=== PATIENT | female | born 1970 | race Caucasian/White ===

== ENCOUNTER 2019-12-31 10:27 | Outpatient (REF) | payer OTHER, SELFPAY ==
--- NOTE | 2019-12-31 | US_ITS ---
EXAMINATION: US ABDOMEN COMPLETE CLINICAL INFORMATION: GONZALEZ COMPARISON: 11/06/2018 TECHNIQUE: Real-time imaging of the abdominal viscera. FINDINGS: PANCREAS: The visualized pancreatic head and body are normal in appearance. The remainder of the pancreas is obscured from visualization by the overlying bowel gas. ABDOMINAL AORTA: The proximal, middle, and distal aortic segments are normal in caliber. INFERIOR VENA CAVA: Visualized portions are normal. LIVER: Diffuse increased echogenicity. No focal lesion or intrahepatic biliary duct dilatation. GALLBLADDER: Surgically absent COMMON BILE DUCT: Proximally measures 1.1 cm. RIGHT KIDNEY: Normal. No hydronephrosis. No renal calculi or focal parenchymal lesions. The kidney measures 11.9 cm in maximum dimension. LEFT KIDNEY: Normal. No hydronephrosis. No renal calculi or focal parenchymal lesions.. The kidney measures 12.6 cm in maximum dimension. SPLEEN: Normal. The spleen measures 11.3 cm in maximum dimension. FREE FLUID: None. IMPRESSION: 1. Diffuse increased liver echogenicity, nonspecific, more commonly seen with hepatic steatosis. No focal lesions. 2. Status postcholecystectomy. 3. CBD is prominent measuring 1.1 cm. This could be related to cholecystectomy. Correlate with liver function tests.
[2019-12-31 11:51] LABS: Alanine Aminotransferase 64 U/L (0-31); Albumin Level 3.9 g/dL (3.5-5.0); Alkaline Phosphatase 107 U/L (39-117); Anion Gap 13 (12-20); Aspartate Amino Transferase 53 U/L (5-31); Bilirubin Total 0.7 mg/dL (0.0-1.0); Blood Urea Nitrogen 9 mg/dL (9-16); Calcium 8.7 mg/dL (8.4-10.2); Carbon Dioxide 24 mmol/L (22-29); Chloride 105 mmol/L (96-108); Estimated Glomerular Filt Rate > 60; Glucose Random 104 mg/dL (60-115); Sodium 138 mmol/L (135-145); Total Protein 7.1 g/dL (6.5-8.0)
[2020-01-07 07:52] LABS: Alpha Fetoprotein 1.6 ng/mL
== END 2019-12-31 10:28 | disposition home or self-care (01) ==
LOC: HO.US 10:27
PROVIDERS: PCP Internal Medicine; Visit Provider Nurse Practitioner
DX: K75.81 Nonalcoholic steatohepatitis (NASH) (principal)
CPT/HCPCS: 76700; 80053; 82105

== ENCOUNTER 2020-01-06 09:31 | Outpatient (REF) | payer OTHER, SELFPAY | END 2020-01-06 09:32 | disposition home or self-care (01) | LOC: HO.LAB 09:31 | PROVIDERS: PCP Internal Medicine; Visit Provider Internal Medicine | DX: Z20.828 Contact with and (suspected) exposure to other viral communicable diseases (principal) | CPT/HCPCS: 87635 ==

== ENCOUNTER → 2020-01-14 13:13 | Outpatient (BNVA) | payer OTHER, SELFPAY | PROVIDERS: PCP Internal Medicine; Referring Provider Internal Medicine; Visit Provider Nurse Practitioner | DX: K21.9 Gastro-esophageal reflux disease without esophagitis (principal); K75.81 Nonalcoholic steatohepatitis (NASH); R09.82 Postnasal drip; K91.5 Postcholecystectomy syndrome; K58.2 Mixed irritable bowel syndrome; Z79.899 Other long term (current) drug therapy | CPT/HCPCS: 99214 ==

== ENCOUNTER → 2020-02-05 10:54 | Outpatient (REF) | payer OTHER, SELFPAY ==
--- NOTE | 2020-02-05 11:00 | CA_ITS ---
Acquisition Time: 2020-02-05 11:19:37 Total Exercise Time: 00:06:35 Test Indications: Chest Pain Medications: SEE H Protocol: KRISTIN Max HR: 150 BPM 88% of Pred: 169 BPM Max BP: 120/080 mmHG Max Work Load: 7.8 METS Exercise stress ECHO using Kristin protocol, total of 6 min 35 sec. METS 7.8, THR up to 88%. Pt tolerated well, denies any anginal sx. EKG without any arrhythmias, no ischemic changes seen on EKG tracing during exercise or in recovery. ECHO images taken at rest and immediately at peak exercise, Definity contrast used to obtain better imaging. Normotensiver esponse to exercise. Test reviewed with Dr. Acevedo Referred By: Pravin Guzman Overread By: Percy Bustamante
== END ==
LOC: HO.CARD 10:54
PROVIDERS: PCP Internal Medicine Cardiovascular Disease; Visit Provider Internal Medicine Cardiovascular Disease
DX: R07.9 Chest pain, unspecified (principal)
CPT/HCPCS: 93350; Q9957

== ENCOUNTER → 2020-02-06 13:20 | Outpatient (BNVA) | payer OTHER, SELFPAY | PROVIDERS: PCP Internal Medicine; Visit Provider Nurse Practitioner | DX: K75.81 Nonalcoholic steatohepatitis (NASH) (principal); K21.9 Gastro-esophageal reflux disease without esophagitis; R09.82 Postnasal drip; K58.2 Mixed irritable bowel syndrome; Z90.49 Acquired absence of other specified parts of digestive tract | CPT/HCPCS: Q3014 ==

== ENCOUNTER 2020-02-11 08:49 | Outpatient (REF) | payer OTHER, SELFPAY | END 2020-02-11 08:50 | disposition home or self-care (01) | LOC: HO.LAB 08:49 | PROVIDERS: Visit Provider Internal Medicine | DX: Z20.828 Contact with and (suspected) exposure to other viral communicable diseases (principal) | CPT/HCPCS: C9803; U0003 ==

== ENCOUNTER → 2020-04-16 11:20 | Outpatient (BNVA) | payer OTHER, SELFPAY | PROVIDERS: PCP Internal Medicine; Visit Provider Surgery Vascular Surgery | DX: I83.11 Varicose veins of right lower extremity with inflammation (principal) | CPT/HCPCS: 99202 ==

== ENCOUNTER → 2020-04-22 13:04 | Outpatient (BNVA) | payer OTHER, SELFPAY | PROVIDERS: PCP Internal Medicine; Visit Provider Internal Medicine Pulmonary Disease | DX: J45.40 Moderate persistent asthma, uncomplicated (principal); J20.9 Acute bronchitis, unspecified | CPT/HCPCS: 99212 ==

== ENCOUNTER 2020-04-30 10:26 | Outpatient (REF) | payer OTHER, SELFPAY ==
--- NOTE | ~2020-04-30 | US_ITS ---
EXAMINATION: RIGHT and LEFT LOWER EXTREMITY VENOUS ULTRASOUND (Reflux Exam) CLINICAL INDICATION: Varicose veins right lower extremity with inflammation COMPARISON: None. TECHNIQUE: Color flow triplex imaging and compression Doppler was performed to evaluate both the deep and the superficial systems bilaterally. To evaluate the superficial system, the examination was performed in the upright position. Color-flow Doppler ultrasound and compression ultrasound were utilized. In addition, maneuvers were utilized to demonstrate reflux. FINDINGS: 1. DEEP VENOUS ULTRASOUND OF THE RIGHT LOWER EXTREMITY: Respiratory variation, normal compression and augmented flow are noted in the right common femoral vein as well as the right popliteal vein and there is no evidence of deep venous thrombosis at these locations. There is no evidence of reflux in the deep system in either the common femoral vein or the popliteal vein. There is no evidence of a Ayers's cyst. 2. SUPERFICIAL ULTRASOUND WITH DOPPLER OF RIGHT LOWER EXTREMITY: The right great saphenous vein at the saphenofemoral junction measures 5 mm, at the mid thigh it was not visualized, zwfep-gfc-iqet 1 mm, cmekp-xlg-ijwz 4 mm, at mid calf 3 mm and at the ankle measures 3 mm. There was reflux demonstrated within the greater saphenous vein at the level of the knee and below the knee up to approximately 2.6 seconds of insufficiency. The right small saphenous vein measures 2 mm and shows no reflux. There is a 3 mm etiquette coach seen in the right mid thigh without reflux. Right proximal and distal thigh varicose veins are present measuring up to 4 mm in diameter without reflux. 3. DEEP VENOUS ULTRASOUND OF THE LEFT LOWER EXTREMITY: Respiratory variation, normal compression and augmented flow are noted in the left common femoral vein as well as the left popliteal vein and there is no evidence of deep venous thrombosis at these locations. There is no evidence of reflux in the deep system in either the common femoral vein or the popliteal vein. . There is no evidence of a Ayers's cyst. 4. SUPERFICIAL ULTRASOUND WITH DOPPLER OF LEFT LOWER EXTREMITY: Left great saphenous vein at the saphenofemoral junction measures 7 mm, at the mid thigh 3 mm, yixrk-urx-urad 3 mm, ctpnh-wxv-zhxd 3 mm, at mid calf 2 mm and at the ankle measures 2 mm. There is no reflux demonstrated in the left great saphenous vein. The left small saphenous vein measures 2 mm and shows reflux within the distal calf to approximately 1 second duration. There is a 3 mm mid thigh etiquette coach without reflux. There is a proximal thigh varicose vein measures approximately 4 mm in diameter without reflux. US/US venous duplex LE BI IMPRESSION: 1. No evidence of reflux or thrombus in the common femoral veins or popliteal veins bilaterally. 2. Reflux to greater than 2.5 seconds within the right greater saphenous vein at the levels of the knee and below the knee without reflux identified at the saphenofemoral junction. 3. Left small saphenous vein reflux to approximately 1 second within the distal calf.
== END 2020-04-30 10:27 | disposition home or self-care (01) ==
LOC: HO.US 10:26
PROVIDERS: PCP Internal Medicine; Visit Provider Surgery Vascular Surgery
DX: I83.11 Varicose veins of right lower extremity with inflammation (principal); I83.893 Varicose veins of bilateral lower extremities with other complications
CPT/HCPCS: 93970

== ENCOUNTER → 2020-05-12 10:47 | Outpatient (BNVA) | payer OTHER, SELFPAY | PROVIDERS: PCP Internal Medicine; Visit Provider Surgery Vascular Surgery | DX: I83.11 Varicose veins of right lower extremity with inflammation (principal) | CPT/HCPCS: 99212 ==

== ENCOUNTER 2020-05-20 09:09 | Outpatient (REF) | payer OTHER, SELFPAY ==
--- NOTE | 2020-05-20 09:08 | EMG_ITS ---
HISTORY OF PRESENT ILLNESS: This is a 50-year-old woman with 8-month history of pain and numbness in the upper extremities bilaterally symmetrical. She has hypothyroidism, diabetes, and hypertension, is currently on metformin, Synthroid, and metoprolol. PHYSICAL EXAMINATION: On examination, she is alert and oriented with normal intellectual functions. Cranial nerves II through XII are normal. Muscle tone and strength are normal in all 4 extremities. No Tinel or Phalen sign. IMPRESSION: Rule out carpal tunnel syndrome. Nerve conduction EMG study: Normal electrodiagnostic study of the upper extremities with no evidence of diffuse neuropathy, nerve entrapment, or carpal tunnel syndrome. Normal EMG of the left C5 through T1 innervated muscles. MD HIEU Mccarty/RADHA / [id number]
== END 2020-05-20 09:10 | disposition home or self-care (01) ==
LOC: HO.NEURO 09:09
PROVIDERS: Visit Provider Internal Medicine
DX: G56.03 Carpal tunnel syndrome, bilateral upper limbs (principal)
CPT/HCPCS: 95885; 95913

== ENCOUNTER → 2020-05-22 13:36 | Outpatient (BNVA) | payer OTHER, SELFPAY | PROVIDERS: PCP Internal Medicine; Visit Provider Internal Medicine Pulmonary Disease | DX: Z13.89 Encounter for screening for other disorder (principal) | CPT/HCPCS: Q3014 ==

== ENCOUNTER 2020-06-09 08:30 | Outpatient (REF) | payer OTHER, SELFPAY | END 2020-06-09 08:31 | disposition home or self-care (01) | LOC: HO.LAB 08:30 | PROVIDERS: Visit Provider Internal Medicine | DX: Z20.822 Contact with and (suspected) exposure to COVID-19 (principal) | CPT/HCPCS: 36415; C9803; U0003; U0005 ==

== ENCOUNTER → 2020-07-31 14:49 | Outpatient (BNVA) | payer OTHER, SELFPAY | PROVIDERS: PCP Internal Medicine; Referring Provider Internal Medicine; Visit Provider Nurse Practitioner | DX: K58.2 Mixed irritable bowel syndrome (principal); K91.5 Postcholecystectomy syndrome; K21.9 Gastro-esophageal reflux disease without esophagitis; K75.81 Nonalcoholic steatohepatitis (NASH); R19.7 Diarrhea, unspecified | CPT/HCPCS: Q3014 ==

== ENCOUNTER 2020-08-04 11:04 | Outpatient (REF) | payer OTHER, SELFPAY ==
[2020-08-04 12:40] LABS: Alanine Aminotransferase 47 U/L (0-31); Albumin Level 3.8 g/dL (3.5-5.0); Alkaline Phosphatase 114 U/L (39-117); Anion Gap 12 (12-20); Aspartate Amino Transferase 42 U/L (5-31); Bilirubin Total 0.6 mg/dL (0.0-1.0); Blood Urea Nitrogen 9 mg/dL (9-16); Carbon Dioxide 26 mmol/L (22-29); Chloride 106 mmol/L (96-108); Estimated Glomerular Filt Rate > 60; Glucose Random 99 mg/dL (60-115); Sodium 140 mmol/L (135-145); Total Protein 7.1 g/dL (6.5-8.0)
[2020-08-05 12:11] LABS: Alpha Fetoprotein 1.9 ng/mL
[2020-08-07 21:52] LABS: Gliadin Deamidated IgA Ab 13 Units; Gliadin Deamidated IgG Ab 2 Units; Transglutaminase Ab IgG 1 U/mL; Transglutaminase IgA 1 U/mL
== END 2020-08-04 11:05 | disposition home or self-care (01) ==
LOC: HO.LAB 11:04
PROVIDERS: PCP Internal Medicine; Visit Provider Nurse Practitioner
DX: R19.7 Diarrhea, unspecified (principal); K75.81 Nonalcoholic steatohepatitis (NASH)
CPT/HCPCS: 36415; 80053; 82105; 83516

== ENCOUNTER 2020-08-06 13:28 | Outpatient (REF) | payer OTHER, SELFPAY ==
[2020-08-06 14:15] LABS: CDIFF Ag Negative (Negative); CDIFF Internal ctrl Dots and bkg OK (V); CDiff Toxin Negative (Negative)
== END 2020-08-06 13:29 | disposition home or self-care (01) ==
LOC: HO.LNP 13:28
PROVIDERS: Visit Provider Nurse Practitioner
DX: R19.7 Diarrhea, unspecified (principal)
CPT/HCPCS: 87045; 87046; 87077; 87324; 87338; 87449

== ENCOUNTER → 2020-08-27 14:09 | Outpatient (BNVA) | payer OTHER, SELFPAY | PROVIDERS: PCP Internal Medicine; Visit Provider Internal Medicine Pulmonary Disease | DX: J45.40 Moderate persistent asthma, uncomplicated (principal); J20.9 Acute bronchitis, unspecified; Z91.09 Other allergy status, other than to drugs and biological substances | CPT/HCPCS: 99212 ==

== ENCOUNTER → 2020-09-15 14:49 | Outpatient (BNVA) | payer OTHER, SELFPAY | PROVIDERS: Visit Provider Nurse Practitioner | DX: Z13.89 Encounter for screening for other disorder (principal) | CPT/HCPCS: Q3014 ==

== ENCOUNTER → 2020-10-27 09:43 | Outpatient (BNVA) | payer OTHER, SELFPAY | PROVIDERS: Visit Provider Nurse Practitioner | DX: K21.9 Gastro-esophageal reflux disease without esophagitis (principal); K75.81 Nonalcoholic steatohepatitis (NASH); K91.5 Postcholecystectomy syndrome; R14.0 Abdominal distension (gaseous); R19.7 Diarrhea, unspecified | CPT/HCPCS: Q3014 ==

== ENCOUNTER 2020-11-09 08:42 | Outpatient (REF) | payer OTHER, SELFPAY ==
--- NOTE | ~2020-11-09 | US_ITS ---
EXAMINATION: US ABDOMEN LIMITED CLINICAL INFORMATION: GONZALEZ. COMPARISON: None TECHNIQUE: Real-time imaging of the right upper quadrant abdominal viscera. FINDINGS: PANCREAS: Normal. LIVER: The liver is normal in size. The liver contour is normal. Parenchymal echogenicity is increased No focal hepatic lesion. There is no intrahepatic biliary duct dilatation seen. GALLBLADDER: Normal. The gallbladder is physiologically distended without evidence of stones, sludge, polyps, wall thickening or pericholecystic fluid. COMMON BILE DUCT: Normal in caliber measuring 0.2 cm in diameter. RIGHT KIDNEY: Normal. No hydronephrosis. No renal calculi or focal parenchymal lesions. The kidney measures 11.4 cm in maximum dimension. FREE FLUID: None. US/US abdomen limited IMPRESSION: Hepatic steatosis without focal lesion.
== END 2020-11-09 08:43 | disposition home or self-care (01) ==
LOC: HO.US 08:42
PROVIDERS: Visit Provider Nurse Practitioner
DX: K75.81 Nonalcoholic steatohepatitis (NASH) (principal)
CPT/HCPCS: 76705

== ENCOUNTER 2020-11-26 12:01 | Outpatient (REF) | payer OTHER, SELFPAY ==
--- NOTE | ~2020-11-26 | XR_ITS ---
EXAMINATION: XR ELBOW, RIGHT CLINICAL INFORMATION: Pain right elbow COMPARISON: None TECHNIQUE: AP, lateral, and oblique views of the right elbow. FINDINGS: There is normal bony mineralization. No fracture, dislocation, destructive process, or capsular effusion. There is no joint narrowing or erosive change. There is question of early spurring medial epicondyle on AP view. No olecranon spur. XR/XR elbow RT min 3V IMPRESSION: 1. No fracture, arthropathy, or effusion. 2. Question early medial epicondylar spur.
== END 2020-11-26 12:02 | disposition home or self-care (01) ==
LOC: HO.XRAY 12:01
PROVIDERS: PCP Internal Medicine; Visit Provider Internal Medicine
DX: M25.521 Pain in right elbow (principal)
CPT/HCPCS: 73080

== ENCOUNTER → 2020-12-08 11:03 | Outpatient (BNVA) | payer OTHER, SELFPAY | PROVIDERS: PCP Internal Medicine; Referring Provider Internal Medicine; Visit Provider Nurse Practitioner | DX: Z48.815 Encounter for surgical aftercare following surgery on the digestive system (principal); K91.5 Postcholecystectomy syndrome; K21.9 Gastro-esophageal reflux disease without esophagitis; K75.81 Nonalcoholic steatohepatitis (NASH) | CPT/HCPCS: 99212 ==

== ENCOUNTER → 2020-12-15 08:59 | Outpatient (REF) | payer OTHER, SELFPAY ==
--- NOTE | ~2020-12-15 | NM_ITS ---
Exercise Myocardial perfusion study Indication: Shortness of breath evaluate for myocardial ischemia Technique: The patient was brought in for an exercise perfusion study on 12/15/2020. Patient performed exercise as per Travis protocol and was injected 28 mCi of sestamibi was given intravenously one target HR was achieved. Images were obtained using the SPECT gamma camera interlaced with the gating device. Images were obtained in supine position. Resting perfusion study was performed on 12/16/2020. Patient was administered 28 mCi of sestamibi intravenously at rest. Images were then obtained in supine position. Images obtained with and without CT attenuation. Total DLP 117 mGy-cm. Images were processed with the software and compared side to side in short axis, horizontal long axis and vertical long axis views. Findings: The stress perfusion study showed nonattenuated images show mildly reduced uptake in the distal lateral wall of the LV myocardium is normally myocardium is normally perfused. Attenuation corrected images show attenuation corrected images show mildly reduced uptake in the apex of the LV myocardium.. The gated study shows normal LV systolic function with calculated LVEF of greater than 70 %. LV cavity is normal in size. The gated study shows normal systolic wall thickening and contraction of all segments. There is no transient ischemic dilation. Resting study shows nonattenuated images show mildly reduced uptake in the basal lateral wall of the LV myocardium. Attenuation corrected images are suboptimal uptake, as well as mildly to moderately thick anterior wall and apex with mild fixed defect of the LV myocardium.. Gating at rest reveals normal systolic wall motion with ejection fraction at 69%. The findings are consistent with no clear reversible defect suggestive of myocardial. NM/NM haja perf SPECT rest & str Impression: 1. Likely normal myocardial perfusion 2. Gated LVEF is greater than 70% 3. Transient ischemic dilatation not present Stress EKG is negative for ischemia
--- NOTE | 2020-12-15 09:00 | CA_ITS ---
Acquisition Time: 2020-12-15 09:19:04 Total Exercise Time: 00:07:01 Test Indications: CP, SOB Medications: SEE CHART Protocol: KRISTIN Max HR: 150 BPM 89% of Pred: 168 BPM Max BP: 128/070 mmHG Max Work Load: 8.5 METS Exercise stress test with exercise 7 min 1 sec of Kristin protocol, with mild to mod sob, no chest discomfort, without arrythmia, with normotensive response to exercise, without EKG changes meeting criteria for ischemia. Nuclear images pending. Test reviewd with Dr Acevedo,. Referred By: Hitesh Koehler Overread By: LOULOU WEST
== END ==
LOC: HO.CARD 08:59
PROVIDERS: Visit Provider Physician Assistant Medical
DX: R06.02 Shortness of breath (principal)
CPT/HCPCS: 78452; 93017; A9500

== ENCOUNTER → 2020-12-25 09:03 | Outpatient (BNVA) | payer OTHER, SELFPAY | PROVIDERS: Visit Provider Physician Assistant | DX: M77.01 Medial epicondylitis, right elbow (principal) | CPT/HCPCS: 99202 ==

== ENCOUNTER 2021-01-06 11:11 | Outpatient (RCR) | payer OTHER, SELFPAY ==
--- NOTE | 2021-01-06 12:45 | MHC.OT.OEV ---
[address] [phone] F: [phone] Occupational Therapy Evaluation Diagnosis: MEDIAL EPICONDYLITIS, RIGHT ELBOW Date of Onset: 07/18/20 Attending Provider: Rufino Lay Prescribed Treatment: EVAL AND TREAT History of Current Condition: REPORTS A FIVE MONTH HISTORY OF RIGHT ELBOW PAIN, LOCATED AT MEDIAL ASPECT. DENIES CHANGES IN ROUTINE OR BEGINNING NEW HOBBY/ WORK RELATED TASK. PROVIDED WITH CFB IN ORTHOPEDIC OFFICE. Significant Medical History: PRE-DIABETIC Precautions/Contraindications: LANGUAGE BARRIER Patient Goals: TO DECREASE PAIN AND RETURN TO DAILY ACTIVITIES Hand Dominance: Right Observations: CFB WORN TO R MEDIAL FOREARM QuickDASH Score: 89% Prior Level of Function and Occupation Self Care, Employment, Leisure: DISABLED. 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 MODERATE DIFFICULTIES WITH OPENING TIGHT JAR. UNABLE TO HOLD A GALLON OF MILK, ABLE TO CARRY <5 POUNDS IN RIGHT HAND. Sleep: REPORTS PAIN GREATEST AT NIGHT, UNABLE TO SLEEP. WAKES UP OFTEN DUE TO PAIN. Driving: DOES NOT DRIVE Pain Assessment Pain Score: 5-9/10 Pain Scale Used: Numeric (0 - 10) Pain Location and Description: R MEDIAL ELBOW 5/10 AT REST 9/10 WITH USE AND AT NIGHT Aggravating Factors: REPETITIVE MOVEMENT, LIFTING AND CARRYING >5 POUNDS Alleviating Factors: USE OF CFB, HAS NOT TRIED ICE/HEAT, IBUPROFEN HELPING Skin and Soft Tissue Assessment Skin and Soft Tissue: Swelling Comments: REPORTS EDEMA TO MEDIAL ELBOW ON RIGHT Nerve assessment Comments: REPORTS CONSTANT NUMBNESS IN ALL DIGITS OF R HAND Dexterity Assessment Dexterity: WFL Comments: AROM(PROM) Strength Elbow Flexion: Extension: Pronation: Supination: Comments: WFL Flexion: Extension: Pronation: Supination: Comments: Digits Index MCP: PIP: DIP: Long MCP: PIP: DIP: Ring MCP: PIP: DIP: Small MCP: PIP: DIP: Comments: Gross Grasp: R 25, L 15 Lateral Pinch: Two-Point Pinch: Three-Jaw Eleazar: Comments: CFB WORN FOR [address] SUPERVISOR TESTING ON RIGHT; 25 POUNDS ELBOW FLEXED, 5 POUNDS ELBOW EXTENDED NO CFB - [address] SUPERVISOR TESTING ON LEFT 15 POUNDS ELBOW FLEXED, 10 POUNDS ELBOW EXTENDED Patient Education Primary Language: Information Scientist Required: Yes Current Knowledge: Understands information with skills for self-management Teaching Method: Demonstration Handouts Verbal Education Needs Identified on Evaluation: ADL's Disease Information Equipment Use Exercise Pain Safety How did patient/family demonstrate learning? Patient demonstrates Patient verbalizes Barriers to Learning: None Readiness for Learning: Accepting Who was educated? Patient Comments: [employer] #[id number] Plan of Care Assessment: IHSAN REPORTS A FIVE MONTH HISTORY OF R MEDIAL ELBOW PAIN. WAS PROVIDED WITH A CFB IN THE ORTHOPEDIC OFFICE AND REPORTS RELIEF SINCE USING BRACE DURING THE DAY. ADDITIONALLY, SHE REPORTS NEW ONSET OF LEFT LATERAL ELBOW PAIN. AN 89% LIMITATION IS REPORTED PER THE QUICK DASH ASSESSMENT. SHE REPORTS MOST DIFFICULTIES WITH HOUSEHOLD TASKS INCLUDING COOKING AND CLEANING, WELL LIFTING AND CARRYING ITEMS. Pt EDUCATED ON MECHANISM OF INJURY AND JOINT PROTECTION. ONGOING SKILLED OT IS WARRANTED TO ACHIEVE OPTIMAL FUNCTIONAL LEVEL WITH AREAS MENTIONED ABOVE. STG Duration: 2 WEEKS Short Term Goals: IND HEP IND JOINT PROTECTION AND ACTIIVTY MODIFICATION IND USE OF CFB IND USE OF HEAT/ICE REPORT <3/10 PAIN AT REST LTG Duration: 4 WEEKS Wound Care Rn Goals: REPORT MIN INTERRUPTIONS WITH SLEEPING USING COMPENSATORY STRATEGIES QUICK DASH <70% TOLERATE LIFTING 10 POUNDS WITH <5/10 PAIN USING GOOD BODY MECHANICS R GRASP >40 POUNDS Frequency and Duration: The patient will be seen 2X/WEEK FOR 4 WEEKS Treatment Plan: Therapeutic Exercise Therapeutic Activity Home Exercise Program Splinting Neuro Re-ed Patient Education Desensitization/Sensory Re-ed Edema Control ADL Training Ultrasound NMES Iontophoresis Paraffin Fluidotherapy MHP Cold Packs Joint Mobilization Soft Tissue Mobilization Kinesiotaping Electronically Signed By: LIS FRIEDMAN OTR/L Reviewed/agree with student documentation: N/A Therapist: Please sign and return to therapist, Thank you for your referral.
--- NOTE | 2021-01-19 07:50 | MHC.OT.DC ---
[address] [phone] F: [phone] Occupational Therapy Discharge Note Provider: Rufino Lay Diagnosis: MEDIAL EPICONDYLITIS, RIGHT ELBOW Date of Evaluation: 01/06/21 Date of Discharge: 01/19/21 Treatments to Date: 1 Cancellations to Date: 2 No Shows to Date: 2 Discharge Status: Visit Non-compliance Discharge Summary: PATIENT ATTENDED INITIAL EVALUATION FOLLOWED BY TWO CANCELLATIONS AND TWO NO-SHOWS. PER CORE ATTENDANCE POLICY, Pt WILL BE DISCHARGED. Electronically Signed By: LIS FRIEDMAN OTR/Annie Reviewed/agree with student documentation: N/A Therapist: Please Sign and return to therapist, thank you for your referral.
== END 2021-01-19 07:50 | disposition home or self-care (01) ==
LOC: HO.OT 11:11
PROVIDERS: Visit Provider Physician Assistant
DX: M77.01 Medial epicondylitis, right elbow (principal)
CPT/HCPCS: 97110; 97165

== ENCOUNTER → 2021-01-07 14:41 | Outpatient (BNVA) | payer OTHER, SELFPAY | PROVIDERS: PCP Internal Medicine; Visit Provider Internal Medicine Pulmonary Disease | DX: J45.40 Moderate persistent asthma, uncomplicated (principal); J20.9 Acute bronchitis, unspecified; R04.2 Hemoptysis; J44.9 Chronic obstructive pulmonary disease, unspecified; Z88.8 Allergy status to other drugs, medicaments and biological substances | CPT/HCPCS: 99212 ==

== ENCOUNTER 2021-04-23 07:39 | Outpatient (REF) | payer OTHER, SELFPAY ==
--- NOTE | ~2021-04-23 | MM_ITS ---
EXAMINATION: MM SCREENING DIGITAL BREAST TOMOSYNTHESIS, BILATERAL CLINICAL INFORMATION: Screening. Asymptomatic. The lifetime risk of breast cancer based on the Tyrer-Cuzick Model is 6%. COMPARISON: Mammography: 09/12/2019, 09/06/2018, 02/24/2017 TECHNIQUE: Digital breast tomosynthesis is performed in both the craniocaudal and mediolateral oblique views along with computer-aided detection (CAD). Synthesized 2D images are generated from the tomosynthesis. FINDINGS: The breasts are heterogeneously dense, which may obscure small masses (ACR BI-RADS breast composition Category c). There are no significant masses, abnormal calcifications, or other abnormalities. Parenchymal pattern is similar to prior studies. There is no developing density or architectural abnormality. The axilla and skin contours are unremarkable. No significant changes. MM/MM tomosynthesis screening BI IMPRESSION: No mammographic evidence of malignancy. ASSESSMENT: BI-RADS 1: Negative RECOMMENDATION: Routine annual mammography screening. This patient's information was entered into a reminder system with a target due date for their next mammogram.
== END 2021-04-23 07:40 | disposition home or self-care (01) ==
LOC: HO.MAMMO 07:39
PROVIDERS: PCP Internal Medicine; Visit Provider Internal Medicine
DX: Z12.31 Encounter for screening mammogram for malignant neoplasm of breast (principal)
CPT/HCPCS: 77063; 77067

== ENCOUNTER 2021-06-01 11:09 | Outpatient (REF) | payer OTHER, SELFPAY ==
[2021-06-01 12:18] LABS: MANUAL DIFF FLAG NO
[2021-06-01 12:42] LABS: Basophils Absolute Auto 0.1 X10*3/uL (0.0-0.2); Basophils Percent Auto 0.5 % (0-2); Eosinophils Absolute Auto 0.3 X10*3/uL (0.0-0.4); Eosinophils Percent Auto 3.3 % (0-4); Hematocrit 42.5 % (37.0-47.0); Hemoglobin 13.7 g/dl (12.0-16.0); Imm Gran Abs Auto 0.08 X10*3/uL (0.00-0.03); Imm Gran Pct Auto 0.8 % (0.0-0.4); Lymphocytes Absolute Auto 1.6 X10*3/uL (1.2-4.9); Lymphocytes Percent Auto 16.8 % (20-40); Mean Corpuscular HGB Conc 32.2 g/dl (31.0-35.0); Mean Corpuscular Hemoglobin 28.3 pg (27.0-33.0); Mean Corpuscular Volume 87.8 fL (80.0-98.0); Monocytes Absolute Auto 0.7 X10*3/uL (0.1-1.2); Monocytes Percent Auto 7.3 % (2-11); Neutrophils Percent Auto 71.3 % (45-73); Platelet Count 376 X10*3/uL (160-400); Red Blood Count 4.84 X10*6/uL (4.20-5.50); Red Cell Distribution Width 13.8 % (11.0-16.0); White Blood Count 9.8 X10*3/uL (4.8-10.8)
[2021-06-01 13:13] LABS: Alanine Aminotransferase 37 U/L (0-31); Albumin Level 3.8 g/dL (3.5-5.0); Alkaline Phosphatase 116 U/L (39-117); Anion Gap 14 (12-20); Aspartate Amino Transferase 26 U/L (5-31); Bilirubin Total 0.6 mg/dL (0.0-1.0); Blood Urea Nitrogen 8 mg/dL (9-16); Calcium 9.4 mg/dL (8.4-10.2); Carbon Dioxide 25 mmol/L (22-29); Chloride 104 mmol/L (96-108); Estimated Glomerular Filt Rate > 60; Glucose Random 120 mg/dL (60-115); Lipase 18 U/L (8-78); Potassium 4.5 mmol/L (3.3-5.1); Sodium 138 mmol/L (135-145); Total Protein 7.1 g/dL (6.5-8.0)
[2021-06-04 12:32] LABS: Alpha Fetoprotein 1.9 ng/mL
== END 2021-06-01 11:10 | disposition home or self-care (01) ==
LOC: HO.LAB 11:09
PROVIDERS: PCP Internal Medicine; Visit Provider Nurse Practitioner
DX: R10.13 Epigastric pain (principal); K75.81 Nonalcoholic steatohepatitis (NASH); K21.9 Gastro-esophageal reflux disease without esophagitis; K91.5 Postcholecystectomy syndrome
CPT/HCPCS: 36415; 80053; 82105; 83690; 85025; 99212

== ENCOUNTER 2021-06-28 11:00 | Outpatient (REF) | payer OTHER, SELFPAY ==
--- NOTE | ~2021-06-28 | US_ITS ---
EXAMINATION: US ABDOMEN COMPLETE CLINICAL INFORMATION: Nonalcoholic steatohepatitis (GONZALEZ). COMPARISON: Ultrasound abdomen limited 11/09/2020. TECHNIQUE: Real-time imaging of the abdominal viscera. FINDINGS: PANCREAS: Normal. ABDOMINAL AORTA: The proximal, mid, and distal segments are normal in caliber. INFERIOR VENA CAVA: Visualized portions are normal. LIVER: The liver is normal in size. The liver contour is normal. Parenchymal echogenicity is normal. No focal hepatic lesion. There is no intrahepatic biliary duct dilatation seen. GALLBLADDER: Surgically absent. COMMON BILE DUCT: Normal in caliber measuring 0.5 cm in diameter. RIGHT KIDNEY: Normal. No hydronephrosis. No renal calculi or focal parenchymal lesions. The kidney measures 12.0 cm in maximum dimension. LEFT KIDNEY: Normal. No hydronephrosis. No renal calculi or focal parenchymal lesions. The kidney measures 12.1 cm in maximum dimension. SPLEEN: Normal. The spleen measures 9.5 cm in maximum dimension. FREE FLUID: None. US/US abdomen complete IMPRESSION: Status post cholecystectomy. No intra or extrahepatic biliary duct dilatation. Otherwise unremarkable abdominal ultrasound.
--- NOTE | ~2021-06-28 | XR_ITS ---
EXAMINATION: XR LUMBOSACRAL SPINE CLINICAL INFORMATION: Low back pain and bilateral sciatica COMPARISON: Previous lumbar spine MRI October 2017 TECHNIQUE: Three views of the lumbosacral spine. FINDINGS: Bone alignment is normal. No fracture or dislocation is seen. There is mild degenerative spondylosis at L3-L4. Disc spaces are normal. Paraspinal soft tissues are normal. XR/XR lumbar spine 2-3V IMPRESSION: Mild degenerative spondylosis at L3-L4.
== END 2021-06-28 11:01 | disposition home or self-care (01) ==
LOC: HO.US 11:00
PROVIDERS: Absent Provider Emergency Medicine; PCP Internal Medicine; Referring Provider Internal Medicine; Visit Provider Nurse Practitioner
DX: R10.13 Epigastric pain (principal); K75.81 Nonalcoholic steatohepatitis (NASH); M54.41 Lumbago with sciatica, right side; M54.42 Lumbago with sciatica, left side
CPT/HCPCS: 72100; 76700

== ENCOUNTER 2021-06-30 01:10 | Emergency (ER) | payer OTHER, SELFPAY ==
--- NOTE | ~2021-06-30 | XR_ITS ---
EXAMINATION: XR CHEST CLINICAL INFORMATION: Chest pain COMPARISON: 07/23/2018 TECHNIQUE: Frontal view of the chest was obtained. FINDINGS: Normal symmetric lung volumes. No parenchymal consolidation. No pleural effusion. No pneumothorax. Cardiomediastinal silhouette and pulmonary vascularity are within normal limits. No acute osseous abnormalities. XR/XR chest 1V IMPRESSION: No acute findings
--- NOTE | ~2021-06-30 | US_ITS ---
EXAMINATION: US VENOUS ULTRASOUND WITH DOPPLER LOWER EXTREMITY, LEFT CLINICAL INFORMATION: Left leg swelling. Evaluate for DVT. COMPARISON: 04/30/2020 TECHNIQUE: Ultrasound of the deep veins is performed from the hip to the calf with compression sonography and color and pulse Doppler assessment. Spectral analysis with color-flow imaging is performed. FINDINGS: There is normal venous compression and respiratory variation and augmented flow. The visualized common femoral vein, superficial femoral vein, profunda femoral vein, popliteal vein, and the trifurcation region shows no evidence of deep venous thrombosis. There is no significant popliteal fossa cyst. If the patient's symptoms persist, followup ultrasound in 5 days 7 days might be of value to exclude proximal propagation from a non-visualized calf vein. US/US venous duplex LE LT IMPRESSION: No DVT demonstrated in the left lower extremity.
--- NOTE | 2021-06-30 01:22 | ECG_ITS ---
Test Reason : CHEST PAIN Blood Pressure : / mmHG Vent. Rate : 107 BPM Atrial Rate : 107 BPM P-R Int : 140 ms QRS Dur : 082 ms QT Int : 332 ms P-R-T Axes : 036 037 024 degrees QTc Int : 443 ms Sinus tachycardia Nonspecific ST and T wave abnormality Abnormal ECG When compared with ECG of 24-JUL-2018 00:22, No significant change was found Referred By: Generic ED Physician Electronically Signed By:Hood Villasenor
[2021-06-30 01:36] VITALS: BP 131/85; PULSE 104; RESP 18; TEMP 36.4; O2SAT 97; BMI 35.2
[2021-06-30 01:37] LABS: Hematocrit 41.3 % (37.0-47.0); Hemoglobin 14.1 g/dl (12.0-16.0); Mean Corpuscular HGB Conc 34.1 g/dl (31.0-35.0); Mean Corpuscular Hemoglobin 29.3 pg (27.0-33.0); Mean Corpuscular Volume 85.9 fL (80.0-98.0); Mean Platelet Volume 8.5 fL (9.4-12.3); Platelet Count 453 X10*3/uL (160-400); Red Blood Count 4.81 X10*6/uL (4.20-5.50); Red Cell Distribution Width 13.6 % (11.0-16.0); White Blood Count 11.2 X10*3/uL (4.8-10.8)
[2021-06-30 01:40] VITALS: BP 133/72; PULSE 97; RESP 18; TEMP 36.6; O2SAT 100
[2021-06-30 01:59] LABS: Troponin-I High Sensitivity < 3.5 ng/L (<3.5-17.0)
[2021-06-30 02:03] LABS: Alanine Aminotransferase 49 U/L (0-31); Albumin Level 4.1 g/dL (3.5-5.0); Alkaline Phosphatase 139 U/L (39-117); Anion Gap 16 (12-20); Aspartate Amino Transferase 31 U/L (5-31); Bilirubin Total 0.3 mg/dL (0.0-1.0); Blood Urea Nitrogen 9 mg/dL (9-16); Calcium 9.5 mg/dL (8.4-10.2); Carbon Dioxide 19 mmol/L (22-29); Chloride 108 mmol/L (96-108); Creatinine Clr Calc Pharmacy 78.9; Estimated Glomerular Filt Rate > 60; Glucose Random 120 mg/dL (60-115); Potassium 4.2 mmol/L (3.3-5.1); Sodium 139 mmol/L (135-145)
[2021-06-30 02:31] VITALS: BP 124/78; PULSE 85; RESP 16; O2SAT 98
--- NOTE | 2021-06-30 03:50 | ECG_ITS ---
Test Reason : CHEST PAIN Blood Pressure : / mmHG Vent. Rate : 086 BPM Atrial Rate : 086 BPM P-R Int : 144 ms QRS Dur : 084 ms QT Int : 364 ms P-R-T Axes : 047 053 042 degrees QTc Int : 435 ms Normal sinus rhythm Normal ECG When compared with ECG of 30-JUN-2021 01:17, No significant change was found Referred By: Generic ED Physician Electronically Signed By:Hood Villasenor
[2021-06-30 04:00] VITALS: BP 118/73; PULSE 80; RESP 14; O2SAT 100
[2021-06-30 04:34] LABS: Troponin-I High Sensitivity < 3.5 ng/L (<3.5-17.0)
--- NOTE | 2021-06-30 05:12 | ED.CHESTPAIN ---
HPI - Chest Pain General Chief Complaint: Chest Pain Stated Complaint: High BP/Leg pain/Chest tightness Time Seen by Provider: 06/30/21 04:57 Source: patient Mode of arrival: ambulatory History of Present Illness HPI narrative: 51-year-old female who presents emergency department for evaluation of chest pain, diarrhea, weakness, left leg pain. The patient states that she was in bed when her symptoms began around 23:00 hours. She states that she developed sudden onset of chest pain, she points to her left chest and sternum. She describes the pain as a tightness/hot sensation. The pain was moderate to severe in intensity. The pain was constant lasted approximately 2 hours. The pain did radiate to her left shoulder. She did feel short of breath and lightheaded with the pain. She also states that she had 4-5 episodes of loose diarrheal stool. The patient had nausea with no vomiting. She states that 1 week prior she did developed a sore throat which is still present. She denied fever but she did have shaking chills. She denied frequency, urgency or dysuria. She has not noticed any dark tarry stools or black stools. Patient has been vaccinated against COVID-19 with the Moderna 2 shots and a booster. Related Data Home Medications Medication Instructions Recorded Confirmed acetaminophen 300 mg-codeine 30 mg 1 tab PO Q12H PRN 04/22/20 tablet albuterol sulfate 2.5 mg INHALATION TID PRN 04/22/20 albuterol sulfate 90 mcg/actuation 2 puff INHALATION Q4-6H PRN 04/22/20 aerosol inhaler aspirin 81 mg tablet,delayed 81 mg PO DAILY 04/22/20 release bethanechol chloride 50 mg tablet 50 mg PO QID 04/22/20 citalopram 40 mg tablet 40 mg PO QAM 04/22/20 diclofenac sodium 1 % topical gel 2 g TOPICAL QID 04/22/20 furosemide 20 mg tablet 20 mg PO DAILY 04/22/20 gabapentin 400 mg capsule 400 mg PO TID 04/22/20 melatonin 5 mg tablet 10 mg PO BEDTIME 04/22/20 metoprolol succinate 25 mg 25 mg PO DAILY 04/22/20 tablet,extended release 24 hr multivitamin 1 tab PO DAILY 04/22/20 ropinirole 0.5 mg tablet 0.5 mg PO BEDTIME 04/22/20 simvastatin 10 mg tablet 10 mg PO BEDTIME 04/22/20 tamsulosin 0.4 mg capsule 0.4 mg PO DAILY 04/22/20 topiramate 25 mg tablet 50 mg PO BEDTIME 04/22/20 vitamin E (dl, acetate) 180 mg 400 unit PO BID 04/22/20 (400 unit) capsule amlodipine 2.5 mg tablet 2.5 mg PO DAILY 05/12/20 blood sugar diagnostic #10 ea 05/12/20 fluticasone propionate 50 0 mcg INTRANASAL 05/12/20 mcg/actuation nasal spray,suspension lancets 33 gauge #100 ea 05/12/20 metoprolol succinate 200 mg 200 mg PO DAILY 05/12/20 tablet,extended release 24 hr multivitamin-ferrous 0 tab PO 05/12/20 fumarate-folic acid 18 mg-400 mcg tablet nitrofurantoin 1 cap PO Q12H 07/31/20 monohydrate/macrocrystals 100 mg capsule amlodipine 5 mg tablet 5 mg PO DAILY 10/27/20 ropinirole 1 mg tablet 1 mg PO BEDTIME 10/27/20 multivitamin-iron sulfate 15 0 tab PO 06/01/21 mg-folic acid 400 mcg tablet (Tab-A-Ivan Multivitamin w-iron) Previous Rx's Medication Instructions Recorded guaifenesin 600 mg tablet, 600 mg PO BID 30 Days #60 tab 05/22/20 extended release 12 hr (Mucinex) pantoprazole 20 mg tablet,delayed 20 mg PO QAM 30 Days #30 tab 12/18/20 release (Protonix) levofloxacin 750 mg tablet 750 mg PO DAILY 7 Days #7 tab 01/07/21 bisacodyl 5 mg tablet,delayed 10 mg PO BEDTIME #60 tab 02/16/21 release simethicone 180 mg capsule 180 mg PO TID #90 cap 03/23/21 fluticasone 500 mcg-salmeterol 50 1 ea INHALATION BID #60 ea 05/17/21 mcg/dose blistr powdr for inhalation sucralfate 1 gram tablet 3 g PO DAILY #90 tab 06/01/21 Allergies Allergy/AdvReac Type Severity Reaction Status Date / Time niacin Allergy Intermediate TACHYCARDIA Verified 06/01/21 11:27 [From VI ,DIFF.BREAT EXTENDED-RELEASE] THIERRY citalopram [Celexa] Allergy Unknown unknown Verified 06/01/21 11:27 diltiazem [From CARTIA XT] Allergy Unknown UNKNOWN Verified 06/01/21 11:27 Review of Systems Review of Systems: Yes all other systems are reviewed and are negative [facility], [facility] Past Medical History [facility], [facility] Narrative: Social history: She denies tobacco, alcohol and drug use. Surgical History H/O prior ablation treatment History of cholecystectomy History of esophagogastroduodenoscopy (EGD) Family History Family History Father High blood pressure Cancer Mother Diabetes High blood pressure Sister Diabetes High blood pressure Thyroid disease Cancer Brother High blood pressure Asthma Social History Social History Alcohol intake: current Alcohol intake frequency: does not drink Patient Tobacco Use Status: Never used Tobacco Advance Directives: No Current occupational status: disabled Current occupation: rt handed Physical Exam Vital Signs: Vital Signs: Last Vital Signs Temp 97.9 F 06/30/21 01:40 Pulse 81 06/30/21 06:16 Resp 16 06/30/21 06:16 BP 118/73 06/30/21 06:16 Pulse Ox 100 06/30/21 06:16 BMI result Body Mass Index 35.2 Const: General: cooperative and no acute distress Orientation/consciousness: oriented to person and oriented to place Limitations: no limitations HEENT: Head: Yes normal to inspection, Yes normocephalic and Yes atraumatic Ears: external ears normal General nose exam: Normal external nose present Face and sinus: Yes normal facial exam Mouth: Normal oral and palatal mucosa present Throat: Yes posterior oropharynx normal Eyes: General: appearance normal, both eyes and all related structures Pupils: Equal, round and reactive pupils present Neck: Neck: Yes normal visual inspection, Yes no lymphadenopathy, Yes trachea midline and Yes supple Chest: Chest palpation & inspection: normal inspection of the chest and tenderness (Bilateral costochondral joints and sternal tenderness) Resp: Effort & Inspection: normal respiratory effort and able to speak in complete sentences Auscultation: clear to auscultation bilaterally Cardio: Rate: regular rate Rhythm: regular rhythm Heart sounds: S1 normal heart sound present, S2 normal heart sound present and no murmurs GI: Inspection: Yes normal to inspection Palpation (GI): Soft to palpation, nontender and no guarding Auscultation: normal bowel sounds : General: Yes no CVA tenderness Back/Spine/Pelvis: Back: no CVA tenderness Skin: General skin exam: no rashes or lesions noted Neuro: General: oriented to person and oriented to place Cranial nerves: Yes CN's II-XII intact bilaterally and Yes Equal, round and reactive pupils present Cognition (Neuro): normal cognition Motor exam (neuro): 5/5 motor strength present throughout Extrem: Other: Patient does have some tenderness palpation of her left calf, I do not perceive any difference in the size of her cap thighs however patient states that her left leg is swollen compared to her right Psych: Appearance: grossly normal Speech and movement: Normal speech and movement present Affect: normal affect Attitude: cooperative Thought process: Normal thought process present Thought content: Normal thought content present Course Course Course Narrative: 53-year-old female who presents emergency department for evaluation of sudden onset chest pain, shaking chills, nausea and diarrhea. The patient also noted swelling of her left lower extremity. Vital signs initially did reveal an elevated pulse of 104 with repeat pulse of 80. Vital signs otherwise unremarkable. Patient did have tenderness palpation of her costochondral joints in over her sternum. She also has some tenderness palpation of her left calf but her legs appear to be symmetric in size. Differential includes was not limited to myocardial infarction, costochondritis, pulmonary embolism, pneumonia, acute viral syndrome, GERD. Laboratory evaluation was ordered. EKG and chest x-ray was ordered 0518: Laboratory evaluation: CBC was normal. CMP revealed a low bicarb of 19, elevated glucose 120, elevated AST and ALT of 49 and 139. First high sensitivity troponin I was below detectable limits, 3 hour repeat high sensitivity troponin I was below detectable limits. Radiology evaluation: Chest x-ray was unremarkable. Duplex ultrasound left lower extremity is pending pending. Patient was given ibuprofen 600 mg orally for her discomfort. 0658: Patient feels better after receiving the ibuprofen. Duplex ultrasound of left lower extremity revealed no DVT. The patient was discharged home and advised to take ibuprofen Tylenol. She was given printed and verbal instructions. MDM - Chest Pain Lab Data Result diagrams: 06/30/21 01:35 06/30/21 01:35 Labs: Lab Results 04/06/30/21 06/30/21 Range/Units 01:35 01:35 01:35 WBC 11.2 H (4.8-10.8) X10*3/uL RBC 4.81 (4.20-5.50) X10*6/uL Hgb 14.1 (12.0-16.0) g/dl Hct 41.3 (37.0-47.0) % MCV 85.9 (80.0-98.0) fL MCH 29.3 (27.0-33.0) pg MCHC 34.1 (31.0-35.0) g/dl RDW 13.6 (11.0-16.0) % Plt Count 453 H (160-400) X10*3/uL MPV 8.5 L (9.4-12.3) fL Absolute Nucleated RBC 0.000 (0.0-0.012) X10*3/uL Nucleated RBC % (auto) 0.0 (0.0-0.2) /100WBC PT (9.9-13.0) SEC INR (0.9-1.1) APTT (24.1-38.0) SEC D-Dimer High Sensitivty NG/ML Sodium 139 (135-145) mmol/L Potassium 4.2 (3.3-5.1) mmol/L Chloride 108 (96-108) mmol/L Carbon Dioxide 19 L (22-29) mmol/L Anion Gap 16 (12-20) BUN 9 (9-16) mg/dL Creatinine 0.78 (0.5-1.4) mg/dL Estim Creat Clear Calc 78.9 Estimated GFR > 60 Random Glucose 120 H (60-115) mg/dL Calcium 9.5 (8.4-10.2) mg/dL Total Bilirubin 0.3 (0.0-1.0) mg/dL AST 31 (5-31) U/L ALT 49 H (0-31) U/L Alkaline Phosphatase 139 H (39-117) U/L Troponin I High Sens < 3.5 (<3.5-17.0) ng/L Total Protein 8.0 (6.5-8.0) g/dL Albumin 4.1 (3.5-5.0) g/dL 06/30/21 06/30/21 Range/Units 04:12 05:25 WBC (4.8-10.8) X10*3/uL RBC (4.20-5.50) X10*6/uL Hgb (12.0-16.0) g/dl Hct (37.0-47.0) % MCV (80.0-98.0) fL MCH (27.0-33.0) pg MCHC (31.0-35.0) g/dl RDW (11.0-16.0) % Plt Count (160-400) X10*3/uL MPV (9.4-12.3) fL Absolute Nucleated RBC (0.0-0.012) X10*3/uL Nucleated RBC % (auto) (0.0-0.2) /100WBC PT 11.5 (9.9-13.0) SEC INR 1.0 (0.9-1.1) APTT 28.5 (24.1-38.0) SEC D-Dimer High Sensitivty < 150 NG/ML Sodium (135-145) mmol/L Potassium (3.3-5.1) mmol/L Chloride (96-108) mmol/L Carbon Dioxide (22-29) mmol/L Anion Gap (12-20) BUN (9-16) mg/dL Creatinine (0.5-1.4) mg/dL Estim Creat Clear Calc Estimated GFR Random Glucose (60-115) mg/dL Calcium (8.4-10.2) mg/dL Total Bilirubin (0.0-1.0) mg/dL AST (5-31) U/L ALT (0-31) U/L Alkaline Phosphatase (39-117) U/L Troponin I High Sens < 3.5 (<3.5-17.0) ng/L Total Protein (6.5-8.0) g/dL Albumin (3.5-5.0) g/dL ECG Data ECG #1: Interpretation: 0353: Normal sinus rhythm rate of 86, normal NM interval, QRS duration QTC interval, no ST segment elevation, no ST segment depression, no PACs, no PVCs, inverted T-wave in V1, this is a normal EKG. Discharge Plan Discharge Clinical Impression: Acute costochondritis, Left leg swelling Patient Disposition: Home, Self-Care Instructions: Costochondritis (ED) Additional Instructions: Your laboratory evaluation was unremarkable. Your high sensitivity troponin I (marker for heart attack) was below detectable limits, your repeat 3 hour test was also below detectable limits. This is reassuring suggesting that your pain was not caused by a heart attack. Your chest x-ray was normal. The duplex ultrasound of your right lower extremity revealed no blood clot. At this time, I believe your chest pain is due to inflammation in the joints of your chest (costochondritis). Take ibuprofen 200 mg pills, 3 pills every 6 hours for the next 3 days that as needed for pain. Take Tylenol (acetaminophen) 500 mg pills, 2 pills every 4 to 6 hours as needed for pain. Follow-up with your doctor in 2 days. Please return to the emergency department if your symptoms get worse or if you develop any symptoms that are concerning to you. Please see work note Prescriptions: No Action pantoprazole [Protonix] 20 mg tablet,delayed release (DR/EC) 20 mg PO QAM 30 Days Qty: 30 6RF bisacodyl 5 mg tablet,delayed release (DR/EC) 10 mg PO BEDTIME Qty: 60 6RF simethicone 180 mg capsule 180 mg PO TID Qty: 90 3RF fluticasone propion-salmeterol 500-50 mcg/dose blister with device 1 ea inhalation BID Qty: 60 6RF aspirin 81 mg tablet,delayed release (DR/EC) 81 mg PO DAILY 0RF metoprolol succinate 25 mg tablet extended release 24 hr 25 mg PO DAILY 0RF tamsulosin 0.4 mg capsule 0.4 mg PO DAILY 0RF diclofenac sodium 1 % gel 2 g topical QID 0RF acetaminophen-codeine 300-30 mg tablet 1 tab PO Q12H PRN0RF albuterol sulfate 90 mcg/actuation HFA aerosol inhaler 2 puff inhalation Q4-6H PRN0RF albuterol sulfate 2.5 mg /3 mL (0.083 %) solution for nebulization 2.5 mg inhalation TID PRN0RF melatonin 5 mg tablet 10 mg PO BEDTIME 0RF ropinirole 0.5 mg tablet 0.5 mg PO BEDTIME 0RF topiramate 25 mg tablet 50 mg PO BEDTIME 0RF vitamin E (dl, acetate) 400 unit capsule 400 unit PO BID 0RF multivitamin Tablet 1 tab PO DAILY 0RF simvastatin 10 mg tablet 10 mg PO BEDTIME 0RF gabapentin 400 mg capsule 400 mg PO TID 0RF citalopram 40 mg tablet 40 mg PO QAM 0RF furosemide 20 mg tablet 20 mg PO DAILY 0RF bethanechol chloride 50 mg tablet 50 mg PO QID 0RF Tab-A-Ivan Multivitamin w-iron 18-400 mg-mcg tablet 0 tab PO 0RF fluticasone propionate 50 mcg/actuation spray,suspension 0 mcg intranasal 0RF amlodipine 2.5 mg tablet 2.5 mg PO DAILY 0RF metoprolol succinate 200 mg tablet extended release 24 hr 200 mg PO DAILY 0RF (DME) lancets 33 gauge misc See Rx Instructions ea .ROUTE .MEDSUPPLY Qty: 100 0RF Rx Instructions: As directed (DME) FreeStyle Lite Strips Strip See Rx Instructions strip Not Applicable DAILY Qty: 10 0RF Rx Instructions: As directed guaifenesin [Mucinex] 600 mg tablet extended release 12hr 600 mg PO BID 30 Days Qty: 60 3RF nitrofurantoin monohyd/m-cryst 100 mg capsule 1 cap PO Q12H 0RF amlodipine 5 mg tablet 5 mg PO DAILY 0RF ropinirole 1 mg tablet 1 mg PO BEDTIME 0RF Tab-A-Ivan Multivitamin w-iron 15 mg iron- 400 mcg tablet 0 tab PO 0RF sucralfate 1 gram tablet 3 g PO DAILY Qty: 90 6RF levofloxacin 750 mg tablet 750 mg PO DAILY 7 Days Qty: 7 0RF Stand Alone Forms: Work/School Release
[2021-06-30] MEDS: Ibuprofen 600 MG TABLET PO (05:27)
[2021-06-30 05:54] LABS: Prothrombin Time 11.5 SEC (9.9-13.0)
[2021-06-30 05:57] LABS: D Dimer High Sensitivity < 150 NG/ML; Partial Thromboplastin Time 28.5 SEC (24.1-38.0)
[2021-06-30 06:16] VITALS: BP 118/73; PULSE 81; RESP 16; O2SAT 100
== END 2021-06-30 07:35 | disposition home or self-care (01) ==
PROVIDERS: Emergency Provider Emergency Medicine Emergency Medical Services; PCP Internal Medicine
DX: M94.0 Chondrocostal junction syndrome [Tietze] (principal); R07.89 Other chest pain; R60.0 Localized edema; R19.7 Diarrhea, unspecified; Z79.899 Other long term (current) drug therapy
CPT/HCPCS: 36415; 71045; 80053; 84484; 85027; 85379; 85610; 85730; 93005; 93971; 99284

== ENCOUNTER → 2021-07-02 08:00 | Outpatient (BNVA) | payer OTHER, SELFPAY | PROVIDERS: PCP Internal Medicine; Referring Provider Internal Medicine; Visit Provider Nurse Practitioner | DX: K75.81 Nonalcoholic steatohepatitis (NASH) (principal); K21.9 Gastro-esophageal reflux disease without esophagitis; K91.5 Postcholecystectomy syndrome; Z79.899 Other long term (current) drug therapy | CPT/HCPCS: 99212 ==

== ENCOUNTER 2021-09-20 23:10 | Emergency (ER) | payer OTHER, SELFPAY ==
[2021-09-20 23:46] VITALS: BP 109/58; PULSE 74; RESP 16; TEMP 36.8; O2SAT 96; BMI 34.0
--- NOTE | 2021-09-21 01:00 | ED.EXTPRO ---
HPI - Extremity Problem General Chief complaint: Extremity Problem Stated complaint: Bilateral leg swelling Time Seen by Provider: 09/21/21 00:49 Source: patient and family Mode of arrival: ambulatory Limitations: no limitations History of Present Illness HPI Narrative: Patient With history of hypertension came here for leg edema for last 1 week increases in the evening time no shortness of breath no chest pain no pain in the legs no liver disease no abdominal distension Related Data Home Medications Medication Instructions Recorded Confirmed acetaminophen 300 mg-codeine 30 mg 1 tab PO Q12H PRN 04/22/20 tablet albuterol sulfate 2.5 mg inhalation TID PRN 04/22/20 albuterol sulfate 90 mcg/actuation 2 puff inhalation Q4-6H PRN 04/22/20 aerosol inhaler aspirin 81 mg tablet,delayed 81 mg PO DAILY 04/22/20 release bethanechol chloride 50 mg tablet 50 mg PO QID 04/22/20 citalopram 40 mg tablet 40 mg PO QAM 04/22/20 diclofenac sodium 1 % topical gel 2 g topical QID 04/22/20 furosemide 20 mg tablet 20 mg PO DAILY 04/22/20 gabapentin 400 mg capsule 400 mg PO TID 04/22/20 melatonin 5 mg tablet 10 mg PO BEDTIME 04/22/20 metoprolol succinate 25 mg 25 mg PO DAILY 04/22/20 tablet,extended release 24 hr multivitamin 1 tab PO DAILY 04/22/20 ropinirole 0.5 mg tablet 0.5 mg PO BEDTIME 04/22/20 simvastatin 10 mg tablet 10 mg PO BEDTIME 04/22/20 tamsulosin 0.4 mg capsule 0.4 mg PO DAILY 04/22/20 topiramate 25 mg tablet 50 mg PO BEDTIME 04/22/20 vitamin E (dl, acetate) 180 mg 400 unit PO BID 04/22/20 (400 unit) capsule amlodipine 2.5 mg tablet 2.5 mg PO DAILY 05/12/20 blood sugar diagnostic #10 ea 05/12/20 fluticasone propionate 50 0 mcg intranasal 05/12/20 mcg/actuation nasal spray,suspension lancets 33 gauge #100 ea 05/12/20 metoprolol succinate 200 mg 200 mg PO DAILY 05/12/20 tablet,extended release 24 hr multivitamin-ferrous 0 tab PO 05/12/20 fumarate-folic acid 18 mg-400 mcg tablet nitrofurantoin 1 cap PO Q12H 07/31/20 monohydrate/macrocrystals 100 mg capsule amlodipine 5 mg tablet 5 mg PO DAILY 10/27/20 ropinirole 1 mg tablet 1 mg PO BEDTIME 10/27/20 multivitamin-iron sulfate 15 0 tab PO 06/01/21 mg-folic acid 400 mcg tablet (Tab-A-Ivan Multivitamin w-iron) Previous Rx's Medication Instructions Recorded guaifenesin 600 mg tablet, 600 mg PO BID 30 days #60 tabs 05/22/20 extended release 12 hr (Mucinex) levofloxacin 750 mg tablet 750 mg PO DAILY 7 days #7 tabs 01/07/21 fluticasone 500 mcg-salmeterol 50 1 ea inhalation BID #60 ea 05/17/21 mcg/dose blistr powdr for inhalation sucralfate 1 gram tablet 3 g PO DAILY #90 tabs 06/01/21 pantoprazole 20 mg tablet,delayed 20 mg PO QAM #30 tabs 07/12/21 release simethicone 180 mg capsule (Gas 180 mg PO TID #90 ea 08/09/21 Relief (simethicone)) bisacodyl 5 mg tablet,delayed 10 mg PO BEDTIME #60 tabs 09/06/21 release hydrochlorothiazide 25 mg tablet 25 mg PO QAM #30 tabs 09/21/21 Allergies Allergy/AdvReac Type Severity Reaction Status Date / Time niacin Allergy Intermediate TACHYCARDIA Verified 07/02/21 08:11 [From NIASPAN ,DIFF.BREAT EXTENDED-RELEASE] THIERRY citalopram [Celexa] Allergy Unknown unknown Verified 07/02/21 08:11 diltiazem [From CARTIA XT] Allergy Unknown UNKNOWN Verified 07/02/21 08:11 Review of Systems Review of Systems: Yes all other systems are reviewed and are negative [facility] Past Medical History Surgical History H/O prior ablation treatment History of cholecystectomy History of esophagogastroduodenoscopy (EGD) Family History Family History Father High blood pressure Cancer Mother Diabetes High blood pressure Sister Diabetes High blood pressure Thyroid disease Cancer Brother High blood pressure Asthma Social History Social History Alcohol intake: current Alcohol intake frequency: does not drink Patient Tobacco Use Status: Never used Tobacco Advance Directives: No Current occupational status: disabled Current occupation: rt handed Physical Exam Vital Signs: Vital Signs: Last Vital Signs Temp 98.3 F 09/20/21 23:46 Pulse 74 09/21/21 01:01 Resp 15 09/21/21 01:01 BP 112/58 L 09/21/21 01:01 Pulse Ox 97 09/21/21 01:01 O2 Del Method 09/21/21 01:01 BMI result Body Mass Index 34.0 Appearance: Alert. Oriented X3. No acute distress. Eyes: No pallor no icterus ENT: Pharynx normal. Oral Mucosa moist Neck: Normal inspection. Neck supple. CVS: Normal heart rate and rhythm. Pulses normal. Respiratory: No respiratory distress. Equal air entry bilateral, no wheezing/rales/rhonchi Abdomen: Soft and nontender. Bowel sounds are present, no mass palpable, no CVA tenderness Skin: Skin warm and dry. Normal skin color. Normal skin turgor. Extremities: 2+ lower extremity edema. No calf tenderness Neuro: Oriented X 3. No motor deficit. No sensory deficit.No cerebellar signs , cranial nerves II-XII intact MDM - Extremity (Nontraumatic) MDM Narrative Medical decision making narrative: 104 Patient clinically with dependent edema no signs of heart failure or DVT will check BNP and labs. Patient signed out to Dr. Archibald to follow the labs Discharge Plan Discharge Clinical Impression: Dependent edema Patient Disposition: Still a Patient Instructions: Leg Edema (ED) Additional Instructions: Keep the leg elevated Take water pill as prescribed for increased swelling Follow up with PCP Prescriptions: New hydrochlorothiazide 25 mg tablet 25 mg PO QAM Qty: 30 0RF No Action fluticasone propion-salmeterol 500-50 mcg/dose blister with device 1 ea inhalation BID Qty: 60 6RF pantoprazole 20 mg tablet,delayed release (DR/EC) 20 mg PO QAM Qty: 30 6RF simethicone [Gas Relief (simethicone)] 180 mg capsule 180 mg PO TID Qty: 90 3RF bisacodyl 5 mg tablet,delayed release (DR/EC) 10 mg PO BEDTIME Qty: 60 6RF aspirin 81 mg tablet,delayed release (DR/EC) 81 mg PO DAILY metoprolol succinate 25 mg tablet extended release 24 hr 25 mg PO DAILY tamsulosin 0.4 mg capsule 0.4 mg PO DAILY diclofenac sodium 1 % gel 2 g topical QID acetaminophen-codeine 300-30 mg tablet 1 tab PO Q12H PRN albuterol sulfate 90 mcg/actuation HFA aerosol inhaler 2 puff inhalation Q4-6H PRN albuterol sulfate 2.5 mg /3 mL (0.083 %) solution for nebulization 2.5 mg inhalation TID PRN melatonin 5 mg tablet 10 mg PO BEDTIME ropinirole 0.5 mg tablet 0.5 mg PO BEDTIME topiramate 25 mg tablet 50 mg PO BEDTIME vitamin E (dl, acetate) 400 unit capsule 400 unit PO BID multivitamin Tablet 1 tab PO DAILY simvastatin 10 mg tablet 10 mg PO BEDTIME gabapentin 400 mg capsule 400 mg PO TID citalopram 40 mg tablet 40 mg PO QAM furosemide 20 mg tablet 20 mg PO DAILY bethanechol chloride 50 mg tablet 50 mg PO QID Tab-A-Ivan Multivitamin w-iron 18-400 mg-mcg tablet 0 tab PO fluticasone propionate 50 mcg/actuation spray,suspension 0 mcg intranasal amlodipine 2.5 mg tablet 2.5 mg PO DAILY metoprolol succinate 200 mg tablet extended release 24 hr 200 mg PO DAILY (DME) lancets 33 gauge misc See Rx Instructions .ROUTE .MEDSUPPLY Qty: 100 Rx Instructions: As directed (DME) FreeStyle Lite Strips Strip See Rx Instructions Not Applicable DAILY Qty: 10 Rx Instructions: As directed guaifenesin [Mucinex] 600 mg tablet extended release 12hr 600 mg PO BID 30 Days Qty: 60 3RF nitrofurantoin monohyd/m-cryst 100 mg capsule 1 cap PO Q12H amlodipine 5 mg tablet 5 mg PO DAILY ropinirole 1 mg tablet 1 mg PO BEDTIME Tab-A-Ivan Multivitamin w-iron 15 mg iron- 400 mcg tablet 0 tab PO sucralfate 1 gram tablet 3 g PO DAILY Qty: 90 6RF levofloxacin 750 mg tablet 750 mg PO DAILY 7 Days Qty: 7 0RF
[2021-09-21 01:01] VITALS: BP 112/58; PULSE 74; RESP 15; O2SAT 97
[2021-09-21 01:30] LABS: MANUAL DIFF FLAG NO
[2021-09-21 01:31] LABS: Basophils Percent Auto 0.3 % (0-2); Eosinophils Absolute Auto 0.3 X10*3/uL (0.0-0.4); Eosinophils Percent Auto 2.6 % (0-4); Hematocrit 38.3 % (37.0-47.0); Hemoglobin 12.8 g/dl (12.0-16.0); Imm Gran Abs Auto 0.06 X10*3/uL (0.00-0.03); Imm Gran Pct Auto 0.6 % (0.0-0.4); Lymphocytes Absolute Auto 1.9 X10*3/uL (1.2-4.9); Lymphocytes Percent Auto 19.5 % (20-40); Mean Corpuscular HGB Conc 33.4 g/dl (31.0-35.0); Mean Corpuscular Volume 86.7 fL (80.0-98.0); Mean Platelet Volume 8.6 fL (9.4-12.3); Monocytes Absolute Auto 0.8 X10*3/uL (0.1-1.2); Monocytes Percent Auto 7.8 % (2-11); Neutrophils Absolute Auto 6.6 x10*3/uL (2.0-8.3); Neutrophils Percent Auto 69.2 % (45-73); Platelet Count 351 X10*3/uL (160-400); Red Blood Count 4.42 X10*6/uL (4.20-5.50); Red Cell Distribution Width 13.9 % (11.0-16.0); White Blood Count 9.6 X10*3/uL (4.8-10.8)
[2021-09-21 01:39] LABS: D Dimer High Sensitivity < 150 NG/ML
[2021-09-21 01:52] LABS: Alanine Aminotransferase 28 U/L (0-31); Albumin Level 3.8 g/dL (3.5-5.0); Alkaline Phosphatase 128 U/L (39-117); Anion Gap 10 (12-20); Aspartate Amino Transferase 19 U/L (5-31); B Type Natriuretic Peptide 22 pg/mL (<100); Bilirubin Total 0.5 mg/dL (0.0-1.0); Blood Urea Nitrogen 11 mg/dL (9-16); Calcium 8.7 mg/dL (8.4-10.2); Carbon Dioxide 26 mmol/L (22-29); Chloride 106 mmol/L (96-108); Estimated Glomerular Filt Rate > 60; Glucose Random 118 mg/dL (60-115); Potassium 3.9 mmol/L (3.3-5.1); Sodium 138 mmol/L (135-145)
[2021-09-21 02:36] VITALS: BP 106/59; PULSE 67; O2SAT 96
== END 2021-09-21 03:13 | disposition still patient (30) ==
PROVIDERS: Emergency Provider Internal Medicine; PCP Internal Medicine
DX: R60.0 Localized edema (principal)
CPT/HCPCS: 36415; 80053; 83880; 85025; 85379; 99283; 99284

== ENCOUNTER 2021-09-27 10:14 | Outpatient (REF) | payer OTHER, SELFPAY ==
--- NOTE | ~2021-09-27 | MM_ITS ---
EXAMINATION: MM DIAGNOSTIC DIGITAL BREAST TOMOSYNTHESIS, LEFT US DIAGNOSTIC ULTRASOUND BREAST, LEFT CLINICAL INFORMATION: 1 week history pain outer left breast. Unilateral left dark nipple discharge with squeezing. No spontaneous discharge. Contralateral breast unremarkable. TC Score 6%. COMPARISON: Mammography: 04/23/2021, 09/12/2019, 09/06/2018; left breast ultrasound 08/27/2015 TECHNIQUE: Digital breast tomosynthesis is performed in both the craniocaudal and mediolateral oblique views along with computer-aided detection (CAD). Synthesized 2D images are generated from the tomosynthesis. Additional exaggerated CC view is provided. Ultrasound left breast is targeted to the area of mastodynia as well as retroareolar and periareolar imaging. Grayscale imaging and color Doppler are performed without and with harmonics. FINDINGS: The breasts are heterogeneously dense, which may obscure small masses (ACR BI-RADS breast composition Category c). Parenchymal pattern is similar to prior exams and there is no developing density or interval mass or architectural abnormality. No interval focal duct ectasia. No abnormal calcifications. The skin contours are smooth. There is no skin thickening or coarsening of the Elia's ligaments. Ultrasound demonstrates scattered grouped tiny anechoic cysts upper outer breast. No solid mass or architectural abnormality. No focal duct ectasia. No visible intraductal lesion. No skin thickening or edema tracking in soft tissue planes. Results are discussed with the patient at time of visit, using an engineering director. MM/MM tomosynthesis diagnostic LT IMPRESSION: -No mammographic evidence of malignancy or inflammatory changes. -Scattered grouped tiny anechoic cysts upper outer quadrant. No suspicious ultrasound finding. ASSESSMENT: BI-RADS 2: Benign RECOMMENDATION: 1. Patient's mastodynia may be managed based on the clinical impression. If clinically indicated, persistent nipple discharge may be further evaluated with cytology and/or breast MRI without and with gadolinium contrast. 2. Otherwise, routine annual screening mammography. This patient's information was entered into a reminder system with a target due date for their next mammogram.
== END 2021-09-27 10:15 | disposition home or self-care (01) ==
LOC: HO.MAMMO 10:14
PROVIDERS: PCP Internal Medicine; Visit Provider Internal Medicine
DX: N64.59 Other signs and symptoms in breast (principal); N64.4 Mastodynia
CPT/HCPCS: 76642; 77061; 77065

== ENCOUNTER 2022-01-20 08:56 | Outpatient (REF) | payer OTHER, SELFPAY ==
[2022-01-20 10:18] LABS: Alanine Aminotransferase 31 U/L (0-31); Alkaline Phosphatase 128 U/L (39-117); Anion Gap 14 (12-20); Aspartate Amino Transferase 20 U/L (5-31); Bilirubin Total 0.5 mg/dL (0.0-1.0); Blood Urea Nitrogen 12 mg/dL (9-16); Calcium 9.3 mg/dL (8.4-10.2); Carbon Dioxide 27 mmol/L (22-29); Chloride 102 mmol/L (96-108); Estimated Glomerular Filt Rate > 60; Glucose Random 134 mg/dL (60-115); Sodium 139 mmol/L (135-145); Total Protein 7.4 g/dL (6.5-8.0)
[2022-01-25 13:52] LABS: Alpha Fetoprotein 1.8 ng/mL
== END 2022-01-20 08:57 | disposition home or self-care (01) ==
LOC: HO.LAB 08:56
PROVIDERS: PCP Internal Medicine; Visit Provider Nurse Practitioner
DX: Z01.818 Encounter for other preprocedural examination (principal); J45.40 Moderate persistent asthma, uncomplicated; J41.1 Mucopurulent chronic bronchitis; K91.5 Postcholecystectomy syndrome; K75.81 Nonalcoholic steatohepatitis (NASH); K21.9 Gastro-esophageal reflux disease without esophagitis; K58.2 Mixed irritable bowel syndrome
CPT/HCPCS: 36415; 80053; 82105; 99212

== ENCOUNTER 2022-02-01 12:50 | Outpatient (REF) | payer OTHER, SELFPAY ==
--- NOTE | ~2022-02-01 | XR_ITS ---
EXAMINATION: XR ANKLE, LEFT XR FOOT, LEFT CLINICAL INFORMATION: Pain; history of rheumatoid arthritis. COMPARISON: None TECHNIQUE: AP, lateral, and mortise views of the left ankle. AP, lateral, and oblique views of the left foot. FINDINGS: Bony alignment and mineralization are normal. The ankle mortise is intact. No fracture, dislocation or left ankle joint effusion is seen. Boehler's angle is normal. There are small posterior and plantar calcaneal spurs. There is no focal bone erosion. No soft tissue swelling, gas or foreign body is seen. XR/XR foot LT min 3V IMPRESSION: There are small left calcaneal posterior and plantar spurs. Otherwise, unremarkable left ankle and foot.
--- NOTE | ~2022-02-01 | XR_ITS ---
EXAMINATION: XR WRIST, RIGHT XR HAND, RIGHT CLINICAL INFORMATION: Pain; history of rheumatoid arthritis. COMPARISON: None TECHNIQUE: PA, lateral, and oblique views of the right wrist and PA, lateral, and oblique views of the right hand FINDINGS: The bones and soft tissues are normal. No fracture. Alignment is anatomic. Joint spaces are maintained. No erosions or soft tissue calcifications. XR/XR hand wrist LT IMPRESSION: Normal right hand and wrist. EXAMINATION: XR WRIST, LEFT XR HAND, LEFT CLINICAL INFORMATION: Pain; history of rheumatoid arthritis. COMPARISON: None TECHNIQUE: PA, lateral, and oblique views of the left wrist and PA, lateral, and oblique views of the left hand FINDINGS: The bones and soft tissues are normal. No fracture. Alignment is anatomic. Joint spaces are maintained. No erosions or soft tissue calcifications. IMPRESSION: Normal left hand and wrist.
--- NOTE | ~2022-02-01 | XR_ITS ---
EXAMINATION: XR ANKLE, LEFT XR FOOT, LEFT CLINICAL INFORMATION: Pain; history of rheumatoid arthritis. COMPARISON: None TECHNIQUE: AP, lateral, and mortise views of the left ankle. AP, lateral, and oblique views of the left foot. FINDINGS: Bony alignment and mineralization are normal. The ankle mortise is intact. No fracture, dislocation or left ankle joint effusion is seen. Boehler's angle is normal. There are small posterior and plantar calcaneal spurs. There is no focal bone erosion. No soft tissue swelling, gas or foreign body is seen. XR/XR ankle LT min 3V IMPRESSION: There are small left calcaneal posterior and plantar spurs. Otherwise, unremarkable left ankle and foot.
--- NOTE | ~2022-02-01 | XR_ITS ---
EXAMINATION: XR WRIST, RIGHT XR HAND, RIGHT CLINICAL INFORMATION: Pain; history of rheumatoid arthritis. COMPARISON: None TECHNIQUE: PA, lateral, and oblique views of the right wrist and PA, lateral, and oblique views of the right hand FINDINGS: The bones and soft tissues are normal. No fracture. Alignment is anatomic. Joint spaces are maintained. No erosions or soft tissue calcifications. XR/XR hand wrist RT IMPRESSION: Normal right hand and wrist. EXAMINATION: XR WRIST, LEFT XR HAND, LEFT CLINICAL INFORMATION: Pain; history of rheumatoid arthritis. COMPARISON: None TECHNIQUE: PA, lateral, and oblique views of the left wrist and PA, lateral, and oblique views of the left hand FINDINGS: The bones and soft tissues are normal. No fracture. Alignment is anatomic. Joint spaces are maintained. No erosions or soft tissue calcifications. IMPRESSION: Normal left hand and wrist.
--- NOTE | ~2022-02-01 | XR_ITS ---
EXAMINATION: XR ANKLE, RIGHT XR FOOT, RIGHT CLINICAL INFORMATION: Pain; history of rheumatoid arthritis. COMPARISON: Radiographs dated 10/10/2012. TECHNIQUE: AP, lateral, and mortise views of the right ankle. AP, lateral, and oblique views of the right foot. FINDINGS: Bony alignment and mineralization are normal. The ankle mortise is intact. No fracture, dislocation or right ankle joint effusion is seen. Boehler's angle is normal. There are small posterior and plantar calcaneal spurs. There is no focal bone erosion. No soft tissue swelling, gas or foreign body is seen. There are small right calcaneal posterior and plantar spurs. Otherwise, unremarkable right ankle and foot.
--- NOTE | ~2022-02-01 | XR_ITS ---
EXAMINATION: XR KNEE, RIGHT XR KNEE, LEFT XR KNEE AP STANDING CLINICAL INFORMATION: Pain. COMPARISON: Right knee radiographs dated 11/15/2013. TECHNIQUE: Frontal, tunnel and axial of the right knee. Frontal, tunnel and axial of the left knee. AP bilateral standing view of the knees was obtained. FINDINGS: RIGHT KNEE: Bones and soft tissues are normal. No fracture or joint effusion. Alignment is anatomic. Joint spaces are well maintained. No abnormal soft tissue calcification. LEFT KNEE: Bones and soft tissues are normal. No fracture or joint effusion. Alignment is anatomic. Joint spaces are well maintained. No abnormal soft tissue calcification. XR/XR knee standing BI IMPRESSION: Unremarkable radiographs of the bilateral knees.
--- NOTE | ~2022-02-01 | XR_ITS ---
EXAMINATION: XR KNEE, RIGHT XR KNEE, LEFT XR KNEE AP STANDING CLINICAL INFORMATION: Pain. COMPARISON: Right knee radiographs dated 11/15/2013. TECHNIQUE: Frontal, tunnel and axial of the right knee. Frontal, tunnel and axial of the left knee. AP bilateral standing view of the knees was obtained. FINDINGS: RIGHT KNEE: Bones and soft tissues are normal. No fracture or joint effusion. Alignment is anatomic. Joint spaces are well maintained. No abnormal soft tissue calcification. LEFT KNEE: Bones and soft tissues are normal. No fracture or joint effusion. Alignment is anatomic. Joint spaces are well maintained. No abnormal soft tissue calcification. XR/XR knee RT 3V IMPRESSION: Unremarkable radiographs of the bilateral knees.
--- NOTE | ~2022-02-01 | XR_ITS ---
EXAMINATION: XR KNEE, RIGHT XR KNEE, LEFT XR KNEE AP STANDING CLINICAL INFORMATION: Pain. COMPARISON: Right knee radiographs dated 11/15/2013. TECHNIQUE: Frontal, tunnel and axial of the right knee. Frontal, tunnel and axial of the left knee. AP bilateral standing view of the knees was obtained. FINDINGS: RIGHT KNEE: Bones and soft tissues are normal. No fracture or joint effusion. Alignment is anatomic. Joint spaces are well maintained. No abnormal soft tissue calcification. LEFT KNEE: Bones and soft tissues are normal. No fracture or joint effusion. Alignment is anatomic. Joint spaces are well maintained. No abnormal soft tissue calcification. XR/XR knee LT 3V IMPRESSION: Unremarkable radiographs of the bilateral knees.
== END 2022-02-01 12:51 | disposition home or self-care (01) ==
LOC: HO.XRAY 12:50
PROVIDERS: PCP Internal Medicine; Visit Provider Student in an Organized Health Care Education/Training Program
DX: M25.561 Pain in right knee (principal); M25.562 Pain in left knee; M25.512 Pain in left shoulder; M06.9 Rheumatoid arthritis, unspecified; G62.9 Polyneuropathy, unspecified; G89.29 Other chronic pain; Z11.7 Encounter for testing for latent tuberculosis infection; Z79.899 Other long term (current) drug therapy
CPT/HCPCS: 73110; 73130; 73562; 73564; 73565; 73610; 73630; 99202

== ENCOUNTER → 2022-02-08 08:36 | Outpatient (BNVA) | payer OTHER, SELFPAY | PROVIDERS: PCP Internal Medicine; Visit Provider Nurse Practitioner | DX: K91.5 Postcholecystectomy syndrome (principal); K21.9 Gastro-esophageal reflux disease without esophagitis; K75.81 Nonalcoholic steatohepatitis (NASH) | CPT/HCPCS: 99212 ==

== ENCOUNTER → 2022-03-09 10:09 | Outpatient (BNVA) | payer OTHER, SELFPAY | PROVIDERS: PCP Internal Medicine; Visit Provider Student in an Organized Health Care Education/Training Program | DX: M06.09 Rheumatoid arthritis without rheumatoid factor, multiple sites (principal); Z79.631 Long term (current) use of antimetabolite agent | CPT/HCPCS: 99212 ==

== ENCOUNTER 2022-04-12 12:10 | Outpatient (REF) | payer OTHER, SELFPAY ==
[2022-04-12 12:26] LABS: MANUAL DIFF FLAG NO
[2022-04-12 12:32] LABS: Basophils Absolute Auto 0.1 X10*3/uL (0.0-0.2); Basophils Percent Auto 0.6 % (0-2); Eosinophils Absolute Auto 0.3 X10*3/uL (0.0-0.4); Eosinophils Percent Auto 2.9 % (0-4); Hematocrit 41.2 % (37.0-47.0); Hemoglobin 13.7 g/dl (12.0-16.0); Imm Gran Abs Auto 0.05 X10*3/uL (0.00-0.03); Imm Gran Pct Auto 0.5 % (0.0-0.4); Lymphocytes Absolute Auto 1.6 X10*3/uL (1.2-4.9); Lymphocytes Percent Auto 15.5 % (20-40); Mean Corpuscular HGB Conc 33.3 g/dl (31.0-35.0); Mean Corpuscular Hemoglobin 28.5 pg (27.0-33.0); Mean Corpuscular Volume 85.7 fL (80.0-98.0); Mean Platelet Volume 8.6 fL (9.4-12.3); Monocytes Absolute Auto 0.8 X10*3/uL (0.1-1.2); Neutrophils Absolute Auto 7.6 x10*3/uL (2.0-8.3); Neutrophils Percent Auto 72.5 % (45-73); Platelet Count 455 X10*3/uL (160-400); Red Blood Count 4.81 X10*6/uL (4.20-5.50); Red Cell Distribution Width 14.1 % (11.0-16.0); White Blood Count 10.4 X10*3/uL (4.8-10.8)
[2022-04-12 13:17] LABS: Erythrocyte Sedimentation Rate 32 MM/HR (0-20)
[2022-04-12 13:34] LABS: Alanine Aminotransferase 36 U/L (0-31); Albumin Level 4.1 g/dL (3.5-5.0); Alkaline Phosphatase 127 U/L (39-117); Anion Gap 15 (12-20); Aspartate Amino Transferase 26 U/L (5-31); Bilirubin Total 0.7 mg/dL (0.0-1.0); Blood Urea Nitrogen 8 mg/dL (9-16); C Reactive Protein 0.71 mg/dL (< or = 0.50); Calcium 9.3 mg/dL (8.4-10.2); Carbon Dioxide 26 mmol/L (22-29); Chloride 105 mmol/L (96-108); Estimated Glomerular Filt Rate > 60; Glucose Random 114 mg/dL (60-115); Potassium 4.1 mmol/L (3.3-5.1); Sodium 142 mmol/L (135-145); Total Protein 7.4 g/dL (6.5-8.0)
== END 2022-04-12 12:11 | disposition home or self-care (01) ==
LOC: HO.LAB 12:10
PROVIDERS: PCP Registered Nurse; Visit Provider Student in an Organized Health Care Education/Training Program
DX: Z13.89 Encounter for screening for other disorder (principal)
CPT/HCPCS: 36415; 80053; 85025; 85652; 86140

== ENCOUNTER → 2022-04-26 14:13 | Outpatient (BNVA) | payer OTHER, SELFPAY | PROVIDERS: PCP Registered Nurse; Visit Provider Student in an Organized Health Care Education/Training Program | DX: M06.09 Rheumatoid arthritis without rheumatoid factor, multiple sites (principal); Z79.631 Long term (current) use of antimetabolite agent | CPT/HCPCS: 99212 ==

== ENCOUNTER 2022-06-02 13:00 | Outpatient (RCR) | payer OTHER, SELFPAY | END 2022-06-16 07:30 | disposition home or self-care (01) | LOC: HO.PT 13:00 | PROVIDERS: PCP Registered Nurse; Visit Provider Registered Nurse | DX: M06.09 Rheumatoid arthritis without rheumatoid factor, multiple sites (principal) | CPT/HCPCS: 97110; 97162 ==

== ENCOUNTER 2022-06-27 08:39 | Outpatient (REF) | payer OTHER, SELFPAY ==
[2022-06-27 08:54] LABS: MANUAL DIFF FLAG NO
[2022-06-27 09:38] LABS: Basophils Absolute Auto 0.1 X10*3/uL (0.0-0.2); Basophils Percent Auto 0.7 % (0-2); Eosinophils Absolute Auto 0.3 X10*3/uL (0.0-0.4); Eosinophils Percent Auto 3.4 % (0-4); Hematocrit 40.4 % (37.0-47.0); Hemoglobin 13.5 g/dl (12.0-16.0); Imm Gran Abs Auto 0.06 X10*3/uL (0.00-0.03); Imm Gran Pct Auto 0.7 % (0.0-0.4); Lymphocytes Absolute Auto 1.9 X10*3/uL (1.2-4.9); Lymphocytes Percent Auto 21.2 % (20-40); Mean Corpuscular HGB Conc 33.4 g/dl (31.0-35.0); Mean Corpuscular Hemoglobin 29.9 pg (27.0-33.0); Mean Corpuscular Volume 89.4 fL (80.0-98.0); Mean Platelet Volume 9.2 fL (9.4-12.3); Monocytes Absolute Auto 0.6 X10*3/uL (0.1-1.2); Monocytes Percent Auto 7.2 % (2-11); Neutrophils Absolute Auto 5.9 x10*3/uL (2.0-8.3); Neutrophils Percent Auto 66.8 % (45-73); Platelet Count 443 X10*3/uL (160-400); Red Blood Count 4.52 X10*6/uL (4.20-5.50); Red Cell Distribution Width 14.8 % (11.0-16.0); White Blood Count 8.9 X10*3/uL (4.8-10.8)
[2022-06-27 10:15] LABS: Alanine Aminotransferase 54 U/L (0-31); Albumin Level 3.9 g/dL (3.5-5.0); Alkaline Phosphatase 130 U/L (39-117); Anion Gap 10 (12-20); Aspartate Amino Transferase 38 U/L (5-31); Bilirubin Total 0.4 mg/dL (0.0-1.0); Blood Urea Nitrogen 10 mg/dL (9-16); C Reactive Protein 0.72 mg/dL (< or = 0.50); Calcium 9.2 mg/dL (8.4-10.2); Carbon Dioxide 27 mmol/L (22-29); Chloride 108 mmol/L (96-108); Estimated Glomerular Filt Rate > 60; Glucose Random 130 mg/dL (60-115); Potassium 4.2 mmol/L (3.3-5.1); Sodium 141 mmol/L (135-145)
[2022-06-27 10:18] LABS: Erythrocyte Sedimentation Rate 31 MM/HR (0-20)
== END 2022-06-27 08:40 | disposition home or self-care (01) ==
LOC: HO.LAB 08:39
PROVIDERS: PCP Physician Assistant; Visit Provider Student in an Organized Health Care Education/Training Program
DX: M06.9 Rheumatoid arthritis, unspecified (principal); Z79.631 Long term (current) use of antimetabolite agent
CPT/HCPCS: 36415; 80053; 85025; 85652; 86140

== ENCOUNTER 2022-07-14 14:52 | Outpatient (REF) | payer OTHER, SELFPAY ==
[2022-07-14 16:07] LABS: MANUAL DIFF FLAG NO
[2022-07-14 17:26] LABS: Basophils Absolute Auto 0.1 X10*3/uL (0.0-0.2); Basophils Percent Auto 0.5 % (0-2); Eosinophils Absolute Auto 0.3 X10*3/uL (0.0-0.4); Eosinophils Percent Auto 2.5 % (0-4); Hematocrit 42.4 % (37.0-47.0); Hemoglobin 14.2 g/dl (12.0-16.0); Imm Gran Abs Auto 0.05 X10*3/uL (0.00-0.03); Imm Gran Pct Auto 0.5 % (0.0-0.4); Lymphocytes Absolute Auto 1.9 X10*3/uL (1.2-4.9); Lymphocytes Percent Auto 19.1 % (20-40); Mean Corpuscular HGB Conc 33.5 g/dl (31.0-35.0); Mean Corpuscular Volume 89.5 fL (80.0-98.0); Mean Platelet Volume 9.3 fL (9.4-12.3); Monocytes Absolute Auto 0.7 X10*3/uL (0.1-1.2); Monocytes Percent Auto 7.2 % (2-11); Neutrophils Absolute Auto 6.9 x10*3/uL (2.0-8.3); Neutrophils Percent Auto 70.2 % (45-73); Platelet Count 448 X10*3/uL (160-400); Red Blood Count 4.74 X10*6/uL (4.20-5.50); Red Cell Distribution Width 14.4 % (11.0-16.0); White Blood Count 9.9 X10*3/uL (4.8-10.8)
[2022-07-14 18:20] LABS: Erythrocyte Sedimentation Rate 34 MM/HR (0-20)
[2022-07-14 18:47] LABS: Alanine Aminotransferase 70 U/L (0-31); Albumin Level 4.1 g/dL (3.5-5.0); Alkaline Phosphatase 134 U/L (39-117); Anion Gap 15 (12-20); Aspartate Amino Transferase 62 U/L (5-31); Bilirubin Total 0.7 mg/dL (0.0-1.0); Blood Urea Nitrogen 5 mg/dL (9-16); C Reactive Protein 0.66 mg/dL (< or = 0.50); Calcium 9.3 mg/dL (8.4-10.2); Carbon Dioxide 25 mmol/L (22-29); Chloride 106 mmol/L (96-108); Estimated Glomerular Filt Rate > 60; Glucose Random 90 mg/dL (60-115); Sodium 142 mmol/L (135-145); Total Protein 7.4 g/dL (6.5-8.0)
== END 2022-07-14 14:53 | disposition home or self-care (01) ==
LOC: HO.LAB 14:52
PROVIDERS: PCP Physician Assistant; Visit Provider Student in an Organized Health Care Education/Training Program
DX: M06.09 Rheumatoid arthritis without rheumatoid factor, multiple sites (principal); Z79.631 Long term (current) use of antimetabolite agent
CPT/HCPCS: 36415; 80053; 85025; 85652; 86140; 99212

== ENCOUNTER 2022-07-23 23:16 | Emergency (ER) | payer OTHER, SELFPAY ==
[2022-07-23 23:25] VITALS: BP 114/62; PULSE 81; RESP 18; TEMP 36.3; O2SAT 96; BMI 33.4
--- NOTE | 2022-07-24 01:13 | ED.ABDPAIN ---
HPI - Abdominal Pain General Chief Complaint: Abdominal Pain Stated Complaint: abd pain Time Seen by Provider: 07/24/22 00:57 Source: patient, family (Daughter) and diabetes physician Mode of arrival: ambulatory History of Present Illness HPI narrative: 52-year-old female with history of IBS and is status post cholecystectomy presents with epigastric discomfort with some mild nausea but denies any vomiting in is continued to pass flatus as well as stool. She denies any associated shortness of breath, chest pain/palpitations or fevers or chills. Patient also denies any urinary symptoms. Related Data Home Medications Medication Instructions Recorded Confirmed acetaminophen 300 mg-codeine 30 mg 1 tab PO Q12H PRN 04/22/20 04/26/22 tablet albuterol sulfate 2.5 mg/3 mL 2.5 mg inhalation TID PRN 04/22/20 04/26/22 (0.083 %) solution for nebulization albuterol sulfate 90 mcg/actuation 2 puff inhalation Q4-6H PRN 04/22/20 04/26/22 aerosol inhaler bethanechol chloride 50 mg tablet 50 mg PO QID 04/22/20 04/26/22 citalopram 40 mg tablet 40 mg PO QAM 04/22/20 04/26/22 diclofenac sodium 1 % topical gel 2 g topical QID 04/22/20 04/26/22 furosemide 20 mg tablet 20 mg PO DAILY 04/22/20 04/26/22 gabapentin 400 mg capsule 400 mg PO TID 04/22/20 04/26/22 melatonin 5 mg tablet 10 mg PO BEDTIME 04/22/20 04/26/22 metoprolol succinate 25 mg 25 mg PO DAILY 04/22/20 04/26/22 tablet,extended release 24 hr ropinirole 0.5 mg tablet 0.5 mg PO BEDTIME 04/22/20 04/26/22 simvastatin 10 mg tablet 10 mg PO BEDTIME 04/22/20 04/26/22 tamsulosin 0.4 mg capsule 0.4 mg PO DAILY 04/22/20 04/26/22 topiramate 25 mg tablet 50 mg PO BEDTIME 04/22/20 04/26/22 vitamin E (dl, acetate) 180 mg 400 unit PO BID 04/22/20 04/26/22 (400 unit) capsule blood sugar diagnostic #10 ea 05/12/20 04/26/22 fluticasone propionate 50 0 mcg intranasal 05/12/20 04/26/22 mcg/actuation nasal spray,suspension lancets 33 gauge #100 ea 05/12/20 04/26/22 metoprolol succinate 200 mg 200 mg PO DAILY 05/12/20 04/26/22 tablet,extended release 24 hr multivitamin-iron sulfate 15 0 tab PO 06/01/21 04/26/22 mg-folic acid 400 mcg tablet (Tab-A-Ivan Multivitamin w-iron) amlodipine 10 mg tablet 10 mg PO DAILY 02/01/22 04/26/22 magnesium oxide 400 mg (241.3 mg 400 mg PO DAILY 02/01/22 04/26/22 magnesium) tablet vitamin E (dl, acetate) 45 mg (100 45 mg PO 02/08/22 04/26/22 unit) capsule Previous Rx's Medication Instructions Recorded simethicone 180 mg capsule (Gas 180 mg PO TID #90 ea 08/09/21 Relief (simethicone)) bisacodyl 5 mg tablet,delayed 10 mg PO BEDTIME #60 tabs 09/06/21 release hydrochlorothiazide 25 mg tablet 25 mg PO QAM #30 tabs 09/21/21 sucralfate 1 gram tablet 3 g PO DAILY #90 tabs 11/30/21 cholestyramine (with sugar) 4 gram 4 g PO BID #378 grams 01/20/22 oral powder guaifenesin 400 mg tablet 400 mg PO QID PRN cough 14 days 01/20/22 #45 tabs levofloxacin 750 mg tablet 750 mg PO DAILY 14 days #14 tabs 01/20/22 peg 3350-electrolytes 236 240 ml PO Q10M 1 day #4,000 mL 01/20/22 gram-22.74 gram-6.74 gram-5.86 gram solution (Golytely) pantoprazole 20 mg tablet,delayed 20 mg PO QAM #30 tabs 01/26/22 release fluticasone 500 mcg-salmeterol 50 1 ea PO BID #60 ea 03/31/22 mcg/dose blistr powdr for inhalation folic acid 1 mg tablet 2 mg PO DAILY #180 tabs 04/26/22 methylprednisolone 4 mg tablet 4 mg PO DAILY #21 tabs 07/14/22 (Medrol) etanercept 50 mg/mL (1 mL) 50 mg subcut QWEEK #12 mL 07/19/22 subcutaneous pen injector (Enbrel SureClick) Allergies Allergy/AdvReac Type Severity Reaction Status Date / Time niacin Allergy Intermediate TACHYCARDIA Verified 07/14/22 15:05 [From NIASPAN ,DIFF.BREAT EXTENDED-RELEASE] THIERRY citalopram [Celexa] Allergy Unknown unknown Verified 07/14/22 15:05 diltiazem [From CARTIA XT] Allergy Unknown UNKNOWN Verified 07/14/22 15:05 Review of Systems Review of Systems Pertinent positives and negatives as stated in HPI [facility] Past Medical History Source: nursing notes reviewed Medical History Anxiety Bilateral carpal tunnel syndrome Depression Dyslipidemia Encounter for testing for latent tuberculosis infection Migraine Restless legs Screening for viral disease Stroke Surgical History H/O prior ablation treatment History of cholecystectomy History of esophagogastroduodenoscopy (EGD) S/P breast biopsy, right Family History Family History Father High blood pressure Cancer Mother Diabetes High blood pressure Sister Diabetes High blood pressure Thyroid disease Cancer Brother High blood pressure Asthma Social History Social History Alcohol intake: never Patient Tobacco Use Status: Never used Tobacco Advance Directives: No Advance Directives Information Provided: Yes Current occupational status: disabled Current occupation: rt handed Physical Exam ED Vital Signs: Vital Signs - 24 hr 07/23/22 23:25 Temperature 97.4 F Pulse Rate 81 Respiratory Rate 18 Blood Pressure 114/62 Pulse Oximetry 96 Oxygen Delivery Method Room Air BMI result Body Mass Index 33.4 VITAL SIGNS: Reviewed. GENERAL: Well developed, well nourished, in no acute distress. HEAD: Normocephalic/atraumatic EYES: PERRLA, EOMI EARS: Ext canals without abnormality NOSE: Nares patent bilateral OROPHARYNX: no oral lesions noted, posterior pharynx clear NECK: Supple, no adenopathy LUNGS: Normal breath sounds. No adventitious sounds or accessory muscle use. SpO2<96> CARDIOVASCULAR: Regular rate and rhythm without noted murmurs ABDOMEN: Soft, mild epigastric discomfort without rebound, non-distended with bowel sounds. MUSCULOSKELETAL: No tenderness, deformities, or effusions noted on gross inspection. EXTREMITIES: No cyanosis, clubbing or edema. SKIN: Inspection of the skin reveals no rashes NEUROLOGIC: Alert and oriented x 4. Strength and sensation to light touch were grossly intact x 4. Medical Decision Making Medical Decision Making [facility] Narrative: 52-year-old female with history and clinical presentation suggestive gastritis, no clinical suspicion for cholecystitis and low suspicion for pancreatitis, SBO and location with history inconsistent with diverticulitis. - labs, UA, GI cocktail/Carafate I reviewed all investigations and I re-evaluated the patient. My interpretation is that patient was suffering from gastroenteritis and she reports that she is feeling better after the GI cocktail and Carafate. Despite the fact that she is on pantoprazole 20 mg daily I recommended that she initiate [id number] Mylanta prior to her meals. She is otherwise discharged home in stable condition Differential Diagnosis Please see the discussion above Lab Data Please see the discussion above 07/24/22 01:13 07/24/22 01:13 Labs: Lab Results 07/24/22 07/24/22 07/24/22 Range/Units 01:13 01:13 01:29 WBC 9.0 (4.8-10.8) X10*3/uL RBC 4.63 (4.20-5.50) X10*6/uL Hgb 13.7 (12.0-16.0) g/dl Hct 40.7 (37.0-47.0) % MCV 87.9 (80.0-98.0) fL MCH 29.6 (27.0-33.0) pg MCHC 33.7 (31.0-35.0) g/dl RDW 14.3 (11.0-16.0) % Plt Count 386 (160-400) X10*3/uL MPV 8.6 L (9.4-12.3) fL Immature Gran % (Auto) 0.8 H (0.0-0.4) % Neut % (Auto) 71.4 (45-73) % Lymph % (Auto) 17.0 L (20-40) % [place] % (Auto) 7.8 (2-11) % Eos % (Auto) 2.7 (0-4) % Baso % (Auto) 0.3 (0-2) % Lymph # (Auto) 1.5 (1.2-4.9) X10*3/uL [place] # (Auto) 0.7 (0.1-1.2) X10*3/uL Eos # (Auto) 0.2 (0.0-0.4) X10*3/uL Baso # (Auto) 0.0 (0.0-0.2) X10*3/uL Abs Immat Gran (auto) 0.07 H (0.00-0.03) X10*3/uL Absolute Neuts (auto) 6.4 (2.0-8.3) x10*3/uL Absolute Nucleated RBC 0.000 (0.0-0.012) X10*3/uL Nucleated RBC % (auto) 0.0 (0.0-0.2) /100WBC Sodium 139 (135-145) mmol/L Potassium 3.8 (3.3-5.1) mmol/L Chloride 105 (96-108) mmol/L Carbon Dioxide 27 (22-29) mmol/L Anion Gap 11 L (12-20) BUN 11 (9-16) mg/dL Creatinine 0.60 (0.5-1.4) mg/dL Estim Creat Clear Calc 102.9 Estimated GFR > 60 Random Glucose 128 H (60-115) mg/dL Calcium 9.2 (8.4-10.2) mg/dL Total Bilirubin 0.7 (0.0-1.0) mg/dL Direct Bilirubin 0.3 (0.0-0.5) mg/dL AST 34 H (5-31) U/L ALT 50 H (0-31) U/L Alkaline Phosphatase 162 H (39-117) U/L Total Protein 7.3 (6.5-8.0) g/dL Albumin 4.1 (3.5-5.0) g/dL Lipase 15 (8-78) U/L Urine Color Dark Yellow Urine Appearance Clear Urine pH 5.5 (5.0-9.0) Ur Specific Ackerly >= 1.030 H (1.005-1.025) Urine Protein Negative (Neg-Trace) mg/dL Urine Glucose (UA) Negative (Negative) mg/dL Urine Ketones Negative (Negative) mg/dL Urine Blood Negative (Negative) Urine Nitrite Negative (Negative) Ur Leukocyte Esterase Trace H (Negative) Urine RBC 3-5 H (0-2) /HPF Urine WBC 0-5 (0-5) /HPF Ur Squamous Epith Cells 3-5 (0-2) /HPF Urine Bacteria Trace (None Seen) Hyaline Casts 0-2 (0-2) /LPF Independent Interpretation I performed an independent interpretation of an: EKG Interpretation: Normal sinus rhythm, HR-74, no STEMI, NH/QRS/QTC is within normal limits. External Record Review External record reviewed: Outpatient record and Prior outpatient labs Medications Administered Discontinued Medications Generic Name Dose Route Start Last Admin Trade Name Freq PRN Reason Stop Dose Admin Al Hydroxide/Mg Hydroxide 30 ml 07/24/22 01:13 07/24/22 01:38 Magnesium Hydrox/Alum Hydrox 30 Ml Oral.Susp PO 07/24/22 01:14 30 ml ONCE ONE Administration Lidocaine HCl 10 ml 07/24/22 01:13 07/24/22 01:39 Lidocaine Hcl Viscous 2 % 15 Ml Solution MUCOUS MEM 07/24/22 01:14 10 ml ONCE ONE Administration Sucralfate 1 gm 07/24/22 01:13 07/24/22 01:39 Sucralfate Oral Suspension 1 Gm/10 Ml Oral.Susp PO 07/24/22 01:14 1 gm ONCE ONE Administration Discharge Plan Discharge Clinical Impression: Gastritis Patient Disposition: Home, Self-Care Instructions: Diet for Stomach Ulcers and Gastritis (ED), Gastritis (ED) Additional Instructions: 1. Reanudar todos los medicamentos caseros seg?n lo prescrito. 2. Recomiende lior westley scott Mylanta de venta daniele antes de chi comidas para un alivio adicional de los s?ntomas. 3. Seguimiento con el proveedor de atenci?n primaria el por la ma?sanjana. Regrese a la raymond de emergencias si los s?ntomas empeoran. 1. Resume all home medications as prescribed. 2. Recommend take single [id number] Mylanta prior to your meals for additional symptom relief. 3. Follow-up with primary care provider Monday. Return to the ER for any worsening symptoms. Prescriptions: No Action simethicone [Gas Relief (simethicone)] 180 mg capsule 180 mg PO TID Qty: 90 3RF bisacodyl 5 mg tablet,delayed release (DR/EC) 10 mg PO BEDTIME Qty: 60 6RF sucralfate 1 gram tablet 3 g PO DAILY Qty: 90 6RF Hold Instructions: Doctor's Order pantoprazole 20 mg tablet,delayed release (DR/EC) 20 mg PO QAM Qty: 30 6RF fluticasone propion-salmeterol 500-50 mcg/dose blister with device 1 ea PO BID Qty: 60 0RF folic acid 1 mg tablet 2 mg PO DAILY Qty: 180 1RF Enbrel SureClick 50 mg/mL (1 mL) pen injector 50 mg subcut QWEEK Qty: 12 1RF hydrochlorothiazide 25 mg tablet 25 mg PO QAM Qty: 30 0RF metoprolol succinate 25 mg tablet extended release 24 hr 25 mg PO DAILY tamsulosin 0.4 mg capsule 0.4 mg PO DAILY diclofenac sodium 1 % gel 2 g topical QID acetaminophen-codeine 300-30 mg tablet 1 tab PO Q12H PRN albuterol sulfate 90 mcg/actuation HFA aerosol inhaler 2 puff inhalation Q4-6H PRN albuterol sulfate 2.5 mg /3 mL (0.083 %) solution for nebulization 2.5 mg inhalation TID PRN melatonin 5 mg tablet 10 mg PO BEDTIME ropinirole 0.5 mg tablet 0.5 mg PO BEDTIME topiramate 25 mg tablet 50 mg PO BEDTIME vitamin E (dl, acetate) 400 unit capsule 400 unit PO BID simvastatin 10 mg tablet 10 mg PO BEDTIME gabapentin 400 mg capsule 400 mg PO TID citalopram 40 mg tablet 40 mg PO QAM furosemide 20 mg tablet 20 mg PO DAILY bethanechol chloride 50 mg tablet 50 mg PO QID fluticasone propionate 50 mcg/actuation spray,suspension 0 mcg intranasal metoprolol succinate 200 mg tablet extended release 24 hr 200 mg PO DAILY (DME) lancets 33 gauge misc See Rx Instructions .ROUTE .MEDSUPPLY Qty: 100 Rx Instructions: As directed (DME) FreeStyle Lite Strips Strip See Rx Instructions Not Applicable DAILY Qty: 10 Rx Instructions: As directed Tab-A-Ivan Multivitamin w-iron 15 mg iron- 400 mcg tablet 0 tab PO peg 3350-electrolytes [Golytely] 236-22.74-6.74 -5.86 gram recon soln 240 ml PO Q10M 1 Days Qty: 4000 0RF Rx Instructions: until fecal effluent is clear; do not exceed a total volume of 2,000 mL cholestyramine (with sugar) 4 gram powder 4 g PO BID Qty: 378 6RF Rx Instructions: administer w/meal; avoid other meds within 1hr before or 4-6hr after dose vitamin E (dl, acetate) 45 mg (100 unit) capsule 45 mg PO amlodipine 10 mg tablet 10 mg PO DAILY magnesium oxide 400 mg (241.3 mg magnesium) tablet 400 mg PO DAILY levofloxacin 750 mg tablet 750 mg PO DAILY 14 Days Qty: 14 0RF guaifenesin 400 mg tablet 400 mg PO QID PRN (Reason: cough) 14 Days Qty: 45 0RF methylprednisolone [Medrol] 4 mg tablet 4 mg PO DAILY Qty: 21 1RF Rx Instructions: take 2 tabs by mouth with breakfast once daily for 1 week then 1 tab daily for 1 week then stop Referrals: [facility] [Primary Care Provider] - Print Language: Trinidadian
--- NOTE | 2022-07-24 01:16 | ECG_ITS ---
Test Reason : ABD PAIN Blood Pressure : / mmHG Vent. Rate : 074 BPM Atrial Rate : 074 BPM P-R Int : 144 ms QRS Dur : 088 ms QT Int : 396 ms P-R-T Axes : 051 055 047 degrees QTc Int : 439 ms Normal sinus rhythm Normal ECG When compared with ECG of 30-JUN-2021 03:53, No significant change was found Referred By: Julianne Fabian Electronically Signed By:JAIMIE SHINE MD
[2022-07-24 01:20] LABS: Basophils Percent Auto 0.3 % (0-2); Eosinophils Absolute Auto 0.2 X10*3/uL (0.0-0.4); Eosinophils Percent Auto 2.7 % (0-4); Hematocrit 40.7 % (37.0-47.0); Hemoglobin 13.7 g/dl (12.0-16.0); Imm Gran Abs Auto 0.07 X10*3/uL (0.00-0.03); Imm Gran Pct Auto 0.8 % (0.0-0.4); Lymphocytes Absolute Auto 1.5 X10*3/uL (1.2-4.9); MANUAL DIFF FLAG NO; Mean Corpuscular HGB Conc 33.7 g/dl (31.0-35.0); Mean Corpuscular Hemoglobin 29.6 pg (27.0-33.0); Mean Corpuscular Volume 87.9 fL (80.0-98.0); Mean Platelet Volume 8.6 fL (9.4-12.3); Monocytes Absolute Auto 0.7 X10*3/uL (0.1-1.2); Monocytes Percent Auto 7.8 % (2-11); Neutrophils Absolute Auto 6.4 x10*3/uL (2.0-8.3); Neutrophils Percent Auto 71.4 % (45-73); Platelet Count 386 X10*3/uL (160-400); Red Blood Count 4.63 X10*6/uL (4.20-5.50); Red Cell Distribution Width 14.3 % (11.0-16.0)
[2022-07-24 01:37] LABS: Alanine Aminotransferase 50 U/L (0-31); Albumin Level 4.1 g/dL (3.5-5.0); Alkaline Phosphatase 162 U/L (39-117); Anion Gap 11 (12-20); Aspartate Amino Transferase 34 U/L (5-31); Bilirubin Direct 0.3 mg/dL (0.0-0.5); Bilirubin Total 0.7 mg/dL (0.0-1.0); Blood Urea Nitrogen 11 mg/dL (9-16); Calcium 9.2 mg/dL (8.4-10.2); Carbon Dioxide 27 mmol/L (22-29); Chloride 105 mmol/L (96-108); Creatinine Clr Calc Pharmacy 102.9; Estimated Glomerular Filt Rate > 60; Glucose Random 128 mg/dL (60-115); Lipase 15 U/L (8-78); Potassium 3.8 mmol/L (3.3-5.1); Sodium 139 mmol/L (135-145); Total Protein 7.3 g/dL (6.5-8.0)
[2022-07-24] MEDS: Magnesium Hydrox/Alum Hydrox 30 ML ORAL.SUSP PO (01:38)
[2022-07-24] MEDS: Sucralfate Oral Suspension 1 GM/10 ML ORAL.SUSP PO (01:39)
[2022-07-24] MEDS: Lidocaine HCl Viscous 2 % 15 ML SOLUTION 10 ML MUCOUS MEM (01:39)
[2022-07-24 01:40] LABS: Appearance Urine Clear; Color Urine Dark Yellow; Glucose Urine UA Negative (Negative); Leukocyte Esterase Urine Trace (Negative); Nitrite Urine Negative (Negative); PH 5.5 (5.0-9.0); Specific Gravity - Urine >= 1.030 (1.005-1.025); UMIC TRIGGER UACC YES; Urine Blood Negative (Negative); Urine Ketones Negative (Negative); Urine Protein Negative (Neg-Trace)
[2022-07-24 01:45] LABS: Bacteria Urine Trace (None Seen); Hyaline Casts Urine 0-2 /LPF (0-2); WBC Urine 0-5 /HPF (0-5)
[2022-07-24 02:18] VITALS: BP 101/57; PULSE 73; RESP 17; TEMP 36.7; O2SAT 94
== END 2022-07-24 03:29 | disposition home or self-care (01) ==
PROVIDERS: Emergency Provider Student in an Organized Health Care Education/Training Program
DX: K29.70 Gastritis, unspecified, without bleeding (principal); E78.5 Hyperlipidemia, unspecified; Z79.02 Long term (current) use of antithrombotics/antiplatelets; Z79.899 Other long term (current) drug therapy
CPT/HCPCS: 36415; 80048; 80076; 81001; 83690; 85025; 93005; 99283; 99284

== ENCOUNTER → 2022-07-25 08:23 | Outpatient (BNVA) | payer OTHER, SELFPAY | PROVIDERS: PCP Registered Nurse; Visit Provider Student in an Organized Health Care Education/Training Program ==

== ENCOUNTER 2022-11-04 08:48 | Outpatient (REF) | payer OTHER, SELFPAY ==
--- NOTE | ~2022-11-04 | US_ITS ---
EXAMINATION: US ABDOMEN LIMITED CLINICAL INFORMATION: Nonalcoholic steatohepatitis. COMPARISON: Ultrasound abdomen complete 06/28/2021. TECHNIQUE: Real-time imaging of the right upper quadrant abdominal viscera. FINDINGS: PANCREAS: Normal. LIVER: Enlarged measuring 19 cm in length. The liver contour is normal. Increased parenchymal attenuation. No focal hepatic lesion. There is no intrahepatic biliary duct dilatation seen. GALLBLADDER: Surgically absent. COMMON BILE DUCT: Normal in caliber measuring 0.2 cm in diameter. RIGHT KIDNEY: Small 0.4 cm hyperechoic focus in the mid pole, no associated twinkle artifact. No hydronephrosis. The kidney measures 11.4 cm in maximum dimension. FREE FLUID: None. US/US abdomen limited IMPRESSION: 1. Hepatomegaly with increased parenchymal attenuation suggesting hepatic steatosis. 2. Nonspecific 0.4 cm hyperechoic focus in the mid pole of the right kidney, which could represent a small angiomyolipoma or nonobstructive calculus.
== END 2022-11-04 08:49 | disposition home or self-care (01) ==
LOC: HO.US 08:48
PROVIDERS: PCP Registered Nurse; Visit Provider Nurse Practitioner
DX: K75.81 Nonalcoholic steatohepatitis (NASH) (principal)
CPT/HCPCS: 76705

== ENCOUNTER 2022-12-05 11:00 | Outpatient (REF) | payer OTHER, SELFPAY ==
[2022-12-05 11:24] LABS: MANUAL DIFF FLAG NO
[2022-12-05 11:58] LABS: Basophils Percent Auto 0.5 % (0-2); Eosinophils Absolute Auto 0.3 X10*3/uL (0.0-0.4); Eosinophils Percent Auto 3.8 % (0-4); Hematocrit 43.4 % (37.0-47.0); Hemoglobin 14.6 g/dl (12.0-16.0); Imm Gran Abs Auto 0.02 X10*3/uL (0.00-0.03); Imm Gran Pct Auto 0.3 % (0.0-0.4); Lymphocytes Percent Auto 27.2 % (20-40); Mean Corpuscular HGB Conc 33.6 g/dl (31.0-35.0); Mean Corpuscular Volume 86.3 fL (80.0-98.0); Monocytes Absolute Auto 0.6 X10*3/uL (0.1-1.2); Monocytes Percent Auto 7.4 % (2-11); Neutrophils Absolute Auto 4.5 x10*3/uL (2.0-8.3); Neutrophils Percent Auto 60.8 % (45-73); Platelet Count 376 X10*3/uL (160-400); Red Blood Count 5.03 X10*6/uL (4.20-5.50); Red Cell Distribution Width 13.7 % (11.0-16.0); White Blood Count 7.4 X10*3/uL (4.8-10.8)
[2022-12-05 12:47] LABS: Erythrocyte Sedimentation Rate 23 MM/HR (0-20)
[2022-12-05 13:54] LABS: Alanine Aminotransferase 48 U/L (0-31); Alkaline Phosphatase 131 U/L (39-117); Anion Gap 11 (12-20); Aspartate Amino Transferase 43 U/L (5-31); Bilirubin Total 0.6 mg/dL (0.0-1.0); Blood Urea Nitrogen 7 mg/dL (9-16); C Reactive Protein 0.69 mg/dL (< or = 0.50); Calcium 9.7 mg/dL (8.4-10.2); Carbon Dioxide 27 mmol/L (22-29); Chloride 106 mmol/L (96-108); Estimated Glomerular Filt Rate > 60; Glucose Random 117 mg/dL (60-115); Potassium 3.8 mmol/L (3.3-5.1); Sodium 140 mmol/L (135-145); Total Protein 7.7 g/dL (6.5-8.0)
== END 2022-12-05 11:01 | disposition home or self-care (01) ==
LOC: HO.LAB 11:00
PROVIDERS: PCP Registered Nurse; Visit Provider Student in an Organized Health Care Education/Training Program
DX: Z79.631 Long term (current) use of antimetabolite agent (principal)
CPT/HCPCS: 36415; 80053; 85025; 85652; 86140

== ENCOUNTER 2022-12-08 09:21 | Outpatient (AMB) | payer OTHER, SELFPAY ==
[2022-12-08 09:33] VITALS: BP 120/68; PULSE 80; TEMP 36.3; O2SAT 96; BMI 33.8
--- NOTE | 2022-12-08 09:33 | MHC.OFFVIS ---
Intake Vital Signs 12/08/22 09:33 Height 5 ft 1 in Weight 178 lb 12.718 oz BMI 33.8 BP 120/68 Blood Pressure Location Rt brachial Position Sitting Pulse 80 Pulse Source Pulse Oximeter Temp 97.3 F Temp Source Skin Pulse Oximetry (%) 96 Intake Visit Reasons: RA Intake Note: Pt seen today for RA follow up. Not feeling well c/o nasal congestion and headaches. States she did home test and it was negative for covid Director Of Culture Required: Yes Director Of Culture Name: Sil [id number] Accompanied by: Self / Same As Patient Allergies niacin [From NIASPAN EXTENDED-RELEASE] Allergy (Intermediate, Verified 12/08/22 09:35) TACHYCARDIA,DIFF.BREATHING citalopram [Celexa] Allergy (Unknown, Verified 12/08/22 09:35) unknown diltiazem [From CARTIA XT] Allergy (Unknown, Verified 12/08/22 09:35) UNKNOWN Medication List - Last Reconciled 12/08/22 by Ramya Smith MD acetaminophen-codeine 300-30 mg 1 tab PO Q12H PRN albuterol sulfate 90 mcg/actuation 2 puffs inhalation Q4-6H PRN albuterol sulfate 2.5 mg inhalation TID PRN amlodipine 10 mg PO DAILY bethanechol chloride 50 mg PO QID bisacodyl 10 mg (2 x 5 mg) PO BEDTIME blood sugar diagnostic As directed cholestyramine (with sugar) 4 gram 4 grams PO BID citalopram 40 mg PO QAM diclofenac sodium 1% 2 grams topical QID etanercept (Enbrel SureClick) 50 mg subcut QWEEK fluticasone propion-salmeterol 500-50 mcg/dose 1 ea PO BID fluticasone propionate 50 mcg/actuation 0 mcg intranasal folic acid 2 mg (2 x 1 mg) PO QAM furosemide 20 mg PO DAILY gabapentin 400 mg PO TID guaifenesin 400 mg PO QID PRN 14 days hydrochlorothiazide 25 mg PO QAM lancets As directed levofloxacin 750 mg PO DAILY 14 days magnesium oxide 400 mg PO DAILY melatonin 10 mg PO BEDTIME metoprolol succinate ER 200 mg PO DAILY metoprolol succinate ER 25 mg PO DAILY PRN multivit-iron sulf-folic acid 15 mg iron- 400 mcg (Tab-A-Ivan Multivitamin w-iron) 0 tabs PO pantoprazole 20 mg PO QAM peg 3350-electrolytes 236-22.74-6.74 -5.86 gram (Golytely) 240 mL PO Q10M 1 day ropinirole 1 mg PO BEDTIME simethicone (Gas Relief (simethicone)) 180 mg PO TID simvastatin 10 mg PO BEDTIME sucralfate 3 grams (3 x 1 gram) PO DAILY tamsulosin 0.4 mg PO DAILY topiramate 50 mg PO BEDTIME vitamin E (dl, acetate) 400 units PO BID vitamin E (dl, acetate) 45 mg PO HPI HPI Comments History of Present Illness Details 52-year-old female with seronegative RA presents for follow-up. She started using Enbrel weekly 2-3 months ago. Well tolerated. Continues on methotrexate and folic acid. Over the last 2 days she has been feeling sick with runny nose and headaches. She took a home COVID test and it was negative. She states that she is having some pain in her toes, in the plantar aspect when walking. Denies any hand or wrist pain or swelling. Initial history: A 51-year-old female with a past medical history of anxiety, depression, dyslipidemia, stroke, restless leg syndrome, neuropathy, migraine who presents for evaluation of diffuse pain. The condition started about 7-8 months ago with pain in her legs, ankles, feet and arms. The pain is generally worse at night, is burning pain. She stated that will she lost her balance a few weeks ago and fell and bumped her left ankle. Her left ankle has been swollen since. She did not get it evaluated. She denies any history of DVT/PE. She had a breast biopsy in the past and was told it was unremarkable. She never had a colonoscopy done. [facility] Medical History 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, fci, current use Encounter for testing for latent tuberculosis infection Screening for viral disease Stroke Bilateral carpal tunnel syndrome Dyslipidemia Anxiety Depression Migraine Restless legs Surgical History S/P breast biopsy, right H/O prior ablation treatment History of esophagogastroduodenoscopy (EGD) History of cholecystectomy Family History Father High blood pressure Cancer Mother Diabetes High blood pressure Sister Diabetes High blood pressure Thyroid disease Cancer Brother High blood pressure Asthma Social History Alcohol intake: never Patient Tobacco Use Status: Never used Tobacco Current occupational status: disabled Current occupation: rt handed Review of Systems Const Reports headache(s) ENT Details: runny nose Reports headache(s) Musc Reports arthralgias Neuro Reports headache(s) Physical Exam Vital Signs: Last Vital Signs Temp 97.3 F 12/08/22 09:33 Pulse 80 12/08/22 09:33 BP 120/68 12/08/22 09:33 Pulse Ox 96 12/08/22 09:33 BMI result Body Mass Index 33.8 Const General: cooperative, comfortable and no acute distress Nutritional Appearance: obese Orientation/consciousness: patient oriented x3 Limitations: no limitations HEENT Head: Yes normocephalic and Yes atraumatic Mouth: moist mucous membranes Resp Effort & Inspection: normal respiratory effort and able to speak in complete sentences Auscultation: clear to auscultation bilaterally Cardio Rate: regular rate Rhythm: regular rhythm Neuro General: patient oriented x3 Extrem Other: No elbow warmth swelling or tenderness or pain with flexion and extension No wrist swelling or tenderness, pain with the right wrist extension No MCP swelling or tenderness bilaterally. 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/SSA/SSB/rheumatoid factor/CCP/seronegative RA panel all negative ESR 64 CRP 1.1 (<0.5) Unremarkable CBC and CMP Assessment & Plan Assessment & Plan (1) Rheumatoid arthritis: Comment: Seronegative diagnosed 02/2022 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 6 tabs started 02/2022 Advanced to 8 tabs 04/2022 reduced to 6 tab 07/10 due to transaminitis DC 12/10 due to ongoing transaminitis Enbrel 09/09 effective Code(s): M06.9 - Rheumatoid arthritis, unspecified Qualifiers: Rheumatoid arthritis location: multiple sites Rheumatoid factor presence: without rheumatoid factor Qualified Code(s): M06.09 - Rheumatoid arthritis without rheumatoid factor, multiple sites Plan: 52-year-old female with seronegative RA presents for follow-up. Started Enbrel 2- 3 months ago with good results. Today she only has 1 tender joint. 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 Patient fully aware. Advised patient to seek medical care HILDA if patient has an infection and advised patient to stop the medication until the infection is resolved. As mentioned above I asked patient to the next weekly dose of Enbrel due to the current infection. Plan I spent 28 minutes reviewing patient's chart, evaluating patient, ordering diagnostic workup, counseling patient & her daughter and documenting in the chart Orders: Orders Erythrocyte Sedimentation Rate 3 Months M06.9 - Rheumatoid arthritis, unspecified Complete Blood Count Auto Diff 3 Months M06.9 - Rheumatoid arthritis, unspecified Comprehensive Met. Panel 3 Months M06.9 - Rheumatoid arthritis, unspecified C Reactive Protein 3 Months M06.9 - Rheumatoid arthritis, unspecified Medications: Refilled etanercept (Enbrel SureClick) 50 mg subcut QWEEK 12 mL 1RF Discontinued folic acid Discontinued Reason: Doctor's Order 2 mg (2 x 1 mg) PO QAM 180 tabs 1RF Coding Level of Care Code Est Pt Level 4 (72170) Diagnoses Rheumatoid arthritis of multiple sites with negative rheumatoid factor M06.09 Rheumatoid arthritis location: multiple sites Rheumatoid factor presence: without rheumatoid factor High risk medication use Z79.899
== END 2022-12-08 10:00 | disposition home or self-care (01) ==
PROVIDERS: PCP Registered Nurse; Visit Provider Student in an Organized Health Care Education/Training Program
DX: M06.09 Rheumatoid arthritis without rheumatoid factor, multiple sites (principal); Z79.899 Other long term (current) drug therapy
CPT/HCPCS: 99214

== ENCOUNTER → 2022-12-08 09:21 | Outpatient (BNVA) | payer OTHER, SELFPAY | PROVIDERS: PCP Registered Nurse; Visit Provider Student in an Organized Health Care Education/Training Program | DX: M06.09 Rheumatoid arthritis without rheumatoid factor, multiple sites (principal); Z79.899 Other long term (current) drug therapy | CPT/HCPCS: 99212 ==

== ENCOUNTER 2023-02-13 13:52 | Outpatient (REF) | payer OTHER, SELFPAY ==
[2023-02-13 15:14] LABS: Influenza A PCR NEGATIVE (Negative); Influenza B PCR NEGATIVE (Negative); Resp Syncy Virus RNA Qual PCR NEGATIVE (Negative); SARS COV2 PCR INHOUSE NEGATIVE (Negative)
== END 2023-02-13 13:53 | disposition home or self-care (01) ==
LOC: HO.CHCLNP 13:52
PROVIDERS: Visit Provider Registered Nurse
DX: J01.90 Acute sinusitis, unspecified (principal); B96.89 Other specified bacterial agents as the cause of diseases classified elsewhere; Z20.822 Contact with and (suspected) exposure to COVID-19
CPT/HCPCS: 0241U; 87070

== ENCOUNTER 2023-03-27 08:19 | Outpatient (REF) | payer OTHER, SELFPAY ==
[2023-03-27 08:33] LABS: MANUAL DIFF FLAG NO
[2023-03-27 09:01] LABS: Basophils Absolute Auto 0.1 X10*3/uL (0.0-0.2); Basophils Percent Auto 0.8 % (0-2); Eosinophils Absolute Auto 0.3 X10*3/uL (0.0-0.4); Eosinophils Percent Auto 4.4 % (0-4); Hematocrit 42.6 % (37.0-47.0); Hemoglobin 14.3 g/dl (12.0-16.0); Imm Gran Abs Auto 0.02 X10*3/uL (0.00-0.03); Imm Gran Pct Auto 0.3 % (0.0-0.4); Lymphocytes Absolute Auto 2.4 X10*3/uL (1.2-4.9); Lymphocytes Percent Auto 33.5 % (20-40); Mean Corpuscular HGB Conc 33.6 g/dl (31.0-35.0); Mean Corpuscular Hemoglobin 29.1 pg (27.0-33.0); Mean Corpuscular Volume 86.6 fL (80.0-98.0); Mean Platelet Volume 9.2 fL (9.4-12.3); Monocytes Absolute Auto 0.6 X10*3/uL (0.1-1.2); Monocytes Percent Auto 7.8 % (2-11); Neutrophils Absolute Auto 3.8 x10*3/uL (2.0-8.3); Neutrophils Percent Auto 53.2 % (45-73); Platelet Count 375 X10*3/uL (160-400); Red Blood Count 4.92 X10*6/uL (4.20-5.50); Red Cell Distribution Width 13.4 % (11.0-16.0); White Blood Count 7.2 X10*3/uL (4.8-10.8)
[2023-03-27 09:34] LABS: Alanine Aminotransferase 29 U/L (0-31); Alkaline Phosphatase 131 U/L (39-117); Anion Gap 13 (12-20); Aspartate Amino Transferase 21 U/L (5-31); Bilirubin Total 0.4 mg/dL (0.0-1.0); Blood Urea Nitrogen 10 mg/dL (9-16); C Reactive Protein 0.72 mg/dL (< or = 0.50); Calcium 9.6 mg/dL (8.4-10.2); Carbon Dioxide 26 mmol/L (22-29); Chloride 105 mmol/L (96-108); Estimated Glomerular Filt Rate > 60; Potassium 3.7 mmol/L (3.3-5.1); Sodium 140 mmol/L (135-145); Total Protein 7.8 g/dL (6.5-8.0)
[2023-03-27 10:35] LABS: Glucose Random 127 mg/dL (60-115)
== END 2023-03-27 08:20 | disposition home or self-care (01) ==
LOC: HO.LAB 08:19
PROVIDERS: PCP Registered Nurse; Visit Provider Student in an Organized Health Care Education/Training Program
DX: M06.9 Rheumatoid arthritis, unspecified (principal)
CPT/HCPCS: 36415; 80053; 85025; 85652; 86140

== ENCOUNTER 2023-03-29 08:28 | Outpatient (AMB) | payer OTHER, SELFPAY ==
[2023-03-29 08:30] VITALS: BP 118/64; PULSE 75; TEMP 35.9; O2SAT 98; BMI 34.7
--- NOTE | 2023-03-29 08:30 | MHC.OFFVIS ---
Intake Vital Signs 03/29/23 08:30 Height 5 ft 1 in Weight 183 lb 13.848 oz BMI 34.7 BP 118/64 Blood Pressure Location Rt brachial Position Sitting Pulse 75 Pulse Source Pulse Oximeter Temp 96.6 F L Temp Source Skin Pulse Oximetry (%) 98 Oxygen Delivery Method Room Air Intake Visit Reasons: RA Intake Note: Pt last seen 12/08/22 presents today for follow up and test results. C/o pain in elbow, wrists, hand and toes. Gum Machine Operator Required: No Gum Machine Operator Name: Renu [id number] Information Interpreted: clinical only Accompanied by: Self / Same As Patient Allergies niacin [From NIASPAN EXTENDED-RELEASE] Allergy (Intermediate, Verified 03/29/23 08:33) TACHYCARDIA,DIFF.BREATHING citalopram [Celexa] Allergy (Unknown, Verified 03/29/23 08:33) unknown diltiazem [From CARTIA XT] Allergy (Unknown, Verified 03/29/23 08:33) UNKNOWN Medication List - Last Reconciled 03/29/23 by Ramya Smith MD acetaminophen-codeine 300-30 mg 1 tab PO Q12H PRN albuterol sulfate 90 mcg/actuation 2 puffs inhalation Q4-6H PRN albuterol sulfate 2.5 mg inhalation TID PRN amlodipine 10 mg PO DAILY bethanechol chloride 50 mg PO QID bisacodyl 10 mg (2 x 5 mg) PO BEDTIME blood sugar diagnostic As directed cholestyramine (with sugar) 4 gram 4 grams PO BID citalopram 40 mg PO QAM diclofenac sodium 1% 2 grams topical QID etanercept (Enbrel SureClick) 50 mg subcut QWEEK fluticasone propion-salmeterol 500-50 mcg/dose 1 ea PO BID fluticasone propionate 50 mcg/actuation 0 mcg intranasal furosemide 20 mg PO DAILY gabapentin 400 mg PO TID guaifenesin 400 mg PO QID PRN 14 days hydrochlorothiazide 25 mg PO QAM lancets As directed levofloxacin 750 mg PO DAILY 14 days magnesium oxide 400 mg PO DAILY melatonin 10 mg PO BEDTIME metoprolol succinate ER 200 mg PO DAILY metoprolol succinate ER 25 mg PO DAILY PRN multivit-iron sulf-folic acid 15 mg iron- 400 mcg (Tab-A-Ivan Multivitamin w-iron) 0 tabs PO pantoprazole 20 mg PO QAM peg 3350-electrolytes 236-22.74-6.74 -5.86 gram (Golytely) 240 mL PO Q10M 1 day peg 3350-electrolytes 236-22.74-6.74 -5.86 gram 240 mL PO Q10M ropinirole 1 mg PO BEDTIME simethicone (Gas Relief (simethicone)) 180 mg PO TID simvastatin 10 mg PO BEDTIME sucralfate 3 grams (3 x 1 gram) PO DAILY tamsulosin 0.4 mg PO DAILY topiramate 50 mg PO BEDTIME vitamin E (dl, acetate) 400 units PO BID vitamin E (dl, acetate) 45 mg PO HPI HPI Comments History of Present Illness Details 52-year-old female with seronegative RA presents for follow-up. On Enbrel once weekly. She stated that she was doing quite well until about 2 weeks ago when she started having abrupt onset of pain in her wrists, left hand, both elbows, both ankles and feet. She denied any recent illnesses. Initial history: A 51-year-old female with a past medical history of anxiety, depression, dyslipidemia, stroke, restless leg syndrome, neuropathy, migraine who presents for evaluation of diffuse pain. The condition started about 7-8 months ago with pain in her legs, ankles, feet and arms. The pain is generally worse at night, is burning pain. She stated that will she lost her balance a few weeks ago and fell and bumped her left ankle. Her left ankle has been swollen since. She did not get it evaluated. She denies any history of DVT/PE. She had a breast biopsy in the past and was told it was unremarkable. She never had a colonoscopy done. [facility] Medical History (Updated 03/29/23 @ 08:53 by Ramya Smith MD) Stroke Bilateral carpal tunnel syndrome Dyslipidemia Anxiety Depression Migraine Restless legs Surgical History S/P breast biopsy, right H/O prior ablation treatment History of esophagogastroduodenoscopy (EGD) History of cholecystectomy Family History Father High blood pressure Cancer Mother Diabetes High blood pressure Sister Diabetes High blood pressure Thyroid disease Cancer Brother High blood pressure Asthma Social History Alcohol intake: never Patient Tobacco Use Status: Never used Tobacco Current occupational status: disabled Current occupation: rt handed Review of Systems ENT Details: runny nose Musc Reports arthralgias, Reports limited range of motion and Reports stiffness Physical Exam Vital Signs: Last Vital Signs Temp 96.6 F L 03/29/23 08:30 Pulse 75 03/29/23 08:30 BP 118/64 03/29/23 08:30 Pulse Ox 98 03/29/23 08:30 Oxygen Delivery Method Room Air 03/29/23 08:30 BMI result Body Mass Index 34.7 Const General: cooperative, comfortable and no acute distress Nutritional Appearance: obese Orientation/consciousness: patient oriented x3 Limitations: no limitations HEENT Head: Yes normocephalic and Yes atraumatic Mouth: moist mucous membranes Resp Effort & Inspection: normal respiratory effort and able to speak in complete sentences Auscultation: clear to auscultation bilaterally Cardio Rate: regular rate Rhythm: regular rhythm Neuro General: patient oriented x3 Extrem Other: Bilateral wrist swelling and tenderness to palpation pain with flexion and extension Bilateral diffuse MCP tenderness, multiple PIP tenderness bilaterally Bilateral elbow warmth and pain with flexion and extension Bilateral ankle tenderness without swelling or warmth Multiple MTP tenderness bilaterally Results Reviewed Results Reviewed: Labs 01/2022 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/rheumatoid factor/CCP/seronegative RA panel all negative ESR 64 CRP 1.1 (<0.5) Unremarkable CBC and CMP Assessment & Plan Assessment & Plan (1) Rheumatoid arthritis: Comment: Seronegative diagnosed 02/2022 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 6 tabs started 02/2022 Advanced to 8 tabs 04/2022 reduced to 6 tab 07/10 due to transaminitis DC 12/10 due to ongoing transaminitis Enbrel 09/09 effective Code(s): M06.9 - Rheumatoid arthritis, unspecified Qualifiers: Rheumatoid arthritis location: multiple sites Rheumatoid factor presence: without rheumatoid factor Qualified Code(s): M06.09 - Rheumatoid arthritis without rheumatoid factor, multiple sites Plan: 52-year-old female with seronegative RA presents for follow-up. On Enbrel 50 mg weekly. Patient started having a flare up 2 weeks ago. Prior to that she was doing well on Enbrel. Will prescribe a Medrol taper for current flare. Will re-evaluate patient next visit. Will consider switching to other DMARDs such as another TNF inhibitor such as Humira or an IL 6 inhibitor Labs before next visit in 10 weeks (2) High risk medication use: Code(s): Z79.899 - Other retirement (current) drug therapy Plan: Side effects of Enbrel were discussed with the patient in detail including increased risk of infection, demyelinating disease, reactivation of latent TB, possible increased risk of solid and skin tumors. Patient fully aware. Advised patient to seek medical care HILDA if patient has an infection and advised patient to stop the medication until the infection is resolved. Plan I spent 28 minutes reviewing patient's chart, evaluating patient, ordering diagnostic workup, counseling patient and documenting in the chart Orders: Orders Comprehensive Met. Panel 10 Weeks M06.9 - Rheumatoid arthritis, unspecified Complete Blood Count Auto Diff 10 Weeks M06.9 - Rheumatoid arthritis, unspecified C Reactive Protein 10 Weeks M06.9 - Rheumatoid arthritis, unspecified Erythrocyte Sedimentation Rate 10 Weeks M06.9 - Rheumatoid arthritis, unspecified Hepatitis A,B,C Profile 10 Weeks Z11.59 - Encounter for screening for other viral diseases T Spot TB 10 Weeks Z11.7 - Encounter for testing for latent tuberculosis infection Medications: New methylprednisolone (Medrol) Take 4 tabs daily for 1 week then 3 tabs daily for 1 week then 2 tabs daily for 2 weeks then 1 tab daily for 2 weeks 91 tabs 0RF Coding Level of Care Code Est Pt Level 4 (51973) Diagnoses Rheumatoid arthritis of multiple sites with negative rheumatoid factor M06.09 Rheumatoid arthritis location: multiple sites Rheumatoid factor presence: without rheumatoid factor High risk medication use Z79.899
== END 2023-03-29 08:52 | disposition home or self-care (01) ==
PROVIDERS: PCP Registered Nurse; Visit Provider Student in an Organized Health Care Education/Training Program
DX: M06.09 Rheumatoid arthritis without rheumatoid factor, multiple sites (principal); Z79.899 Other long term (current) drug therapy
CPT/HCPCS: 99214

== ENCOUNTER → 2023-03-29 08:28 | Outpatient (BNVA) | payer OTHER, SELFPAY | PROVIDERS: PCP Registered Nurse; Visit Provider Student in an Organized Health Care Education/Training Program | DX: M06.09 Rheumatoid arthritis without rheumatoid factor, multiple sites (principal); Z79.899 Other long term (current) drug therapy | CPT/HCPCS: 99212 ==

== ENCOUNTER 2023-04-17 09:10 | Outpatient (REF) | payer OTHER, SELFPAY ==
--- NOTE | ~2023-04-17 | MM_ITS ---
EXAMINATION: MM SCREENING DIGITAL BREAST TOMOSYNTHESIS, BILATERAL CLINICAL INFORMATION: Screening. Asymptomatic. COMPARISON: Mammography: This study is compared with prior exams dating back to 2019. TECHNIQUE: Digital breast tomosynthesis is performed in both the craniocaudal and mediolateral oblique views along with computer-aided detection (CAD). Synthesized 2D images are generated from the tomosynthesis. FINDINGS: There are scattered areas of fibroglandular density (ACR BI-RADS breast composition Category b). There are no significant masses, abnormal calcifications, or other abnormalities. There is a tissue marker present in the upper-outer quadrant of the right breast from prior benign percutaneous biopsy. MM/MM tomosynthesis screening BI IMPRESSION: No mammographic evidence of malignancy. ASSESSMENT: BI-RADS BI-RADS 2 - Benign Findings RECOMMENDATION: Routine annual mammography screening. 1 year F/U This examination should not preclude the clinical evaluation of a suspicious palpable abnormality. This patient's information was entered into a reminder system with a target due date for their next mammogram.
== END 2023-04-17 09:11 | disposition home or self-care (01) ==
LOC: HO.MAMMO 09:10
PROVIDERS: PCP Registered Nurse; Visit Provider Registered Nurse
DX: Z12.31 Encounter for screening mammogram for malignant neoplasm of breast (principal)
CPT/HCPCS: 77063; 77067

== ENCOUNTER → 2023-04-17 09:45 | Outpatient (BNV) | payer OTHER, SELFPAY | PROVIDERS: PCP Registered Nurse; Visit Provider Radiology Diagnostic Radiology | DX: Z12.31 Encounter for screening mammogram for malignant neoplasm of breast (principal) | CPT/HCPCS: 77063; 77067 ==

== ENCOUNTER 2023-04-27 08:21 | Outpatient (AMB) | payer OTHER, SELFPAY ==
--- NOTE | 2023-04-27 08:24 | A.OFFVIS_ITS ---
Intake Vital Signs 04/27/23 08:42 Height 5 ft 1 in Weight 179 lb 14.355 oz BMI 34.0 BP 106/64 Blood Pressure Location Rt brachial Position Sitting Pulse 64 Intake Visit Reasons: GONZALEZ Intake Note: Patient presents to in office visit today in follow up of GONZALEZ and GERD. CC: Patient reports that she is very depressed and tired. She states that for about a month every time she eats she gets diarrhea, abdominal cramps, and fecal incontinence. She also states she has seen blood in the stool and c/o N/V, and acid reflux. Director Strategic Account Management Required: Yes Director Strategic Account Management Name: Juan Alberto Accompanied by: Self / Same As Patient Allergies niacin [From NIASPAN EXTENDED-RELEASE] Allergy (Intermediate, Verified 04/27/23 08:52) TACHYCARDIA,DIFF.BREATHING citalopram [Celexa] Allergy (Unknown, Verified 04/27/23 08:52) unknown diltiazem [From CARTIA XT] Allergy (Unknown, Verified 04/27/23 08:52) UNKNOWN HPI GONZALEZ HPI Details Assessment & Plan (1) Post-cholecystectomy syndrome: Code(s): K91.5 - Postcholecystectomy syndrome Plan: US OF ABDOMEN Scheduled for 02/28/2022 * COLONOSCOPY Not yet scheduled or obtained BIOPSY TODAYS VISIT Malay #[id number] She is doing better with the cholestyramine than the carafate. We will continue this treatment since she is satisfied with it. She has not yet been contacted about the colonoscopy. I will check into this. Her ultrasound is coming up in February and I reviewed the labs that are available with her today. ROV after procedure. No known FHX crc or polyps (2) GERD (gastroesophageal reflux diseas e): Code(s): K21.9 - Gastro-esophageal reflux disease without esophagitis (3) GONZALEZ (nonalcoholic steatohepatitis): Comment: K75.81 (Primary), Neg 2019 Hep B, C, mild elevation LFT's, 12/2018 US, ferritin, autimmune work up WNL, AFP 1.8, fibrosis score F0 CURRENT LABS Alpha Fetoprotein 1.9 06/30/21 Estimated GFR > 60 Total Bilirubin 0.3 AST 31 ALT 49 H Alkaline Phosphatase 139 H ULTRASOUND OF THE ABDOMEN 06/29/21 LIVER: The liver is normal in size. The liver contour is normal. Parenchymal echogenicity is normal. No focal hepatic lesion. There is no intrahepatic biliary duct dilatation seen. GALLBLADDER: Surgically absent. COMMON BILE DUCT: Normal in caliber measuring 0.5 cm in diameter. RIGHT KIDNEY: Normal. No hydronephrosis. No renal calculi or focal parenchymal lesions. The kidney measures 12.0 cm in maximum dimension. LEFT KIDNEY: Normal. No hydronephrosis. No renal calculi or focal parenchymal lesions. The kidney measures 12.1 cm in maximum dimension. SPLEEN: Normal. The spleen measures 9.5 cm in maximum dimension. FREE FLUID: None. US/US abdomen complete IMPRESSION: ? Status post cholecystectomy. No intra or extrahepatic biliary duct dilatation. ? Otherwise unremarkable abdominal ultrasound. Code(s): K75.81 - Nonalcoholic steatohepatitis (GONZALEZ) COLONOSCOPY BIOPSY TODAYS VISIT Malay #Juan Alberto [place] THIS PATIENT HAS BEEN LOST TO FOLLOW-UP SINCE 01/2022 For about a month everything I eat makes me run to the BR. She will have lower abd cramping and at times fecal incontinence. She ran out of her cholestyramine, so this is the cause and we will restart it. She says that she called the office to make an appt, but was told she had to wait until after the colonoscopy. This is not how I practice, so she was given incorrect information. She had an appt for the scope on 03/14, but she thought it was 04/14, and she was not prepared due to the mix up. Apparently, she did not receive the mailed instructions until 2 days after the procedure. I will walk her down to the schedulers to reschedule this. She is having swelling in her arms and shoulders, she has RA. She has cataract surgery coming up. We will restart her cholestyramine, she continues on her pantoprazole 20 mg once a day simethicone as needed 3 times a day and we held the Carafate since she did not tolerate it as well. Return office visit in 4 weeks and of course after the procedure. [facility] Medical History Stroke Bilateral carpal tunnel syndrome Dyslipidemia Anxiety Depression Migraine Restless legs Surgical History S/P breast biopsy, right H/O prior ablation treatment History of esophagogastroduodenoscopy (EGD) History of cholecystectomy Family History Father High blood pressure Cancer Mother Diabetes High blood pressure Sister Diabetes High blood pressure Thyroid disease Cancer Brother High blood pressure Asthma Social History Alcohol intake: never Patient Tobacco Use Status: Never used Tobacco Current occupational status: disabled Current occupation: rt handed Review of Systems Const Denies fatigue, Denies fever(s), Denies night sweats, Denies poor appetite and Denies weight loss ENT Reports Normal hearing present, Denies dental pain, Denies dysphagia, Denies hearing loss, Denies mouth pain, Denies odynophagia, Denies throat swelling, Denies tongue swelling and Reports other (Dentition adequate) Card Reports no additional complaints Resp Reports no additional complaints GI Details: Denies abdominal pain, Denies melena, Reports bloating, Denies hematochezia, Denies constipation, Reports GI cramping, Denies dysphagia, Denies excessive flatus, Denies early satiety, Reports heartburn, Reports diarrhea, Denies nausea, Denies odynophagia, Denies vomiting and Denies hematemesis Skin/Breast Denies pruritus, Denies lesions, Denies rash and Denies jaundice Neuro Reports Normal hearing present and Denies Abnormal speech present Endo Denies fatigue Aller/Immun Denies throat swelling and Denies tongue swelling Physical Exam Vital Signs: Last Vital Signs Pulse 64 04/27/23 08:42 BP 106/64 04/27/23 08:42 BMI result Body Mass Index 34.0 Const General: cooperative, no acute distress, well developed and well groomed Nutritional Appearance: well nourished and obese Orientation/consciousness: oriented to person, oriented to place and oriented to time Limitations: language barrier HEENT Head: Yes normocephalic and Yes atraumatic Eyes General: appearance normal, both eyes and all related structures Pupils: Equal, round and reactive pupils present Neck Neck: Yes normal visual inspection and Yes no lymphadenopathy Thyroid: Thyroid normal Resp Effort & Inspection: normal respiratory effort and able to speak in complete sentences Auscultation: clear to auscultation bilaterally Cardio Rate: regular rate Rhythm: regular rhythm Heart sounds: Normal, physiologic split S2 sound present Peripheral pulses: radial pulses present and posterior tibial pulses present GI Inspection: No distended, Yes Abdominal panniculus present and Yes obesity Palpation (GI): Soft to palpation, nontender, no guarding, not rigid and No hepatosplenomegaly present Percussion: Yes normal to percussion Auscultation: normal bowel sounds Rectal Exam - Female: deferred Skin General skin exam: no rashes or lesions noted, turgor normal, skin not dry, no jaundice, No spider nevi and no striae Rashes: no rashes Nails: normal Neuro General: oriented to person, oriented to place and oriented to time Cranial nerves: Yes Equal, round and reactive pupils present and Yes Normal hearing present Speech: No Abnormal speech present Extrem General: Yes normal to inspection, No clubbing, No cyanosis and No edema Psych Appearance: grossly normal and well kempt Mental Status: mental status grossly normal Speech and movement: Normal speech and movement present Affect: normal affect Attitude: cooperative Thought process: Normal thought process present and not confabulating Thought content: Normal thought content present Insight: Limited insight present (Psych) Judgement: Limited judgement present (Psych) Assessment & Plan Assessment & Plan (1) GERD (gastroesophageal reflux disease): Code(s): K21.9 - Gastro-esophageal reflux disease without esophagitis (2) GONZALEZ (nonalcoholic steatohepatitis): Comment: K75.81 (Primary), Neg 2019 Hep B, C, mild elevation LFT's, 12/2018 US, ferritin, autimmune work up WNL, AFP 1.8, fibrosis score F0 CURRENT LABS Alpha Fetoprotein 1.9 06/30/21 Estimated GFR > 60 Total Bilirubin 0.3 AST 31 ALT 49 H Alkaline Phosphatase 139 H ULTRASOUND OF THE ABDOMEN 06/29/21 LIVER: The liver is normal in size. The liver contour is normal. Parenchymal echogenicity is normal. No focal hepatic lesion. There is no intrahepatic biliary duct dilatation seen. GALLBLADDER: Surgically absent. COMMON BILE DUCT: Normal in caliber measuring 0.5 cm in diameter. RIGHT KIDNEY: Normal. No hydronephrosis. No renal calculi or focal parenchymal lesions. The kidney measures 12.0 cm in maximum dimension. LEFT KIDNEY: Normal. No hydronephrosis. No renal calculi or focal parenchymal lesions. The kidney measures 12.1 cm in maximum dimension. SPLEEN: Normal. The spleen measures 9.5 cm in maximum dimension. FREE FLUID: None. US/US abdomen complete IMPRESSION: ? Status post cholecystectomy. No intra or extrahepatic biliary duct dilatation. ? Otherwise unremarkable abdominal ultrasound. Code(s): K75.81 - Nonalcoholic steatohepatitis (GONZALEZ) (3) Post-cholecystectomy syndrome: Code(s): K91.5 - Postcholecystectomy syndrome Plan Malay #Jua nAlberto [place] THIS PATIENT HAS BEEN LOST TO FOLLOW-UP SINCE 01/2022 For about a month everything I eat makes me run to the BR. She will have lower abd cramping and at times fecal incontinence. She ran out of her cholestyramine, so this is the cause and we will restart it. She says that she called the office to make an appt, but was told she had to wait until after the colonoscopy. This is not how I practice, so she was given incorrect information. She had an appt for the scope on 03/14, but she thought it was 04/14, and she was not prepared due to the mix up. Apparently, she did not receive the mailed instructions until 2 days after the procedure. I will walk her down to the schedulers to reschedule this. She is having swelling in her arms and shoulders, she has RA. She has cataract surgery coming up. We will restart her cholestyramine, she continues on her pantoprazole 20 mg once a day simethicone as needed 3 times a day and we held the Carafate since she did not tolerate it as well. Return office visit in 4 weeks and of course after the procedure. Orders: Orders Colonoscopy - GI Use Only Today Z12.11 - Encounter for screening for malignant neoplasm of colon Medications: Refilled cholestyramine (with sugar) 4 gram administer w/meal; avoid other meds within 1hr before or 4-6hr after dose 4 grams PO BID 378 grams 6RF K91.5 - Postcholecystectomy syndrome simethicone (Gas Relief (simethicone)) 180 mg PO TID 90 ea 3RF R14.0 - Abdominal distension (gaseous) Coding Level of Care Code Est Pt Level 3 (40637) Diagnoses GERD (gastroesophageal reflux disease) K21.9 GONZALEZ (nonalcoholic steatohepatitis) K75.81 Post-cholecystectomy syndrome K91.5
[2023-04-27 08:42] VITALS: BP 106/64; PULSE 64; BMI 34.0
== END 2023-04-27 09:25 | disposition home or self-care (01) ==
PROVIDERS: PCP Registered Nurse; Visit Provider Nurse Practitioner
DX: K21.9 Gastro-esophageal reflux disease without esophagitis (principal); K75.81 Nonalcoholic steatohepatitis (NASH); K91.5 Postcholecystectomy syndrome
CPT/HCPCS: 99213

== ENCOUNTER → 2023-04-27 08:21 | Outpatient (BNVA) | payer OTHER, SELFPAY | PROVIDERS: PCP Registered Nurse; Visit Provider Nurse Practitioner | DX: K21.9 Gastro-esophageal reflux disease without esophagitis (principal); K75.81 Nonalcoholic steatohepatitis (NASH); K91.5 Postcholecystectomy syndrome | CPT/HCPCS: 99212 ==

== ENCOUNTER 2023-06-16 08:50 | Outpatient (REF) | payer OTHER, SELFPAY ==
[2023-06-16 09:05] LABS: MANUAL DIFF FLAG NO
[2023-06-16 10:16] LABS: Basophils Absolute Auto 0.1 X10*3/uL (0.0-0.2); Basophils Percent Auto 0.7 % (0-2); Eosinophils Absolute Auto 0.3 X10*3/uL (0.0-0.4); Eosinophils Percent Auto 3.6 % (0-4); Hematocrit 42.6 % (37.0-47.0); Hemoglobin 14.1 g/dl (12.0-16.0); Imm Gran Abs Auto 0.04 X10*3/uL (0.00-0.03); Imm Gran Pct Auto 0.5 % (0.0-0.4); Lymphocytes Absolute Auto 2.6 X10*3/uL (1.2-4.9); Mean Corpuscular HGB Conc 33.1 g/dl (31.0-35.0); Mean Corpuscular Hemoglobin 29.1 pg (27.0-33.0); Mean Platelet Volume 9.2 fL (9.4-12.3); Monocytes Absolute Auto 0.6 X10*3/uL (0.1-1.2); Monocytes Percent Auto 7.5 % (2-11); Neutrophils Absolute Auto 4.6 x10*3/uL (2.0-8.3); Neutrophils Percent Auto 55.7 % (45-73); Platelet Count 368 X10*3/uL (160-400); Red Blood Count 4.84 X10*6/uL (4.20-5.50); Red Cell Distribution Width 13.7 % (11.0-16.0); White Blood Count 8.2 X10*3/uL (4.8-10.8)
[2023-06-16 11:19] LABS: Alanine Aminotransferase 46 U/L (0-31); Albumin Level 3.9 g/dL (3.5-5.0); Alkaline Phosphatase 132 U/L (39-117); Anion Gap 11 (12-20); Aspartate Amino Transferase 31 U/L (5-31); Bilirubin Total 0.4 mg/dL (0.0-1.0); Blood Urea Nitrogen 6 mg/dL (9-16); C Reactive Protein 0.64 mg/dL (< or = 0.50); Calcium 9.5 mg/dL (8.4-10.2); Carbon Dioxide 28 mmol/L (22-29); Chloride 106 mmol/L (96-108); Estimated Glomerular Filt Rate > 60; Glucose Random 128 mg/dL (60-115); Potassium 3.7 mmol/L (3.3-5.1); Sodium 141 mmol/L (135-145); Total Protein 7.8 g/dL (6.5-8.0)
[2023-06-16 11:36] LABS: HBc Num1 0.09 S/CO (0.00-0.79); HBsAGNum1 0.35 S/CO (0.00-0.99); Hepatitis A Antibody IgM 0.94 Index (0-0.79); Hepatitis B Core Antibody Nonreactive (Nonreactive); Hepatitis B Surface Antigen Negative (Negative); ~HepC Num1 0.18 S/CO (0.00-0.79); ~Hepatitis A Antibody IgM GRAYZONE (Nonreactive); ~Hepatitis B Surface Antibody NONREACTIVE (Nonreactive); ~Hepatitis C Antibody Nonreactive (Nonreactive)
[2023-06-16 12:18] LABS: Erythrocyte Sedimentation Rate 26 MM/HR (0-20)
[2023-06-18 21:54] LABS: TS Negative Control Passed; TS Panel A 3; TS Panel B 0; TS Positive Control Passed; TSpotTB Negative (Negative)
== END 2023-06-16 08:51 | disposition home or self-care (01) ==
LOC: HO.LAB 08:50
PROVIDERS: PCP Registered Nurse; Visit Provider Student in an Organized Health Care Education/Training Program
DX: Z11.7 Encounter for testing for latent tuberculosis infection (principal); Z11.59 Encounter for screening for other viral diseases; M06.9 Rheumatoid arthritis, unspecified; Z72.89 Other problems related to lifestyle
CPT/HCPCS: 36415; 80053; 85025; 85652; 86140; 86481; 86704; 86706; 86709; 86803; 87340

== ENCOUNTER 2023-06-19 10:01 | Outpatient (AMB) | payer OTHER, SELFPAY ==
--- NOTE | 2023-06-19 10:12 | MHC.OFFVIS ---
Intake Vital Signs 06/19/23 10:13 Height 5 ft 1 in Weight 181 lb 14.102 oz BMI 34.4 BP 122/64 Blood Pressure Location Rt brachial Position Sitting Pulse 91 Pulse Source Pulse Oximeter Pulse Oximetry (%) 98 Oxygen Delivery Method Room Air Intake Visit Reasons: RA/cm Intake Note: Patient last seen 03/29/23 presents today for follow up and test results. Completed pred taper, it helped a little but today has complaints of: Hand pain Knee pain L foot pain Back pain Swelling Regulator Inspector Required: Yes Regulator Inspector Name: Austin Dubon Information Interpreted: clinical only Accompanied by: Self / Same As Patient Allergies niacin [From NIASPAN EXTENDED-RELEASE] Allergy (Intermediate, Verified 06/19/23 10:16) TACHYCARDIA,DIFF.BREATHING citalopram [Celexa] Allergy (Unknown, Verified 06/19/23 10:16) unknown diltiazem [From CARTIA XT] Allergy (Unknown, Verified 06/19/23 10:16) UNKNOWN Medication List - Last Reconciled 06/19/23 by Ramya Smith MD albuterol sulfate 90 mcg/actuation 2 puffs inhalation Q4-6H PRN albuterol sulfate 2.5 mg inhalation TID PRN amlodipine 10 mg PO DAILY bisacodyl 10 mg (2 x 5 mg) PO BEDTIME blood sugar diagnostic As directed cholestyramine (with sugar) 4 gram 4 grams PO BID citalopram 40 mg PO QAM diclofenac sodium 1% 2 grams topical QID etanercept (Enbrel SureClick) 50 mg subcut QWEEK fluticasone propion-salmeterol 500-50 mcg/dose 1 ea PO BID furosemide 20 mg PO DAILY gabapentin 400 mg PO TID guaifenesin 400 mg PO QID PRN 14 days hydrochlorothiazide 25 mg PO QAM lancets As directed melatonin 10 mg PO BEDTIME metoprolol succinate ER 25 mg PO DAILY PRN metoprolol succinate ER 200 mg PO QAM multivit-iron sulf-folic acid 15 mg iron- 400 mcg (Tab-A-Ivan Multivitamin w-iron) 1 tab PO DAILY pantoprazole 20 mg PO QAM peg 3350-electrolytes 236-22.74-6.74 -5.86 gram 240 mL PO Q10M ropinirole 1 mg PO BEDTIME simethicone (Gas Relief (simethicone)) 180 mg PO TID simvastatin 10 mg PO BEDTIME sucralfate 3 grams (3 x 1 gram) PO DAILY topiramate 50 mg PO BEDTIME vitamin E (dl, acetate) 45 mg PO BID HPI HPI Comments History of Present Illness Details 53-year-old female with seronegative RA presents for follow-up. On Enbrel once weekly. She continues to have pain in her hands, wrists, fingers, knees and left foot. Stated that Medrol taper prescribed last visit did provide temporary relief. She just received a new shipment of one-month supply Enbrel today Initial history: A 51-year-old female with a past medical history of anxiety, depression, dyslipidemia, stroke, restless leg syndrome, neuropathy, migraine who presents for evaluation of diffuse pain. The condition started about 7-8 months ago with pain in her legs, ankles, feet and arms. The pain is generally worse at night, is burning pain. She stated that will she lost her balance a few weeks ago and fell and bumped her left ankle. Her left ankle has been swollen since. She did not get it evaluated. She denies any history of DVT/PE. She had a breast biopsy in the past and was told it was unremarkable. She never had a colonoscopy done. [facility] Medical History Stroke Bilateral carpal tunnel syndrome Dyslipidemia Anxiety Depression Migraine Restless legs Surgical History S/P breast biopsy, right H/O prior ablation treatment History of esophagogastroduodenoscopy (EGD) History of cholecystectomy Family History Father High blood pressure Cancer Mother Diabetes High blood pressure Sister Diabetes High blood pressure Thyroid disease Cancer Brother High blood pressure Asthma Social History Alcohol intake: never Patient Tobacco Use Status: Never used Tobacco Current occupational status: disabled Current occupation: rt handed Review of Systems [facility] [place]ralgias, Reports limited range of motion and Reports stiffness Physical Exam Vital Signs: Last Vital Signs Pulse 91 06/19/23 10:13 BP 122/64 06/19/23 10:13 Pulse Ox 98 06/19/23 10:13 Oxygen Delivery Method Room Air 06/19/23 10:13 BMI result Body Mass Index 34.4 Const General: cooperative, comfortable and no acute distress Nutritional Appearance: obese Orientation/consciousness: patient oriented x3 Limitations: no limitations HEENT Head: Yes normocephalic and Yes atraumatic Mouth: moist mucous membranes Resp Effort & Inspection: normal respiratory effort and able to speak in complete sentences Auscultation: clear to auscultation bilaterally Cardio Rate: regular rate Rhythm: regular rhythm Neuro General: patient oriented x3 Extrem Other: Right wrist tenderness and pain with flexion and extension Left wrist pain with flexion and extension Right 5th MCP swelling and tenderness Left 2nd and 3rd MCP tenderness Bilateral elbow warmth and pain with flexion and extension Bilateral ankle tenderness without swelling or warmth Left dorsal foot tenderness Multiple MTP tenderness bilaterally Results Reviewed Results Reviewed: Labs 01/2022 ERIK/Dorsey/UNARMED SECURITY GUARD/SSA/SSB/rheumatoid factor/CCP/seronegative RA panel all negative ESR 64 CRP 1.1 (<0.5) Unremarkable CBC and CMP Assessment & Plan Assessment & Plan (1) Rheumatoid arthritis: Comment: Seronegative diagnosed 02/2022 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 6 tabs started 02/2022 Advanced to 8 tabs 04/2022 reduced to 6 tab 07/10 due to transaminitis DC 12/10 due to ongoing transaminitis Enbrel 09/09-DC 06/2022 ineffective Code(s): M06.9 - Rheumatoid arthritis, unspecified Qualifiers: Rheumatoid arthritis location: multiple sites Rheumatoid factor presence: without rheumatoid factor Qualified Code(s): M06.09 - Rheumatoid arthritis without rheumatoid factor, multiple sites Plan: 53-year-old female with seronegative RA presents for follow-up. On Enbrel 50 mg weekly. She continues to have multiple swollen and tender joints. Will need to change DMARDs. Discussed risks and benefits of Actemra. Patient agreed to proceed. Will start prior authorization for Actemra Labs before next visit in 3 months (2) High risk medication use: Code(s): Z79.899 - Other exterminator helper termite (current) drug therapy Plan: Side effects of Actemra were discussed with the patient in detail including increased risk of infection, , reactivation of latent TB, . Patient fully aware. Advised patient to seek medical care HILDA if patient has an infection and advised patient to stop the medication until the infection is resolved. Plan I spent 28 minutes reviewing patient's chart, evaluating patient, ordering diagnostic workup, counseling patient and documenting in the chart Medications: Discontinued etanercept (Enbrel SureClick) Discontinued Reason: Doctor's Order 50 mg subcut QWEEK 12 mL 1RF Coding Level of Care Code Est Pt Level 4 (79580) Diagnoses Rheumatoid arthritis of multiple sites with negative rheumatoid factor M06.09 Rheumatoid arthritis location: multiple sites Rheumatoid factor presence: without rheumatoid factor High risk medication use Z79.899
[2023-06-19 10:13] VITALS: BP 122/64; PULSE 91; O2SAT 98; BMI 34.4
== END 2023-06-19 10:52 | disposition home or self-care (01) ==
PROVIDERS: PCP Registered Nurse; Visit Provider Student in an Organized Health Care Education/Training Program
DX: M06.09 Rheumatoid arthritis without rheumatoid factor, multiple sites (principal); Z79.899 Other long term (current) drug therapy
CPT/HCPCS: 99214

== ENCOUNTER → 2023-06-19 10:01 | Outpatient (BNVA) | payer OTHER, SELFPAY | PROVIDERS: PCP Registered Nurse; Visit Provider Student in an Organized Health Care Education/Training Program | DX: M06.09 Rheumatoid arthritis without rheumatoid factor, multiple sites (principal); G62.9 Polyneuropathy, unspecified; Z86.73 Personal history of transient ischemic attack (TIA), and cerebral infarction without residual deficits; Z79.899 Other long term (current) drug therapy | CPT/HCPCS: 99212 ==

== ENCOUNTER 2023-06-26 06:30 | Day surgery (SDC) | payer OTHER, SELFPAY ==
[2023-06-19 15:23] VITALS: BMI 33.8
--- NOTE | 2023-06-22 13:52 | HO.ANESPROP2 ---
Documented by User: Ana Maria Ramirez NP 06/22/23 13:52 HPI - Anesthesia Eval Consult details Narrative: 53yo F for Right Cataract Extraction IOL Insertion Optimized per PCP No previous cataract on record PMFSH Active Problems Active Problems: All Active Problems Colon cancer screening (Acute) High risk medication use (Acute) Rheumatoid arthritis (Acute) Neuropathy (Acute) Bilateral knee pain (Acute) Pain in left shoulder (Acute) Bronchitis, mucopurulent recurrent (Acute) Epigastric pain (Acute) Medial epicondylitis of right elbow (Acute) Abdominal bloating (Acute) Diarrhea (Acute) Environmental allergies (Acute) Acute bronchitis (Acute) Moderate persistent asthma (Acute) Varicose veins of right lower extremity with inflammation (Acute) Irritable bowel syndrome with both constipation and diarrhea (Acute) Post-cholecystectomy syndrome (Acute) Post-nasal drip (Acute) GERD (gastroesophageal reflux disease) (Acute) GONZALEZ (nonalcoholic steatohepatitis) (Acute) Past Medical History Medical History Rheumatoid arthritis GERD (gastroesophageal reflux disease) HTN (hypertension) Stroke Bilateral carpal tunnel syndrome Dyslipidemia Anxiety Depression Migraine Restless legs Family History Family History Father High blood pressure Cancer Mother Diabetes High blood pressure Sister Diabetes High blood pressure Thyroid disease Cancer Brother High blood pressure Asthma Surgical History Surgical History S/P breast biopsy, right H/O prior ablation treatment History of esophagogastroduodenoscopy (EGD) History of cholecystectomy Social History Social History Alcohol intake: never Patient Tobacco Use Status: Never used Tobacco Are you DNR?: No Advance Directives: No Advance Directives Information Provided: Yes Nutrition Risks: No Nutritional Risk Current occupational status: disabled Current occupation: rt handed Meds Allergies Allergy/AdvReac Type Severity Reaction Status Date / Time niacin Allergy Intermediate TACHYCARDIA Verified 06/26/23 07:18 [From NIASPAN ,DIFF.BREAT EXTENDED-RELEASE] THIERRY citalopram [Celexa] Allergy Unknown unknown Verified 06/26/23 07:18 diltiazem [From CARTIA XT] Allergy Unknown UNKNOWN Verified 06/26/23 07:18 Home Medications ?Medication ?Instructions ?Recorded ?Confirmed ?Last Taken ?Type albuterol sulfate 2.5 mg/3 mL 2.5 mg inhalation TID PRN 04/22/20 06/19/23 Unknown History (0.083 %) solution for nebulization Shortness Of Breath albuterol sulfate 90 mcg/actuation 2 puff inhalation Q4-6H PRN 04/22/20 06/19/23 Unknown History aerosol inhaler Shortness Of Breath citalopram 40 mg tablet 40 mg PO QAM 04/22/20 06/19/23 Unknown History diclofenac sodium 1 % topical gel 2 g topical QID 04/22/20 06/19/23 Unknown History gabapentin 400 mg capsule 400 mg PO TID 04/22/20 06/19/23 Unknown History melatonin 5 mg tablet 10 mg PO BEDTIME 04/22/20 06/19/23 Unknown History simvastatin 10 mg tablet 10 mg PO BEDTIME 04/22/20 06/19/23 Unknown History topiramate 25 mg tablet 50 mg PO BEDTIME 04/22/20 06/19/23 Unknown History blood sugar diagnostic #10 ea 05/12/20 07/25/22 Unknown History lancets 33 gauge #100 ea 05/12/20 07/25/22 Unknown History amlodipine 10 mg tablet 10 mg PO DAILY 02/01/22 06/19/23 06/26/23 History metoprolol succinate 25 mg 25 mg PO DAILY PRN 12/08/22 Unknown History tablet,extended release 24 hr ropinirole 1 mg tablet 1 mg PO BEDTIME 12/08/22 06/19/23 Unknown History multivitamin-iron sulfate 15 1 tab PO DAILY 04/27/23 06/19/23 Unknown History mg-folic acid 400 mcg tablet (Tab-A-Ivan Multivitamin w-iron) vitamin E (dl, acetate) 45 mg (100 45 mg PO BID 04/27/23 06/19/23 Unknown History unit) capsule metoprolol succinate 200 mg 200 mg PO QAM 06/19/23 06/19/23 06/26/23 History tablet,extended release 24 hr Exam Height,Weight and Vital Signs: Height 5 ft 1 in Weight 81.193 kg Assessment and Plan Assessment Anesthesia Assessment: Chart Reviewed Documented by User: Caitlyn Silva MD 06/26/23 07:55 PMFSH Past Medical History Medical History Rheumatoid arthritis GERD (gastroesophageal reflux disease) HTN (hypertension) Stroke Bilateral carpal tunnel syndrome Dyslipidemia Anxiety Depression Migraine Restless legs Family History Family History Father High blood pressure Cancer Mother Diabetes High blood pressure Sister Diabetes High blood pressure Thyroid disease Cancer Brother High blood pressure Asthma Family history of problems with anesthesia: No Surgical History Surgical History S/P breast biopsy, right H/O prior ablation treatment History of esophagogastroduodenoscopy (EGD) History of cholecystectomy History of Problems with Anesthesia: No Social History Social History Alcohol intake: never Patient Tobacco Use Status: Never used Tobacco Are you DNR?: No Advance Directives: No Advance Directives Information Provided: Yes Nutrition Risks: No Nutritional Risk Current occupational status: disabled Current occupation: rt handed Meds Allergies Allergy/AdvReac Type Severity Reaction Status Date / Time niacin Allergy Intermediate TACHYCARDIA Verified 06/26/23 07:18 [From NIASPAN ,DIFF.BREAT EXTENDED-RELEASE] THIERRY citalopram [Celexa] Allergy Unknown unknown Verified 06/26/23 07:18 diltiazem [From CARTIA XT] Allergy Unknown UNKNOWN Verified 06/26/23 07:18 Home Medications ?Medication ?Instructions ?Recorded ?Confirmed ?Last Taken ?Type albuterol sulfate 2.5 mg/3 mL 2.5 mg inhalation TID PRN 04/22/20 06/19/23 Unknown History (0.083 %) solution for nebulization Shortness Of Breath albuterol sulfate 90 mcg/actuation 2 puff inhalation Q4-6H PRN 04/22/20 06/19/23 Unknown History aerosol inhaler Shortness Of Breath citalopram 40 mg tablet 40 mg PO QAM 04/22/20 06/19/23 Unknown History diclofenac sodium 1 % topical gel 2 g topical QID 04/22/20 06/19/23 Unknown History gabapentin 400 mg capsule 400 mg PO TID 04/22/20 06/19/23 Unknown History melatonin 5 mg tablet 10 mg PO BEDTIME 04/22/20 06/19/23 Unknown History simvastatin 10 mg tablet 10 mg PO BEDTIME 04/22/20 06/19/23 Unknown History topiramate 25 mg tablet 50 mg PO BEDTIME 04/22/20 06/19/23 Unknown History blood sugar diagnostic #10 ea 05/12/20 07/25/22 Unknown History lancets 33 gauge #100 ea 05/12/20 07/25/22 Unknown History amlodipine 10 mg tablet 10 mg PO DAILY 02/01/22 06/19/23 06/26/23 History metoprolol succinate 25 mg 25 mg PO DAILY PRN 12/08/22 Unknown History tablet,extended release 24 hr ropinirole 1 mg tablet 1 mg PO BEDTIME 12/08/22 06/19/23 Unknown History multivitamin-iron sulfate 15 1 tab PO DAILY 04/27/23 06/19/23 Unknown History mg-folic acid 400 mcg tablet (Tab-A-Ivan Multivitamin w-iron) vitamin E (dl, acetate) 45 mg (100 45 mg PO BID 04/27/23 06/19/23 Unknown History unit) capsule metoprolol succinate 200 mg 200 mg PO QAM 06/19/23 06/19/23 06/26/23 History tablet,extended release 24 hr Exam Airway Mallampati Class: II TM Dist: >3cm Neck ROM: Full Heart: rrr Lungs: cta Assessment and Plan Assessment Anesthesia Assessment: Anesthesia Plan Discussed Final Anesthetic Review Family History of Problems with Anesthesia: No History of Problems with Anesthesia: No NPO: Yes ASA Class: III Final Preanesthetic Review: No Changes in Pt Med Stat, Meds/Allgs Chart Reviewed, Consent Obtained/Reviewed and Anes Risks/Benef Reviewed Patient Risk: Intermediate Procedure Risk: Low Anesthetic Plan Anesthetic Plan: MAC: Disposition: Standard PACU
[2023-06-26] MEDS: Lactated Ringers 500 ML 50 ML IV (06:44)
[2023-06-26] MEDS: Tetracaine HCl/PF 0.5% Oph Sol 4 ML DROPS 1 DROP EYE-RIGHT (06:44)
[2023-06-26] MEDS: Ketorolac Tromethamine 0.5% Op 5 ML DROPS 1 DROP EYE-RIGHT ×3 (06:44→06:57)
[2023-06-26] MEDS: Phenylephrine HCL 2.5% Oph SoL 2 ML BOTTLE 1 DROP EYE-RIGHT ×3 (06:45→06:57)
[2023-06-26] MEDS: Tropicamide 1 % Ophth Sol 3 ML BTL 1 DROP EYE-RIGHT ×3 (06:45→06:57)
[2023-06-26] MEDS: Cyclopentolate 1 % Ophth Sol 2 ML DRPBTL 1 DROP EYE-RIGHT ×3 (06:45→06:57)
[2023-06-26 06:46] VITALS: BP 129/73; PULSE 82; RESP 18; TEMP 36.6; O2SAT 96
--- NOTE | 2023-06-26 08:44 | MHC.SHP ---
Pre-Procedural Eval Section A - 24 Hr Update-Section A only Date of Service: 06/26/23 The patient is an INPATIENT: No Changes since office visit: No Cold of Flu in the past 2 weeks, No New Medical Problems, No Changes in Medication and No Patient answered all questions The patient has been examined within 24 hours of the surgical procedure. The History & Physical has been completed within 30 days and I have reviewed it.: Yes Section B - Complete if H&P > 30 days Chief Complaint: Age-related nuclear cataract, right eye Allergies: Allergies Allergy/AdvReac Type Severity Reaction Status Date / Time niacin Allergy Intermediate TACHYCARDIA Verified 06/26/23 07:18 [From NIASPAN ,DIFF.BREAT EXTENDED-RELEASE] THIERRY citalopram [Celexa] Allergy Unknown unknown Verified 06/26/23 07:18 diltiazem [From CARTIA XT] Allergy Unknown UNKNOWN Verified 06/26/23 07:18 Plan Diagnosis/Plan: Unchanged I have reviewed the history and physical and performed a pertinent physical examination on my patient. No changes have occurred unless specified. Time Spent With Patient Time: Total time managing care of this patient today ____ minutes.
--- NOTE | 2023-06-26 08:45 | HO.PNOPHT ---
Ophthalmology Procedure Procedure Date of Service: 06/26/23 Ophthalmology Viscoelastic: Healon Duet Dual Pack Pro Ophthalmology Lenses: IOL Acrysof MP ([id number]) Procedure Notes: PREOPERATIVE DIAGNOSIS: Decreased visual acuity right eye secondary to cataract POSTOPERATIVE DIAGNOSIS: Same PROCEDURE: Right cataract extraction with intraocular lens insertion SURGEON: Martin Jackson M.D. ANESTHESIA: Topical/MAC ESTIMATED BLOOD LOSS: None COMPLICATIONS: None After obtaining informed consent, the patient was brought to the operating room suite and placed in the supine position. After adequate sedation per anesthesia, topical drops of Tetracaine were given to the right eye. The eye was then prepped and draped in the usual sterile fashion. The operating room microscope was then positioned over the operative eye and a lid speculum placed. A paracentesis was created. Viscoelastic was then instilled into the anterior chamber. A three plane incision was then created temporally, utilizing a 2.85 mm keratome. Capsulotomy forceps were then utilized to create a circular tear capsulotomy. Hydrodissection and hydrodelineation were carried out until adequate mobilization of the nucleus occurred. Phacoemulsification was then utilized to remove the dense central nucleus followed by removal of the cortical material utilizing the automated aspiration irrigation unit. Viscoelastic was instilled into the posterior capsular bag followed by placement of a posterior chamber intraocular lens without difficulty. The residual Viscoelastic was then removed utilizing the automated IA machine. The wound was checked and found to be watertight. The patient tolerated the procedure well and the lid speculum was removed. Intracameral injection of Vigamox 0.1 mL followed by a subtenon injection of Kenalog-40 0.2 mL were administered. The patient will be seen in the a.m.
[2023-06-26 09:28] VITALS: BP 107/62; PULSE 60; RESP 18; TEMP 36.1; O2SAT 95
== END 2023-06-26 09:32 | disposition home or self-care (01) ==
PROVIDERS: PCP Registered Nurse; Visit Provider Ophthalmology
PROC: (CPT 66985; principal; 2023-06-26 09:00)
DX: H25.11 Age-related nuclear cataract, right eye (principal); H54.7 Unspecified visual loss; Z83.511 Family history of glaucoma; H40.033 Anatomical narrow angle, bilateral; H40.013 Open angle with borderline findings, low risk, bilateral; H18.413 Arcus senilis, bilateral; H04.123 Dry eye syndrome of bilateral lacrimal glands; I10 Essential (primary) hypertension; E78.00 Pure hypercholesterolemia, unspecified; M06.9 Rheumatoid arthritis, unspecified; J45.909 Unspecified asthma, uncomplicated; F32.A Depression, unspecified; L30.9 Dermatitis, unspecified; Z79.82 Long term (current) use of aspirin; Z79.899 Other long term (current) drug therapy; Z88.8 Allergy status to other drugs, medicaments and biological substances
CPT/HCPCS: 66984; J2250; J3010; J3301; V2630

== ENCOUNTER 2023-07-10 06:41 | Day surgery (SDC) | payer OTHER, SELFPAY ==
[2023-06-19 15:33] VITALS: BMI 33.8
[2023-07-10 07:01] VITALS: BP 122/60; PULSE 82; RESP 20; TEMP 36.1; O2SAT 98; BMI 34.0
[2023-07-10 07:12] VITALS: BMI 34.0
--- NOTE | 2023-07-10 07:36 | HO.ANESPROP2 ---
HPI - Anesthesia Eval Consult details Narrative: 53 yo F presenting for Left Cataract Extraction IOL Insertion PMFSH Active Problems Active Problems: All Active Problems Colon cancer screening (Acute) High risk medication use (Acute) Rheumatoid arthritis (Acute) Neuropathy (Acute) Bilateral knee pain (Acute) Pain in left shoulder (Acute) Bronchitis, mucopurulent recurrent (Acute) Epigastric pain (Acute) Medial epicondylitis of right elbow (Acute) Abdominal bloating (Acute) Diarrhea (Acute) Environmental allergies (Acute) Acute bronchitis (Acute) Moderate persistent asthma (Acute) Varicose veins of right lower extremity with inflammation (Acute) Irritable bowel syndrome with both constipation and diarrhea (Acute) Post-cholecystectomy syndrome (Acute) Post-nasal drip (Acute) GERD (gastroesophageal reflux disease) (Acute) GONZALEZ (nonalcoholic steatohepatitis) (Acute) Past Medical History Medical History Rheumatoid arthritis GERD (gastroesophageal reflux disease) HTN (hypertension) Stroke Bilateral carpal tunnel syndrome Dyslipidemia Anxiety Depression Migraine Restless legs Family History Family History Father High blood pressure Cancer Mother Diabetes High blood pressure Sister Diabetes High blood pressure Thyroid disease Cancer Brother High blood pressure Asthma Family history of problems with anesthesia: No Surgical History Surgical History S/P breast biopsy, right H/O prior ablation treatment History of esophagogastroduodenoscopy (EGD) History of cholecystectomy History of Problems with Anesthesia: No Social History Social History Alcohol intake: never Patient Tobacco Use Status: Never used Tobacco Use of substances other than those prescribed or required for medical reasons: No Are you DNR?: No Advance Directives: No Advance Directives Information Provided: Yes Current occupational status: disabled Current occupation: rt handed Meds Allergies Allergy/AdvReac Type Severity Reaction Status Date / Time niacin Allergy Intermediate TACHYCARDIA Verified 06/26/23 07:18 [From NIASPAN ,DIFF.BREAT EXTENDED-RELEASE] THIERRY citalopram [Celexa] Allergy Unknown unknown Verified 06/26/23 07:18 diltiazem [From CARTIA XT] Allergy Unknown UNKNOWN Verified 06/26/23 07:18 Active Medications: Current Medications Povidone Iodine (Povidone Iodine 5 % Ophth Soln 30 Ml Bottle) 1 appl EYE-LEFT PREOP PRN PRN Reason: Pre-Op Surgical Implant Prophy Home Medications ?Medication ?Instructions ?Recorded ?Confirmed ?Last Taken ?Type albuterol sulfate 2.5 mg/3 mL 2.5 mg inhalation TID PRN 04/22/20 06/19/23 Unknown History (0.083 %) solution for nebulization Shortness Of Breath albuterol sulfate 90 mcg/actuation 2 puff inhalation Q4-6H PRN 04/22/20 06/19/23 Unknown History aerosol inhaler Shortness Of Breath citalopram 40 mg tablet 40 mg PO QAM 04/22/20 06/19/23 Unknown History diclofenac sodium 1 % topical gel 2 g topical QID 04/22/20 06/19/23 Unknown History gabapentin 400 mg capsule 400 mg PO TID 04/22/20 06/19/23 Unknown History melatonin 5 mg tablet 10 mg PO BEDTIME 04/22/20 06/19/23 Unknown History simvastatin 10 mg tablet 10 mg PO BEDTIME 04/22/20 06/19/23 Unknown History topiramate 25 mg tablet 50 mg PO BEDTIME 04/22/20 06/19/23 Unknown History blood sugar diagnostic #10 ea 05/12/20 07/25/22 Unknown History lancets 33 gauge #100 ea 05/12/20 07/25/22 Unknown History amlodipine 10 mg tablet 10 mg PO DAILY 02/01/22 06/19/23 07/10/23 History metoprolol succinate 25 mg 25 mg PO DAILY PRN 12/08/22 Unknown History tablet,extended release 24 hr ropinirole 1 mg tablet 1 mg PO BEDTIME 12/08/22 06/19/23 Unknown History multivitamin-iron sulfate 15 1 tab PO DAILY 04/27/23 06/19/23 Unknown History mg-folic acid 400 mcg tablet (Tab-A-Ivan Multivitamin w-iron) vitamin E (dl, acetate) 45 mg (100 45 mg PO BID 04/27/23 06/19/23 Unknown History unit) capsule metoprolol succinate 200 mg 200 mg PO QAM 06/19/23 06/19/23 07/10/23 History tablet,extended release 24 hr Exam Exam Date and Time: July 10, 2023 0825 Height,Weight and Vital Signs: Height 5 ft 1 in Weight 81.647 kg Last Vital Signs Temp 96.9 F 07/10/23 07:01 Pulse 82 07/10/23 07:01 Resp 20 07/10/23 07:01 Pulse Ox 98 07/10/23 07:01 O2 Del Method Room Air 07/10/23 07:01 Airway Mallampati Class: II TM Dist: >3cm Partial: Upper Heart: S1S2 Lungs: CTAB Assessment and Plan Assessment Anesthesia Assessment: Anesthesia Plan Discussed and Chart Reviewed Final Anesthetic Review Family History of Problems with Anesthesia: No History of Problems with Anesthesia: No NPO: Yes ASA Class: III Final Preanesthetic Review: No Changes in Pt Med Stat, Meds/Allgs Chart Reviewed, Consent Obtained/Reviewed (satellite tv technician at bedside for translation) and Anes Risks/Benef Reviewed Patient Risk: Low Procedure Risk: Low Anesthetic Plan Anesthetic Plan: MAC: and Agree w/ Assess. and Plan Disposition: Standard PACU
[2023-07-10] MEDS: Ketorolac Tromethamine 0.5% Op 5 ML DROPS 1 DROP EYE-LEFT ×3 (08:07→08:14)
[2023-07-10] MEDS: Tropicamide 1 % Ophth Sol 3 ML BTL 1 DROP EYE-LEFT ×3 (08:07→08:12)
[2023-07-10] MEDS: Tetracaine HCl/PF 0.5% Oph Sol 4 ML DROPS 1 DROP EYE-LEFT (08:07)
[2023-07-10] MEDS: Phenylephrine HCL 2.5% Oph SoL 2 ML BOTTLE 1 DROP EYE-LEFT ×3 (08:08→08:12)
--- NOTE | 2023-07-10 08:08 | MHC.SHP ---
Pre-Procedural Eval Section A - 24 Hr Update-Section A only Date of Service: 07/10/23 Section B - Complete if H&P > 30 days Chief Complaint: Age-related nuclear cataract, left eye Allergies: Allergies Allergy/AdvReac Type Severity Reaction Status Date / Time niacin Allergy Intermediate TACHYCARDIA Verified 06/26/23 07:18 [From NIASPAN ,DIFF.BREAT EXTENDED-RELEASE] THIERRY citalopram [Celexa] Allergy Unknown unknown Verified 06/26/23 07:18 diltiazem [From CARTIA XT] Allergy Unknown UNKNOWN Verified 06/26/23 07:18 Plan I have reviewed the history and physical and performed a pertinent physical examination on my patient. No changes have occurred unless specified. Time Spent With Patient Time: Total time managing care of this patient today ____ minutes.
--- NOTE | 2023-07-10 08:41 | HO.PNOPHT ---
Ophthalmology Procedure Procedure Date of Service: 07/10/23 Ophthalmology Viscoelastic: Healon Duet Dual Pack Pro Ophthalmology Lenses: IOL Acrysof MP - [id number] (26) Procedure Notes: PREOPERATIVE DIAGNOSIS: Decreased visual acuity left eye secondary to cataract POSTOPERATIVE DIAGNOSIS: Same PROCEDURE: Left cataract extraction with intraocular lens insertion SURGEON: Martin Jackson M.D. ANESTHESIA: Topical/MAC ESTIMATED BLOOD LOSS: None COMPLICATIONS: None After obtaining informed consent, the patient was brought to the operation room suite and placed in the supine position. After adequate sedation per anesthesia, topical drops of Tetracaine were given to the left eye. The eye was then prepped and draped in the usual sterile fashion. The operating room microscope was then positioned over the operative eye and a lid speculum placed. A paracentesis was created. Viscoelastic was then instilled into the anterior chamber. A three plane incision was then created temporally, utilizing a 2.85 mm keratome. Capsulotomy forceps were then utilized to create a circular tear capsulotomy. Hydrodissection and hydrodelineation were carried out until adequate mobilization of the nucleus occurred. Phacoemulsification was then utilized to remove the dense central nucleus followed by removal of the cortical material utilizing the automated aspiration irrigation unit. Viscoat elastic was instilled into the posterior capsular bag followed by placement of a posterior chamber intraocular lens without difficulty. The residual Viscoat elastic was then removed utilizing the automated IA machine. The wound was check and found to be watertight. The patient tolerated the procedure well and the lid speculum was removed. Intracameral injection of Vigamox 0.1 mL followed by a subtenon injection of Kenalog-40 0.2 mL were administered. The patient will be seen in the a.m.
[2023-07-10 09:07] VITALS: BP 128/77; PULSE 69; RESP 16; TEMP 36.5; O2SAT 94
== END 2023-07-10 09:28 | disposition home or self-care (01) ==
PROVIDERS: PCP Registered Nurse; Visit Provider Ophthalmology
PROC: (CPT 66985; principal; 2023-07-10 07:50)
DX: H25.12 Age-related nuclear cataract, left eye (principal); H54.7 Unspecified visual loss; Z83.511 Family history of glaucoma; H40.033 Anatomical narrow angle, bilateral; H40.013 Open angle with borderline findings, low risk, bilateral; H04.123 Dry eye syndrome of bilateral lacrimal glands; H18.413 Arcus senilis, bilateral; M06.9 Rheumatoid arthritis, unspecified; I10 Essential (primary) hypertension; E78.00 Pure hypercholesterolemia, unspecified; J45.909 Unspecified asthma, uncomplicated; R73.03 Prediabetes; R53.83 Other fatigue; Z79.82 Long term (current) use of aspirin; Z79.899 Other long term (current) drug therapy; Z88.8 Allergy status to other drugs, medicaments and biological substances
CPT/HCPCS: 66984; J2250; J3010; J3301; V2630

== ENCOUNTER → 2023-07-18 10:02 | Outpatient (BNVA) | payer OTHER, SELFPAY | PROVIDERS: PCP Registered Nurse; Visit Provider Student in an Organized Health Care Education/Training Program ==

== ENCOUNTER 2023-08-10 07:19 | Day surgery (SDC) | payer OTHER, SELFPAY ==
--- NOTE | 2022-12-12 11:54 | P.CONAN_ITS ---
HPI - Anesthesia Eval Consult details Narrative: 52yo F for Upper Endoscopy and Colonoscopy [place] [facility] [place] [place]. Last visit 11/2022. Good results with enbrel. Pt to stop methotrexate. PMFSH Active Problems Active Problems: All Active Problems (Updated 12/08/22 @ 10:06 by Ramya Smith MD) High risk medication use (Acute) Rheumatoid arthritis (Acute) Neuropathy (Acute) Bilateral knee pain (Acute) Pain in left shoulder (Acute) Bronchitis, mucopurulent recurrent (Acute) Epigastric pain (Acute) Medial epicondylitis of right elbow (Acute) Abdominal bloating (Acute) Diarrhea (Acute) Environmental allergies (Acute) Acute bronchitis (Acute) Moderate persistent asthma (Acute) Varicose veins of right lower extremity with inflammation (Acute) Irritable bowel syndrome with both constipation and diarrhea (Acute) Post-cholecystectomy syndrome (Acute) Post-nasal drip (Acute) GERD (gastroesophageal reflux disease) (Acute) GONZALEZ (nonalcoholic steatohepatitis) (Acute) Past Medical History Medical History 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, 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, 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 Encounter for testing for latent tuberculosis infection Screening for viral disease Stroke Bilateral carpal tunnel syndrome Dyslipidemia Anxiety Depression Migraine Restless legs Family History Family History Father High blood pressure Cancer Mother Diabetes High blood pressure Sister Diabetes High blood pressure Thyroid disease Cancer Brother High blood pressure Asthma Surgical History Surgical History S/P breast biopsy, right H/O prior ablation treatment History of esophagogastroduodenoscopy (EGD) History of cholecystectomy Social History Social History Alcohol intake: never Patient Tobacco Use Status: Never used Tobacco Current occupational status: disabled Current occupation: rt handed Meds Allergies Allergy/AdvReac Type Severity Reaction Status Date / Time niacin Allergy Intermediate TACHYCARDIA Verified 12/08/22 09:35 [From NIASPAN ,DIFF.BREAT EXTENDED-RELEASE] THIERRY citalopram [Celexa] Allergy Unknown unknown Verified 12/08/22 09:35 diltiazem [From CARTIA XT] Allergy Unknown UNKNOWN Verified 12/08/22 09:35 Home Medications Medication Instructions Recorded Confirmed Last Taken Type acetaminophen 300 mg-codeine 30 mg 1 tab PO Q12H PRN 04/22/20 07/25/22 Unknown History tablet albuterol sulfate 2.5 mg/3 mL 2.5 mg inhalation TID PRN 04/22/20 07/25/22 Unknown History (0.083 %) solution for nebulization albuterol sulfate 90 mcg/actuation 2 puff inhalation Q4-6H PRN 04/22/20 07/25/22 Unknown History aerosol inhaler bethanechol chloride 50 mg tablet 50 mg PO QID 04/22/20 07/25/22 Unknown History citalopram 40 mg tablet 40 mg PO QAM 04/22/20 07/25/22 Unknown History diclofenac sodium 1 % topical gel 2 g topical QID 04/22/20 07/25/22 Unknown History furosemide 20 mg tablet 20 mg PO DAILY 04/22/20 07/25/22 Unknown History gabapentin 400 mg capsule 400 mg PO TID 04/22/20 07/25/22 Unknown History melatonin 5 mg tablet 10 mg PO BEDTIME 04/22/20 07/25/22 Unknown History simvastatin 10 mg tablet 10 mg PO BEDTIME 04/22/20 07/25/22 Unknown History tamsulosin 0.4 mg capsule 0.4 mg PO DAILY 04/22/20 07/25/22 Unknown History topiramate 25 mg tablet 50 mg PO BEDTIME 04/22/20 07/25/22 Unknown History vitamin E (dl, acetate) 180 mg 400 unit PO BID 04/22/20 07/25/22 Unknown History (400 unit) capsule blood sugar diagnostic #10 ea 05/12/20 07/25/22 Unknown History fluticasone propionate 50 0 mcg intranasal 05/12/20 07/25/22 Unknown History mcg/actuation nasal spray,suspension lancets 33 gauge #100 ea 05/12/20 07/25/22 Unknown History metoprolol succinate 200 mg 200 mg PO DAILY 05/12/20 07/25/22 Unknown History tablet,extended release 24 hr multivitamin-iron sulfate 15 0 tab PO 06/01/21 07/25/22 Unknown History mg-folic acid 400 mcg tablet (Tab-A-Ivan Multivitamin w-iron) amlodipine 10 mg tablet 10 mg PO DAILY 02/01/22 07/25/22 Unknown History magnesium oxide 400 mg (241.3 mg 400 mg PO DAILY 02/01/22 07/25/22 Unknown History magnesium) tablet vitamin E (dl, acetate) 45 mg (100 45 mg PO 02/08/22 07/25/22 Unknown History unit) capsule metoprolol succinate 25 mg 25 mg PO DAILY PRN 12/08/22 Unknown History tablet,extended release 24 hr ropinirole 1 mg tablet 1 mg PO BEDTIME 12/08/22 Unknown History Exam Exam Date and Time: December 12, 2022 1154 Pertinent Lab Results Pertinent Lab Results: Laboratory Tests 12/05/22 11:23 WBC 7.4 Hgb 14.6 Hct 43.4 Plt Count 376 Sodium 140 Potassium 3.8 Chloride 106 Carbon Dioxide 27 BUN 7 L Creatinine 0.64 Narrative Narrative: EKG 07/2022 Vent. Rate : 074 BPM Atrial Rate : 074 BPM P-R Int : 144 ms QRS Dur : 088 ms QT Int : 396 ms P-R-T Axes : 051 055 047 degrees QTc Int : 439 ms Normal sinus rhythm Normal ECG When compared with ECG of 30-JUN-2021 03:53, No significant change was found Assessment and Plan Assessment Anesthesia Assessment: Chart Reviewed
[2023-03-14 12:27] VITALS: BMI 33.8
--- NOTE | 2023-08-09 10:29 | P.CONAN_ITS ---
Documented by User: Ana Maria Ramirez NP 08/09/23 10:30 HPI - Anesthesia Eval Consult details Narrative: 53yo F for Colonoscopy s/p bilat cataract repair 06/2023 [facility] Active Problems Active Problems: All Active Problems Colon cancer screening (Acute) High risk medication use (Acute) Rheumatoid arthritis (Acute) Neuropathy (Acute) Bilateral knee pain (Acute) Pain in left shoulder (Acute) Bronchitis, mucopurulent recurrent (Acute) Epigastric pain (Acute) Medial epicondylitis of right elbow (Acute) Abdominal bloating (Acute) Diarrhea (Acute) Environmental allergies (Acute) Acute bronchitis (Acute) Moderate persistent asthma (Acute) Varicose veins of right lower extremity with inflammation (Acute) Irritable bowel syndrome with both constipation and diarrhea (Acute) Post-cholecystectomy syndrome (Acute) Post-nasal drip (Acute) GERD (gastroesophageal reflux disease) (Acute) GONZALEZ (nonalcoholic steatohepatitis) (Acute) Past Medical History Medical History Rheumatoid arthritis GERD (gastroesophageal reflux disease) HTN (hypertension) Stroke Bilateral carpal tunnel syndrome Dyslipidemia Anxiety Depression Migraine Restless legs Family History Family History Father High blood pressure Cancer Mother Diabetes High blood pressure Sister Diabetes High blood pressure Thyroid disease Cancer Brother High blood pressure Asthma Family history of problems with anesthesia: No Surgical History Surgical History S/P breast biopsy, right H/O prior ablation treatment History of esophagogastroduodenoscopy (EGD) History of cholecystectomy History of Problems with Anesthesia: No Social History Social History Alcohol intake: never Patient Tobacco Use Status: Never used Tobacco Are you DNR?: No Advance Directives: No Advance Directives Information Provided: Yes Current occupational status: disabled Current occupation: rt handed Meds Allergies Allergy/AdvReac Type Severity Reaction Status Date / Time niacin Allergy Intermediate TACHYCARDIA Verified 06/26/23 07:18 [From NIASPAN ,DIFF.BREAT EXTENDED-RELEASE] THIERRY citalopram [Celexa] Allergy Unknown unknown Verified 06/26/23 07:18 diltiazem [From CARTIA XT] Allergy Unknown UNKNOWN Verified 06/26/23 07:18 Home Medications ?Medication ?Instructions ?Recorded ?Confirmed ?Last Taken ?Type albuterol sulfate 2.5 mg/3 mL 2.5 mg inhalation TID PRN 04/22/20 08/10/23 Unknown History (0.083 %) solution for nebulization Shortness Of Breath albuterol sulfate 90 mcg/actuation 2 puff inhalation Q4-6H PRN 04/22/20 08/10/23 Unknown History aerosol inhaler Shortness Of Breath citalopram 40 mg tablet 40 mg PO QAM 04/22/20 08/10/23 Unknown History diclofenac sodium 1 % topical gel 2 g topical QID 04/22/20 08/10/23 Unknown History gabapentin 400 mg capsule 400 mg PO TID 04/22/20 08/10/23 Unknown History melatonin 5 mg tablet 10 mg PO BEDTIME 04/22/20 08/10/23 Unknown History simvastatin 10 mg tablet 10 mg PO BEDTIME 04/22/20 08/10/23 Unknown History topiramate 25 mg tablet 50 mg PO BEDTIME 04/22/20 08/10/23 Unknown History blood sugar diagnostic #10 ea 05/12/20 08/10/23 Unknown History lancets 33 gauge #100 ea 05/12/20 08/10/23 Unknown History amlodipine 10 mg tablet 10 mg PO DAILY 02/01/22 08/10/23 08/10/23 History metoprolol succinate 25 mg 25 mg PO DAILY 12/08/22 08/10/23 Unknown History tablet,extended release 24 hr ropinirole 1 mg tablet 1 mg PO BEDTIME 12/08/22 08/10/23 Unknown History multivitamin-iron sulfate 15 1 tab PO DAILY 04/27/23 08/10/23 Unknown History mg-folic acid 400 mcg tablet (Tab-A-Ivan Multivitamin w-iron) vitamin E (dl, acetate) 45 mg (100 45 mg PO BID 04/27/23 08/10/23 Unknown History unit) capsule metoprolol succinate 200 mg 200 mg PO QAM 06/19/23 08/10/23 08/10/23 History tablet,extended release 24 hr Exam Height,Weight and Vital Signs: Height 5 ft 1 in Weight 81.193 kg Pertinent Lab Results Pertinent Lab Results: Laboratory Tests 06/16/23 09:03 WBC 8.2 Hgb 14.1 Hct 42.6 Plt Count 368 Sodium 141 Potassium 3.7 Chloride 106 Carbon Dioxide 28 BUN 6 L Creatinine 0.67 Assessment and Plan Assessment Anesthesia Assessment: Chart Reviewed Final Anesthetic Review Family History of Problems with Anesthesia: No History of Problems with Anesthesia: No Documented by User: Julianne Gonzalez MD 08/10/23 09:18 [facility] Past Medical History Medical History Rheumatoid arthritis GERD (gastroesophageal reflux disease) HTN (hypertension) Stroke Bilateral carpal tunnel syndrome Dyslipidemia Anxiety Depression Migraine Restless legs Family History Family History Father High blood pressure Cancer Mother Diabetes High blood pressure Sister Diabetes High blood pressure Thyroid disease Cancer Brother High blood pressure Asthma Surgical History Surgical History S/P breast biopsy, right H/O prior ablation treatment History of esophagogastroduodenoscopy (EGD) History of cholecystectomy Social History Social History Alcohol intake: never Patient Tobacco Use Status: Never used Tobacco Are you DNR?: No Advance Directives: No Advance Directives Information Provided: Yes Current occupational status: disabled Current occupation: rt handed Meds Allergies Allergy/AdvReac Type Severity Reaction Status Date / Time niacin Allergy Intermediate TACHYCARDIA Verified 06/26/23 07:18 [From NIASPAN ,DIFF.BREAT EXTENDED-RELEASE] THIERRY citalopram [Celexa] Allergy Unknown unknown Verified 06/26/23 07:18 diltiazem [From CARTIA XT] Allergy Unknown UNKNOWN Verified 06/26/23 07:18 Home Medications ?Medication ?Instructions ?Recorded ?Confirmed ?Last Taken ?Type albuterol sulfate 2.5 mg/3 mL 2.5 mg inhalation TID PRN 04/22/20 08/10/23 Unknown History (0.083 %) solution for nebulization Shortness Of Breath albuterol sulfate 90 mcg/actuation 2 puff inhalation Q4-6H PRN 04/22/20 08/10/23 Unknown History aerosol inhaler Shortness Of Breath citalopram 40 mg tablet 40 mg PO QAM 04/22/20 08/10/23 Unknown History diclofenac sodium 1 % topical gel 2 g topical QID 04/22/20 08/10/23 Unknown History gabapentin 400 mg capsule 400 mg PO TID 04/22/20 08/10/23 Unknown History melatonin 5 mg tablet 10 mg PO BEDTIME 04/22/20 08/10/23 Unknown History simvastatin 10 mg tablet 10 mg PO BEDTIME 04/22/20 08/10/23 Unknown History topiramate 25 mg tablet 50 mg PO BEDTIME 04/22/20 08/10/23 Unknown History blood sugar diagnostic #10 ea 05/12/20 08/10/23 Unknown History lancets 33 gauge #100 ea 05/12/20 08/10/23 Unknown History amlodipine 10 mg tablet 10 mg PO DAILY 02/01/22 08/10/23 08/10/23 History metoprolol succinate 25 mg 25 mg PO DAILY 12/08/22 08/10/23 Unknown History tablet,extended release 24 hr ropinirole 1 mg tablet 1 mg PO BEDTIME 12/08/22 08/10/23 Unknown History multivitamin-iron sulfate 15 1 tab PO DAILY 04/27/23 08/10/23 Unknown History mg-folic acid 400 mcg tablet (Tab-A-Ivan Multivitamin w-iron) vitamin E (dl, acetate) 45 mg (100 45 mg PO BID 04/27/23 08/10/23 Unknown History unit) capsule metoprolol succinate 200 mg 200 mg PO QAM 06/19/23 08/10/23 08/10/23 History tablet,extended release 24 hr Exam Airway Mallampati Class: III TM Dist: >3cm Neck ROM: Limited Partial: Upper Loose/Missing/Broken Teeth: Yes and Upper Heart: RRR Lungs: CTA Assessment and Plan Assessment Anesthesia Assessment: Anesthesia Plan Discussed Final Anesthetic Review NPO: Yes ASA Class: III Final Preanesthetic Review: Meds/Allgs Chart Reviewed, Consent Obtained/Reviewed and Anes Risks/Benef Reviewed Patient Risk: Intermediate Procedure Risk: Low Anesthetic Plan Anesthetic Plan: MAC: Disposition: Standard PACU
[2023-08-10] MEDS: Albuterol Sulfate (0.083%) 2.5 MG/3 ML VIAL.NEB INHALE (08:06)
[2023-08-10 08:17] VITALS: BP 110/62; PULSE 73; RESP 18; TEMP 36.1; O2SAT 95; BMI 34.0
--- NOTE | 2023-08-10 08:27 | P.HPSUR_ITS ---
Pre-Procedural Eval Section A - 24 Hr Update-Section A only Date of Service: 08/10/23 Section B - Complete if H&P > 30 days Chief Complaint: screening Relevant Family History (Specify if Yes): No Relevant Social History: None Present Medications: see Short Stay Collaborative assessment Medical History: Significant History (Stroke Bilateral carpal tunnel syndrome Dyslipidemia Anxiety Depression Migraine Restless legs) History of Previous Operations: Relevant previous surgery/procedure and date(s) (S/P breast biopsy, right H/O prior ablation treatment History of esophagogastro duodenoscopy (EGD) History of cholecystectomy) Allergies: Allergies Allergy/AdvReac Type Severity Reaction Status Date / Time niacin Allergy Intermediate TACHYCARDIA Verified 06/26/23 07:18 [From NIASPAN ,DIFF.BREAT EXTENDED-RELEASE] THIERRY citalopram [Celexa] Allergy Unknown unknown Verified 06/26/23 07:18 diltiazem [From CARTIA XT] Allergy Unknown UNKNOWN Verified 06/26/23 07:18 Review of Systems Sugical H&P ROS: Negative: Constitution, Cardiovascular, Respiratory, Neurological, Psychiatric, Hem-Onc, Allergic/Immunologic, Gastrointestinal, Genitourinary, Musculoskeletal, Integumentary, Endocrine and Eyes/Ears/Nose/Throat Exam Surgical H&P Exam: Normal: HEENT, Normal: Heart, Normal: Lungs, Normal: Extremities, Normal: Abdomen, Normal: Skin and Normal: Neurological Plan Diagnosis/Plan: Unchanged I have reviewed the history and physical and performed a pertinent physical examination on my patient. No changes have occurred unless specified. Time Spent With Patient Time: Total time managing care of this patient today ____ minutes.
[2023-08-10] MEDS: Lactated Ringers 1,000 ML 100 ML IVCONT (08:39)
--- NOTE | 2023-08-10 09:46 | P.OPN-COLO_ITS ---
Colonoscopy Operative Note Operative Note Date of Service: 08/10/23 Narrative: Operative Information Procedure Description: Colonoscopy Indication: screening Anesthesia: MAC COLONOSCOPY Instrument: Olympus variable stiffness pediatric scope 190L Colonoscopy Monitoring: Vital signs and clinical assessment, continuous EKG monitoring, Pulse oximetry, Carbon Dioxide monitoring and blood pressure monitoring were done throughout the procedure. Colon withdrawal time was 8 minutes. Procedure: The patient was placed in the left lateral decubitis position and pre-procedure medications were administered. After a digital rectal examination of the ano-rectum, the video colonoscope was inserted into the rectum and advanced through the colon to the cecum/TI. The colonoscope was slowly withdrawn in a retrograde panoramic fashion and the colon mucosa was carefully examined including a retroflexed view of the rectum. Findings and interventions are described below. Procedure Difficulty: easy Findings: Terminal Ileum-normal Cecum:4-6 mm sessile polyp removed with cold forceps Ascending Colon: 5-7 mm sessile polyp removed with cold forceps Transverse Colon -normal Descending Colon:normal Sigmoid Colon:moderate diverticulosis, some luminal narrowing due to mucosal hypertrophy --10 mm sessile polyp removed with cold snare Rectum: Retroflexion with small internal hemorrhoids seen, grade I Anorectum - normal Intervention: cold snare, cold forceps Colon preparation: [place] Bowel Preparation Scale Right colon; 2 Transverse colon: 2 Left colon; 1-2 (0 = Unprepared colon segment with mucosa not seen due to solid stool that cannot be cleared. 1 = Portion of mucosa of the colon segment seen, but other areas of the colon segment not well seen due to staining, residual stool and/or opaque liquid. 2 = Minor amount of residual staining, small fragments of stool and/or opaque liquid, but mucosa of colon segment seen well. 3 = Entire mucosa of colon segment seen well with no residual staining, small fragments of stool or opaque liquid) Impression and Post Procedure Diagnosis: diverticulosis colon polyps internal hemorrhoids Plan: High fiber diet leaflet Avoid straining at stool, epsom salts and sitz bath, anusol supps or cream Repeat Colonoscopy in 5 years due to polyps and some areas of fair prep or earlier if clinically indicated Above findings were reviewed with the patient and relevant handouts were provided if indicated.
[2023-08-10 09:49] VITALS: BP 93/40; PULSE 77; RESP 16; TEMP 36.3; O2SAT 98
[2023-08-10 10:04] VITALS: BP 90/50; PULSE 74; RESP 18; TEMP 36.3; O2SAT 94
== END 2023-08-10 10:50 | disposition home or self-care (01) ==
PROVIDERS: PCP Registered Nurse; Visit Provider Internal Medicine Gastroenterology
PROC: 0DJD8ZZ Inspection of Lower Intestinal Tract, Via Natural or Artificial Opening Endoscopic (ICD-10-PCS; CPT 45378; principal; 2023-08-10 09:10)
DX: Z12.11 Encounter for screening for malignant neoplasm of colon (principal); D12.0 Benign neoplasm of cecum; D12.2 Benign neoplasm of ascending colon; D12.5 Benign neoplasm of sigmoid colon; K57.30 Diverticulosis of large intestine without perforation or abscess without bleeding; K64.0 First degree hemorrhoids; K75.81 Nonalcoholic steatohepatitis (NASH); K21.9 Gastro-esophageal reflux disease without esophagitis; K91.5 Postcholecystectomy syndrome; E78.5 Hyperlipidemia, unspecified; K58.2 Mixed irritable bowel syndrome
CPT/HCPCS: 45385; 45380; 88305; J2704

== ENCOUNTER → 2023-08-10 07:19 | Outpatient (BNV) | payer OTHER, SELFPAY | PROVIDERS: PCP Registered Nurse; Visit Provider Internal Medicine Gastroenterology | DX: Z12.11 Encounter for screening for malignant neoplasm of colon (principal); D12.0 Benign neoplasm of cecum; D12.2 Benign neoplasm of ascending colon; D12.5 Benign neoplasm of sigmoid colon; K57.30 Diverticulosis of large intestine without perforation or abscess without bleeding; K64.0 First degree hemorrhoids | CPT/HCPCS: 45380; 45385 ==

== ENCOUNTER 2023-08-24 08:09 | Outpatient (AMB) | payer OTHER, SELFPAY ==
--- NOTE | 2023-08-24 08:19 | A.OFFVIS_ITS ---
Vital Signs 08/24/23 09:01 Height 5 ft 1 in Weight 182 lb 15.739 oz BMI 34.6 BP 115/67 Blood Pressure Location Rt brachial Position Sitting Pulse 63 Intake Visit Reasons: S/P [place]; Dr. Abraham Intake Note: Ashley presents in office today s/p colonoscopy. CC: Patient c/o abdominal pain, nausea, diarrhea, and GERD. Denies other GI symptoms. Vacation Planner Required: Yes Accompanied by: Self / Same As Patient Allergies niacin [From NIASPAN EXTENDED-RELEASE] Allergy (Intermediate, Verified 08/24/23 09:05) TACHYCARDIA,DIFF.BREATHING citalopram [Celexa] Allergy (Unknown, Verified 08/24/23 09:05) unknown diltiazem [From CARTIA XT] Allergy (Unknown, Verified 08/24/23 09:05) UNKNOWN HPI HPI S/P [place]; Dr. Abraham: Details: Assessment & Plan (1) GERD (gastroesophageal reflux disease): Code(s): K21.9 - Gastro-esophageal reflux disease without esophagitis (2) GONZALEZ (nonalcoholic steatohepatitis): Comment: K75.81 (Primary), Neg 2019 Hep B, C, mild elevation LFT's, 12/2018 US, ferritin, autimmune work up WNL, AFP 1.8, fibrosis score F0 CURRENT LABS Alpha Fetoprotein 1.9 06/30/21 Estimated GFR > 60 Total Bilirubin 0.3 AST 31 ALT 49 H Alkaline Phosphatase 139 H ULTRASOUND OF THE ABDOMEN 06/29/21 LIVER: The liver is normal in size. The liver contour is normal. Parenchymal echogenicity is normal. No focal hepatic lesion. There is no intrahepatic biliary duct dilatation seen. GALLBLADDER: Surgically absent. COMMON BILE DUCT: Normal in caliber measuring 0.5 cm in diameter. RIGHT KIDNEY: Normal. No hydronephrosis. No renal calculi or focal parenchymal lesions. The kidney measures 12.0 cm in maximum dimension. LEFT KIDNEY: Normal. No hydronephrosis. No renal calculi or focal parenchymal lesions. The kidney measures 12.1 cm in maximum dimension. SPLEEN: Normal. The spleen measures 9.5 cm in maximum dimension. FREE FLUID: None. US/US abdomen complete IMPRESSION: ? Status post cholecystectomy. No intra or extrahepatic biliary duct dilatation. ? Otherwise unremarkable abdominal ultrasound. Code(s): K75.81 - Nonalcoholic steatohepatitis (GONZALEZ) (3) Post-cholecystectomy syndrome: Code(s): K91.5 - Postcholecystectomy syndrome Plan [place] #Charlene Live THIS PATIENT HAS BEEN LOST TO FOLLOW-UP SINCE 01/2022 For about a month everything I eat makes me run to the BR. She will have lower abd cramping and at times fecal incontinence. She ran out of her cholestyramine, so this is the cause and we will restart it. She says that she called the office to make an appt, but was told she had to wait until after the colonoscopy. This is not how I practice, so she was given incorrect information. She had an appt for the scope on 03/14, but she thought it was 04/14, and she was not prepared due to the mix up. Apparently, she did not receive the mailed instructions until 2 days after the procedure. I will walk her down to the schedulers to reschedule this. She is having swelling in her arms and shoulders, she has RA. She has cataract surgery coming up. We will restart her cholestyramine, she continues on her pantoprazole 20 mg once a day simethicone as needed 3 times a day and we held the Carafate since she did not tolerate it as well. Return office visit in 4 weeks and of course after the procedure. Orders: Orders Colonoscopy - GI Use Only Today Z12.11 - Encounter for screening for malignant neoplasm of colon Medications: Refilled cholestyramine (with sugar) 4 gram administer w/meal; avoid other meds within 1hr before or 4-6hr after dose 4 grams PO BID 378 grams 6RF K91.5 - Postcholecystectomy syndrome simethicone (Gas Relief (simethicone)) 180 mg PO TID 90 ea 3RF R14.0 - Abdominal distension (gaseous) COLONOSCOPY 08/10/23 Findings: Terminal Ileum-normal Cecum:4-6 mm sessile polyp removed with cold forceps Ascending Colon: 5-7 mm sessile polyp removed with cold forceps Transverse Colon -normal Descending Colon:normal Sigmoid Colon:moderate diverticulosis, some luminal narrowing due to mucosal hypertrophy --10 mm sessile polyp removed with cold snare Rectum: Retroflexion with small internal hemorrhoids seen, grade I Anorectum - normal Intervention: cold snare, cold forceps Impression and Post Procedure Diagnosis: diverticulosis colon polyps internal hemorrhoids Plan: High fiber diet leaflet Avoid straining at stool, epsom salts and sitz bath, anusol supps or cream Repeat Colonoscopy in 5 years due to polyps and some areas of fair prep or earlier if clinically indicated BIOPSY Received: 08/10/23 Diagnosis A. Colon, cecal polyp: Tubular adenoma; negative for high-grade dysplasia and carcinoma. B. Colon, ascending, polyp: Tubular adenoma; negative for high-grade dysplasia and carcinoma. C. Colon, sigmoid, polyp: Tubular adenoma; negative for high-grade dysplasia and carcinoma. TODAYS VISIT [place] #Harinder Live She is agreeable to a 3 year recall. The procedure was well tolerated. The results were explained and the patient is agreeable to the follow-up interval as stated. The bowel pattern has returned to normal. Education was provided to tell any 1st degree relatives about their findings to be sure that they are screened by age 45. Educated that they will be put on a recall list when it is time for their repeat scope but should they move out of state or away from the hospital they will need to remember along with their primary to repeat the procedure in a timely fashion to avoid any adverse complications. She says we were to do an EGD (for epigastric pain) but it was not done. ? insurance. May not need this if restarts vaughn. She has been having nausea and diarrhea and LLQ pain....but I find that she is not taking her cholestyramine because my rheum told me that it interacts with my Humira. This is untrue (we rx Humira frequently for IBD) and she really needs to use this. I double check. She asks about checking her GONZALEZ. Reviewed labs from [facility], will order more and US. ROV 6 weeks. [facility] Medical History Rheumatoid arthritis GERD (gastroesophageal reflux disease) HTN (hypertension) Stroke Bilateral carpal tunnel syndrome Dyslipidemia Anxiety Depression Migraine Restless legs Surgical History H/O colonoscopy S/P breast biopsy, right H/O prior ablation treatment History of esophagogastroduodenoscopy (EGD) History of cholecystectomy Family History Father High blood pressure Cancer Mother Diabetes High blood pressure Sister Diabetes High blood pressure Thyroid disease Cancer Brother High blood pressure Asthma Social History Alcohol intake: never Patient Tobacco Use Status: Never used Tobacco Current occupational status: disabled Current occupation: rt handed Review of Systems Const Denies fatigue, Denies fever(s), Denies night sweats, Reports poor appetite and Denies weight loss ENT Reports Normal hearing present, Denies dental pain, Denies dysphagia, Denies hearing loss, Denies mouth pain, Denies odynophagia, Denies throat swelling, Denies tongue swelling and Reports other (Dentition adequate) Card Reports no additional complaints Resp Reports no additional complaints GI Details: Reports abdominal pain, Denies melena, Denies bloating, Denies hematochezia, Denies constipation, Denies GI cramping, Denies dysphagia, Denies excessive flatus, Denies early satiety, Reports heartburn, Reports diarrhea, Reports nausea, Denies odynophagia, Denies vomiting and Denies hematemesis Skin/Breast Denies pruritus, Denies lesions, Denies rash and Denies jaundice Neuro Reports Normal hearing present and Denies Abnormal speech present Endo Denies fatigue Aller/Immun Denies throat swelling and Denies tongue swelling Physical Exam Vital Signs: Last Vital Signs Pulse 63 08/24/23 09:01 BP 115/67 08/24/23 09:01 BMI result Body Mass Index 34.6 Const General: cooperative, no acute distress, well developed and well groomed Nutritional Appearance: well nourished and obese Orientation/consciousness: oriented to person, oriented to place and oriented to time Limitations: language barrier HEENT Head: Yes normocephalic and Yes atraumatic Eyes General: appearance normal, both eyes and all related structures Pupils: Equal, round and reactive pupils present Neck Neck: Yes normal visual inspection and Yes no lymphadenopathy Thyroid: Thyroid normal Resp Effort & Inspection: normal respiratory effort and able to speak in complete sentences Auscultation: clear to auscultation bilaterally Cardio Rate: regular rate Rhythm: regular rhythm Heart sounds: Normal, physiologic split S2 sound present Peripheral pulses: radial pulses present and posterior tibial pulses present GI Inspection: No distended, No Abdominal panniculus present and Yes obesity Palpation (GI): Soft to palpation, Tenderness to palpation present (GI) in the epigastrum and periumbilically, no guarding, not rigid and No hepatosplenomegaly present Percussion: Yes normal to percussion Auscultation: normal bowel sounds Rectal Exam - Female: deferred Skin General skin exam: no rashes or lesions noted, turgor normal, skin not dry, no jaundice, No spider nevi and no striae Rashes: no rashes Nails: normal Neuro General: oriented to person, oriented to place and oriented to time Cranial nerves: Yes Equal, round and reactive pupils present and Yes Normal hearing present Speech: No Abnormal speech present Extrem General: Yes normal to inspection, No clubbing, No cyanosis and No edema Psych Appearance: grossly normal and well kempt Mental Status: mental status grossly normal Speech and movement: Normal speech and movement present Affect: normal affect Attitude: cooperative Thought process: Normal thought process present and not confabulating Thought content: Normal thought content present Insight: Limited insight present (Psych) Judgement: Limited judgement present (Psych) Results Reviewed Results Reviewed: COLONOSCOPY 08/10/23 Findings: Terminal Ileum-normal Cecum:4-6 mm sessile polyp removed with cold forceps Ascending Colon: 5-7 mm sessile polyp removed with cold forceps Transverse Colon -normal Descending Colon:normal Sigmoid Colon:moderate diverticulosis, some luminal narrowing due to mucosal hypertrophy --10 mm sessile polyp removed with cold snare Rectum: Retroflexion with small internal hemorrhoids seen, grade I Anorectum - normal Intervention: cold snare, cold forceps Impression and Post Procedure Diagnosis: diverticulosis colon polyps internal hemorrhoids Plan: High fiber diet leaflet Avoid straining at stool, epsom salts and sitz bath, anusol supps or cream Repeat Colonoscopy in 5 years due to polyps and some areas of fair prep or earlier if clinically indicated BIOPSY Received: 08/10/23 Diagnosis A. Colon, cecal polyp: Tubular adenoma; negative for high-grade dysplasia and carcinoma. B. Colon, ascending, polyp: Tubular adenoma; negative for high-grade dysplasia and carcinoma. C. Colon, sigmoid, polyp: Tubular adenoma; negative for high-grade dysplasia and carcinoma. Assessment & Plan Assessment & Plan (1) Tubular adenoma of colon: Comment: 07/2023 SCOPE= 3 TA IS REPEAT IN 3 YEARS Code(s): D12.6 - Benign neoplasm of colon, unspecified Category: Medical (2) GERD (gastroesophageal reflux disease): Code(s): K21.9 - Gastro-esophageal reflux disease without esophagitis Category: Medical (3) GONZALEZ (nonalcoholic steatohepatitis): Comment: K75.81 (Primary), Neg 2019 Hep B, C, mild elevation LFT's, 12/2018 US, ferritin, autimmune work up WNL, AFP 1.8, fibrosis score F0 CURRENT LABS Alpha Fetoprotein 1.9 06/30/21 Estimated GFR > 60 Total Bilirubin 0.3 AST 31 ALT 49 H Alkaline Phosphatase 139 H ULTRASOUND OF THE ABDOMEN 06/29/21 LIVER: The liver is normal in size. The liver contour is normal. Parenchymal echogenicity is normal. No focal hepatic lesion. There is no intrahepatic biliary duct dilatation seen. GALLBLADDER: Surgically absent. COMMON BILE DUCT: Normal in caliber measuring 0.5 cm in diameter. RIGHT KIDNEY: Normal. No hydronephrosis. No renal calculi or focal parenchymal lesions. The kidney measures 12.0 cm in maximum dimension. LEFT KIDNEY: Normal. No hydronephrosis. No renal calculi or focal parenchymal lesions. The kidney measures 12.1 cm in maximum dimension. SPLEEN: Normal. The spleen measures 9.5 cm in maximum dimension. FREE FLUID: None. US/US abdomen complete IMPRESSION: ? Status post cholecystectomy. No intra or extrahepatic biliary duct dilatation. ? Otherwise unremarkable abdominal ultrasound. Code(s): K75.81 - Nonalcoholic steatohepatitis (GONZALEZ) Category: Medical Plan [place] #Harinder Mills She is agreeable to a 3 year recall. The procedure was well tolerated. The results were explained and the patient is agreeable to the follow-up interval as stated. The bowel pattern has returned to normal. Education was provided to tell any 1st degree relatives about their findings to be sure that they are screened by age 45. Educated that they will be put on a recall list when it is time for their repeat scope but should they move out of state or away from the hospital they will need to remember along with their primary to repeat the procedure in a timely fashion to avoid any adverse complications. She says we were to do an EGD (for epigastric pain) but it was not done. ? insurance. May not need this if restarts vaughn. She has been having nausea and diarrhea and LLQ pain....but I find that she is not taking her cholestyramine because my rheum told me that it interacts with my Humira. This is untrue (we rx Humira frequently for IBD) and she really needs to use this. I double check. She asks about checking her GONZALEZ. Reviewed labs from [facility], kelvin order more and US. ROV 6 weeks. Orders: Orders Liver Panel Today K75.81 - Nonalcoholic steatohepatitis (GONZALEZ) Alpha Fetoprotein Today K75.81 - Nonalcoholic steatohepatitis (GONZALEZ) Gamma Glutamyl Transpeptidase Today K75.81 - Nonalcoholic steatohepatitis (GONZALEZ) US abdomen comp w elastography Today K75.81 - Nonalcoholic steatohepatitis (GONZALEZ) Coding Level of Care Code Est Pt Level 4 (60279) Diagnoses Tubular adenoma of colon D12.6 GERD (gastroesophageal reflux disease) K21.9 GONZALEZ (nonalcoholic steatohepatitis) K75.81
[2023-08-24 09:01] VITALS: BP 115/67; PULSE 63; BMI 34.6
== END 2023-08-24 09:34 | disposition home or self-care (01) ==
PROVIDERS: PCP Registered Nurse; Visit Provider Nurse Practitioner
DX: D12.6 Benign neoplasm of colon, unspecified (principal); K21.9 Gastro-esophageal reflux disease without esophagitis; K75.81 Nonalcoholic steatohepatitis (NASH)
CPT/HCPCS: 99214

== ENCOUNTER → 2023-08-24 08:09 | Outpatient (BNVA) | payer OTHER, SELFPAY | PROVIDERS: PCP Registered Nurse; Visit Provider Nurse Practitioner | DX: K21.9 Gastro-esophageal reflux disease without esophagitis (principal); K75.81 Nonalcoholic steatohepatitis (NASH); K91.5 Postcholecystectomy syndrome; D12.6 Benign neoplasm of colon, unspecified | CPT/HCPCS: 99212 ==

== ENCOUNTER 2023-09-08 15:59 | Outpatient (REF) | payer OTHER, SELFPAY ==
[2023-09-08 18:06] LABS: Appearance Urine Cloudy; Color Urine Yellow; Glucose Urine UA Negative (Negative); Leukocyte Esterase Urine Negative (Negative); Nitrite Urine Negative (Negative); PH 5.5 (5.0-9.0); Urine Blood Negative (Negative); Urine Ketones Negative (Negative); Urine Protein Negative (Neg-Trace)
[2023-09-08 18:09] LABS: Bacteria Urine 2+ (None Seen); Hyaline Casts Urine 0-2 /LPF (0-2); RBC Urine 0-2 /HPF (0-2); WBC Urine 0-5 /HPF (0-5)
== END 2023-09-08 16:00 | disposition home or self-care (01) ==
LOC: HO.CHCLNP 15:59
PROVIDERS: Visit Provider Registered Nurse
DX: R39.9 Unspecified symptoms and signs involving the genitourinary system (principal)
CPT/HCPCS: 81001

== ENCOUNTER 2023-09-15 07:58 | Outpatient (REF) | payer OTHER, SELFPAY ==
[2023-09-15 08:07] LABS: MANUAL DIFF FLAG NO
[2023-09-15 08:17] LABS: Basophils Percent Auto 0.5 % (0-2); Eosinophils Absolute Auto 0.2 X10*3/uL (0.0-0.4); Eosinophils Percent Auto 2.9 % (0-4); Hematocrit 41.6 % (37.0-47.0); Hemoglobin 14.1 g/dl (12.0-16.0); Imm Gran Abs Auto 0.03 X10*3/uL (0.00-0.03); Imm Gran Pct Auto 0.4 % (0.0-0.4); Lymphocytes Absolute Auto 2.3 X10*3/uL (1.2-4.9); Lymphocytes Percent Auto 28.5 % (20-40); Mean Corpuscular HGB Conc 33.9 g/dl (31.0-35.0); Mean Corpuscular Hemoglobin 29.4 pg (27.0-33.0); Mean Corpuscular Volume 86.8 fL (80.0-98.0); Mean Platelet Volume 8.8 fL (9.4-12.3); Monocytes Absolute Auto 0.6 X10*3/uL (0.1-1.2); Monocytes Percent Auto 7.5 % (2-11); Neutrophils Absolute Auto 4.8 x10*3/uL (2.0-8.3); Neutrophils Percent Auto 60.2 % (45-73); Platelet Count 385 X10*3/uL (160-400); Red Blood Count 4.79 X10*6/uL (4.20-5.50); Red Cell Distribution Width 13.8 % (11.0-16.0)
[2023-09-15 08:30] LABS: Gamma Glutamyl Transpeptidase 37 U/L (7-33)
[2023-09-15 08:32] LABS: Alanine Aminotransferase 26 U/L (0-31); Albumin Level 3.9 g/dL (3.5-5.0); Alkaline Phosphatase 140 U/L (39-117); Anion Gap 14 (12-20); Aspartate Amino Transferase 20 U/L (5-31); Bilirubin Direct 0.2 mg/dL (0.0-0.5); Bilirubin Total 0.4 mg/dL (0.0-1.0); Blood Urea Nitrogen 11 mg/dL (9-16); C Reactive Protein 0.61 mg/dL (< or = 0.50); Calcium 9.4 mg/dL (8.4-10.2); Carbon Dioxide 25 mmol/L (22-29); Chloride 107 mmol/L (96-108); Estimated Glomerular Filt Rate > 60; Glucose Random 136 mg/dL (60-115); Sodium 142 mmol/L (135-145); Total Protein 7.8 g/dL (6.5-8.0)
[2023-09-15 08:59] LABS: Erythrocyte Sedimentation Rate 30 MM/HR (0-20)
[2023-09-20 13:09] LABS: Alpha Fetoprotein 2.2 ng/mL
== END 2023-09-15 07:59 | disposition home or self-care (01) ==
LOC: HO.LAB 07:58
PROVIDERS: Absent Provider Nurse Practitioner; PCP Registered Nurse; Visit Provider Student in an Organized Health Care Education/Training Program
DX: M06.09 Rheumatoid arthritis without rheumatoid factor, multiple sites (principal); K75.81 Nonalcoholic steatohepatitis (NASH)
CPT/HCPCS: 36415; 80053; 82105; 82248; 82977; 85025; 85652; 86140

== ENCOUNTER 2023-09-29 08:56 | Outpatient (REF) | payer OTHER, SELFPAY ==
--- NOTE | ~2023-09-29 | US_ITS ---
EXAMINATION: US COMPLETE ABDOMEN WITH LIVER ELASTOGRAPHY CLINICAL INFORMATION: Nonalcoholic steatohepatitis. COMPARISON: None available. TECHNIQUE: Real-time imaging of the abdominal viscera. Noninvasive ultrasound liver fibrosis assessment is performed using Vanessa ElastPQ point quantification shear wave elastography (2D-SWE) with a C5-2 MHz transducer. Multiple elastography samples are obtained. FINDINGS: PANCREAS: Normal. The visualized pancreatic head and body are normal in appearance. The remainder of the pancreas is obscured from visualization by the overlying bowel gas. ABDOMINAL AORTA: The proximal, middle, and distal aortic segments are normal in caliber. INFERIOR VENA CAVA: Visualized portions are normal. LIVER: The liver demonstrates normal size, contour and generally increased echogenicity. No focal lesion or intrahepatic biliary duct dilatation. The right lobe measures 18.0 cm in length. The left lobe measures 12.4 cm in length. Portal flow is towards the liver (hepatopetal). Shear wave liver elastography median stiffness is 1.49 m/s (reference: normal median stiffness is 1.3 m/s or less). IQR/median stiffness to assess sampling precision is 0.15 (reference: good quality data set is IQR/median stiffness of 0.15 or less). GALLBLADDER: Surgically absent. COMMON BILE DUCT: Normal in caliber measuring 0.7 cm in diameter. RIGHT KIDNEY: Normal. No hydronephrosis. No renal calculi or focal parenchymal lesions. The kidney measures 11.2 cm in maximum dimension. LEFT KIDNEY: Normal. No hydronephrosis. No renal calculi or focal parenchymal lesions. The kidney measures 12.3 cm in maximum dimension. SPLEEN: Normal. The spleen measures 11.8 cm in maximum dimension. FREE FLUID: None. US/US abdomen comp w elastography IMPRESSION: 1. There is generalized increase in hepatic echotexture, consistent with fatty infiltration or hepatocellular disease. Please correlate clinically. No focal hepatic mass or intrahepatic biliary dilatation is seen. 2. There is hepatomegaly. 3. Liver elastography: In the absence of other known clinical signs, measurements rule out compensated advanced chronic liver disease. If there are known clinical signs, further testing may be needed for confirmation. 4. The gallbladder is surgically absent. REFERENCE: Society of Radiologists in Ultrasound Liver Stiffness Thresholds (2020): LIVER STIFFNESS THRESHOLDS: *Liver Stiffness equal or less than 1.3 m/s: High probability of being normal. *Liver Stiffness less than 1.7 m/s: In the absence of other known clinical signs, rules out compensated advanced chronic liver disease. *Liver Stiffness 1.7-2.1 m/s: Suggestive of compensated advanced chronic liver disease but need further test for confirmation. *Liver Stiffness over 2.1 m/s: Rules in compensated advanced chronic liver disease. *Liver Stiffness over 2.4 m/s: Suggestive of clinically significant portal hypertension. QUALITY OF DATA SET: *IQR/Median value equal or less than 0.15 implies a quality data set. *IQR/Median value over 0.15 implies a poor quality data set. SIGNIFICANT CHANGE FROM PRIOR EXAM: Significant change if liver stiffness measurement is 10% or greater from prior exam. OTHER CONSIDERATIONS: The stage of liver fibrosis may be overestimated in the setting of acute hepatitis, liver inflammation, elevated liver function tests, hepatic vascular congestion, obstructive cholestasis, non-fasting state, and infiltrative diseases such as amyloidosis and lymphoma. In some patients with NAFLD, the liver stiffness thresholds for compensated advanced chronic liver disease may be lower. In causes other than viral hepatitis and NAFLD, liver stiffness thresholds are not well established.
== END 2023-09-29 08:57 | disposition home or self-care (01) ==
LOC: HO.US 08:56
PROVIDERS: PCP Registered Nurse; Visit Provider Nurse Practitioner
DX: K75.81 Nonalcoholic steatohepatitis (NASH) (principal)
CPT/HCPCS: 76700; 76981

== ENCOUNTER 2023-10-06 08:41 | Outpatient (AMB) | payer OTHER, SELFPAY ==
[2023-10-06 08:46] VITALS: BP 104/86; PULSE 73; O2SAT 97; BMI 35.0
--- NOTE | 2023-10-06 08:46 | MHC.OFFVIS ---
Vital Signs 10/06/23 08:46 Height 5 ft 1 in Weight 185 lb 6.54 oz BMI 35.0 BP 104/86 Blood Pressure Location Rt brachial Position Sitting Pulse 73 Pulse Source Pulse Oximeter Pulse Oximetry (%) 97 Oxygen Delivery Method Room Air Intake Visit Reasons: RA/CM Intake Note: Patient last seen on 06/19/2023 present today for follow up. 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 Name: Jory [id number] Information Interpreted: non-clinical & clinical Accompanied by: Self / Same As Patient Allergies niacin [From NIASPAN EXTENDED-RELEASE] Allergy (Intermediate, Verified 10/06/23 08:52) TACHYCARDIA,DIFF.BREATHING citalopram [Celexa] Allergy (Unknown, Verified 10/06/23 08:52) unknown diltiazem [From CARTIA XT] Allergy (Unknown, Verified 10/06/23 08:52) UNKNOWN Medication List - Last Reconciled 10/06/23 by Ramya Smith MD acetaminophen 1,000 mg PO Q4-6H PRN albuterol sulfate 90 mcg/actuation 2 puffs inhalation Q4-6H PRN albuterol sulfate 2.5 mg inhalation TID PRN amlodipine 10 mg PO DAILY bisacodyl 10 mg (2 x 5 mg) PO BEDTIME blood sugar diagnostic As directed cholestyramine (with sugar) 4 gram 4 grams PO BID diclofenac sodium 1% 2 grams topical QID fluticasone propion-salmeterol 500-50 mcg/dose 1 ea PO BID gabapentin 400 mg PO TID guaifenesin 400 mg PO QID PRN 14 days Humira(CF) Pen (adalimumab) 40 mg (0.4 mL) subcut Q2W NS lancets As directed melatonin 10 mg PO BEDTIME metoprolol succinate ER 200 mg PO QAM metoprolol succinate ER 25 mg PO DAILY PRN multivit-iron sulf-folic acid 15 mg iron- 400 mcg (Tab-A-Ivan Multivitamin w-iron) 1 tab PO DAILY pantoprazole 20 mg PO QAM ropinirole 1 mg PO BEDTIME sertraline 25 mg PO DAILY simethicone 180 mg PO TID simvastatin 10 mg PO BEDTIME sucralfate 3 grams (3 x 1 gram) PO DAILY topiramate 50 mg PO BEDTIME trazodone 50 mg PO BEDTIME vitamin E (dl, acetate) 180 mg PO BID HPI Comments Details: 53-year-old female with seronegative RA presents for follow-up. After last visit patient was not doing well on Enbrel, we attempted to authorize Actemra, it was denied, Humira was approved. Patient has been on Humira for the last 3 months. States that she is doing much better overall. Has not had any recent illnesses. She is complaining however of some pain on the dorsal aspect of her left foot where there is a bony prominence that rubs against her shoe. Initial history: A 51-year-old female with a past medical history of anxiety, depression, dyslipidemia, stroke, restless leg syndrome, neuropathy, migraine who presents for evaluation of diffuse pain. The condition started about 7-8 months ago with pain in her legs, ankles, feet and arms. The pain is generally worse at night, is burning pain. She stated that will she lost her balance a few weeks ago and fell and bumped her left ankle. Her left ankle has been swollen since. She did not get it evaluated. She denies any history of DVT/PE. She had a breast biopsy in the past and was told it was unremarkable. She never had a colonoscopy done. [facility] Medical History Rheumatoid arthritis GERD (gastroesophageal reflux disease) HTN (hypertension) Stroke Bilateral carpal tunnel syndrome Dyslipidemia Anxiety Depression Migraine Restless legs Surgical History H/O colonoscopy S/P breast biopsy, right H/O prior ablation treatment History of esophagogastroduodenoscopy (EGD) History of cholecystectomy Family History Father High blood pressure Cancer Mother Diabetes High blood pressure Sister Diabetes High blood pressure Thyroid disease Cancer Brother High blood pressure Asthma Social History Alcohol intake: never Patient Tobacco Use Status: Never used Tobacco Current occupational status: disabled Current occupation: rt handed Review of Systems [facility] Reports arthralgias and Denies joint swelling Physical Exam Vital Signs: Last Vital Signs Pulse 73 10/06/23 08:46 BP 104/86 10/06/23 08:46 Pulse Ox 97 10/06/23 08:46 Oxygen Delivery Method Room Air 10/06/23 08:46 BMI result Body Mass Index 35.0 Const General: cooperative, comfortable and no acute distress Nutritional Appearance: obese Orientation/consciousness: patient oriented x3 Limitations: no limitations HEENT Head: Yes normocephalic and Yes atraumatic Resp Effort & Inspection: normal respiratory effort and able to speak in complete sentences Cardio Rate: regular rate Rhythm: regular rhythm Neuro General: patient oriented x3 Extrem Other: No wrist tenderness or swelling or pain with flexion and extension bilaterally No MCP or PIP swelling or tenderness today Negative MCP squeeze test bilaterally No elbow or shoulder pain with range of motion bilaterally No knee pain with flexion and extension bilaterally No ankle swelling or tenderness bilaterally Negative MTP squeeze test bilaterally No MTP tenderness bilaterally Mildly tender bony prominence on the dorsal aspect of left foot Results Reviewed Results Reviewed: Labs 01/2022 ERIK/Dorsey/CUSTOMER LEADER/SSA/SSB/rheumatoid factor/CCP/seronegative RA panel all negative ESR 64 CRP 1.1 (<0.5) Unremarkable CBC and CMP Assessment & Plan Assessment & Plan (1) Rheumatoid arthritis: Comment: Seronegative diagnosed 02/2022 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 6 tabs started 02/2022 Advanced to 8 tabs 04/2022 reduced to 6 tab 07/10 due to transaminitis DC 12/10 due to ongoing transaminitis Enbrel 09/09-DC 06/2022 ineffective Humira 06/2023 effective Code(s): M06.9 - Rheumatoid arthritis, unspecified Category: Medical Qualifiers: Rheumatoid arthritis location: multiple sites Rheumatoid factor presence: without rheumatoid factor Qualified Code(s): M06.09 - Rheumatoid arthritis without rheumatoid factor, multiple sites Plan: 53-year-old female with seronegative RA presents for follow-up. Patient started Humira 40 mg every other week 3 months ago with significant improvement. On exam I do not see any swollen or tender joints. There is a bony prominence on the dorsal aspect of left foot likely related to osteoarthritis. Advised patient to wear comfortable shoes, try using Voltaren gel Continue Humira 40 mg every other week Labs before next visit in 3 months (2) High risk medication use: Code(s): Z79.899 - Other retirement (current) drug therapy Category: Medical Plan: Side effects of Humira were discussed with the patient in detail including increased risk of infection, , reactivation of latent TB, . Patient fully aware. Advised patient to seek medical care [facility]ILDA if patient has an infection and advised patient to stop the medication until the infection is resolved. Plan I spent 22 minutes reviewing patient's chart, evaluating patient, ordering diagnostic workup, counseling patient and documenting in the chart Orders: Orders Comprehensive Met. Panel 3 Months M06.09 - Rheumatoid arthritis without rheumatoid factor, multiple sites C Reactive Protein 3 Months M06.09 - Rheumatoid arthritis without rheumatoid factor, multiple sites Erythrocyte Sedimentation Rate 3 Months M06.09 - Rheumatoid arthritis without rheumatoid factor, multiple sites Complete Blood Count Auto Diff 3 Months M06.09 - Rheumatoid arthritis without rheumatoid factor, multiple sites Coding Level of Care Code Est Pt Level 4 (04294) Diagnoses Rheumatoid arthritis of multiple sites with negative rheumatoid factor M06.09 Rheumatoid arthritis location: multiple sites Rheumatoid factor presence: without rheumatoid factor High risk medication use Z79.899
== END 2023-10-06 09:28 | disposition home or self-care (01) ==
PROVIDERS: PCP Registered Nurse; Visit Provider Student in an Organized Health Care Education/Training Program
DX: M06.09 Rheumatoid arthritis without rheumatoid factor, multiple sites (principal); Z79.899 Other long term (current) drug therapy
CPT/HCPCS: 99214

== ENCOUNTER → 2023-10-06 08:41 | Outpatient (BNVA) | payer OTHER, SELFPAY | PROVIDERS: PCP Registered Nurse; Visit Provider Student in an Organized Health Care Education/Training Program | DX: M06.09 Rheumatoid arthritis without rheumatoid factor, multiple sites (principal); G62.9 Polyneuropathy, unspecified; Z79.899 Other long term (current) drug therapy | CPT/HCPCS: 99212 ==

== ENCOUNTER 2023-11-17 16:14 | Outpatient (REF) | payer OTHER, SELFPAY ==
[2023-11-17 17:36] LABS: Appearance Urine Cloudy; Color Urine Yellow; Glucose Urine UA Negative (Negative); Leukocyte Esterase Urine Negative (Negative); Nitrite Urine Negative (Negative); PH 5.5 (5.0-9.0); Specific Gravity - Urine 1.025 (1.005-1.025); Urine Blood Negative (Negative); Urine Ketones Negative (Negative); Urine Protein Trace mg/dL (Neg-Trace)
[2023-11-17 17:41] LABS: Bacteria Urine 3+ (None Seen); Hyaline Casts Urine 0-2 /LPF (0-2); RBC Urine 0-2 /HPF (0-2); UACC Culture Trigger YES
== END 2023-11-17 16:15 | disposition home or self-care (01) ==
LOC: HO.CHCLNP 16:14
PROVIDERS: Visit Provider Registered Nurse
DX: R39.9 Unspecified symptoms and signs involving the genitourinary system (principal)
CPT/HCPCS: 81001; 87086

== ENCOUNTER 2023-11-30 10:18 | Outpatient (REF) | payer OTHER, SELFPAY ==
--- NOTE | ~2023-11-30 | US_ITS ---
EXAMINATION: US RETROPERITONEAL LIMITED (RENAL ONLY) CLINICAL INFORMATION: Intermittent flank pain and urinary symptoms. COMPARISON: Ultrasound complete abdomen with liver elastography 09/29/2023. Ultrasound abdomen limited 11/04/2022. CT abdomen and pelvis 12/16/2015. TECHNIQUE: Real-time imaging of the kidneys. FINDINGS: RIGHT KIDNEY: 10.9 x 4.6 x 5.1 cm (SAG x AP x TRV). The kidney is normal in size, contour, and echogenicity. Renal cortical thickness is normal. No calculi or focal parenchymal lesions. No hydronephrosis. A 4 mm nonobstructing echogenic focus in the right lower renal pole though does not demonstrate twinkle artifact appears to correspond to a stone on prior CT, unchanged in size. LEFT KIDNEY: 11.9 x 4.9 x 5.4 cm (SAG x AP x TRV). The kidney is normal in size, contour, and echogenicity. Renal cortical thickness is normal. No calculi or focal parenchymal lesions. No hydronephrosis. US/US renal BI IMPRESSION: A 4 mm nonobstructing echogenic focus in the right lower renal pole though does not demonstrate twinkle artifact appears to correspond to a stone on prior CT, unchanged in size. Electronically signed by: Jamee Lockett MD 12/11/2023 05:40 PM EDT
== END 2023-11-30 10:19 | disposition home or self-care (01) ==
LOC: HO.US 10:18
PROVIDERS: PCP Registered Nurse; Visit Provider Registered Nurse
DX: R39.9 Unspecified symptoms and signs involving the genitourinary system (principal)
CPT/HCPCS: 76775

== ENCOUNTER 2023-12-19 10:35 | Outpatient (AMB) | payer OTHER, SELFPAY ==
--- NOTE | 2023-12-19 10:38 | MHC.OFFVIS ---
Vital Signs 12/19/23 10:50 Height 5 ft 1 in Weight 178 lb 9.191 oz BMI 33.7 BP 112/61 Blood Pressure Location Lt brachial Position Sitting Pulse 83 Intake Visit Reasons: pt no showed 10/05/23 Intake Note: Patient in office today in follow up of labs and US. CC: Patient c/o diarrhea, abdominal pain, nausea, heartburn, acid reflux, and la heat from abdomen . 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 Accompanied by: Self / Same As Patient Allergies niacin [From NIASPAN EXTENDED-RELEASE] Allergy (Intermediate, Verified 12/19/23 10:54) TACHYCARDIA,DIFF.BREATHING citalopram [Celexa] Allergy (Unknown, Verified 12/19/23 10:54) unknown diltiazem [From CARTIA XT] Allergy (Unknown, Verified 12/19/23 10:54) UNKNOWN HPI HPI pt no showed 10/05/23: Details: Assessment & Plan (1) Tubular adenoma of colon: Comment: 07/2023 SCOPE= 3 TA IS REPEAT IN 3 YEARS Code(s): D12.6 - Benign neoplasm of colon, unspecified Category: Medical (2) GERD (gastroesophageal reflux disease): Code(s): K21.9 - Gastro-esophageal reflux disease without esophagitis Category: Medical (3) GONZALEZ (nonalcoholic steatohepatitis): Comment: K75.81 (Primary), Neg 2019 Hep B, C, mild elevation LFT's, 12/2018 US, ferritin, autimmune work up WNL, AFP 1.8, fibrosis score F0 CURRENT LABS Alpha Fetoprotein 1.9 06/30/21 Estimated GFR > 60 Total Bilirubin 0.3 AST 31 ALT 49 H Alkaline Phosphatase 139 H ULTRASOUND OF THE ABDOMEN 06/29/21 LIVER: The liver is normal in size. The liver contour is normal. Parenchymal echogenicity is normal. No focal hepatic lesion. There is no intrahepatic biliary duct dilatation seen. GALLBLADDER: Surgically absent. COMMON BILE DUCT: Normal in caliber measuring 0.5 cm in diameter. RIGHT KIDNEY: Normal. No hydronephrosis. No renal calculi or focal parenchymal lesions. The kidney measures 12.0 cm in maximum dimension. LEFT KIDNEY: Normal. No hydronephrosis. No renal calculi or focal parenchymal lesions. The kidney measures 12.1 cm in maximum dimension. SPLEEN: Normal. The spleen measures 9.5 cm in maximum dimension. FREE FLUID: None. US/US abdomen complete IMPRESSION: ? Status post cholecystectomy. No intra or extrahepatic biliary duct dilatation. ? Otherwise unremarkable abdominal ultrasound. Code(s): K75.81 - Nonalcoholic steatohepatitis (GONZALEZ) Category: Medical Plan [place] #[place] She is agreeable to a 3 year recall. The procedure was well tolerated. The results were explained and the patient is agreeable to the follow-up interval as stated. The bowel pattern has returned to normal. Education was provided to tell any 1st degree relatives about their findings to be sure that they are screened by age 45. Educated that they will be put on a recall list when it is time for their repeat scope but should they move out of state or away from the hospital they will need to remember along with their primary to repeat the procedure in a timely fashion to avoid any adverse complications. She says we were to do an EGD (for epigastric pain) but it was not done. ? insurance. May not need this if restarts vaughn. She has been having nausea and diarrhea and LLQ pain....but I find that she is not taking her cholestyramine because my rheum told me that it interacts with my Humira. This is untrue (we rx Humira frequently for IBD) and she really needs to use this. I double check. She asks about checking her GONZALEZ. Reviewed labs from [facility], will order more and US. ROV 6 weeks. Orders: Orders Liver Panel Today K75.81 - Nonalcoholic steatohepatitis (GONZALEZ) Alpha Fetoprotein Today K75.81 - Nonalcoholic steatohepatitis (GONZALEZ) Gamma Glutamyl Transpeptidase Today K75.81 - Nonalcoholic steatohepatitis (GONZALEZ) US abdomen comp w elastography Today K75.81 - Nonalcoholic steatohepatitis (GONZALEZ) LABS: Laboratory Tests 09/15/23 08:07 Estimated GFR > 60 Total Bilirubin 0.4 GGT 37 H AST 20 ALT 26 Alkaline Phosphatase 140 H Alpha Fetoprotein 2.2 ULTRASOUND OF THE ABDOMEN WITH ELASTOGRAPHY (F-0) 11/30/23 FINDINGS: PANCREAS: Normal. The visualized pancreatic head and body are normal in appearance. The remainder of the pancreas is obscured from visualization by the overlying bowel gas. ABDOMINAL AORTA: The proximal, middle, and distal aortic segments are normal in caliber. INFERIOR VENA CAVA: Visualized portions are normal. LIVER: The liver demonstrates normal size, contour and generally increased echogenicity. No focal lesion or intrahepatic biliary duct dilatation. The right lobe measures 18.0 cm in length. The left lobe measures 12.4 cm in length. Portal flow is towards the liver (hepatopetal). Shear wave liver elastography median stiffness is 1.49 m/s (reference: normal median stiffness is 1.3 m/s or less). IQR/median stiffness to assess sampling precision is 0.15 (reference: good quality data set is IQR/median stiffness of 0.15 or less). GALLBLADDER: Surgically absent. COMMON BILE DUCT: Normal in caliber measuring 0.7 cm in diameter. RIGHT KIDNEY: Normal. No hydronephrosis. No renal calculi or focal parenchymal lesions. The kidney measures 11.2 cm in maximum dimension. LEFT KIDNEY: Normal. No hydronephrosis. No renal calculi or focal parenchymal lesions. The kidney measures 12.3 cm in maximum dimension. SPLEEN: Normal. The spleen measures 11.8 cm in maximum dimension. FREE FLUID: None. US/US abdomen comp w elastography IMPRESSION: 1. There is generalized increase in hepatic echotexture, consistent with fatty infiltration or hepatocellular disease. Please correlate clinically. No focal hepatic mass or intrahepatic biliary dilatation is seen. 2. There is hepatomegaly. 3. Liver elastography: In the absence of other known clinical signs, measurements rule out compensated advanced chronic liver disease. If there are known clinical signs, further testing may be needed for confirmation. 4. The gallbladder is surgically absent. TODAYS VISIT Portuguese #[id number] She received the cholestyramine, but despite taking it bid she still has episodes of diarrhea - although she admits it is improved. We will increase to 2 scoops in the morning and 1 qhs and she can even progress to 2 bid. However, her epigastric pain has improved. Her RA is not doing well right now. ROV 6 weeks, she also continues on simethicone and pantoprazole. [facility] Medical History (Updated 12/19/23 @ 11:30 by MARGUERITE Mayogra) Colon cancer screening Acute bronchitis Abdominal bloating Epigastric pain Diarrhea Rheumatoid arthritis GERD (gastroesophageal reflux disease) HTN (hypertension) Stroke Bilateral carpal tunnel syndrome Dyslipidemia Anxiety Depression Migraine Restless legs Surgical History H/O colonoscopy S/P breast biopsy, right H/O prior ablation treatment History of esophagogastroduodenoscopy (EGD) History of cholecystectomy Family History Father High blood pressure Cancer Mother Diabetes High blood pressure Sister Diabetes High blood pressure Thyroid disease Cancer Brother High blood pressure Asthma Social History Alcohol intake: never Patient Tobacco Use Status: Never used Tobacco Current occupational status: disabled Current occupation: rt handed Review of Systems Const Denies fatigue, Denies fever(s), Denies night sweats, Denies poor appetite and Denies weight loss ENT Reports Normal hearing present, Denies dental pain, Denies dysphagia, Denies hearing loss, Denies mouth pain, Denies odynophagia, Denies throat swelling, Denies tongue swelling and Reports other (Dentition adequate) Card Reports no additional complaints Resp Reports no additional complaints GI Details: Denies abdominal pain, Denies melena, Denies bloating, Denies hematochezia, Denies constipation, Denies GI cramping, Denies dysphagia, Denies excessive flatus, Denies early satiety, Reports heartburn, Reports diarrhea, Denies nausea, Denies odynophagia, Denies vomiting and Denies hematemesis Skin/Breast Denies pruritus, Denies lesions, Denies rash and Denies jaundice Neuro Reports Normal hearing present and Denies Abnormal speech present Endo Denies fatigue Aller/Immun Denies throat swelling and Denies tongue swelling Physical Exam Vital Signs: Last Vital Signs Pulse 83 12/19/23 10:50 BP 112/61 12/19/23 10:50 BMI result Body Mass Index 33.7 Const General: cooperative, no acute distress, well developed and well groomed Nutritional Appearance: well nourished and obese Orientation/consciousness: oriented to person, oriented to place and oriented to time Limitations: language barrier HEENT Head: Yes normocephalic and Yes atraumatic Eyes General: appearance normal, both eyes and all related structures Pupils: Equal, round and reactive pupils present Neck Neck: Yes normal visual inspection and Yes no lymphadenopathy Thyroid: Thyroid normal Resp Effort & Inspection: normal respiratory effort and able to speak in complete sentences Auscultation: clear to auscultation bilaterally Cardio Rate: regular rate Rhythm: regular rhythm Heart sounds: Normal, physiologic split S2 sound present Peripheral pulses: radial pulses present and posterior tibial pulses present GI Inspection: No distended, No Abdominal panniculus present and Yes obesity Palpation (GI): Soft to palpation, nontender, no guarding, not rigid and No hepatosplenomegaly present Percussion: Yes normal to percussion Auscultation: normal bowel sounds Rectal Exam - Female: deferred Skin General skin exam: no rashes or lesions noted, turgor normal, skin not dry, no jaundice, No spider nevi and no striae Rashes: no rashes Nails: normal Neuro General: oriented to person, oriented to place and oriented to time Cranial nerves: Yes Equal, round and reactive pupils present and Yes Normal hearing present Speech: No Abnormal speech present Extrem General: Yes normal to inspection, No clubbing, No cyanosis and No edema Psych Appearance: grossly normal and well kempt Mental Status: mental status grossly normal Speech and movement: Normal speech and movement present Affect: normal affect Attitude: cooperative Thought process: Normal thought process present and not confabulating Thought content: Normal thought content present Insight: Limited insight present (Psych) Judgement: Limited judgement present (Psych) Assessment & Plan Assessment & Plan (1) Post-cholecystectomy syndrome: Code(s): K91.5 - Postcholecystectomy syndrome Category: Medical (2) GERD (gastroesophageal reflux disease): Code(s): K21.9 - Gastro-esophageal reflux disease without esophagitis Category: Medical (3) GONZALEZ (nonalcoholic steatohepatitis): Comment: K75.81 (Primary), Neg 2019 Hep B, C, mild elevation LFT's, 12/2018 US, ferritin, autimmune work up WNL, AFP 1.8, fibrosis score F0 ULTRASOUND OF THE ABDOMEN WITH ELASTOGRAPHY (F-0) 11/30/23 CURRENT LABS 09/15/23 08:07 Estimated GFR > 60 Total Bilirubin 0.4 GGT 37 H AST 20 ALT 26 Alkaline Phosphatase 140 H Alpha Fetoprotein 2.2 ULTRASOUND OF THE ABDOMEN WITH ELASTOGRAPHY (F-0) 11/30/23 FINDINGS: PANCREAS: Normal. The visualized pancreatic head and body are normal in appearance. The remainder of the pancreas is obscured from visualization by the overlying bowel gas. ABDOMINAL AORTA: The proximal, middle, and distal aortic segments are normal in caliber. INFERIOR VENA CAVA: Visualized portions are normal. LIVER: The liver demonstrates normal size, contour and generally increased echogenicity. No focal lesion or intrahepatic biliary duct dilatation. The right lobe measures 18.0 cm in length. The left lobe measures 12.4 cm in length. Portal flow is towards the liver (hepatopetal). Shear wave liver elastography median stiffness is 1.49 m/s (reference: normal median stiffness is 1.3 m/s or less). IQR/median stiffness to assess sampling precision is 0.15 (reference: good quality data set is IQR/median stiffness of 0.15 or less). GALLBLADDER: Surgically absent. COMMON BILE DUCT: Normal in caliber measuring 0.7 cm in diameter. RIGHT KIDNEY: Normal. No hydronephrosis. No renal calculi or focal parenchymal lesions. The kidney measures 11.2 cm in maximum dimension. LEFT KIDNEY: Normal. No hydronephrosis. No renal calculi or focal parenchymal lesions. The kidney measures 12.3 cm in maximum dimension. SPLEEN: Normal. The spleen measures 11.8 cm in maximum dimension. FREE FLUID: None. US/US abdomen comp w elastography IMPRESSION: 1. There is generalized increase in hepatic echotexture, consistent with fatty infiltration or hepatocellular disease. Please correlate clinically. No focal hepatic mass or intrahepatic biliary dilatation is seen. 2. There is hepatomegaly. 3. Liver elastography: In the absence of other known clinical signs, measurements rule out compensated advanced chronic liver disease. If there are known clinical signs, further testing may be needed for confirmation. 4. The gallbladder is surgically absent. Code(s): K75.81 - Nonalcoholic steatohepatitis (GONZALEZ) Category: Medical Plan Portuguese #[id number] She received the cholestyramine, but despite taking it bid she still has episodes of diarrhea - although she admits it is improved. We will increase to 2 scoops in the morning and 1 qhs and she can even progress to 2 bid. However, her epigastric pain has improved. Her RA is not doing well right now. We review her liver monitoring and she has normal transaminases with a mildly elevated GGT. Ultrasound with elastography is reassuring showing an F0 classification. I encouraged her to watch her weight throughout her life and to watch her blood sugars since they appear borderline as all of this will contribute to the best future liver health. She does not drink alcohol. ROV 6 weeks, she also continues on simethicone and pantoprazole. Medications: Changed From cholestyramine (with sugar) 4 gram administer w/meal; avoid other meds within 1hr before or 4-6hr after dose 4 grams PO BID 378 grams 6RF K91.5 - Postcholecystectomy syndrome To cholestyramine (with sugar) 4 gram administer w/meal; avoid other meds within 1hr before or 4-6hr after dose 8 grams PO BID 378 grams 6RF K91.5 - Postcholecystectomy syndrome Refilled pantoprazole 20 mg PO QAM 30 tabs 6RF K21.9 - Gastro-esophageal reflux disease without esophagitis simethicone 180 mg PO TID 90 caps 3RF R14.0 - Abdominal distension (gaseous) Discontinued sucralfate Discontinued Reason: Doctor's Order 3 grams (3 x 1 gram) PO DAILY 90 tabs 6RF K91.5 - Postcholecystectomy syndrome bisacodyl Discontinued Reason: Doctor's Order 10 mg (2 x 5 mg) PO BEDTIME 60 tabs 6RF K58.2 - Mixed irritable bowel syndrome Coding Level of Care Code Est Pt Level 3 (29819) Diagnoses Post-cholecystectomy syndrome K91.5 GERD (gastroesophageal reflux disease) K21.9 GONZALEZ (nonalcoholic steatohepatitis) K75.81
[2023-12-19 10:50] VITALS: BP 112/61; PULSE 83; BMI 33.7
== END 2023-12-19 11:56 | disposition home or self-care (01) ==
PROVIDERS: PCP Registered Nurse; Visit Provider Nurse Practitioner
DX: K91.5 Postcholecystectomy syndrome (principal); K21.9 Gastro-esophageal reflux disease without esophagitis; K75.81 Nonalcoholic steatohepatitis (NASH)
CPT/HCPCS: 99213

== ENCOUNTER → 2023-12-19 10:35 | Outpatient (BNVA) | payer OTHER, SELFPAY | PROVIDERS: PCP Registered Nurse; Visit Provider Nurse Practitioner | DX: K91.5 Postcholecystectomy syndrome (principal); K21.9 Gastro-esophageal reflux disease without esophagitis; K75.81 Nonalcoholic steatohepatitis (NASH) | CPT/HCPCS: 99212 ==

== ENCOUNTER 2024-01-11 08:18 | Outpatient (REF) | payer OTHER, SELFPAY ==
[2024-01-11 08:38] LABS: MANUAL DIFF FLAG NO
[2024-01-11 08:52] LABS: Basophils Percent Auto 0.5 % (0-2); Eosinophils Absolute Auto 0.3 X10*3/uL (0.0-0.4); Eosinophils Percent Auto 3.5 % (0-4); Hematocrit 38.4 % (37.0-47.0); Hemoglobin 13.1 g/dl (12.0-16.0); Imm Gran Abs Auto 0.02 X10*3/uL (0.00-0.03); Imm Gran Pct Auto 0.3 % (0.0-0.4); Lymphocytes Absolute Auto 1.7 X10*3/uL (1.2-4.9); Lymphocytes Percent Auto 21.8 % (20-40); Mean Corpuscular HGB Conc 34.1 g/dl (31.0-35.0); Mean Corpuscular Hemoglobin 28.8 pg (27.0-33.0); Mean Corpuscular Volume 84.4 fL (80.0-98.0); Mean Platelet Volume 8.8 fL (9.4-12.3); Monocytes Absolute Auto 0.5 X10*3/uL (0.1-1.2); Monocytes Percent Auto 6.2 % (2-11); Neutrophils Absolute Auto 5.2 x10*3/uL (2.0-8.3); Neutrophils Percent Auto 67.7 % (45-73); Platelet Count 394 X10*3/uL (160-400); Red Blood Count 4.55 X10*6/uL (4.20-5.50); Red Cell Distribution Width 14.2 % (11.0-16.0); White Blood Count 7.7 X10*3/uL (4.8-10.8)
[2024-01-11 09:21] LABS: Alanine Aminotransferase 55 U/L (0-31); Albumin Level 3.8 g/dL (3.5-5.0); Alkaline Phosphatase 147 U/L (39-117); Anion Gap 10 (12-20); Aspartate Amino Transferase 50 U/L (5-31); Bilirubin Total 0.3 mg/dL (0.0-1.0); Blood Urea Nitrogen 6 mg/dL (9-16); C Reactive Protein 0.91 mg/dL (< or = 0.50); Calcium 9.1 mg/dL (8.4-10.2); Carbon Dioxide 28 mmol/L (22-29); Chloride 107 mmol/L (96-108); Estimated Glomerular Filt Rate > 60; Glucose Random 142 mg/dL (60-115); Potassium 3.5 mmol/L (3.3-5.1); Sodium 141 mmol/L (135-145); Total Protein 7.5 g/dL (6.5-8.0)
[2024-01-11 09:35] LABS: Erythrocyte Sedimentation Rate 34 MM/HR (0-20)
== END 2024-01-11 08:19 | disposition home or self-care (01) ==
LOC: HO.LAB 08:18
PROVIDERS: PCP Registered Nurse; Visit Provider Student in an Organized Health Care Education/Training Program
DX: M06.09 Rheumatoid arthritis without rheumatoid factor, multiple sites (principal)
CPT/HCPCS: 36415; 80053; 85025; 85652; 86140

== ENCOUNTER 2024-01-12 09:39 | Outpatient (AMB) | payer OTHER, SELFPAY ==
--- NOTE | 2024-01-12 09:44 | A.OFFVIS_ITS ---
Vital Signs 01/12/24 09:48 Height 5 ft 1 in Weight 183 lb 10.321 oz BMI 34.7 BP 115/62 Blood Pressure Location Rt brachial Position Sitting Pulse 68 Pulse Source Pulse Oximeter Pulse Oximetry (%) 96 Oxygen Delivery Method Room Air Intake Visit Reasons: RA/LM Intake Note: Patient presents for RA. Development Scientist Required: Yes Development Scientist Language: Hand Silvering Supervisor Services: Development Scientist Present Development Scientist Name: Flaquito [id number] Information Interpreted: non-clinical & clinical Allergies niacin [From NIASPAN EXTENDED-RELEASE] Allergy (Intermediate, Verified 01/12/24 09:47) TACHYCARDIA,DIFF.BREATHING citalopram [Celexa] Allergy (Unknown, Verified 01/12/24 09:47) unknown diltiazem [From CARTIA XT] Allergy (Unknown, Verified 01/12/24 09:47) UNKNOWN Medication List - Last Reconciled 01/12/24 by Ramya Smith MD acetaminophen 1,000 mg PO Q4-6H PRN albuterol sulfate 90 mcg/actuation 2 puffs inhalation Q4-6H PRN albuterol sulfate 2.5 mg inhalation TID PRN amlodipine 10 mg PO DAILY benzonatate 200 mg PO TID PRN blood sugar diagnostic As directed cholestyramine (with sugar) 4 gram 8 grams PO BID diclofenac sodium 1% 2 grams topical QID fluticasone propion-salmeterol 500-50 mcg/dose 1 ea PO BID fluticasone propionate 50 mcg/actuation sprays intranasal gabapentin 400 mg PO TID Humira(CF) Pen (adalimumab) 40 mg (0.4 mL) subcut Q2W NS lancets As directed melatonin 10 mg PO BEDTIME metoprolol succinate ER 200 mg PO QAM metoprolol succinate ER 25 mg PO DAILY PRN multivit-iron sulf-folic acid 15 mg iron- 400 mcg (Tab-A-Ivan Multivitamin w- iron) 1 tab PO DAILY pantoprazole 20 mg PO QAM ropinirole mg PO DAILY ropinirole 1 mg PO BEDTIME sertraline 50 mg PO DAILY simethicone 180 mg PO TID simvastatin 10 mg PO BEDTIME tamsulosin mg PO DAILY topiramate 50 mg PO BEDTIME trazodone 50 mg PO BEDTIME vitamin E (dl, acetate) 180 mg PO BID HPI Comments Details: 53-year-old female with seronegative RA presents for follow-up. She remains on Humira 40 mg every other week. She denies any pain or swelling in her hands, wrists. She states however she she has been having bilateral knee pain and bilateral feet and ankle pain associated with swelling. Was evaluated by a senior sales operations analyst and prescribed diclofenac gel recently. She states that she will go back for re-evaluation after using the gel for some time.. Has not had any recent illnesses. Initial history: A 51-year-old female with a past medical history of anxiety, depression, dyslipidemia, stroke, restless leg syndrome, neuropathy, migraine who presents for evaluation of diffuse pain. The condition started about 7-8 months ago with pain in her legs, ankles, feet and arms. The pain is generally worse at night, is burning pain. She stated that will she lost her balance a few weeks ago and fell and bumped her left ankle. Her left ankle has been swollen since. She did not get it evaluated. She denies any history of DVT/PE. She had a breast biopsy in the past and was told it was unremarkable. She never had a colonoscopy done. [facility] Medical History Colon cancer screening Acute bronchitis Abdominal bloating Epigastric pain Diarrhea Rheumatoid arthritis GERD (gastroesophageal reflux disease) HTN (hypertension) Stroke Bilateral carpal tunnel syndrome Dyslipidemia Anxiety Depression Migraine Restless legs Surgical History H/O colonoscopy S/P breast biopsy, right H/O prior ablation treatment History of esophagogastroduodenoscopy (EGD) History of cholecystectomy Family History Father High blood pressure Cancer Mother Diabetes High blood pressure Sister Diabetes High blood pressure Thyroid disease Cancer Brother High blood pressure Asthma Social History Alcohol intake: never Patient Tobacco Use Status: Never used Tobacco Current occupational status: disabled Current occupation: rt handed Female Reproductive History Menstrual Total pregnancies: 5 Number of Living Children: 5 Review of Systems Musc Reports arthralgias and Reports joint swelling Physical Exam Vital Signs: Last Vital Signs Pulse 68 01/12/24 09:48 BP 115/62 01/12/24 09:48 Pulse Ox 96 01/12/24 09:48 Oxygen Delivery Method Room Air 01/12/24 09:48 BMI result Body Mass Index 34.7 Const General: cooperative, comfortable and no acute distress Nutritional Appearance: obese Orientation/consciousness: patient oriented x3 Limitations: no limitations HEENT Head: Yes normocephalic and Yes atraumatic Resp Effort & Inspection: normal respiratory effort and able to speak in complete sentences Neuro General: patient oriented x3 Extrem Other: No wrist tenderness or swelling or pain with flexion and extension bilaterally No MCP or PIP swelling or tenderness today Negative MCP squeeze test bilaterally No elbow or shoulder pain with range of motion bilaterally Left knee pain with flexion-extension . No noticeable warmth, or swelling No ankle swelling or tenderness bilaterally Negative MTP squeeze test bilaterally No MTP tenderness bilaterally Mildly tender soft tissue prominence on the dorsal aspect of left foot (? Rheumatoid nodule) Assessment & Plan Assessment & Plan (1) Rheumatoid arthritis: Comment: Seronegative diagnosed 02/2022 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 6 tabs started 02/2022 Advanced to 8 tabs 04/2022 reduced to 6 tab 07/10 due to transaminitis DC 12/10 due to ongoing transaminitis Enbrel 09/09-DC 06/2022 ineffective Humira 06/2023 effective Code(s): M06.9 - Rheumatoid arthritis, unspecified Category: Medical Qualifiers: Rheumatoid arthritis location: multiple sites Rheumatoid factor presence: without rheumatoid factor Qualified Code(s): M06.09 - Rheumatoid arthritis without rheumatoid factor, multiple sites Plan: 53-year-old female with seronegative RA presents for follow-up. On Humira 40 mg every other week. Doing well overall with no active synovitis. Her symptoms are degenerative and mechanical There is a soft tissue prominence on the dorsal aspect of the left foot, recently evaluated by a senior sales operations analyst and prescribed Voltaren gel. This may be a rheumatoid nodule. Continue Humira 40 mg every other week Labs before next visit in 4 months (2) High risk medication use: Code(s): Z79.899 - Other remote computer terminal operator (current) drug therapy Category: Medical Plan: Side effects of Humira were discussed with the patient in detail including increased risk of infection, , reactivation of latent TB, . Patient fully aware. Advised patient to seek medical care HILDA if patient has an infection and advised patient to stop the medication until the infection is resolved. (3) Immunization counseling: Code(s): Z71.85 - Encounter for immunization safety counseling Category: Medical Plan: Advised patient to get both flu vaccine and COVID booster season. No need to hold Humira Plan I spent 25 minutes reviewing patient's chart, evaluating patient, ordering dutch gnostic workup, counseling patient and documenting in the chart Orders: Orders Comprehensive Met. Panel 4 Months M06.09 - Rheumatoid arthritis without rheumatoid factor, multiple sites C Reactive Protein 4 Months M06.09 - Rheumatoid arthritis without rheumatoid fa ctor, multiple sites Complete Blood Count Auto Diff 4 Months M06.09 - Rheumatoid arthritis without rheumatoid factor, multiple sites Erythrocyte Sedimentation Rate 4 Months M06.09 - Rheumatoid arthritis without rheumatoid factor, multiple sites Coding Level of Care Code Est Pt Level 4 (88393) Complex EM visit Add On G2211 Diagnoses Rheumatoid arthritis of multiple sites with negative rheumatoid factor M06.09 Rheumatoid arthritis location: multiple sites Rheumatoid factor presence: without rheumatoid factor High risk medication use Z79.899 Immunization counseling Z71.85
[2024-01-12 09:48] VITALS: BP 115/62; PULSE 68; O2SAT 96; BMI 34.7
== END 2024-01-12 10:07 | disposition home or self-care (01) ==
PROVIDERS: PCP Registered Nurse; Visit Provider Student in an Organized Health Care Education/Training Program
DX: M06.09 Rheumatoid arthritis without rheumatoid factor, multiple sites (principal); Z79.899 Other long term (current) drug therapy; Z71.85 Encounter for immunization safety counseling
CPT/HCPCS: 99214; G2211

== ENCOUNTER → 2024-01-12 09:39 | Outpatient (BNVA) | payer OTHER, SELFPAY | PROVIDERS: PCP Registered Nurse; Visit Provider Student in an Organized Health Care Education/Training Program | DX: M06.09 Rheumatoid arthritis without rheumatoid factor, multiple sites (principal); Z79.899 Other long term (current) drug therapy; Z71.85 Encounter for immunization safety counseling | CPT/HCPCS: 99212 ==

== ENCOUNTER 2024-02-01 07:42 | Outpatient (AMB) | payer OTHER, SELFPAY ==
--- NOTE | 2024-02-01 08:11 | A.OFFVIS_ITS ---
Intake Visit Reasons: nephrolithiasis Intake Note: New Patient presents for initial visit for nephrolithiasis Urology Medications: ?tamsulosin Blood Thinner: none Retail Grocer Required: Yes Retail Grocer Name: HUA BISHOP Allergies niacin [From NIASPAN EXTENDED-RELEASE] Allergy (Intermediate, Verified 02/01/24 08:50) TACHYCARDIA,DIFF.BREATHING citalopram [Celexa] Allergy (Unknown, Verified 02/01/24 08:50) unknown diltiazem [From CARTIA XT] Allergy (Unknown, Verified 02/01/24 08:50) UNKNOWN Medication List - Last Reconciled 02/01/24 by GUERO Mcqueen acetaminophen 1,000 mg PO Q4-6H PRN albuterol sulfate 90 mcg/actuation 2 puffs inhalation Q4-6H PRN albuterol sulfate 2.5 mg inhalation TID PRN amlodipine 10 mg PO DAILY benzonatate 200 mg PO TID PRN blood sugar diagnostic As directed cholestyramine (with sugar) 4 gram 8 grams PO BID diclofenac sodium 1% 2 grams topical QID fluticasone propion-salmeterol 500-50 mcg/dose 1 ea PO BID fluticasone propionate 50 mcg/actuation sprays intranasal gabapentin 400 mg PO TID Humira(CF) Pen (adalimumab) 40 mg (0.4 mL) subcut Q2W NS lancets As directed melatonin 10 mg PO BEDTIME metoprolol succinate ER 200 mg PO QAM metoprolol succinate ER 25 mg PO DAILY PRN multivit-iron sulf-folic acid 15 mg iron- 400 mcg (Tab-A-Ivan Multivitamin w- iron) 1 tab PO DAILY pantoprazole 20 mg PO QAM ropinirole mg PO DAILY ropinirole 1 mg PO BEDTIME sertraline 50 mg PO DAILY simethicone 180 mg PO TID simvastatin 10 mg PO BEDTIME tamsulosin mg PO DAILY topiramate 50 mg PO BEDTIME trazodone 50 mg PO BEDTIME vitamin E (dl, acetate) 180 mg PO BID HPI Comments Details: Sobia is a very pleasant 53-year-old German-speaking female patient of Dr. Boo. She has a past medical history of rheumatoid arthritis, GERD, hypertension, stroke, bilateral carpal tunnel syndrome, dyslipidemia, anxiety, depression, migraines, and restless leg syndrome. She presents to the office today as a new patient for nephrolithiasis. In discussion with the patient today she reports having followed up with her PCP for intermittent flank pain and lower urine symptoms she had been experiencing at which time a renal ultrasound was ordered for further assessment evaluation. These results were reviewed with the patient today. Bilateral kidneys with no lesions or hydronephrosis. 4 mm nonobstructing echogenic focus in the right lower pole. When asked she denies any previous history of nephrolithiasis and or surgical intervention for nephrolithiasis. She currently denies any bothersome urinary issues or concerns. She reports completing Flomax as prescribed by her PCP and has had no bothersome urinary issues or concerns. We discussed at length potential causes of nephrolithiasis as well as metabolic workup. Discussed and stressed the importance of adequate hydration relation to nephrolithiasis as well as overall health and well-being. In office urinalysis results reviewed with the patient today. She denies urinary urgency, urinary frequency, incontinence, nocturia, hematuria, dysuria, foul smelling urine, changes to urinary stream, flank pain, fever, and or chills. She is happy with her current voiding parameters. [facility] Medical History Colon cancer screening Acute bronchitis Abdominal bloating Epigastric pain Diarrhea Rheumatoid arthritis GERD (gastroesophageal reflux disease) HTN (hypertension) Stroke Bilateral carpal tunnel syndrome Dyslipidemia Anxiety Depression Migraine Restless legs Surgical History H/O colonoscopy S/P breast biopsy, right H/O prior ablation treatment History of esophagogastroduodenoscopy (EGD) History of cholecystectomy Family History Father High blood pressure Cancer Mother Diabetes High blood pressure Sister Diabetes High blood pressure Thyroid disease Cancer Brother High blood pressure Asthma Social History Alcohol intake: never Patient Tobacco Use Status: Never used Tobacco Current occupational status: disabled Current occupation: rt handed Review of Systems Const All systems reviewed & are unremarkable except as noted in HPI and below Physical Exam Const General: cooperative, healthy appearing, comfortable, no acute distress, well developed, alert and awake Orientation/consciousness: patient oriented x3 Limitations: no limitations HEENT Head: Yes normal to inspection, Yes normocephalic and Yes atraumatic Ears: hearing grossly normal bilaterally Eyes General: appearance normal, both eyes and all related structures Neck Neck: Yes normal visual inspection and Yes trachea midline Chest Chest palpation & inspection: normal inspection of the chest Resp Effort & Inspection: normal respiratory effort and able to speak in complete sentences Cardio Rate: regular rate GI Inspection: Yes normal to inspection General: Yes no CVA tenderness Back/Spine/Pelvis Back: no CVA tenderness Skin General skin exam: no rashes or lesions noted Neuro General: patient oriented x3 Extrem General: Yes normal to inspection Psych Appearance: grossly normal and well kempt Mental Status: mental status grossly normal Speech and movement: Normal speech and movement present and Clear speech present Affect: normal affect Attitude: cooperative Thought process: Normal thought process present Thought content: Normal thought content present Insight: Fair insight present (Psych) Judgement: Fair judgement present (Psych) Results AMB Urinalysis, Automated UA Leukoctes 0 Robbie/uL Last Edit by [employer] on 02/01/24 09:53 UA Nitrite Negative Last Edit by [employer] on 02/01/24 09:53 UA Urobilinogen 0.2 mg/dL Last Edit by [employer] on 02/01/24 09:53 UA Protein 15 mg/dL Last Edit by [employer] on 02/01/24 09:53 UA pH 6.0 Last Edit by [employer] on 02/01/24 09:53 UA Blood 25 Chad/uL Last Edit by [employer] on 02/01/24 09:53 UA Specific [place] 1.020 Last Edit by [employer] on 02/01/24 09:53 UA Ketone Last Edit by [employer] Rebekah on 02/01/24 09:53 UA Bilirubin 0 mg/dL Last Edit by [employer] Rebekah on 02/01/24 09:53 UA Glucose 0 mg/dL Last Edit by Fausto Welch on 02/01/24 09:53 Results Reviewed Results Reviewed: Laboratory Last Values Urine pH (Auto) 6.0 02/01/24 09:52 Specific [place] (Auto) 1.020 02/01/24 09:52 Urine Protein (Auto) 15 mg/dL 02/01/24 09:52 Glucose (UA)(Auto) 0 mg/dL 02/01/24 09:52 Urine Blood (Auto) 25 Chad/uL 02/01/24 09:52 Urine Nitrite (Auto) Negative 02/01/24 09:52 Urine Bilirubin (Auto) 0 mg/dL 02/01/24 09:52 Urine Urobilinogen (Auto) 0.2 mg/dL 02/01/24 09:52 Leukocyte Esterase (Auto) 0 Robbie/uL 02/01/24 09:52 Date of Service: 11/30/23 EXAMINATION: US RETROPERITONEAL LIMITED (RENAL ONLY) FINDINGS: RIGHT KIDNEY: 10.9 x 4.6 x 5.1 cm (SAG x AP x TRV). The kidney is normal in size, contour, and echogenicity. Renal cortical thickness is normal. No calculi or focal parenchymal lesions. No hydronephrosis. A 4 mm nonobstructing echogenic focus in the right lower renal pole though does not demonstrate twinkle artifact appears to correspond to a stone on prior CT, unchanged in size. LEFT KIDNEY: 11.9 x 4.9 x 5.4 cm (SAG x AP x TRV). The kidney is normal in size, contour, and echogenicity. Renal cortical thickness is normal. No calculi or focal parenchymal lesions. No hydronephrosis. IMPRESSION: A 4 mm nonobstructing echogenic focus in the right lower renal pole though does not demonstrate twinkle artifact appears to correspond to a stone on prior CT, unchanged in size. Assessment & Plan Assessment & Plan (1) Nephrolithiasis: Code(s): N20.0 - Calculus of kidney Category: Medical Plan In office urinalysis results reviewed with the patient today; as noted above. Recent renal imaging results reviewed with the patient today; as noted above. She currently denies any bothersome urinary issues or concerns. We discussed potential causes of nephrolithiasis as well as metabolic workup. She reports be happy with her current voiding parameters. Discussed, educated, and stressed the importance of adequate hydration relation to nephrolithiasis as well as overall health and well-being. Will continue with surveillance monitoring. Will obtain renal ultrasound in 6 months. Follow-up in 6 months with imaging to be completed prior; or sooner with any issues, concerns, and or questions. Orders: Orders AMB Urinalysis Automated Today Z13.9 - Encounter for screening, unspecified US renal BI 6 Months N20.0 - Calculus of kidney Patient Instructions: The patient had an opportunity to ask questions regarding the treatment plan. All questions were answered. Physical exam, labs, and imaging were discussed and reviewed in detail. As well as risks, benefits, and discussion of treatment choices. No major barriers to understanding were identified. The patient expressed understanding and agreement with the above treatment plan. The patient was made aware they should contact our office by phone for worsening of their current condition, the appearance of new symptoms, or with any questions or concerns. Compliance is encouraged with any medications and follow up testing that is ordered. It is a privilege to be allowed the opportunity to participate in? your urological care.? Again, if you have any questions or concerns If you have any questions or concerns please do not hesitate to contact me. The office is [phone]. This note is constructed using voice recognition software. While every effort has been made to ensure accuracy machine bender errors may have been included. Yours sincerely, GUERO Mcqueen Coding Level of Care Code New Pt Level 3 (16420) Diagnoses Nephrolithiasis N20.0
== END 2024-02-01 08:42 | disposition home or self-care (01) ==
PROVIDERS: PCP Registered Nurse; Visit Provider Nurse Practitioner Family
DX: Z13.9 Encounter for screening, unspecified (principal); N20.0 Calculus of kidney
CPT/HCPCS: 99203

== ENCOUNTER → 2024-02-01 07:42 | Outpatient (BNVA) | payer OTHER, SELFPAY | PROVIDERS: PCP Registered Nurse; Visit Provider Nurse Practitioner Family | DX: R11.0 Nausea (principal); R68.81 Early satiety; N20.0 Calculus of kidney | CPT/HCPCS: 81003; 99202; 99212 ==

== ENCOUNTER 2024-02-01 12:34 | Outpatient (AMB) | payer OTHER, SELFPAY ==
--- NOTE | 2024-02-01 12:36 | MHC.OFFVIS ---
Vital Signs 02/01/24 13:04 Height 5 ft 1 in Weight 183 lb BMI 34.6 BP 105/64 Blood Pressure Location Lt brachial Position Sitting Pulse 72 Intake Visit Reasons: 6 wks f/u Intake Note: Patient in office today in follow up of diarrhea, CC: Patient states that she continues having diarrhea that is like a greenish water and feeling a heat from her abdomen. She states that she sometimes she does not have a BM for days and then when she is able to go is diarrhea. Data Security Administrator Required: Yes Accompanied by: Self / Same As Patient Allergies niacin [From NIASPAN EXTENDED-RELEASE] Allergy (Intermediate, Verified 02/01/24 13:15) TACHYCARDIA,DIFF.BREATHING citalopram [Celexa] Allergy (Unknown, Verified 02/01/24 13:15) unknown diltiazem [From CARTIA XT] Allergy (Unknown, Verified 02/01/24 13:15) UNKNOWN HPI HPI 6 wks f/u: Details: Assessment & Plan (1) Post-cholecystectomy syndrome: Code(s): K91.5 - Postcholecystectomy syndrome Category: Medical (2) GERD (gastroesophageal reflux disease): Code(s): K21.9 - Gastro-esophageal reflux disease without esophagitis Category: Medical (3) GONZALEZ (nonalcoholic steatohepatitis): Comment: K75.81 (Primary), Neg 2018 Hep B, C, mild elevation LFT's, 12/2018 US, ferritin, autimmune work up WNL, AFP 1.8, fibrosis score F0 ULTRASOUND OF THE ABDOMEN WITH ELASTOGRAPHY (F-0) 11/30/23 CURRENT LABS 09/15/23 08:07 Estimated GFR > 60 Total Bilirubin 0.4 GGT 37 H AST 20 ALT 26 Alkaline Phosphatase 140 H Alpha Fetoprotein 2.2 ULTRASOUND OF THE ABDOMEN WITH ELASTOGRAPHY (F-0) 11/30/23 FINDINGS: PANCREAS: Normal. The visualized pancreatic head and body are normal in appearance. The remainder of the pancreas is obscured from visualization by the overlying bowel gas. ABDOMINAL AORTA: The proximal, middle, and distal aortic segments are normal in caliber. INFERIOR VENA CAVA: Visualized portions are normal. LIVER: The liver demonstrates normal size, contour and generally increased echogenicity. No focal lesion or intrahepatic biliary duct dilatation. The right lobe measures 18.0 cm in length. The left lobe measures 12.4 cm in length. Portal flow is towards the liver (hepatopetal). Shear wave liver elastography median stiffness is 1.49 m/s (reference: normal median stiffness is 1.3 m/s or less). IQR/median stiffness to assess sampling precision is 0.15 (reference: good quality data set is IQR/median stiffness of 0.15 or less). GALLBLADDER: Surgically absent. COMMON BILE DUCT: Normal in caliber measuring 0.7 cm in diameter. RIGHT KIDNEY: Normal. No hydronephrosis. No renal calculi or focal parenchymal lesions. The kidney measures 11.2 cm in maximum dimension. LEFT KIDNEY: Normal. No hydronephrosis. No renal calculi or focal parenchymal lesions. The kidney measures 12.3 cm in maximum dimension. SPLEEN: Normal. The spleen measures 11.8 cm in maximum dimension. FREE FLUID: None. US/US abdomen comp w elastography IMPRESSION: 1. There is generalized increase in hepatic echotexture, consistent with fatty infiltration or hepatocellular disease. Please correlate clinically. No focal hepatic mass or intrahepatic biliary dilatation is seen. 2. There is hepatomegaly. 3. Liver elastography: In the absence of other known clinical signs, measurements rule out compensated advanced chronic liver disease. If there are known clinical signs, further testing may be needed for confirmation. 4. The gallbladder is surgically absent. Code(s): K75.81 - Nonalcoholic steatohepatitis (GONZALEZ) Category: Medical Plan [place] #[id number] She received the cholestyramine, but despite taking it bid she still has episodes of diarrhea - although she admits it is improved. We will increase to 2 scoops in the morning and 1 qhs and she can even progress to 2 bid. However, her epigastric pain has improved. Her RA is not doing well right now. We review her liver monitoring and she has normal transaminases with a mildly elevated GGT. Ultrasound with elastography is reassuring showing an F0 classification. I encouraged her to watch her weight throughout her life and to watch her blood sugars since they appear borderline as all of this will contribute to the best future liver health. She does not drink alcohol. ROV 6 weeks, she also continues on simethicone and pantoprazole. Medications: Changed From cholestyramine (with sugar) 4 gram administer w/meal; avoid other meds within 1hr before or 4-6hr after dose 4 grams PO BID 378 grams 6RF K91.5 - Postcholecystectomy syndrome To cholestyramine (with sugar) 4 gram administer w/meal; avoid other meds within 1hr before or 4-6hr after dose 8 grams PO BID 378 grams 6RF K91.5 - Postcholecystectomy syndrome Refilled pantoprazole 20 mg PO QAM 30 tabs 6RF K21.9 - Gastro-esophageal reflux disease without esophagitis simethicone 180 mg PO TID 90 caps 3RF R14.0 - Abdominal distension (gaseous) Discontinued sucralfate Discontinued Reason: Doctor's Order 3 grams (3 x 1 gram) PO DAILY 90 tabs 6RF K91.5 - Postcholecystectomy syndrome bisacodyl Discontinued Reason: Doctor's Order 10 mg (2 x 5 mg) PO BEDTIME 60 tabs 6RF K58.2 - Mixed irritable bowel syndrome TODAYS VISIT [place] #[id number], Jay She says she is feeling much, much better. However, despite taking her cholestyramine, at the increased dose, every day consistently she still will have a week or so when she does not move her bowels and then she will have nothing but straight diarrhea. This is accompanied by quite a lot of bloating and severe nausea especially before her largest meal which is usually at supper time. It really sounds like her stomach might not be emptying properly to pace the entire GI system. We are going to get a gastric emptying study but in the meantime I am going to start her on a trial dose of Reglan 10 mg just before her largest meal to see if this gives her any relief. Her current GI regimen consists of cholestyramine, metoclopramide 10 mg once a day, pantoprazole 20 mg in the morning Return office visit in 8 weeks [facility] Medical History Colon cancer screening Acute bronchitis Abdominal bloating Epigastric pain Diarrhea Rheumatoid arthritis GERD (gastroesophageal reflux disease) HTN (hypertension) Stroke Bilateral carpal tunnel syndrome Dyslipidemia Anxiety Depression Migraine Restless legs Surgical History H/O colonoscopy S/P breast biopsy, right H/O prior ablation treatment History of esophagogastroduodenoscopy (EGD) History of cholecystectomy Family History Father High blood pressure Cancer Mother Diabetes High blood pressure Sister Diabetes High blood pressure Thyroid disease Cancer Brother High blood pressure Asthma Social History Alcohol intake: never Patient Tobacco Use Status: Never used Tobacco Current occupational status: disabled Current occupation: rt handed Review of Systems Const Denies fatigue, Denies fever(s), Denies night sweats, Denies poor appetite and Denies weight loss ENT Reports Normal hearing present, Denies dental pain, Denies dysphagia, Denies hearing loss, Denies mouth pain, Denies odynophagia, Denies throat swelling, Denies tongue swelling and Reports other (Dentition adequate) Card Reports no additional complaints Resp Reports no additional complaints GI Details: Reports abdominal pain, Denies melena, Reports bloating, Denies hematochezia, Reports constipation, Denies GI cramping, Denies dysphagia, Denies excessive flatus, Reports early satiety, Reports heartburn, Denies diarrhea, Reports nausea, Denies odynophagia, Denies vomiting and Denies hematemesis Skin/Breast Denies pruritus, Denies lesions, Denies rash and Denies jaundice Neuro Reports Normal hearing present and Denies Abnormal speech present Endo Denies fatigue Aller/Immun Denies throat swelling and Denies tongue swelling Physical Exam Vital Signs: Last Vital Signs Pulse 72 02/01/24 13:04 BP 105/64 02/01/24 13:04 BMI result Body Mass Index 34.6 Const General: cooperative, no acute distress, well developed and well groomed Nutritional Appearance: well nourished and obese Orientation/consciousness: oriented to person, oriented to place and oriented to time Limitations: language barrier HEENT Head: Yes normocephalic and Yes atraumatic Eyes General: appearance normal, both eyes and all related structures Pupils: Equal, round and reactive pupils present Neck Neck: Yes normal visual inspection and Yes no lymphadenopathy Thyroid: Thyroid normal Resp Effort & Inspection: normal respiratory effort and able to speak in complete sentences Auscultation: clear to auscultation bilaterally Cardio Rate: regular rate Rhythm: regular rhythm Heart sounds: Normal, physiologic split S2 sound present Peripheral pulses: radial pulses present and posterior tibial pulses present GI Inspection: No distended, No Abdominal panniculus present and Yes obesity Palpation (GI): Soft to palpation, Tenderness to palpation present (GI), no guarding, not rigid and No hepatosplenomegaly present Percussion: Yes normal to percussion Auscultation: normal bowel sounds Rectal Exam - Female: deferred Skin General skin exam: no rashes or lesions noted, turgor normal, skin not dry, no jaundice, No spider nevi and no striae Rashes: no rashes Nails: normal Neuro General: oriented to person, oriented to place and oriented to time Cranial nerves: Yes Equal, round and reactive pupils present and Yes Normal hearing present Speech: No Abnormal speech present Extrem General: Yes normal to inspection, No clubbing, No cyanosis and No edema Psych Appearance: grossly normal and well kempt Mental Status: mental status grossly normal Speech and movement: Normal speech and movement present Affect: normal affect Attitude: cooperative Thought process: Normal thought process present and not confabulating Thought content: Normal thought content present Insight: Limited insight present (Psych) Judgement: Limited judgement present (Psych) Results AMB Urinalysis, Automated UA Leukoctes 0 Robbie/uL Last Edit by Fausto Welch on 02/01/24 09:53 UA Nitrite Negative Last Edit by Fausto Welch on 02/01/24 09:53 UA Urobilinogen 0.2 mg/dL Last Edit by Fausto Welch on 02/01/24 09:53 UA Protein 15 mg/dL Last Edit by Fausto Welch on 02/01/24 09:53 UA pH 6.0 Last Edit by [employer] Freakssarah Welch on 02/01/24 09:53 UA Blood 25 Chad/uL Last Edit by [employer] Freakssarah Welch on 02/01/24 09:53 UA Specific [place] 1.020 Last Edit by Fausto Welch on 02/01/24 09:53 UA Ketone Last Edit by Fausto Welch on 02/01/24 09:53 UA Bilirubin 0 mg/dL Last Edit by Fausto Welch on 02/01/24 09:53 UA Glucose 0 mg/dL Last Edit by Fausto Welch on 02/01/24 09:53 Assessment & Plan Assessment & Plan (1) Nausea: Code(s): R11.0 - Nausea Category: Medical (2) Early satiety: Code(s): R68.81 - Early satiety Category: Medical Plan [place] #[id number], Jay She says she is feeling much, much better. However, despite taking her cholestyramine, at the increased dose, every day consistently she still will have a week or so when she does not move her bowels and then she will have nothing but straight diarrhea. This is accompanied by quite a lot of bloating and severe nausea especially before her largest meal which is usually at supper time. It really sounds like her stomach might not be emptying properly to pace the entire GI system. We are going to get a gastric emptying study but in the meantime I am going to start her on a trial dose of Reglan 10 mg just before her largest meal to see if this gives her any relief. Her current GI regimen consists of cholestyramine, metoclopramide 10 mg once a day, pantoprazole 20 mg in the morning Return office visit in 8 weeks Orders: Orders NM gastric emptying study 02/01/24 R11.0 - Nausea, R68.81 - Early satiety Medications: New metoclopramide HCl (Reglan) 10 mg PO .qac supper 30 tabs 6RF R68.81 - Early satiety, R11.0 - Nausea Coding Level of Care Code Est Pt Level 3 (42854) Diagnoses Nausea R11.0 Early satiety R68.81
[2024-02-01 13:04] VITALS: BP 105/64; PULSE 72; BMI 34.6
== END 2024-02-01 13:45 | disposition home or self-care (01) ==
PROVIDERS: PCP Registered Nurse; Visit Provider Nurse Practitioner
DX: R11.0 Nausea (principal); R68.81 Early satiety
CPT/HCPCS: 99213

== ENCOUNTER 2024-02-27 10:27 | Outpatient (REF) | payer OTHER, SELFPAY | END 2024-02-27 10:28 | disposition home or self-care (01) | LOC: HO.HHCLNP 10:27 | PROVIDERS: Visit Provider Family Medicine | DX: Z13.89 Encounter for screening for other disorder (principal) ==

== ENCOUNTER 2024-02-28 10:45 | Outpatient (REF) | payer OTHER, SELFPAY ==
[2024-02-28 11:30] LABS: HPV 16,18/45 See PAP report
== END 2024-02-28 10:46 | disposition home or self-care (01) ==
LOC: HO.HHCLNP 10:45
PROVIDERS: Visit Provider Family Medicine
DX: Z12.4 Encounter for screening for malignant neoplasm of cervix (principal); Z11.51 Encounter for screening for human papillomavirus (HPV)
CPT/HCPCS: 87624; 88175

== ENCOUNTER → 2024-03-06 07:33 | Outpatient (REF) | payer OTHER, SELFPAY | LOC: HO.NUCMED 07:33 | PROVIDERS: PCP Registered Nurse; Visit Provider Nurse Practitioner | DX: R68.81 Early satiety (principal); R11.0 Nausea | CPT/HCPCS: 78264; A9541 ==

== ENCOUNTER 2024-04-22 11:47 | Outpatient (REF) | payer OTHER, SELFPAY ==
--- OUTSIDE RECORDS SUMMARY | 2024-04-22 13:06 | XMS_ITS | Encounter Summary ---
Author Organization [employer] Address [address] [facility] [place] [address] Care Team Providers Care Shingle Grader Name Role Phone Elizabeth Boo Primary Care Provider [phone] Reason for Visit * Reason Comments Med Refill Encounter Details Date Type Department Care Team (Late st Contact Info) Description 10/27/2022 Refill [facility] [address] [place] [address] Elizabeth Boo FNP [address] [place], [place] [id number] Social History Tobacco Use Types Packs/Day Years Used Date Smoking Tobacco: Never Smokeless Tobacco: Never Alcohol Use Standard Drinks/Week Comments Never 0 (1 standard drink = 0.6 oz pur e alcohol) Comments Unknown Sex and Gender Information Value Date Recorded Sex Assigned at Female 01/17/2022 10:15 AM EDT Legal Sex Female 10:15 AM EDT Gender Identity Female 01/17/2022 10:15 AM EDT Sexual Orientation Choose not to disclose 2021 10:15 AM EDT documented as of this encounter Plan of Treatment Not on file documented as of this encounter Visit Diagnoses Not on filedocumented in this encounter Additional Health Concerns Assessment Noted Time PHQ-9 Depression Total Score: 20 023 2:30 PM EST documented as of this encounter Care Teams Shingle Grader Relationship Specialty Start Date End Date Elizabeth Boo FNP [address] [place] [address] PCP - General Family Medicine 04/11/22 documented as of this encounter
--- OUTSIDE RECORDS SUMMARY | 2024-04-22 13:06 | XMS_ITS | Encounter Summary ---
Author Organization [employer] Address [address] [facility] [address] [address] [place] [address] Care Team Providers Care Packing Machine Feeder Name Role Phone Elizabeth Boo Primary Care Provider [phone] Encounter Details Date Type Department Care Team (Late st Contact Info) Description 09/28/2022 Orders Only [facility] & PEDS [address] [place], [place] [phone] Mami Neely LPN Social History Tobacco Use Types Packs/Day Years [...] documented as of this encounter Care Teams Packing Machine Feeder Relationship Specialty Start Date End Date Elizabeth Boo FNP [address] [place] [address] PCP - General Family Medicine 04/11/22 documented as of this encounter
--- OUTSIDE RECORDS SUMMARY | 2024-04-22 13:06 | XMS_ITS | Clinical Summary ---
Author Organization [address] [facility] Address [address] [place] [address] Phone Care Team Providers Care Political Analyst Name Role Phone Elizabeth Boo RN Primary Care Provider Allergies Active Allergy Reactions Criticality Noted Date Comments Diltiazem 12/31/2018 Niacin 12/31/2018 Medications Medication Sig Dispensed Refills Start Date End Date Status diclofenac (VOLTAREN) 1 % topical gel Apply 4 g topically 2 times daily. 10/25/2023 Active meloxicam (MOBIC) 15 mg tablet Take 1 Tab by mouth daily. 06/26/2019 Active metoprolol succinate (Kapspargo Sprinkle) 25 mg capsule,sprinkle,ER 24hr Take 25 mg by mouth daily as needed. Active ibuprofen (ADVIL,MOTRIN) 600 mg tablet Take 600 mg by mouth 3 times daily as needed. Active bethanechol (URECHOLINE) 50 mg tablet Take 50 mg by mouth 3 times daily. Active linaCLOtide (LINZESS) 145 mcg capsule Take 145 mg by mouth daily. Active sucralfate (CARAFATE) 1 gram tablet Take 1 g by mouth 3 times daily. Active dicyclomine (BENTYL) 10 mg capsule Take 10 mg by mouth 4 times daily (before meals and nightly). Active desogestreL-ethinyl estradioL (Apri) 0.15-0.03 mg per tablet Take 1 tablet by mouth 1 (one) time each day. Active citalopram (CeleXA) 40 mg tablet Take 40 mg by mouth daily. Active amLODIPine (NORVASC) 5 mg tablet Take 5 mg by mouth daily. Active aspirin 81 mg EC tablet Take 81 mg by mouth daily. Active simvastatin (ZOCOR) 10 mg tablet Take 1 tablet (10 mg total) by mouth at bedtime. Active Active Problems Problem Noted Date Diagnosed Date Acute nonintractable headache 12/31/2018 Anxiety 12/31/2018 Essential hypertension 12/31/2018 GERD (gastroesophageal reflux disease) 9 Glaucoma 12/31/2018 Hyperlipidemia 12/31/2018 Impaired fasting glucose 12/31/2018 Lumbar radiculopathy 12/31/2018 Nonalcoholic fatty liver disease 12/31/2018 Periodic limb movement disorder 12/31/2018 Recurrent major depression 12/31/2018 Uterine fibroid 12/31/2018 Varicose veins of both lower extremities 019 Encounters Date Type Department Care Team Description 03/04/2024 10:30 AM EST Office Visit Orthopedic Surgery - [place] [address] [place] [id number] Gonzalez Owens, DPM Tendinitis of left ankle (Primary Dx); Ganglion of foot, left from Last 3 Months Medical History Medical History Date Comments Periodic limb movement disorder 12/31/2018 DX:Periodic limb movement disorder GERD (gastroesophageal reflu x disease) 12/31/2018 DX:GERD (gastroesophageal re flux disease) Hyperlipidemia 12/31/2018 DX:Hyperlipidemi a Uterine fibroid 12/31/2018 DX:Uterine fibro id Nonalcoholic fatty liver disease 12/31/2018 DX:Nonalcoholic fatty liver disease Lumbar radiculopathy 12/31/2018 DX:Lumbar r adiculopathy Glaucoma 12/31/2018 DX:Glaucoma Recurrent major depression (CMS/HCC) 12/31/2018 DX:Recurrent major depression (HCC) Varicose veins of both lower extremities 12/31/2018 DX:Varicose veins of both lo wer extremities Anxiety 12/31/2018 DX:Anxiety Acute nonintractable headache 12/31/2018 DX :Acute nonintractable headache Impaired fasting glucose 12/31/2018 DX:Impa ired fasting glucose Essential hypertension 12/31/2018 DX:Essent ial hypertension Social History Tobacco Use Types Packs/Day Years Used Date Smoking Tobacco: Never Smokeless Tobacco: Never Alcohol Use Standard Drinks/Week Comments No 0 (1 standard drink = 0.6 oz pur e alcohol) Sex and Gender Information Value Date Recorded Sex Assigned at Not on file Gender Identity Not on file Sexual Orientation Not on file Job Start Date Occupation Industry Not on file Not on file Not on file Obstetrics History Last Filed Vital Signs Vital Sign Reading Time Taken Comments Blood Pressure - - Pulse - - Temperature - - Respiratory Rate - - Oxygen Saturation - - Inhaled Oxygen Concentration - - Weight 81.2 kg (179 lb) 03/04/2024 10:46 AM EST Height 154.9 cm (5' 0.98 ) 03/04/2024 10:[address] Body Mass Index 33.84 03/04/2024 10:46 AM EST Plan of Treatment Health Maintenance Due Date Last Done Comments Breast Cancer Screening 1968 Hepatitis A Vaccines (1 of 2 - Risk 2-dose series) 1987 Hepatitis B Vaccines (1 of 3 - 19+ 3-dose series) 1987 Cervical Cancer Screening: Pap Smear 1989 Pneumococcal Vaccine: Pediatrics (0 to 5 Years) and At-Risk Patients (6 to 64 Years) (2 of 2 - PCV) 03/27/1997 03/27/1996 Colorectal Cancer Screening: Stool Based Tests (FOBT/FIT) 01/17/2024 12/15/2022 HIV Screening 01/17/2024 Hepatitis C Screening 01/17/2024 Medicare Annual Wellness Visit 01/17/2024 Social Influencers of Health Screening 01/17/2024 Depression Screening 11/16/2024 11/17/2023 Hypertension/CHF/CAD Annual BMP Blood Test 01/10/2025 01/11/2024 DTaP,Tdap,and Td Vaccines (4 - Td or Tdap) 01/21/2026 01/22/2016, 07/04/2008, 03/27/1996 Cholesterol Screening (Lipid Panel) 09/24/2026 09/24/2021 Zoster Vaccines Completed 01/21/2021, 11/19/2020 COVID-19 Vaccine Completed 02/27/2024, , 06/09/2020, Additional history exists Influenza Vaccine Completed 02/27/2024, , 01/28/2021, Additional history exists HIB Vaccines Aged Out No longer eligi ble based on patient's age to complete this topic HPV Vaccines Aged Out No longer eligi ble based on patient's age to complete this topic IPV Vaccines Aged Out No longer eligi ble based on patient's age to complete this topic MMR Vaccines Aged Out No longer eligi ble based on patient's age to complete this topic Meningococcal ACWY Vaccine Aged Out N o longer eligible based on patient's age to complete this topic RSV Immunization Patients Under 20 months Aged Out No longer eligible based on patient's age to complete this topic Varicella Vaccines Aged Out No longer eligible based on patient's age to complete this topic Care Teams Political Analyst Relationship Specialty Start Date End Date Elizabeth Boo RN [address] [facility] [address] [place] [address] PCP - General 09/12/23
--- OUTSIDE RECORDS SUMMARY | 2024-04-22 13:06 | XMS_ITS | Encounter Summary ---
Author Organization [employer] Address [address] [place] [address] Care Team Providers Care Stroboroma Operator Name Role Phone Elizabeth Boo IMCU SPECIALIST Primary Care Provider [phone] Encounter Details Date Type Department Care Team (Late st Contact Info) Description 01/16/2024 Orders Only [facility] CH[facility] MED & PEDS [address] [place], [place] [phone] ProviderIta MD Social History Tobacco Use Types Packs/Day Years Used Date Smoking Tobacco: Never Smokeless Tobacco: Never Alcohol Use Standard Drinks/Week Comments Never 0 (1 standard drink = 0.6 oz pur e alcohol) Depression Answer Date Recorded Patient Health Questionnaire-9 Score 15 11/17/2023 Patient Health Questionnaire-9 Score 15 11/17/2023 Last PHQ-9: Questionnaire Data Not on file 0 11/17/2023 Housing Stability Answer Date Recorded What is your housing situation today? I have carlos albertomariely white 06/12/[address] you li ve. Do you have problems with any of the following? None of the above 06/12/2023 Food Insecurity Answer Date Recorded Within the past 12 months, y ou worried that your food would run out before you got money to buy more: Never True 06/12/2023 Within the past 12 months,th e food you bought just didn't last and you didn't have enough money to get more: Never True Transportation Answer Date Recorded In the past 12 months, has l ack of transportation kept you from medical appts, meetings, work or from getting things needed for daily living? No 06/12/2023 Utilities Answer Date Recorded In the past 12 months, has t he electric, gas, oil or water [employer] threatened to shut off services in your home? No 06/12/2023 Depression Answer Date Recorded Patient Health Questionnaire-2 Score 4 11/17/2023 Comments Unknown Sex and Gender Information Value Date Recorded Sex Assigned at Female 01/17/2022 10:15 AM EDT Legal Sex Female 10:15 AM EDT Gender Identity Female 01/17/2022 10:15 AM EDT Sexual Orientation Choose not to disclose 2021 10:15 AM EDT documented as of this encounter Plan of Treatment Not on file documented as of this encounter Procedures Procedure Name Priority Date/Time Associated Diagnosis Comments HM COLONOSCOPY Routine 08/10/2023 5:22 PM EDT documented in this encounter Results * Hm Colonoscopy (08/10/2023 5:22 PM EDT) us Historical Provider HEALTH MAINTENANCE Final Result documented in this encounter Visit Diagnoses Not on filedocumented in this encounter Additional Health Concerns Assessment Noted Time PHQ-9 Depression Total Score: 15 024 1:03 PM EDT documented as of this encounter Care Teams Stroboroma Operator Relationship Specialty Start Date End Date Elizabeth Boo FNP [address] [place] [id number] PCP - General Family Medicine 04/11/22 documented as of this encounter
--- OUTSIDE RECORDS SUMMARY | 2024-04-22 13:07 | XMS_ITS | Encounter Summary ---
Author Organization [employer] Address [address] [place] [address] Care Team Providers Care Food And Beverage Analyst Name Role Phone Elizabeth Boo Primary Care Provider [phone] Reason for Visit * Reason Comments Med Refill Encounter Details Date Type Department Care Team ([facility] st Contact Info) Description 03/31/2024 Refill [facility] [address] [place], [place] [phone] Elizabeth Boo FNP [address] [place] [address] Neuropathic pain; Restless leg Social History Tobacco Use Types Packs/Day Years Used Date Smoking Tobacco: Never Passive Smoke Exposure: Never Smokeless Tobacco: Never Alcohol Use Standard Drinks/Week Comments Never 0 (1 standard drink = 0.6 oz pur e alcohol) Depression Answer Date Recorded Patient Health Questionnaire-9 Score 15 11/17/2023 Patient Health Questionnaire-9 Score 15 11/17/2023 Last PHQ-9: Questionnaire Data Not on file 0 11/17/2023 Housing Stability Answer Date Recorded What is your housing situation today? I have carlos alberto white 06/12/[address] you [...] t he electric, gas, oil or water company threatened to shut off services in your home? No 06/12/2023 Depression Answer Date Recorded Patient Health Questionnaire-2 Score 4 11/17/2023 Comments No Sex and Gender Information Value Date Recorded Sex Assigned at Female 01/17/2022 10:15 AM EDT Legal Sex Female 10:15 AM EDT Gender Identity Female 01/17/2022 10:15 AM EDT Sexual Orientation Choose not to disclose 2021 10:15 AM EDT documented as of this encounter Plan of Treatment Not on file documented as of this encounter Visit Diagnoses Diagnosis Neuropathic pain Restless leg Restless legs syndrome (RLS) documented in this encounter Additional Health Concerns Assessment Noted Time PHQ-9 Depression Total Score: 15 024 1:03 PM EDT documented as of this encounter Care Teams Food And Beverage Analyst Relationship Specialty Start Date End Date Elizabeth Boo FNP [address] [place] [address] PCP - General Family Medicine 04/11/22 documented as of this encounter
--- OUTSIDE RECORDS SUMMARY | 2024-04-22 13:07 | XMS_ITS | Encounter Summary ---
Author Organization [employer] Address [address] [place] [address] Care Team Providers Care Assistant To The Ceo Name Role Phone Elizabeth Boo JOSE Primary Care Provider [phone] Reason for Visit * Reason Onset Date Comments Appointment 11/30/2022 Encounter Details Date Type Department Care Team (Late st Contact Info) Description 11/30/2022 Telephone [facility] [address] [place], [place] [phone] Costa Ackerman DDS [address], [place] [phone] Appointment Social History Tobacco Use Types Packs/Day Years Used Date Smoking Tobacco: Never Smokeless Tobacco: Never Alcohol Use Standard Drinks/Week Comments Never 0 (1 standard drink = 0.6 oz pur e alcohol) Depression Answer Date Recorded Patient Health Questionnaire-9 Score 21 11/07/2022 Depression Answer Date Recorded Patient Health Questionnaire-2 Score 6 11/07/2022 Comments Unknown Sex and Gender Information Value Date Recorded Sex Assigned at Female 01/17/2022 10:15 AM EDT Legal Sex Female 10:15 AM EDT Gender Identity Female 01/17/2022 10:15 AM EDT Sexual Orientation Choose not to disclose 2021 10:15 AM EDT documented as of this encounter Miscellaneous Notes * Telephone Encounter - Keke Bautista - 11/30/2022 1:03 PM EDT Sobia Chin 1970 Patient was seen on 11/29/2022 and was told to call in today to see if partial is ready to get picked up please advise. documented in this encounter Plan of Treatment Not on file documented as of this encounter Visit Diagnoses Not on filedocumented in this encounter Additional Health Concerns Assessment Noted Time PHQ-9 Depression Total Score: 21 023 8:12 AM EDT documented as of this encounter Care Teams Assistant To The Ceo Relationship Specialty Start Date End Date Elizabeth Boo FNP [address] [place] [address] PCP - General Family Medicine 04/11/22 documented as of this encounter
--- OUTSIDE RECORDS SUMMARY | 2024-04-22 13:07 | XMS_ITS | Data Portability ---
Author Organization [employer] Address [address] [place] [address] Care Team Providers Care Wastewater Manager Name Role Phone HIM [facility] OTHER [facility] OTHER [phone] Assessment Encounter Date Assessment Date Assessment LastModified by Organization Details LastModified Time 12/08/2023 12/08/2023 I provided real -time medical direction via phone for this encounter, and was available for additional phone based assistance as needed. I have reviewed and agree with the Assessment and Plan as documented by the [employer] App[employer]. We discussed the diagnostic uncertainty of home visits and the risk associated with this. In this case the patient and I felt this to be an acceptable and reasonable amount of risk given the benefit of avoiding an ED visit. The patient/daughter given the opportunity to ask questions. Advised if develops CP/severe SOB/turning blue/uncontrolle d n/v/d /AMS/ syncope/ hi fever unresponsive to APAP to call 911- verbalized understanding of instruction [email or web address] Not available 12/08/2023 12:39:33 Plan of Treatment Reminders Order Date Submit Date Provider Last Modified By Organization Details Last Modified Time Details Appointments None recorded. Lab None recorded. Referral None recorded. Procedures None recorded. Surgeries None recorded. Imaging None recorded. Medication Orders Tessalon Perles 100 mg capsule 2023 024 [facility], [address] [place], [place], [phone], 4 18:02:28 benzonatate 200 mg capsule 2023 024 [facility], [address] [place], [place], [id number], 5 17:44:34 Patient TargetsNo targets recorded. Patient InstructionsNo instructions recorded. Reason for Referral None Reported. Medical Equipment None Reported. Allergies Allergen ID Allergen Name Allergen Category Reaction Reaction Severity Criticality Documentation Date Start Date Code Code System Note Provider Name and Address Organization Details Recorded Time 6290 Celexa medicatio n Not available Not available Not available 12/09/2023 [id number] RxNorm Renea Cortés MD [address] [place] [address],[address], [place], [address], [employer], [place] 4 13:07:20 6291 oxybutyni n medicatio n Not available Not available Not available 12/09/2023 60131 RxNorm Renea Cortés MD [address] [place] [address],[address], [place], [address], [employer], [place] 4 13:07:27 6292 niacin medicatio n Not available Not available Not available 12/09/2023 7393 RxNorm Renea Cortés MD [address] [place] [address],[address], [place], [address], [employer], [place] 4 13:07:35 6293 citalopra m medicatio n Not available Not available Not available 12/09/2023 2556 RxNorm Renea Cortés MD [address] [place] [address],[address], [place], [address], [employer], [employer] 4 13:07:50 6294 diltiazem Not available Not available Not available Not available 12/09/2023 3443 RxNorm Not Available [employer] - [employer] 4 03:40:07 Medications Name Sig Start Date Stop Date Status Note LastModified by Organization Details LastModified Time oximeter pulse vw spo2 [id number] usar TO Comprobar el nivel de oxgeno active Not Available Not Available No t Available medbox status USE DIRECTED active Not Available Not Available No t Available ropinirole 1 mg tablet TAKE 1 TABLET BY MOUTH AT BEDTIME active Not Available Not Available No t Available albuterol sulfate 2.5 mg/3 mL (0.083 %) solution for nebulization INHALE 1 AMPULE USING A NEBULIZER THREE TIMES DAILY NEEDED FOR WHEEZING OR FOR ASTHMA active Not Available Not Available N ot Available citalopram 40 mg tablet TAKE 1 TABLET BY MOUTH EVERY MORNING active Not Available Not Available No t Available trazodone 50 mg tablet TAKE 1 TO 2 TABLETS BY MOUTH AT BEDTIME NEEDED FOR SLEEP active Not Available Not Available No t Available simethicone 180 mg capsule TAKE 1 CAPSULE BY MOUTH THREE TIMES DAILY active Not Available Not Available Not Available benzonatate 200 mg capsule TAKE 1 CAPSULE BY MOUTH THREE TIMES DAILY NEEDED FOR COUGH active Not Available Not Available No t Available sucralfate 1 gram tablet TAKE 3 TABLETS BY MOUTH AT NOON active Not Available Not Available No t Available metoprolol succinate ER 200 mg tablet,exten ded release 24 hr TAKE 1 TABLET BY MOUTH EVERY MORNING active Not Available Not Available No t Available gabapentin 400 mg capsule TAKE 1 CAPSULE BY MOUTH THREE TIMES DAILY IN THE MORNING, EVENING, AND BEDTIME active Not Available Not Available Not Available simvastatin 10 mg tablet TAKE 1 TABLET BY MOUTH AT BEDTIME active Not Available Not Available No t Available methylpredni solone 4 mg tablet TAKE 4 TABLETS BY MOUTH ONCE DAILY FOR 7 DAYS, 3 TABLETS ONCE DAILY FOR 7 DAYS, 2 TABLETS ONCE DAILY FOR FOURTEEN DAYS, THEN 1 TABLET ONCE DAILY FOR FOURTEEN DAYS active Not Available Not Available No t Available topiramate 25 mg tablet TAKE 2 TABLETS BY MOUTH EVERY DAY AT BEDTIME active Not Available Not Available No t Available acetaminophe n 500 mg tablet TAKE 1 OR 2 TABLETS BY MOUTH EVERY 8 HOURS NEEDED FOR PAIN active Not Available Not Available No t Available lidocaine-pr ilocaine 2.5 %-2.5 % topical cream APPLY TOPICALLY THREE TIMES DAILY IN THE MORNING, AT NOON, AND AT BEDTIME NEEDED FOR MODERATE PAIN active Not Available Not Available No t Available pantoprazole 20 mg tablet,delay ed release TAKE 1 TABLET BY MOUTH EVERY MORNING active Not Available Not Available No t Available Tessalon Perles 100 mg capsule Take 1 capsule 3 times a day by oral route. 2023 active Not Available Not Available Not Avai lable magnesium oxide 400 mg (241.3 mg magnesium) tablet TAKE 1 TABLET BY MOUTH EVERY DAY active Not Available Not Available No t Available lorazepam 0.5 mg tablet TAKE 1 TABLET 1/2 HOUR BEFORE TO FLIGHT active Not Available Not Available No t Available methotrexate sodium 2.5 mg tablet TAKE 6 TABLETS BY MOUTH EVERY MORNING ON MONDAY active Not Available Not Available No t Available tamsulosin 0.4 mg capsule TAKE 1 CAPSULE BY MOUTH EVERY DAY FOR UP TO 30 DAYS para ayudar a expulsar los clculos renales. STOP Si sale un clculo renal. active Not Available Not Available No t Available amlodipine 10 mg tablet TAKE 1 TABLET BY MOUTH EVERY MORNING active Not Available Not Available No t Available ropinirole 0.5 mg tablet TAKE 1 TABLET BY MOUTH AT BEDTIME active Not Available Not Available No t Available sertraline 25 mg tablet TAKE 1 TABLET BY MOUTH EVERY MORNING WITH FOOD (FOR MOOD) active Not Available Not Available N ot Available folic acid 1 mg tablet TAKE 2 TABLETS BY MOUTH ONCE DAILY IN THE MORNING active Not Available Not Available Not Available capsaicin 0.025 % topical cream APPLY TOPICALLY TWICE DAILY IN THE MORNING AND AT BEDTIME NEEDED FOR MODERATE PAIN active Not Available Not Available No t Available metoprolol succinate ER 25 mg tablet,exten ded release 24 hr TAKE 1 TABLET BY MOUTH EVERY DAY active Not Available Not Available No t Available fluticasone propionate 50 mcg/actuatio n nasal spray,suspen ericka INSTILL 2 SPRAYS IN EACH NOSTRIL ONCE DAILY IN THE MORNING active Not Available Not Available No t Available sertraline 50 mg tablet TAKE 1 TABLET BY MOUTH EVERY MORNING WITH FOOD active Not Available Not Available No t Available amoxicillin 875 mg-potassium clavulanate 125 mg tablet TAKE 1 TABLET BY MOUTH TWICE DAILY FOR 5 DAYS active Not Available Not Available No t Available Ventolin HFA 90 mcg/actuatio n aerosol inhaler INHALE 2 PUFFS BY MOUTH EVERY 4 TO 6 HOURS NEEDED FOR WHEEZING OR SHORTNESS OF BREATH active Not Available Not Available No t Available neomycin 3.5 mg/g-polymyx in B 10,000 unit/g-dexam eth 0.1 % eye oint APPLY 1/4 INCH AFFECTED EYE(S) DAILY AT BEDTIME por 7-5 DAYS active Not Available Not Available No t Available cholestyrami ne (with sugar) 4 gram oral powder DISSOLVE 4 GRAMS (1 SCOOP) IN 60-180 ML OF WATER, MILK, OR JUICE AND DRINK TWICE DAILY WITH MEALS. AVOID OTHER MEDICATIONS 1 HOUR BEFORE OR 4-6 HOURS AFTER DOSE active Not Available Not Available N ot Available Enbrel SureClick 50 mg/mL (1 mL) subcutaneous pen injector active Not Available Not Available Not Available FreeStyle Lite Strips TEST BLOOD SUGAR ONCE DAILY active Not Available Not Available No t Available diclofenac 1 % topical gel APPLY 4 GRAMS TOPICALLY TWICE DAILY active Not Available Not Available Not Available melatonin 5 mg tablet TAKE 2 TABLETS BY MOUTH EVERY DAY AT BEDTIME NEEDED FOR SLEEP active Not Available Not Available No t Available vitamin E (dl, acetate) 180 mg (400 unit) capsule TAKE 1 CAPSULE BY MOUTH TWICE DAILY IN THE MORNING AND AT BEDTIME active Not Available Not Available No t Available GaviLyte-G 236 gram-22.74 gram-6.74 gram-5.86 gram oral solution MIX WITH WATER AND DRINK 240 ML BY MOUTH EVERY 10 MINUTES UNTIL FECAL EFFLUENT IS CLEAR DIRECTED active Not Available Not Available No t Available blood pressure test kit-large cuff Check blood pressure on arm as directed DAILY AND NEEDED active Not Available Not Available No t Available TRUEplus Lancets 33 gauge TEST BLOOD SUGAR EVERY DAY active Not Available Not Available No t Available Humira(CF) Pen 40 mg/0.4 mL subcutaneous kit active Not Available Not Available Not Available Tab-A-Ivan Multivitamin w-iron 15 mg iron-400 mcg tablet TAKE 1 TABLET BY MOUTH EVERY MORNING active Not Available Not Available No t Available Vitals Date Recorded Respiratory rate Body height Heart rate Body temperature Body weight Oxygen saturation Oxygen saturation in Arterial blood by Pulse oximetry Systolic blood pressure Diastolic blood pressure Provider Name and Address Organization Details Last Updated DateTime 4 16 /min 154.94 cm 74 /min 97.2 [degF] 93030.6 g 97 % 97 % 118 mm[Hg] 77 mm[Hg] Not Available [employer] 4 10:53:12 Date Recorded Oxygen saturation Oxygen saturation in Arterial blood by Pulse oximetry Respiratory rate Heart rate Body weight Body temperature Systolic blood pressure Diastolic blood pressure Provider Name and Address Organization Details Last Updated DateTime 4 99 % 99 % 16 /min 78 /min 29556.3 36 g 97.9 [degF] 112 mm[Hg] 72 mm[Hg] Not Available [employer] 4 12:34:03 Social History None recorded. Functional Status None recorded. Mental Status None recorded. Family History Nothing Reported. Medical History No medical history recorded. Gynecological HistoryNo gynecological history recorded. Obstetrics History GPAL:G 0 P 0 0 0 0 Past Encounters Encounter ID Performer Location Encounter Start Date Encounter Closed Date Diagnosis/Indication Diagnosis SNOMED-CT Code Diagnosis ICD10 Code Diagnosis Note Tim Fields MD [facility] [address] [place] [phone] 05/16/2023 10:53:07 05/17/2023 17:21:08 Viral upper respiratory tract infection 272428757 J06.9 This 53-year-ol d female has had a cough and congestion for four days. Her COVID-19, flu, and strep screens were negative. I called in a prescripti on for Dean Carter. She will follow-up with her PCP. The patient agreed with this plan. [id number] Renea Cortés MD [facility] [address] [place] [phone] 12/08/2023 12:34:00 12/09/2023 15:48:47 Acute COVID-19 [id number] U07.1 We reviewed the risks/ benefits and side effects of Paxlovid at length with the patient. Made aware of possible rebound/n/ v/d. Advised if develops CP/persist ent palpitatio ns /severe SOB/ vision changes/ severe headache/ AMS/very stiff muscles/ significan t tremors/ Hi fever uncontroll ed by anti-pyret icsBoth the patient both the patient and her daughter declined Paxlovid due to risks Patient has albuterol MDI which she can use as needed. She is not wheezing or in respirator y distress the steroids are not indicated. Advised to rest, stay well-hydra sneha stay well-hydra sneha, offered benzonatat e- aware it is not covered /medic offered good Rx coupon and they requested a prescripti on. Verified allergies and that she uses [facility] pharmacy-d enies history of CKD-nothin g listed in PCP note Health Concerns Section Related Observation LastModified by Organization Detai ls LastModified Time None Recorded Concern Status LastModified by Organization Details LastModified Time None Recorded Advance Directives Directive None Recorded Payers Encounter Date Sequence Insurance Name Policy Number Policy Garcia Covered Member ID Garcia Member ID Guarantor Name 05/16/2023 1 [facility] - DOS ON OR AFTER 2022 - DUAL ELIGIBLE - PENITENTIARY OPTIONS AND ONE CARE (MEDICARE REPLACEMENT/ADV ANTAGE - HMO) Sobia Mendez [id number] Sobia Mendez 12/08/2023 1 [facility] - DOS ON OR AFTER 2022 - DUAL ELIGIBLE - PENITENTIARY OPTIONS AND ONE CARE (MEDICARE REPLACEMENT/ADV ANTAGE - HMO) Sobia Mendez [id number] Sobia Mendez Notes Date Note Type Note Provider Name and Address Organization Details Recorded Time 05/16/19 24 text/htm l HPI: Patient with history of Migraines. Has onset of illness on Monday with Negative home COVID that day ahs not retested. Has headache and body aches with severe sore throat at time of call. T 101.2 after Tylenol. ................................ ................................ ................................ ................................ ............. [facility] Nurse Triage Notes (Elizabeth Painter): Comments: HPI reviewed. No further information required to process visit. Tim Fields MD [address] [place] [address],[address] [facility], [place], [address], [employer] 05/16/2023 10:57:35 12/08/19 24 text/htm l HPI: Patient with home test + COVID yesterday ................................ ................................ ................................ ................................ ............. [facility] Nurse Triage Notes (Maria L Morales): Chief Complaints: Cough, Fever/Chills, Headache, Pain, URI PMH: Hypertension, COPD/Asthma, Hypertension Allergies: Diltiazem Other Allergies: Citalopram, Diltiazem niacin oxybuynin Comments: visit to assess resp status h/o asthma ................................ ................................ ................................ ................................ ............. [employer] App[employer] Note From Steve Carpenter: Pt Covid positive as of yesterday, pt co cough. Pt resting in bed. Taking Tylenol 4x? s per day. Pt instructed to lower to 3x? s per day. Pt denies production with cough, sob, VD, abdominal pain, dizziness. Pt denies wheezing and has not had to use albuterol inhaler. Baseline vitals assessed, lungs clear, afebrile, pt eating and drinking fluids. Declines paxlovid. C contacted and RX for benzonatate called in. Pt education on signs indicating the ER. Pt advised to follow up with pcp if symptoms persist. [employer] Allergies: Diltiazem ................................ ................................ ................................ ................................ ............. Disposition: FulfilledSEGMD: As abovePatient PMH from Family Medicine record 11/17/23:Patient Active Problem List:AnxietyCarpal tunnel syndromeCongenital cataractEssential hypertensionGastroesophageal reflux diseaseGlaucoma suspectHyperlipidemiaInsomniaLum bar radiculopathyMigraine with auraSevere episode of recurrent major depressive disorder, without psychotic features (CMS/HCC)Periodic limb movement disorderPingueculaUterine leiomyomaVascular insufficiencyModerate persistent asthma without complicationBilateral nipple dischargeRheumatoid arthritis of multiple sites with negative rheumatoid factor (CMS/HCC)Partially edentulous maxillaHealthcare maintenanceNASH (nonalcoholic steatohepatitis)Social HistoryLiving situation: living with who is supportiveEmployment/Education: disabledSubstance use: denies use of alcohol, tobacco, opioids, or other substances Renea Cortés MD [address] [facility],[address], [place], [address], [employer] 12/09/2023 13:08:39 OBGyn Episode No OBEpisode recorded.
--- OUTSIDE RECORDS SUMMARY | 2024-04-22 13:07 | XMS_ITS | Encounter Summary ---
Author Organization [employer] Address [address] [place] [address] Care Team Providers Care Fixed Income Portfolio Manager Name Role Phone Elizabeth Boo Primary Care Provider [phone] Reason for Visit * Reason Comments Pre-visit Planning SDOH unable to reach , number disconnected Encounter Details Date Type Department Care Team ([facility] Contact Info) Description 04/15/2024 Patient Outreach [facility] [address] [place], [place] [phone] Elizabeth Boo FNP [address] [place], [place] [phone] Pre-visit Planning (SDOH unable to reach, number disconnected) Social History Tobacco Use Types Packs/Day Years [...] AM EDT documented as of this encounter Progress Notes * Gloria Giraldo - 04/15/2024 1:13 PM EST CC Gloria Colon placed outbound call to patient to complete pre-visit planning. No answer at this time. Patient name and were not confirmed. CC unable to leave a message due to number not in service documented in this encounter Plan of Treatment Not on file documented as of this encounter Visit Diagnoses Not on filedocumented in this encounter Additional Health Concerns Assessment Noted Time PHQ-9 Depression Total Score: 15 11/16/ 024 1:03 PM EDT documented as of this encounter Care Teams Fixed Income Portfolio Manager Relationship Specialty Start Date End Date Elizabeth Boo FNP [address] [place] [address] PCP - General Family Medicine 04/11/22 documented as of this encounter
--- OUTSIDE RECORDS SUMMARY | 2024-04-22 13:07 | XMS_ITS | Clinical Summary ---
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 amLODIPine (Norvasc) 10 MG tablet Take 10 mg by mouth in the morning. Active Bisacodyl EC 5 MG EC tablet TAKE 2 TABLETS BY MOUTH EVERY DAY AT BEDTIME Active cholestyramine (Questran) 4 GM/DOSE powder DISSOLVE 4 GRAMS (1 SCOOP) IN 60-180 ML OF WATER, MILK, OR JUICE AND DRINK TWICE DAILY WITH MEALS. AVOID OTHER MEDICATIONS 1 HOUR BEFORE OR 4-6 HOURS AFTER DOSE Active folic acid (Folvite) 1 MG tablet Take 1,000 mcg by mouth in the morning. Active FREESTYLE LITE test strip TEST BLOOD SUGAR ONCE DAILY Active metoprolol succinate XL (Toprol-XL) 200 MG 24 hr tablet Take 200 mg by mouth in the morning. Active Simethicone Ultra Strength 180 MG capsule Take 180 mg by mouth 3 times daily. Active TRUEplus Lancets 33G misc TEST BLOOD SUGAR EVERY DAY 100 each 11 07/12/2 023 Active lidocaine-priloca ine (Emla) 2.5-2.5 % cream Apply topically if needed in the morning, at noon, and at bedtime for moderate pain. 100 g 1 024 Active capsaicin (Zostrix) 0.025 % cream Apply topically if needed in the morning and at bedtime for moderate pain. 56.6 g 2 024 2024 Active Humira, 2 Pen, 40 MG/0.4ML Pen-injector Kit pen-injectorIndic ations:Rheumatoid arthritis of multiple sites with negative rheumatoid factor (CMS/HCC) 024 Active Salicylic Acid (Mediplast) 40 % padsIndications:V erruca vulgaris Soak wart in warm water for 5 minutes. Dry area thoroughly. Apply medicated pad directly over wart and secure firmly to skin. Repeat every 48 hours as needed until wart is removed for up to 12 weeks. 18 each 024 Active salicylic acid (Durasal) 26 % topcal liquid Soak wart in warm water for 5 minutes. Dry area. Apply to entire wart surface, allow to dry, and then apply a second time. Avoid contact with surrounding skin. Continue therapy once or twice daily for 4-6 weeks 10 mL 1 024 Active rOPINIRole (Requip) 1 MG tabletIndications :Periodic limb movement disorder TAKE 1 TABLET BY MOUTH AT BEDTIME 90 tablet 1 Active vitamin E 180 MG (400 UNIT) capsule TAKE 1 CAPSULE BY MOUTH TWICE DAILY IN THE MORNING AND AT BEDTIME 180 capsule 1 024 Active Blood Pressure kit Use to check blood pressure once daily and if symptomatic 1 kit 024 Active Misc. Devices (Pulse Oximeter Deluxe) misc Pulse ox use to check blood oxygen level at home as directed 1 each 024 Active sertraline (Zoloft) 25 MG tabletIndications :Severe episode of recurrent major depressive disorder, without psychotic features (CMS/HCC) 024 Active traZODone (Desyrel) 50 MG tabletIndications :Severe episode of recurrent major depressive disorder, without psychotic features (CMS/HCC) TAKE 1/2 TO 1 TABLET BY MOUTH AT BEDTIME NEEDED 024 Active rOPINIRole (Requip) 0.5 MG tabletIndications :Periodic limb movement disorder TAKE 1 TABLET BY MOUTH AT BEDTIME. TAKE WITH 1 MG TABLETS. (TOTAL DOSE 1.5MG) 90 tablet 1 024 Active Acetaminophen Extra Strength 500 MG tablet TAKE 1 OR 2 TABLETS BY MOUTH EVERY 8 HOURS NEEDED FOR PAIN 100 tablet 3 024 Active pantoprazole (ProtoNix) 20 MG EC tabletIndications :Gastroesophageal reflux disease, unspecified whether esophagitis present TAKE 1 TABLET BY MOUTH EVERY MORNING 90 tablet 1 024 Active tamsulosin (Flomax) 0.4 MG 24 hr capsule Take 1 capsule (0.4 mg) by mouth Once per day. Take for up to 30 days to help pass kidney stone. Stop using if kidney stone comes out. 30 capsule 024 Active simvastatin (Zocor) 10 MG tabletIndications :Mixed hyperlipidemia TAKE 1 TABLET BY MOUTH AT BEDTIME 90 tablet 3 024 Active melatonin 5 MG tablet TAKE 2 TABLETS BY MOUTH EVERY DAY AT BEDTIME NEEDED FOR SLEEP 90 tablet 3 024 Active metoprolol succinate XL (Toprol-XL) 25 MG 24 hr tablet Take 25 mg by mouth if needed each day. 024 Active fluticasone (Flonase) 50 MCG/ACT nasal sprayIndications: Seasonal allergies INSTILL 2 SPRAYS IN EACH NOSTRIL ONCE DAILY IN THE MORNING 16 g 11 024 Active gabapentin (Neurontin) 400 MG capsuleIndication s:Neuropathic pain,Restless leg TAKE 1 CAPSULE BY MOUTH THREE TIMES DAILY IN THE MORNING, EVENING, AND BEDTIME 90 capsule 5 025 Active Multiple Vitamins-Iron (Tab-A-Ivan/Iron) tabletIndications :Routine health maintenance TAKE 1 TABLET BY MOUTH EVERY MORNING 90 tablet 3 025 Active topiramate (Topamax) 25 MG tabletIndications :Other migraine without status migrainosus, not intractable TAKE 2 TABLETS BY MOUTH EVERY DAY AT BEDTIME 180 tablet 1 025 Active albuterol (2.5 MG/3ML) 0.083% nebulizer solutionIndicatio ns:Moderate persistent asthma without complication INHALE 1 AMPULE USING A NEBULIZER THREE TIMES DAILY NEEDED FOR WHEEZING OR FOR ASTHMA 75 mL 2 025 Active Ventolin HFA 108 (90 Base) MCG/ACT inhaler INHALE 2 PUFFS EVERY 4 TO 6 HOURS NEEDED FOR WHEEZING OR SHORTNESS OF BREATH 18 g 3 025 Active Fluticasone-Salme terol 500-50 MCG/ACT aerosol powder Take 1 puff by mouth 2 times daily. INHALE 1 PUFF BY MOUTH TWICE DAILY RINSE MOUTH AFTER USING. 14 each 2 025 Active Fluticasone-Salme terol 500-50 MCG/ACT aerosol powder INHALE 1 PUFF BY MOUTH TWICE DAILY RINSE MOUTH AFTER USING. 023 2024 Discontinued(R eorder (will not trigger notification to Pharmacy)) Multiple Vitamins-Iron (Tab-A-Ivan/Iron) tabletIndications :Routine health maintenance TAKE 1 TABLET BY MOUTH EVERY MORNING 90 tablet 3 024 2024 Discontinued albuterol (2.5 MG/3ML) 0.083% nebulizer solutionIndicatio ns:Moderate persistent asthma without complication INHALE 1 AMPULE USING A NEBULIZER THREE TIMES DAILY NEEDED FOR WHEEZING OR FOR ASTHMA 75 mL 2 024 2024 Discontinued(R eorder (will not trigger notification to Pharmacy)) topiramate (Topamax) 25 MG tabletIndications :Other migraine without status migrainosus, not intractable TAKE 2 TABLETS BY MOUTH EVERY DAY AT BEDTIME 180 tablet 1 024 2024 Discontinued gabapentin (Neurontin) 400 MG capsuleIndication s:Neuropathic pain,Restless leg TAKE 1 CAPSULE BY MOUTH THREE TIMES DAILY IN THE MORNING, EVENING, AND BEDTIME 90 capsule 5 024 2024 Discontinued Ventolin HFA 108 (90 Base) MCG/ACT inhaler INHALE 2 PUFFS EVERY 4 TO 6 HOURS NEEDED FOR WHEEZING OR SHORTNESS OF BREATH 18 g 3 024 2024 Discontinued(R eorder (will not trigger notification to Pharmacy)) Active Problems Problem Noted Date Diagnosed Date 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 Neuropathy 02/27/2024 Medial epicondylitis of right elbow 02/27/2024 Irritable bowel syndrome wit h both constipation and diarrhea 02/27/2024 High risk medication use 02/27/2024 Epigastric pain 02/27/2024 Environmental allergies 02/27/2024 Chronic headaches 02/27/2024 Bilateral knee pain 02/27/2024 GONZALEZ (nonalcoholic steatohepatitis) 11/20/2023 Assessment & Plan (11/20/2023 5:18 PM EDT): Following with [facility] - LAURYN Longo Abd US ordered September 2023 by GI with the impression of increase in hepatic echotexture, c/w fatty infiltration of hepatocellular disease. Hepatomegaly. Liver stiffness: 1.49 m/s . Rules out compensated advanced chronic liver disease. Healthcare maintenance 09/08/2023 Overview (04/22/2024): Mammo: BIRADS 2 on 04/17/23 OPH: CEE on 04/13/23 ([facility]) Colonoscopy: 08/10/23 at [facility] - Dr. Abraham. Tubular adenoma. Plan to repeat in 3 years (2026) Pap: NILM, HPV neg on 02/26/23. Repeat 3 yrs d/t immunosuppression Moderate persistent asthma without complication 04/27/2022 Overview (04/27/2022): -Following with [facility] -Continues with Wixela 500 and albuterol PRN -Persistent phlegm production, denies history of smoking -Chest CT in September 2019 did not show any pulm abnormalities or nodules Assessment & Plan (04/27/2022 6:58 PM EST): Consider further imaging pending most recent results from pulm consult Bilateral nipple discharge 04/27/2022 Overview (04/27/2022): -Diagnostic mammo w/ ultrasound September 2021: ?? IMPRESSION: -No mammographic evidence of malignancy or inflammatory changes. -Scattered grouped tiny anechoic cysts upper outer quadrant. No suspicious ultrasound finding. ASSESSMENT: BI-RADS 2: Benign RECOMMENDATION: 1. Patient's mastodynia may be managed based on the clinical impression. If clinically indicated, persistent nipple discharge may be further evaluated with cytology and/or breast MRI without and with gadolinium contrast. Assessment & Plan (02/16/2023 7:18 PM EST): -Missed MRI appt for further eval Apr 29, 2022 -Pt reports rescheduled for sometime next 1-2 months Assessment & Plan (11/06/2022 10:01 AM EDT): -Pt reports continues with symptoms -Missed MRI appt for further eval Apr 29, 2022 -Pt planning to call to reschedule Assessment & Plan (04/27/2022 7:01 PM EST): -Pt reports continues with symptoms -Upcoming MRI for further eval Apr 29, 2022 Rheumatoid arthritis of [facility] with negative rheumatoid factor 04/27/2022 Overview (09/10/2023): -Seronegative RA diagnosed 02/2022 -Followed by [facility]um - Dr. Smith -Initially tx with methotrexate, med discontinued in October 2022 (d/t transaminitis) -Previous Med trial: Enbrel (August 2023 - June 2023: ineffective) -Currently treatment with Humira Assessment & Plan (11/20/2023 5:24 PM EDT): -Per last consult note 10/06/23, has been doing well on Humira. Cont current plan, follow up with specialist as scheduled. Assessment & Plan (09/08/2023 9:58 AM EDT): -Trial topical analgesics including capsaicin and lidocaine-prilocaine (as covered by insurance) -Switched from Enbrel to Humira Assessment & Plan (11/03/2022 9:42 AM EDT): -Trial topical analgesics including capsaicin and lidocaine-prilocaine (as covered by insurance) Assessment & Plan (04/27/2022 7:06 PM EST): -Referral to PT for further tx of joint pains -Encouraged [facility] acupuncture clinic Carpal tunnel syndrome 04/11/2022 Vascular insufficiency 04/11/2022 Varicose veins of both lower extremities 019 Anxiety 06/07/2018 Essential hypertension 07/13/2017 Overview (06/13/2023): BP goal: < 140/90 mmHg Continue with the following medications: Amlodipine 10mg daily Metoprolol XL 200mg daily -Followed by [facility] - Dr. Guzman -Aerobic exercise to reduce BP. Initial goal of 30 min walk 3-5x/week. Increase as tolerated with goal 150 minutes weekly -low-sodium diet (goal: <2g/day) and heart healthy diet such as DASH to reduce BP and ASCVD risk. -Home BP monitoring 2-3 x/week (or more frequently as directed) -Seek immediate medical attention for chest pain, palpitations, SOB, syncope, or sudden changes in mental status. -Do not change or discontinue current prescriptions without first consulting health care provider -Asymptomatic EKG unremarkable 06/11/23 Assessment & Plan (06/13/2023 6:41 PM EDT): EKG NSR w/o significant ST or T-wave changes Severe episode of recurrent major depressive disorder, without psychotic features 07/13/2017 Assessment & Plan (04/22/2024 6:38 AM EST): - Reviewed PHQ9 with pt, denies SI/HI/thoughts of self harm - Following with psych - [facility] Mary Ellen Brown - Continues with sertraline 25mg daily and trazodone 25-50mg nightly PRN sleep Assessment & Plan (11/20/2023 5:27 PM EDT): - Reviewed PHQ9 with pt, denies SI/HI/thoughts of self harm - Following with psych - [facility] CAP[facility] Mary Ellen Brown - Continues with sertraline 25mg daily and trazodone 25-50mg nightly PRN sleep Assessment & Plan (11/07/2022 8:28 AM EDT): Assessment: Patient with anhedonia, depressed mood, sleep disturbance, no motivation, trouble concentrating, slowed movement, and passive SI with no plan or intent. n the context of chronic pain. Patient will benefit from OP therapy referral. PCP will continue prescribing medication at this time. At this time Sobia Chin meets criteria for Visit Diagnoses: Problem List Items Addressed This Visit Other Anxiety Severe episode of recurrent major depressive disorder, without psychotic features (CMS/HCC) Patient ready to address current needs Yes Strengths include willingness to seek help PLAN: 1. Follow up with [facility]: Recommended for follow-up: As needed 2. Patient goal is to be connected to OP therapy 3. Behavioral Recommendations a. Patient will comply with medication b. Patient will engage in OP therapy, once established c. Patient will practice coping skills provided d. Patient will utilize [facility] and/or WIC, if symptoms worsen Assessment & Plan (11/06/2022 10:03 AM EDT): -Continues with Celexa 40mg daily -Pt reported thoughts of passive SI, no plan -BE conducted following appt, see documentation for further details -Safety and crisis info reviewed Assessment & Plan (04/17/2022 9:37 PM EST): -Denies active SI/HI/thoughts of self harm, but reports increasingly difficult to function -N crystal called in office, not in building today. [facility] provider plans to call pt later today to discuss. Follow up in 2 weeks for mental health and labs, sooner PRN. Lumbar radiculopathy 05/11/2017 Congenital cataract 08/17/2012 Pinguecula 08/17/2012 Periodic limb movement disorder 05/22/2012 Assessment & Plan (11/20/2023 5:24 PM EDT): Ropinirole - well controlled on ropinerole 1.5mg nightly Assessment & Plan (09/10/2023 4:25 PM EDT): Ropinirole - increase to 1.5mg nightly. After 1 week, may increase to 2mg nightly if needed. Reviewed med use and SE. Assessment & Plan (11/03/2022 9:41 AM EDT): ?? Increase ropinerole to 1mg nightly Hyperlipidemia 01/02/2012 Gastroesophageal reflux disease 11/02/2011 Migraine with aura 11/02/2011 Assessment & Plan (04/17/2022 9:28 PM EST): -Continue with topiramate 25mg nightly Uterine leiomyoma 11/02/2011 Insomnia 09/29/2011 Resolved Problems Problem Noted Date Diagnosed Date Resolved Date Post-nasal drip 02/27/2024 04/22/2024 Pain in left shoulder 02/27/20242024 Hot flashes 02/27/2024 04/22/2024 Diarrhea 02/27/2024 04/22/2024 Chronic depression 02/27/2024 5 Bronchitis, mucopurulent recurrent 02/27/2024 04/22/2024 Asthma 02/27/2024 04/22/2024 Acute bronchitis 02/27/2024 04/22/2024 Abdominal bloating 02/27/2024 Cervical cancer screening 02/27/2024 Assessment & Plan (02/28/2024 10:31 AM EST): 53 y.o. here for cervical cancer screening. Will continue monitoring q3y with cotesting given hx of RA on immunosuppresion Noticed hypermobility of urethra on exam, patient expressed hx of urge/stress incontinence, strongly encouraged patient to bring it up with PCP. Partially edentulous maxilla 11/30/2022 04/22/2024 Recurrent major depression 12/31/2018 0 04/22/2024 Acute nonintractable headache 12/31/2018 04/22/2024 Low blood pressure 11/03/2017 3 Tachycardia 08/30/2017 04/27/2022 Impaired fasting glucose 08/11/201710/2022 Obesity 08/11/2017 11/20/2023 Varicose veins of lower extremity 07/13/2017 04/27/2022 Pain in lower limb 05/11/2017 3 Glaucoma suspect 08/17/2012 04/22/2024 Abnormal mammogram 11/02/2011 3 Overview (04/17/2022): -Diagnostic mammo w/ ultrasound September 2021: IMPRESSION: -No mammographic evidence of malignancy or inflammatory changes. -Scattered grouped tiny anechoic cysts upper outer quadrant. No suspicious ultrasound finding. ASSESSMENT: BI-RADS 2: Benign RECOMMENDATION: 1. Patient's mastodynia may be managed based on the clinical impression. If clinically indicated, persistent nipple discharge may be further evaluated with cytology and/or breast MRI without and with gadolinium contrast. Assessment & Plan (04/17/2022 9:26 PM EST): -Patient currently able to express discharge from bilateral nipples - bloody discharge on right, and clear/milky discharge on left -Referral for MRI for further eval Chronic nonalcoholic liver disease 11/02/2011 11/20/2023 Galactorrhea not associated with childbirth 11/02/2011 04/27/2022 Constipation 09/29/2011 04/27/2022 Encounters Date Type Department Care Team Description 04/22/2024 10:30 AM EST Office Visit [facility] [address] [place] [address] Elizabeth Boo FNP Periodic limb movement disorder (Primary Dx); Epigastric pain; Chronic nonintractable headache, unspecified headache type; Moderate persistent asthma without complication; Essential hypertension; GONZALEZ (nonalcoholic steatohepatitis); Severe episode of recurrent major depressive disorder, without psychotic features (CMS/HCC); Rheumatoid arthritis of multiple sites with negative rheumatoid factor (CMS/HCC); Migraine with aura and without status migrainosus, not intractable; Healthcare maintenance; Verruca vulgaris; Encounter for immunization 04/22/2024 Travel 04/18/2024 Telephone [facility] [address] [place] [address] Segundo Taylor MA Chart Prep 04/15/2024 Patient Outreach [facility] [address], [place] [id number] Elizabeth Boo FNP Pre-visit Planning ([facility] unable to reach, number disconnected) 04/02/2024 Refill [facility] [address] [place] [address] Elizabeth Boo FNP Routine health maintenance; Other migraine without status migrainosus, not intractable 04/01/2024 Telephone [facility] ADULT DENTAL [address] [place] [address] Costa Ackerman DDS Broken Dentures 03/31/2024 Refill [facility] [address] [place] [address] Elizabeth Boo FNP Neuropathic pain; Restless leg 03/14/2024 Patient Outreach [facility] [address] [place] [address] Elizabeth Boo FNP Pre-visit Planning (SDOH was completed on 06/12/2023) 03/08/2024 Refill [facility] [address] [place] [address] Elizabeth Boo FNP Seasonal allergies 03/06/2024 Orders Only [facility] External Provider, [facility] 02/27/2024 10:20 AM EST Procedure Visit [facility] [address] [place] [address] Elizabeth Bautista MD Encounter for immunization (Primary Dx); Cervical cancer screening 02/27/2024 Travel 02/19/2024 Telephone [facility] [address] [place] [address] Elizabeth Boo FNP Pap 02/06/2024 Refill [facility] [address] [place] [address] Elizabeth Boo FNP 02/02/2024 Refill [facility] [address] [place] [address] Elizabeth Boo FNP 02/01/2024 Telephone [facility] [address] [place] [address] Elizabeth Boo FNP Durable Medical Equipment 01/23/2024 Telephone [facility] [address] [place] [address] Elizabeth Boo FNP from Last 3 Months Immunizations Name Administration Dates Next Due Influenza injectable quadriv alent IIV4 with preservative 12/20/2017,12/19/2016,01/22/2016,02/16 Influenza injectable quadriv alent preservative free 12/02/2021,01/28/2021,12/27/2019,02/01 Influenza, IIV3, injectable 12/20/2017,1 ,01/22/2016,02/16,01/20/2014,01/13/2011 Influenza, seasonal, injecta ble, preservative free 02/27/2024 Pfizer Covid-19 Vaccine 12+ 02/27/2024 Pneumococcal Conjugate PCV 20 04/22/2024 Pneumococcal Polysaccharide PPSV23 03/27/1996 TD (adult), 2 Lf tetanus tox oid, preservative free, adsorbed 07/04/2008,03/27/1996 Td (adult), unspecified 07/04/2008,03/27/1996 Tdap 01/22/2016 Zoster, Recombinant 01/21/2021,11/19/2020 Family History Medical History Relation Name Comments Diabetes type II Brother 1 Stroke Brother 1 Asthma Brother 2 Prostate cancer Father Diabetes type II Mother thyroid Mother Diabetes type II Sister Uterine cancer Sister thyroid Sister Asthma Son 1 Asthma Son 2 Relation Name Status Comments Brother 1 Brother 2 Alive Father Mother Sister Son 1 Son 2 Alive Social History Tobacco Use Types Packs/Day Years Used Date Smoking Tobacco: Never Passive Smoke Exposure: Never Smokeless Tobacco: Never Tobacco Cessation:Counseling Given: Not Answered Alcohol Use Standard Drinks/Week Comments Never 0 (1 standard drink = 0.6 oz pur e alcohol) Depression Answer Date Recorded Patient Health Questionnaire-9 Score 21 04/22/2024 Patient Health Questionnaire-9 Score 21 04/22/2024 Last PHQ-9: Questionnaire Data Not on file 0 04/22/2024 Housing Stability Answer Date Recorded What is [...] Answer Date Recorded Patient Health Questionnaire-2 Score 5 04/22/2024 Internet Access Answer Date Recorded Internet Access Q1 Yes 04/22/2024 Internet Access Q2 Not on file 04/22/2024 Comments No Sex and Gender Information Value Date Recorded Sex Assigned at Female 01/17/2022 10:15 AM EDT Legal Sex Female 10:15 AM EDT Gender Identity Female 01/17/2022 10:15 AM EDT Sexual Orientation Choose not to disclose 2021 10:15 AM EDT Last Filed Vital Signs Vital Sign Reading Time Taken Comments Blood Pressure 116/70 04/22/2024 10:34 AM EST Pulse 69 04/22/2024 10:34 AM EST Temperature 36.7 ??C (98 ??F) 04/22/2024 10: 34 AM EST Respiratory Rate 20 04/22/2024 10:3 4 AM EST Oxygen Saturation 98% 04/22/2024 10: 34 AM EST Inhaled Oxygen Concentration - - Weight 81.1 kg (178 lb 12.8 oz) 025 10:34 AM EST Height 156 cm (5' 1.42 ) 04/22/2024 10: 34 AM EST Body Mass Index 33.33 04/22/2024 10:34 AM EST Plan of Treatment Health Maintenance Due Date Last Done Comments CT Colonography 1968 FIT DNA/Cologuard 1968 HIV Screening 1968 Sigmoidoscopy 1968 Hepatitis A Vaccines (1 of 2 - Risk 2-dose series) 1987 Hepatitis B Vaccines (1 of 3 - 19+ 3-dose series) 1987 Dental Prophylaxis 07/19/2016 01/19/2016 Dental Oral Exam 02/05/2021 08/04/2020, , 01/06/2016, Additional history exists Dental X-Ray: Bitewings 08/05/2021 08/05/19 21, 01/06/2016, 03/04/2014 Dental X-Ray: Full Mouth 08/06/2023 08/04/2020, 02/17 FIT 12/16/2023 12/15/2022 FOBT 12/16/2023 12/15/2022 Mammogram 04/17/2024 04/17/2023, 09/17, 04/23/2021, Additional history exists Depression Monitoring (PHQ-9) 10/20/2024 04/22/2024, 04/22/2024 Tobacco Screening 02/26/2025 02/27/2024 Alcohol/Substance Use Screening 04/22/2025 04/22/2024 Depression Screening 04/22/2025 04/22/2024, 04/22/19 25 SDOH Screening 04/22/2025 04/22/2024 DTaP/Tdap/Td Vaccines (2 - Td or Tdap) 01/21/2026 01/22/2016, 07/04/2008, 07/04/2008, Additional history exists Colonoscopy 08/09/2026 08/10/2023 Colorectal Cancer Screening 08/09/2026 Lipid Panel 09/24/2026 09/24/2021, 12/20/2019 Cervical Cancer Screening 02/26/2027 HPV/Cotest 02/26/2027 Pap Smear 02/26/2027 02/27/2024 RSV Patients and Patients Aged 60 years or older (1 - 1-dose 75+ series) 2043 Zoster Vaccines Completed 01/21/2021, 11/19/2020 Hepatitis C Screening Completed 06/16/2023 COVID-19 Vaccine Completed 02/27/2024, , 06/09/2020, Additional history exists Influenza Vaccine Completed 02/27/2024, , 01/28/2021, Additional history exists Pneumococcal Vaccine: 50+ Years Completed 04/22/2024, 03/27/1996 HIB Vaccines Aged Out No longer eligi ble based on patient's age to complete this topic HPV Vaccines Aged Out No longer eligi ble based on patient's age to complete this topic IPV Vaccines Aged Out No longer eligi ble based on patient's age to complete this topic Meningococcal Vaccine Aged Out No gisselle heather eligible based on patient's age to complete this topic RSV under 20 months Aged Out No longe r eligible based on patient's age to complete this topic Rotavirus Vaccines Aged Out No longer eligible based on patient's age to complete this topic Procedures Procedure Name Priority Date/Time Associated Diagnosis Comments NM GASTRIC EMPTYING SOLID Routine 03/06/2024 7:34 AM EST PAP SMEAR Routine 02/27/2024 10:05 AM EST Cervical cancer screening HM COLONOSCOPY Routine 08/10/2023 5:22 PM EDT HEPATITIS PANEL, GENERAL Routine 06/16/2023 9:03 AM EDT BI MAMMOGRAM SCREENING TOMOSYNTHESIS BILATERAL Routine 04/17/2023 9:36 AM EST FECAL GLOBIN BY IMMUNOCHEMISTRY Routine 12/15/2022 LIPID PANEL, STANDARD Routine 09/24/2021 11:26 AM EDT DIAGNOSTIC - DIAGNOSTIC IMAGING - INTRAORAL - COMPREHENSIVE SERIES OF RADIOGRAPHIC IMAGES Routine 08/04/2020 12:00 AM EDT PERIODIC ORAL EVALUATION - ESTABLISHED PATIENT Routine 08/04/2020 12:00 AM EDT PROPHYLAXIS - ADULT Routine 01/19/2016 1 2:00 AM EDT from Last 3 Months or Most Recently Relevant to Health Maintenance Results * NM Gastric Emptying Solid (03/06/2024 7:34 AM EST) Anatomical Region Laterality Modality Body Nuclear Medicine 03/06/2024 7:34 AM EST Narrative 03/11/2024 5:09 PM EST ? [facility] ?[address] ?[place] [address] ?Nuclear Medicine Report ? Signed ? Patient: Chin,Sobia ?MR#: ?? [id number] ? : 1970 ?Acct:[id number] ? Age/Sex: 53 / F ?ADM Date: 12/18/24 ? Loc: HO.NUCMED ? Attending Dr: Rekha EVERETT ? Ordering Physician: Rekha Longo ?? Date of Service: 03/06/24 ?? Procedure(s): NM gastric emptying study ?? Accession Number(s): [id number] ? cc: Rekha Longo; Elizabeth Boo ? NM GASTRIC EMPTYING STUDY ? CLINICAL INFORMATION: ?? Nausea ? TECHNIQUE: ?? A standard meal consisting of 4 oz of Egg Beaters tagged with 1000 ?? microcuries Tc-99m Sulfur Colloid, 4 oz water and 2 slices of toast ?? with jelly was consumed by the patient. Images were obtained using a ?? dual head gamma camera in the anterior and posterior projections over ?? of the stomach immediately post ingestion and at hourly intervals up to ?? 4 hours post ingestion. ?? The percent retention of the radiolabeled meal was calculated at each ?? time interval by using geometric mean. ? FINDINGS: ?? There is good visualization of activity in the stomach immediately post ?? ingestion. ? As the study progresses, there is slightly slower clearance initially ?? with subsequent good clearance from the stomach with no significant ?? retention noted by the end of the study time period. ? Retention in the stomach at each time interval was;: ? 1 hour 92% (normal < 90%) ?? 2 hours 79% (normal < 60%) ?? 3 hours 2% ?? 4 hours 1% (normal < 10%) ? Gastric emptying study grading per Consensus Recommendations in 2008 ?? (https://tech.snmjournals.org/content/36/1/44) ? NM/NM gastric emptying study ?? IMPRESSION: ?? There is no scintigraphic evidence for delayed gastric emptying. ? Electronically signed by: ??Regla Yanez MD ??03/11/2024 05:06 PM ?? EST RP ? Dictated By: ?Doddamane,Indukala ? Signed By: ?<Electronically signed by Regla Yanez in OV> ? 03/11/24 1706 ? DD/ 0734 ? TD/TT: 03/06/24 1200 ? Tool Machine Set Up Operator: ? Procedure Note Alex Montemayor - 03/11/[address] [place] [address] Nuclear Medicine Report Signed Patient: Andrea Fly Chin#: [id number] : 1970Acct:[id number] Age/Sex: 53 / FADM Date: 03/06/24 Loc: JESSICA Attending Dr: Rekha EVERETT Ordering Physician: Rekha Longo Date of Service: 03/06/24 Procedure(s): NM gastric emptying study Accession Number(s): [id number] cc: Rekha Longo; Elizabeth Boo [place] GASTRIC EMPTYING STUDY CLINICAL INFORMATION: Nausea TECHNIQUE: A standard meal consisting of 4 oz of Egg Beaters tagged with 1000 microcuries Tc-99m Sulfur Colloid, 4 oz water and 2 slices of toast with jelly was consumed by the patient. Images were obtained using a dual head gamma camera in the anterior and posterior projections over of the stomach immediately post ingestion and at hourly intervals up to 4 hours post ingestion. The percent retention of the radiolabeled meal was calculated at each time interval by using geometric mean. FINDINGS: There is good visualization of activity in the stomach immediately post ingestion. As the study progresses, there is slightly slower clearance initially with subsequent good clearance from the stomach with no significant retention noted by the end of the study time period. Retention in the stomach at each time interval was;: 1 hour 92% (normal < 90%) 2 hours 79% (normal < 60%) 3 hours 2% 4 hours 1% (normal < 10%) Gastric emptying study grading per Consensus Recommendations in 2008 (https://tech.snmjournals.org/content/36/44) NM/NM gastric emptying study IMPRESSION: There is no scintigraphic evidence for delayed gastric emptying. Electronically signed by: Regla Yanez MD 03/11/2024 05:06 PM EST Dictated By: Regla Yanez Signed By: <Electronically signed by Regla Yanez in OV> 03/11/24 1706 DD/ 0734 TD/TT: 03/06/24 1200 Tool Machine Set Up Operator: [facility] External Provider IMG NM PROCEDURES Final Result * Pap Smear (02/27/2024 10:05 AM EST) Swab Cervix uteri structure / Unknown 02/27/2024 10:05 AM EST 02/28/2024 9:45 AM EST Narrative [facility] - 03/04/2024 4:03 PM EST ----- ------- Name: Sobia Silva ? Age/Sex: 53/F ? : 1970 Unit#: [id number] ?? Attend Dr: Elizabeth Bautista MD ?Re02/28/24 ?Status: DEP REF ? Location: HO.HHCLNP ? Disch: ? ----- ------- SPEC : [id number] ?RECD: 02/28/24-944 ? STATUS: ??SOUT ? REQ NUM: [id number] ? LILIBETH: 02/27/24-1004 ? SUBM DR: Elizabeth Bautista MD ? ENTERED: ??02/28/24-1024 ?SP TYPE: Pap Smr ?CHARANJIT COLE: ? ORDERED: ??Pap Smear ? Interpretation ?? Satisfactory for evaluation. ?? No endocervical cells seen. ?? Negative for intraepithelial lesion or malignancy. ? HPV High Risk: ??Negative ? HPV Genotyping 16: ??Negative ?? HPV Genotyping 18: ??Negative ?Clinical Information LMP: Unknown date Previous PAP test: Unknown date, NILM, -hrHPV ? Material Received ?? ThinPrep-Cervical ----- ------- Signed (signature on file) Naye Eaton CT (ASCP) 03/04/24 1603 ? ----- ------- ? END OF REPORT ? Elizabeth Bautista MD LAB CYTOLOGY ORDERABLES Final Result Performing Organization Address [facility] de Phone Number [facility] [address] [place] [address] [phone] * Hm Colonoscopy (08/10/2023 5:22 PM EDT) Historical Provider HEALTH MAINTENANCE Final Result * Hepatitis Panel, General (06/16/2023 9:03 AM EDT) Hepatitis A IgM GRAYZONE Nonreactive [facility] Comment:IgM antibodies to DIMAS V may or may not be present. Patientswith specimens exhibiting grayzone reactive results shouldbe retested at one-week intervals. ~Hepatitis B Surface Antibody NONREACTIVE Nonreactive [facility] Comment:Nonreactive: < 8.00 mIU/mL Hepatitis B Core Antibody Nonreactive Nonreactive [facility] Hepatitis C Antibody Nonreactive Nonreactive [facility] Comment:Antibodies to HCV no t detected; does not exclude early acuteHCV infection. Hepatitis B Surface Ag Negative Negative [facility] 06/16/2023 9:03 AM EDT 06/16/2023 9:03 AM EDT Generic External Data Provider LAB BLOOD ORDERAB LES Final Result Performing Organization Address [facility] de Phone Number [facility] [address] [place] [address] [phone] * BI Mammogram Screening Tomosynthesis Bilateral (04/17/2023 9:36 AM EST) Anatomical Region Laterality Modality Breast Bilateral Mammography 04/17/2023 9:36 AM EST Narrative 05/01/2023 7:07 AM EST ? [place] [facility] ? [address] ?[place] [address] ? Mammography Report ? Signed ? Patient: Chin,Sobia ?MR#: ?? [id number] ? : 1970 ?Acct:[id number] ? Age/Sex: 52 / F ?ADM Date: 04/17/23 ? Loc: HO.MAMMO ? Attending Dr: Elizabeth Boo CRISIS MENTAL HEALTH THERAPIST ? Ordering Physician: Elizabeth Boo CRISIS MENTAL HEALTH THERAPIST ?Results: 2Benig ?? n Findings ? Date of Service: 04/17/23 ?Follow Up: 1 Year From Orig ?? inal Mammogram ? Procedure(s): MM tomosynthesis screening BI ?? Accession Number(s): [id number] ? cc: Elizabeth Boo CRISIS MENTAL HEALTH THERAPIST ? EXAMINATION: ?? MM SCREENING DIGITAL BREAST TOMOSYNTHESIS, BILATERAL ? CLINICAL INFORMATION: ? Screening. Asymptomatic. ? COMPARISON: ?? Mammography: This study is compared with prior exams dating back to ?? 2019. ? TECHNIQUE: ?? Digital breast tomosynthesis is performed in both the craniocaudal and ?? mediolateral oblique views along with computer-aided detection (CAD). ?? Synthesized 2D images are generated from the tomosynthesis. ? FINDINGS: ?? There are scattered areas of fibroglandular density (ACR BI-RADS breast ?? composition Category b). ? There are no significant masses, abnormal calcifications, or other ?? abnormalities. ?? There is a tissue marker present in the upper-outer quadrant of the ?? right breast from prior benign percutaneous biopsy. ? MM/MM tomosynthesis screening BI ?? IMPRESSION: ?? No mammographic evidence of malignancy. ? ASSESSMENT: ? BI-RADS BI-RADS 2 - Benign Findings ? RECOMMENDATION: ?? Routine annual mammography screening. ? 1 year F/U ? This examination should not preclude the clinical evaluation of a ?? suspicious palpable abnormality. ? This patient's information was entered into a reminder system with a ?? target due date for their next mammogram. ? Dictated By: ?Vickie Logan MD ? Signed By: ?<Electronically signed by Vickie Logan MD in OV> ? 05/01/23702 ? DD/ 0936 ? TD/TT: ? Tool Machine Set Up Operator: ? Procedure Note Donsadi, [facility] [address] [place] [address] Mammography Report Signed Patient: Nicolás SilvaR#: [id number] : 1970Acct:[id number] Age/Sex: 52 / FADM Date: 04/17/23 Loc: [facility] Attending Dr: Elizabeth Boo CRISIS MENTAL HEALTH THERAPIST Ordering Physician: Elizabeth BooPResults: 2Benig n Findings Date of Service: 04/17/23Follow Up: 1 Year From Orig inal Mammogram Procedure(s): MM tomosynthesis screening BI Accession Number(s): [id number] cc: Elizabeth Boo CRISIS MENTAL HEALTH THERAPIST EXAMINATION: MM SCREENING DIGITAL BREAST TOMOSYNTHESIS, BILATERAL CLINICAL INFORMATION: Screening. Asymptomatic. COMPARISON: Mammography: This study is compared with prior exams dating back to 2019. TECHNIQUE: Digital breast tomosynthesis is performed in both the craniocaudal and mediolateral oblique views along with computer-aided detection (CAD). Synthesized 2D images are generated from the tomosynthesis. FINDINGS: There are scattered areas of fibroglandular density (ACR BI-RADS breast composition Category b). There are no significant masses, abnormal calcifications, or other abnormalities. There is a tissue marker present in the upper-outer quadrant of the right breast from prior benign percutaneous biopsy. MM/MM tomosynthesis screening BI IMPRESSION: No mammographic evidence of malignancy. ASSESSMENT: BI-RADS BI-RADS 2 - Benign Findings RECOMMENDATION: Routine annual mammography screening. 1 year F/U This examination should not preclude the clinical evaluation of a suspicious palpable abnormality. This patient's information was entered into a reminder system with a target due date for their next mammogram. Dictated By: Vickie Logan MD Signed By: <Electronically signed by Vickie Logan MD in OV> 05/01/23702 DD/ TD/TT: Tool Machine Set Up Operator: Elizabeth Boo CRISIS MENTAL HEALTH THERAPIST IMG BI PROCEDURES Final Result * Fecal Globin by Immunochemistry (12/15/2022) Stool Rectal contents / Unknown 12/15/2022 Historical Provider LAB BODY FLUIDS AND STOOL S ORDERABLES Final Result * LIPID PANEL, STANDARD (09/24/2021 11:26 AM EDT) Chol/HDLC Ratio 2.6 <5.0 (calc) [facility] Cholesterol, Total 130 <200 mg/dL [facility] HDL Cholesterol 50 > OR = 50 mg/dL [facility] LDL Cholesterol 61 mg/dL (calc) [facility] Comment: Reference range: <100 ?? Desirable range <100 mg/dL for primary prevention; ?? <70 mg/dL for patients with CHD or diabetic patients ?? with > or = 2 CHD risk factors. ?? LDL-C is now calculated using the Jorden ?? calculation, which is a validated novel method providing ?? better accuracy than the Friedewald equation in the ?? estimation of LDL-C. ?? Alex SOLANO et al. MEGHA. 2013;310(19): 6442-1330 ?? (http://education.Cocodrilo Dog/faq/BLG829) Non-HDL Cholesterol 80 <130 mg/dL (calc) [facility] Comment: For patients with diabetes plus 1 major ASCVD risk ?? factor, treating to a non-HDL-C goal of <100 mg/dL ?? (LDL-C of <70 mg/dL) is considered a therapeutic ?? option. Triglycerides 108 <150 mg/dL [facility] 09/24/2021 11:2 6 AM EDT us Ag Mancuso MD LAB BLOOD ORDERABLES Final R esult [facility] [address] from Last 3 Months or Most Recently Relevant to Health Maintenance Insurance [facility] * Guarantor: Sobia Silva Account Type Relation to Patient Date of Phone Billing Address Personal/Family Self [address] Care Teams Nylon Machine Operator Relationship Specialty Start Date End Date Elizabeth Boo FNP [address] [place] [phone] PCP - General Family Medicine 04/11/22
--- OUTSIDE RECORDS SUMMARY | 2024-04-22 13:07 | XMS_ITS | Encounter Summary ---
Author Organization [email or web address] Address [address] [place] [address] Care Team Providers Care Dryer Feeder Name Role Phone Elizabeth Boo JOSE Primary Care Provider [phone] Reason for Visit * Reason Onset Date Comments Broken Dentures 04/01/2024 Encounter Details Date Type Department Care Team ([facility] st Contact Info) Description 04/01/2024 Telephone [facility] ADULT DENTAL [address] [place], [place] [phone] Costa Ackerman DDS [address] [place] [address] Broken Dentures Social History Tobacco Use Types Packs/Day Years [...] encounter Miscellaneous Notes * Telephone Encounter - Romel Henderson - 04/02/2024 9:57 AM EST LVM returning pt call. for pt to contact the office for an appointment * Telephone Encounter - Traci Canada - 04/01/2024 1:17 PM EST Patient would like an appt for a broken partial. No appts available on par side. Please reach out to patient documented in this encounter Plan of Treatment Not on file documented as of this encounter Visit Diagnoses Not on filedocumented in this encounter Additional Health Concerns Assessment Noted Time PHQ-9 Depression Total Score: 15 024 1:03 PM EDT documented as of this encounter Care Teams Dryer Feeder Relationship Specialty Start Date End Date Elizabeth Boo FNP [address] [place] [phone] PCP - General Family Medicine 04/11/22 documented as of this encounter
--- OUTSIDE RECORDS SUMMARY | 2024-04-22 13:07 | XMS_ITS | Encounter Summary ---
Author Organization [employer] Address [address] [facility] [address] [place] [address] Care Team Providers Care Er Manager Name Role Phone Elizabeth Boo Primary Care Provider [phone] Reason for Referral * Consultation (Routine) - Authorized Specialty Diagnoses / Procedures Referred By Spencer romero Referred To Contact Dermatology / Family Medicine Diagnoses Verruca vulgaris Elizabeth oBo FNP [address] [place] [address] Phone: tel: fax: Long Allen MD [address] [place] [address] Phone: tel: fax: Referral ID Status Reason Start Date Expiration Date Visits Requested Visits Authorized [id number] Authorized Consult and Treat 04/22/2024 04/22/2025 1 1 * Consultation (Routine) - Pending Review Specialty Diagnoses / Procedures Referred By Spencer romero Referred To Contact Pulmonary Disease Diagnoses Moderate persistent asthma without complication Elizabeth Boo FNP [address] [place] [address] Phone: tel: fax: Referral ID Status Reason Start Date Expiration Date Visits Requested Visits Authorized [id number] Pending Review Specialty Services Required 04/22/2024 04/22/2025 1 1 Encounter Details Date Type Department Care Team (Latest Contact Info) Description 04/22/2024 10:30 AM EST Office Visit [facility] [address] [place] [address] RajeevElizabeth, CUT FILER [address] [place] [address] Periodic limb movement disorder (Primary Dx); Epigastric pain; Chronic nonintractable headache, unspecified headache type; Moderate persistent asthma without complication; Essential hypertension; GONZALEZ (nonalcoholic steatohepatitis); Severe episode of recurrent major depressive disorder, without psychotic features (CMS/HCC); Rheumatoid arthritis of multiple sites with negative rheumatoid factor (CMS/HCC); Migraine with aura and without status migrainosus, not intractable; Healthcare maintenance; Verruca vulgaris; Encounter for immunization Social History Tobacco Use Types Packs/Day Years [...] AM EDT documented as of this encounter Last Filed Vital Signs Vital Sign Reading [...] Mass Index 33.33 04/22/2024 10:34 AM EST documented in this encounter Miscellaneous Notes * Assessment & Plan Note - JOSE Weiss - 04/22/2024 6:38 AM ESTAssociated Problem(s): Severe episode of recurrent major depressive disorder, without psychotic features (CMS/HCC) - Reviewed PHQ9 with pt, denies SI/HI/thoughts of self harm - Following with psych - FIREBOAT OPERATOR Mary Ellen Brown - Continues with sertraline 25mg daily and trazodone 25-50mg nightly PRN sleep documented in this encounter Plan of Treatment Scheduled Orders Name Type Priority Associated Diagnoses Orde r Schedule Albumin, Random Urine W/Creatinine Lab Routine Healthcare maintenance Expected: 04/22/2024 (Approximate), Expires: 04/22/2025 Lipid Panel, Standard Lab Routine Healthcare maintenance Expected: 04/22/2024 (Approximate), Expires: 04/22/2025 Hemoglobin A1c Lab Routine Healthcare maintenance Expected: 04/22/2024 (Approximate), Expires: 04/22/2025 TSH with Reflex to Free T4 Lab Routine Healthcare maintenance Expected: 04/22/2024 (Approximate), Expires: 04/22/2025 Comprehensive Metabolic Panel Lab Routine Healthcare maintenance Expected: 04/22/2024 (Approximate), Expires: 04/22/2025 CBC auto differential Lab Routine Healthcare maintenance Expected: 04/22/2024, Expires: 04/22/2025 Scheduled Referrals Name Type Priority Associated Diagnoses Orde r Schedule Referral to Pulmonology Outpatient Referral Routine Moderate persistent asthma without complication Expected: 04/22/2024 (Approximate), Expires: 04/22/2025 [facility]erral to [facility] Derm Skin Outpatient Referral Routine Verruca vulgaris Expected: 04/22/2024 (Approximate), Expires: 04/22/2025 documented as of this encounter Visit Diagnoses Diagnosis Periodic limb movement disorder- Primary Epigastric pain Abdominal pain, epigastric Chronic nonintractable headache, unspecified headache type Moderate persistent asthma without complication Essential hypertension Unspecified essential hypertension GONZALEZ (nonalcoholic steatohepatitis) Other chronic nonalcoholic liver disease Severe episode of recurrent major depressive disorder, without psychotic features (CMS/HCC) Rheumatoid arthritis of multiple sites with negative rheumatoid factor (CMS/HCC) Migraine with aura and without status migrainosus, not intractable Healthcare maintenance Verruca vulgaris Viral warts, unspecified Encounter for immunization documented in this encounter Additional Health Concerns Assessment Noted Time PHQ-9 Depression Total Score: 21 025 10:36 AM EST documented as of this encounter Care Teams Er Manager Relationship Specialty Start Date End Date Elizabeth Boo FNP [address] [place] [phone] PCP - General Family Medicine 04/11/22 documented as of this encounter
--- OUTSIDE RECORDS SUMMARY | 2024-04-22 13:07 | XMS_ITS | Encounter Summary ---
Author Organization [employer] Address [address] [place] [address] Care Team Providers Care Driver'S License Examiner Name Role Phone Elizabeth Boo Primary Care Provider [phone] Reason for Visit * Reason Onset Date Comments Appointment Request 08/10/2023 Encounter Details Date Type Department Care Team ([facility] st Contact Info) Description 08/10/2023 Telephone [facility] [address] [place] [address] Elizabeth Boo FNP [address] [place], [place] [phone] Appointment Request Social History Tobacco Use Types Packs/Day Years Used Date Smoking Tobacco: Never Smokeless Tobacco: Never Alcohol Use Standard Drinks/Week Comments Never 0 (1 standard drink = 0.6 oz pur e alcohol) Depression Answer Date Recorded Patient Health Questionnaire-9 Score 21 11/07/2022 Housing Stability Answer Date Recorded What is [...] encounter Miscellaneous Notes * Telephone Encounter - Sorin Julio - 08/10/2023 10:47 AM EDT Tc from pt calling to report she had colonoscopy done today at [facility] and was advised to follow up with pcp. Please contact pt at [phone]. Turkmen Speaker documented in this encounter Plan of Treatment Not on file documented as of this encounter Visit Diagnoses Not on filedocumented in this encounter Additional Health Concerns Assessment Noted Time PHQ-9 Depression Total Score: 21 023 8:12 AM EDT documented as of this encounter Care Teams Driver'S License Examiner Relationship Specialty Start Date End Date Elizabeth Boo FNP [address] [place] [address] PCP - General Family Medicine 04/11/22 documented as of this encounter
--- OUTSIDE RECORDS SUMMARY | 2024-04-22 13:07 | XMS_ITS | Encounter Summary ---
Author Organization [email or web address] Address [address] [place] [address] Care Team Providers Care Sanitation Inspector Name Role Phone Elizabeth Boo Primary Care Provider [phone] Reason for Visit * Reason Comments Med Refill Encounter Details Date Type Department Care Team ([facility] Contact Info) Description 04/02/2024 Refill [facility] PEDS [address] [place], [place] [phone] Elizabeth Boo FNP [address] [place], [place] [phone] Routine health maintenance; Other migraine without status migrainosus, not intractable Social History Tobacco Use Types Packs/Day Years [...] as of this encounter Visit Diagnoses Diagnosis Routine health maintenance Unspecified examination Other migraine without status migrainosus, not intractable documented in this encounter Additional Health Concerns Assessment Noted Time PHQ-9 Depression Total Score: 15 024 1:03 PM EDT documented as of this encounter Care Teams Sanitation Inspector Relationship Specialty Start Date End Date Elizabeth Boo FNP [address] [place] [address] PCP - General Family Medicine 04/11/22 documented as of this encounter
--- OUTSIDE RECORDS SUMMARY | 2024-04-22 13:07 | XMS_ITS | Encounter Summary ---
Author Organization [email or web address] Address [address] [place] [address] Care Team Providers Care Log Washer Name Role Phone Elizabeth Boo CREATIVE ASSISTANT Primary Care Provider [phone] Reason for Visit * Reason Onset Date Comments Chart Prep 04/18/2024 Encounter Details Date Type Department Care Team (Late st Contact Info) Description 04/18/2024 Telephone [facility] [address] [place], [place] [phone] Segundo Taylor MA Chart Prep Social History Tobacco Use Types Packs/Day Years [...] encounter Miscellaneous Notes * Telephone Encounter - Segundo Aceves MA - 04/18/2024 4:50 PM EST Chart Prep Labs: done Images: done Vaccines due: yes Referrals: pending appt Screenings: mammogram , STI screening Overdue care gaps: Sbirt, SDOH, PHQ-9 documented in this encounter Plan of Treatment Not on file documented as of this encounter Visit Diagnoses Not on filedocumented in this encounter Additional Health Concerns Assessment Noted Time PHQ-9 Depression Total Score: 15 024 1:03 PM EDT documented as of this encounter Care Teams Log Washer Relationship Specialty Start Date End Date Elizabeth Boo FNP [address] [place] [address] PCP - General Family Medicine 04/11/22 documented as of this encounter
--- OUTSIDE RECORDS SUMMARY | 2024-04-22 13:07 | XMS_ITS | Encounter Summary ---
Author Organization [employer] Address [address] [place] [address] Care Team Providers Care Registered Nurse Fetal Name Role Phone Elizabeth Boo JOSE Primary Care Provider [phone] Encounter Details Date Type Department Care Team (Latest Contact Info) Description 04/22/2024 Travel Social History Tobacco Use Types Packs/Day Years [...] documented as of this encounter Care Teams Registered Nurse Fetal Relationship Specialty Start Date End Date Elizabeth Boo FNP [address] [place] [phone] PCP - General Family Medicine 04/11/22 documented as of this encounter
[2024-04-22 14:13] LABS: MANUAL DIFF FLAG NO
[2024-04-22 14:17] LABS: Basophils Percent Auto 0.4 % (0-2); Eosinophils Absolute Auto 0.2 X10*3/uL (0.0-0.4); Eosinophils Percent Auto 2.9 % (0-4); Hematocrit 41.4 % (37.0-47.0); Hemoglobin 14.1 g/dl (12.0-16.0); Imm Gran Abs Auto 0.03 X10*3/uL (0.00-0.03); Imm Gran Pct Auto 0.4 % (0.0-0.4); Lymphocytes Absolute Auto 1.7 X10*3/uL (1.2-4.9); Lymphocytes Percent Auto 22.4 % (20-40); Mean Corpuscular HGB Conc 34.1 g/dl (31.0-35.0); Mean Corpuscular Hemoglobin 28.9 pg (27.0-33.0); Mean Corpuscular Volume 84.8 fL (80.0-98.0); Mean Platelet Volume 9.3 fL (9.4-12.3); Monocytes Absolute Auto 0.4 X10*3/uL (0.1-1.2); Monocytes Percent Auto 5.3 % (2-11); Neutrophils Absolute Auto 5.2 x10*3/uL (2.0-8.3); Neutrophils Percent Auto 68.6 % (45-73); Platelet Count 448 X10*3/uL (160-400); Red Blood Count 4.88 X10*6/uL (4.20-5.50); Red Cell Distribution Width 13.8 % (11.0-16.0); White Blood Count 7.5 X10*3/uL (4.8-10.8)
[2024-04-22 14:29] LABS: Estimated Average Glucose 123 mg/dL; Hemoglobin A1c % 5.9 % (<6.0); Total Hemoglobin (HGBA1C) 3753.9416 umol/L
[2024-04-22 14:56] LABS: TSH reflex Free T4 1.02 uIU/mL (0.32-4.0)
[2024-04-22 15:04] LABS: Creatinine Urine 144.96 mg/dL; Microalbum/Creatinine Ratio Ur 18.6 ug/mg cr (<30)
[2024-04-22 15:12] LABS: Alanine Aminotransferase 47 U/L (0-31); Albumin Level 3.8 g/dL (3.5-5.0); Anion Gap 11 (12-20); Aspartate Amino Transferase 49 U/L (5-31); Bilirubin Total 0.4 mg/dL (0.0-1.0); Blood Urea Nitrogen 6 mg/dL (9-16); Calcium 9.2 mg/dL (8.4-10.2); Carbon Dioxide 27 mmol/L (22-29); Chloride 108 mmol/L (96-108); Cholesterol 107 mg/dL (<200); Estimated Glomerular Filt Rate > 60; Glucose Random 131 mg/dL (60-115); HDL Cholesterol 32 mg/dL (>40); LDL Cholesterol Calculated 53 mg/dL (<100); Potassium 3.5 mmol/L (3.3-5.1); Sodium 142 mmol/L (135-145); Total Protein 8.1 g/dL (6.5-8.0); Triglycerides 113 mg/dL (<150)
[2024-04-22 17:06] LABS: Alkaline Phosphatase 122 U/L (39-117)
== END 2024-04-22 11:48 | disposition home or self-care (01) ==
LOC: HO.CHCLDS 11:47
PROVIDERS: Visit Provider Registered Nurse
DX: Z00.00 Encounter for general adult medical examination without abnormal findings (principal); Z13.1 Encounter for screening for diabetes mellitus
CPT/HCPCS: 36415; 80053; 80061; 82043; 82570; 83036; 84443; 85025

== ENCOUNTER 2024-05-30 10:35 | Outpatient (AMB) | payer OTHER, SELFPAY ==
[2024-05-30 10:37] VITALS: BP 119/64; PULSE 72; O2SAT 96; BMI 34.4
--- NOTE | 2024-05-30 10:37 | A.OFFVIS_ITS ---
Vital Signs 05/30/24 10:37 Height 5 ft 1 in Weight 181 lb 14.102 oz BMI 34.4 BP 119/64 Blood Pressure Location Rt brachial Position Sitting Pulse 72 Pulse Source Doppler Pulse Oximetry (%) 96 Oxygen Delivery Method Room Air Intake Visit Reasons: Asthma On Site Coordinator Required: Yes On Site Coordinator Name: Mami mathis C.L.Mario Allergies niacin [From NIASPAN EXTENDED-RELEASE] Allergy (Intermediate, Verified 05/30/24 10:42) TACHYCARDIA,DIFF.BREATHING citalopram [Celexa] Allergy (Unknown, Verified 05/30/24 10:42) unknown diltiazem [From CARTIA XT] Allergy (Unknown, Verified 05/30/24 10:42) UNKNOWN HPI HPI Asthma: Details: 54-year-old lady, nonsmoker, initially referred for evaluation of hemoptysis which she denied, now followed for recurrent bronchitis and asthma. Patient lost to follow-up for approximately 2 and half years.? Patient previously was using Wixela and albuterol MDI/nebs with good control of her symptoms. Recently it appears she was switched to Breo 100 with reasonable control. However, she does complain of intermittent recurrent episodes of small volume hemoptysis associated with coughing fits. [facility] Medical History Colon cancer screening Acute bronchitis Abdominal bloating Epigastric pain Diarrhea Rheumatoid arthritis GERD (gastroesophageal reflux disease) HTN (hypertension) Stroke Bilateral carpal tunnel syndrome Dyslipidemia Anxiety Depression Migraine Restless legs Surgical History H/O colonoscopy S/P breast biopsy, right H/O prior ablation treatment History of esophagogastroduodenoscopy (EGD) History of cholecystectomy Family History Father High blood pressure Cancer Mother Diabetes High blood pressure Sister Diabetes High blood pressure Thyroid disease Cancer Brother High blood pressure Asthma Social History Alcohol intake: never Patient Tobacco Use Status: Never used Tobacco Current occupational status: disabled Current occupation: rt handed Review of Systems Const Denies daytime sleepiness, Denies excessive sweating, Denies fatigue, Denies fever(s), Denies lethargy, Denies malaise, Denies night sweats, Denies snoring and Denies weight loss Eyes Denies blurry vision and Denies itchy eyes ENT Denies nasal congestion, Denies post nasal drip, Denies sinus pain, Denies sinus pressure and Denies other ( Thrush) Card Denies chest pain, Denies pedal edema, Denies dyspnea, Denies orthopnea and Denies paroxysmal nocturnal dyspnea Resp Denies cough, Reports hemoptysis, Denies excessive phlegm production, Denies dys pnea, Denies snoring and Denies wheezing GI Denies abdominal pain and Denies heartburn Musc Denies myalgias, Denies arthralgias and Denies joint swelling Skin/Breast Denies rash Neuro Denies memory loss and Denies seizure-like activity Psych Denies abnormal sleep pattern, Denies anxiety and Denies memory loss Endo Denies excessive sweating, Denies fatigue and Denies heat intolerance David/Lymph Denies easy bruising Aller/Immun Denies itchy eyes, Denies seasonal rhinorrhea and Denies wheezing Physical Exam Vital Signs: Last Vital Signs Pulse 72 05/30/24 10:37 BP 119/64 05/30/24 10:37 Pulse Ox 96 05/30/24 10:37 Oxygen Delivery Method Room Air 05/30/24 10:37 BMI result Body Mass Index 34.4 Const General: no acute distress and alert Nutritional Appearance: not obese Orientation/consciousness: Other orientation findings ( oriented) HEENT Head: Yes atraumatic Eyes General: appearance normal, both eyes and all related structures Sclerae: sclerae normal EOM: EOMs intact bilaterally Neck Neck: Yes supple Lymphatic: no lymphadenopathy noted Resp Effort & Inspection: normal respiratory effort and no use of accessory muscles Auscultation: clear to auscultation bilaterally Cardio Rate: regular rate Rhythm: regular rhythm Heart sounds: no gallops, no murmurs and no rubs Skin General skin exam: other ( warm) Extrem General: No clubbing, No cyanosis and No edema Assessment & Plan Assessment & Plan (1) Moderate persistent asthma: Code(s): J45.40 - Moderate persistent asthma, uncomplicated Category: Medical Plan: Baseline controlled on Breo and albuterol MDI/nebs. Continue current regimen. (2) Hemoptysis: Code(s): R04.2 - Hemoptysis Category: Medical Plan: Will obtain CT chest for further evaluation. Orders: Orders CT chest w IV con Today R04.2 - Hemoptysis Creatinine Today R04.2 - Hemoptysis Medications: New fluticasone furoate-vilanterol 100-25 mcg/dose (Breo Ellipta) 1 inh inhalation DAILY 1 ea 6RF Coding Level of Care Code Est Pt Level 4 (51734) Diagnoses Moderate persistent asthma J45.40 Hemoptysis R04.2
--- OUTSIDE RECORDS SUMMARY | 2024-05-30 13:22 | XMS_ITS | Data Portability ---
Author Organization [employer] Address [address] [place] [address] Care Team Providers Care Airborne Operations Superintendent Name Role Phone HIM [facility] OTHER [facility] OTHER Assessment Encounter Date Assessment Date Assessment LastModified by Organization Details LastModified Time 12/08/2023 12/08/2023 I provided real -time medical direction via phone for this encounter, and was available for additional phone based assistance as needed. I have reviewed and agree with the Assessment and Plan as documented by the It Technician. We discussed the diagnostic uncertainty of home [...] to call 911- verbalized understanding of instruction [email or web address] Not available 12/08/2023 12:39:33 Plan of Treatment Reminders Order Date Submit Date Provider Last Modified By Organization Details Last Modified Time Details Appointments None recorded. Lab None recorded. Referral None recorded. Procedures None recorded. Surgeries None recorded. Imaging None recorded. Medication Orders benzonatate 200 mg capsule 2023 024 [facility], [address] [place] [address], [id number], 5 17:44:34 Tessalon Perles 100 mg capsule 2023 024 [facility], [address] [place] [address], [id number], 4 18:02:28 Patient TargetsNo targets recorded. Patient InstructionsNo instructions recorded. Reason for Referral None Reported. Medical Equipment None Reported. Allergies Allergen ID Allergen Name Allergen Category Reaction Reaction Severity Criticality Documentation Date Start Date Code Code System Note Provider Name and Address Organization Details Recorded Time 6290 Celexa medicatio n Not available Not available Not available 12/09/2023 69101 8 RxNorm Renea Cortés MD [address] [place] [address],[address], [place], [phone], [employer], [employer] 4 13:07:20 6291 oxybutyni n medicatio n Not available Not available Not available 12/09/2023 20902 RxNorm Renea Cortés MD [address] [place] [address],[address], [place], [address], [employer], [employer] 4 13:07:27 6292 niacin medicatio n Not available Not available Not available 12/09/2023 7393 RxNorm Renea Cortés MD [address] [place] [address],[address], [place], [phone], [employer], [employer] 4 13:07:35 6293 citalopra m medicatio n Not available Not available Not available 12/09/2023 2556 RxNorm Renea Cortés MD [address] [place] [address],[address], [place], [phone], [employer], [employer] 4 13:07:50 6294 diltiazem Not available Not available Not available Not available 12/09/2023 3443 RxNorm Not Available [employer] - [employer] 4 03:40:07 Medications Name Sig Start Date Stop Date Status Note LastModified by Organization Details LastModified Time medbox status USE DIRECTED active Not Available Not Available No t Available oximeter pulse vw spo2 [id number] usar TO Comprobar el nivel de oxgeno [...] /min 154.94 cm 74 /min 97.2 [degF] 03890.6 g 97 % 97 % 118 mm[Hg] 77 mm[Hg] Not Available [employer] 4 10:53:12 Date Recorded Oxygen saturation Oxygen saturation in Arterial blood by Pulse oximetry Respiratory rate Heart rate Body weight Body temperature Systolic blood pressure Diastolic blood pressure Provider Name and Address Organization Details Last Updated DateTime 4 99 % 99 % 16 /min 78 /min 05006.3 36 g 97.9 [degF] 112 mm[Hg] 72 mm[Hg] Not Available [employer] 4 12:34:03 Social History None recorded. Functional [...] Note Tim Fields MD Main - [facility] [address] [place] [phone] 05/16/2023 10:53:07 05/17/2023 17:21:08 Viral upper respiratory tract infection [id number] J06.9 This 53-year-ol d female has had a cough and congestion for four days. Her COVID-19, flu, and strep screens were negative. I called in a prescripti on for Dean Carter. She will follow-up with her PCP. The patient agreed with this plan. [id number] Renea Cortés MD Main - [facility] [address] [place] [phone] 12/08/2023 12:34:00 12/09/2023 15:48:47 Acute COVID-19 [id number] U07.1 We reviewed the risks/ benefits and [...] on. Verified allergies and that she uses [facility] pharmacy-d enies history of CKD-nothin g listed in PCP note Health Concerns Section Related Observation LastModified by Organization Detai ls LastModified Time None Recorded Concern Status LastModified by Organization Details LastModified Time None Recorded Advance Directives Directive None Recorded Payers Encounter Date Sequence Insurance Name Policy Number Policy Garcia Covered Member ID Garcia Member ID Guarantor Name 05/16/2023 1 [facility] - DOS ON OR AFTER 2022 - DUAL ELIGIBLE - [facility] OPTIONS AND ONE CARE (MEDICARE REPLACEMENT/ADV ANTAGE - HMO) Sobia Mendez [id number] Sobia Mendez 12/08/2023 1 [facility] - DOS ON OR AFTER 2022 - DUAL ELIGIBLE - [facility] OPTIONS AND ONE CARE (MEDICARE REPLACEMENT/ADV ANTAGE - HMO) Sobia Mendez [id number] Sobia Mendez Notes Date Note Type Note [...] ................................ ............. CRC Nurse Triage Notes (Elizabeth Paitner): Comments: HPI reviewed. No further information required to process visit. Tim Fields MD [address] [place] [address],[address] [facility], [place], [address], [employer] 05/16/2023 10:57:35 12/08/19 24 text/htm l HPI: Patient with home test + COVID yesterday ................................ ................................ ................................ ................................ ............. [facility] Nurse Triage Notes (Maria L Morales): Chief Complaints: Cough, Fever/Chills, Headache, Pain, URI PMH: Hypertension, COPD/Asthma, Hypertension Allergies: Diltiazem Other Allergies: Citalopram, Diltiazem niacin oxybuynin Comments: visit to assess resp status h/o asthma ................................ ................................ ................................ ................................ ............. It Technician Note From Steve Carpenter: Pt Covid positive [...] follow up with pcp if symptoms persist. It Technician Allergies: Diltiazem ................................ ................................ ................................ ................................ ............. [...] or other substances Renea Cortés MD [address] [facility],[address], [place], [address], [employer] 12/09/2023 13:08:39 OBGyn Episode No OBEpisode recorded.
--- OUTSIDE RECORDS SUMMARY | 2024-05-30 13:22 | XMS_ITS | Clinical Summary ---
Author Organization 175 [facility] Address [address] [place] [address] Phone Care Team Providers Care Driver Helper Name Role Phone Elizabeth Boo RN Primary Care Provider Allergies Active Allergy Reactions Criticality Noted Date Comments Diltiazem 12/31/2018 Niacin 12/31/2018 Medications diclofenac (VOLTAREN) 1 % topical gel Apply 4 g topically 2 times daily. 4 Active meloxicam (MOBIC) 15 mg tablet Take 1 Tab by mouth daily. 0 Active metoprolol succinate (Kapspargo Sprinkle) 25 mg capsule,sprinkl e,ER 24hr Take 25 mg by mouth daily [...] times daily (before meals and nightly). Active desogestreL-eth inyl estradioL (Apri) 0.15-0.03 mg per tablet Take [...] AM EST Office Visit Orthopedic Surgery - [place] [address] [facility] [address] [place] [address] Gonzalez Owens, DPM Tendinitis of left [...] Recorded Sex Assigned at Not on file Legal Sex Female 1:31 AM EST Gender Identity Not on file Sexual Orientation Not on file Obstetrics History Last Filed [...] Cancer Screening: Pap Smear 1989 Pneumococcal Vaccine: 50+ Years (2 of 2 - PCV) 03/27/1997 03/27/1996 Pneumococcal Vaccine: Pediatrics (0 to 5 Years) [...] patient's age to complete this topic Meningococcal B Vacine Aged Out No lo nger eligible based on patient's age to complete this topic RSV Immunization Patients Under 20 months Aged Out No longer eligible based on patient's age to complete this topic Varicella Vaccines Aged Out No longer eligible based on patient's age to complete this topic Insurance [facility] MEDICARE Member Subscriber Plan / Payer (Ef fective 2013-Present) Name:Stanford Mendeznette Relation to Subscriber:Self Name:AndreaStanfordSobia Payer ID:[id number] Group ID:[id number] Type:Not on file Address: [place] [address] [address] [address] Care Teams Driver Helper Relationship Specialty Start Date End Date Elizabeth Boo RN [address] [facility] 1 [place], [place] [phone] PCP - General 09/12/23
== END 2024-05-30 10:54 | disposition home or self-care (01) ==
LOC: HO.HPS 10:36
PROVIDERS: PCP Registered Nurse; Visit Provider Internal Medicine Pulmonary Disease
DX: J45.40 Moderate persistent asthma, uncomplicated (principal); R04.2 Hemoptysis
CPT/HCPCS: 99214

== ENCOUNTER → 2024-05-30 10:35 | Outpatient (BNVA) | payer OTHER, SELFPAY | PROVIDERS: PCP Registered Nurse; Visit Provider Internal Medicine Pulmonary Disease | DX: J45.40 Moderate persistent asthma, uncomplicated (principal); R04.2 Hemoptysis | CPT/HCPCS: 99212 ==

== ENCOUNTER 2024-07-02 14:01 | Outpatient (REF) | payer OTHER, SELFPAY ==
--- OUTSIDE RECORDS SUMMARY | 2024-07-02 17:18 | XMS_ITS | Data Portability ---
Author Organization [employer] Address [address] [place] [address] Care Team Providers Care Sales Center Manager Name Role Phone HIM [facility] OTHER [facility] OTHER Assessment Encounter Date Assessment Date Assessment LastModified by Organization Details LastModified Time 12/08/2023 12/08/2023 I provided real -time medical direction via phone for this encounter, and was available for additional phone based assistance as needed. I have reviewed and agree with the Assessment and Plan as documented by the Rock Splitter. We discussed the diagnostic uncertainty of home [...] to call 911- verbalized understanding of instruction [email or web address] Not available 12/08/2023 12:39:33 Plan of Treatment Reminders Order Date Submit Date Provider Last Modified By Organization Details Last Modified Time Details Appointments None recorded. Lab None recorded. Referral None recorded. Procedures None recorded. Surgeries None recorded. Imaging None recorded. Medication Orders benzonatate 200 mg capsule 2023 024 [facility], [address] [place] [address], [id number], 5 17:44:34 Tessalon Perles 100 mg capsule 2023 024 [facility], [address] [place] [address], [id number], 4 18:02:28 Patient TargetsNo targets recorded. Patient InstructionsNo instructions recorded. Reason for Referral None Reported. Medical Equipment None Reported. Allergies Allergen ID Allergen Name Allergen Category Reaction Reaction Severity Criticality Documentation Date Start Date Code Code System Note Provider Name and Address Organization Details Recorded Time 6290 Celexa medicatio n Not available Not available Not available 12/09/2023 85059 8 RxNorm Renea Cortés MD [address] [place] [address],[address], [place], [address], [employer], [employer] 4 13:07:20 6291 oxybutyni n medicatio n Not available Not available Not available 12/09/2023 61570 RxNorm Renea Cortés MD [address] [place] [address],[address], [place], [address], [employer], [employer] 4 13:07:27 6292 niacin medicatio n Not available Not available Not available 12/09/2023 7393 RxNorm Renea Cortés MD [address] [place] [address],[address], [place], [address], [employer], [employer] 4 13:07:35 6293 citalopra m medicatio n Not available Not available Not available 12/09/2023 2556 RxNorm Renea Cortés MD [address] [place] [address],[address], [place], [phone], [employer], [employer] 4 13:07:50 6294 diltiazem Not available Not available Not available Not available 12/09/2023 3443 RxNorm Not Available [employer] - production 4 03:40:07 Medications Name Sig Start Date Stop Date Status Note LastModified by Organization Details LastModified Time medbox status USE DIRECTED active Not Available Not Available No t Available oximeter pulse vw spo2 [id number] usar TO Comprobar el nivel de oxgeno [...] /min 154.94 cm 74 /min 97.2 [degF] 69043.6 g 97 % 97 % 118 mm[Hg] 77 mm[Hg] Not Available [employer] 4 10:53:12 Date Recorded Oxygen saturation Oxygen saturation in Arterial blood by Pulse oximetry Respiratory rate Heart rate Body weight Body temperature Systolic blood pressure Diastolic blood pressure Provider Name and Address Organization Details Last Updated DateTime 4 99 % 99 % 16 /min 78 /min 09309.3 36 g 97.9 [degF] 112 mm[Hg] 72 mm[Hg] Not Available [employer] 4 12:34:03 Social History None recorded. Functional [...] Note Tim Fields MD Main - [facility] [address] [place] [phone] 05/16/2023 10:53:07 05/17/2023 17:21:08 Viral upper respiratory tract infection [id number] J06.9 This 53-year-ol d female has had a cough and congestion for four days. Her COVID-19, flu, and strep screens were negative. I called in a prescripti on for Dean Carter. She will follow-up with her PCP. The patient agreed with this plan. [id number] Renea Cortés MD Main - [facility] [address] [place] [phone] 12/08/2023 12:34:00 12/09/2023 15:48:47 Acute COVID-19 [id number] U07.1 We reviewed the risks/ benefits and [...] on. Verified allergies and that she uses [facility] pharmacy-d enies history of CKD-nothin g listed in PCP note Health Concerns Section Related Observation LastModified by Organization Detai ls LastModified Time None Recorded Concern Status LastModified by Organization Details LastModified Time None Recorded Advance Directives Directive None Recorded Payers Encounter Date Sequence Insurance Name Policy Number Policy Garcia Covered Member ID Garcia Member ID Guarantor Name 05/16/2023 1 [facility] - DOS ON OR AFTER 2022 - DUAL ELIGIBLE - LONGTERM OPTIONS AND ONE CARE (MEDICARE REPLACEMENT/ADV ANTAGE - HMO) Sobia Mendez [id number] Sobia Mendez 12/08/2023 1 [facility] - DOS ON OR AFTER 2022 - DUAL ELIGIBLE - LONGTERM OPTIONS AND ONE CARE (MEDICARE REPLACEMENT/ADV ANTAGE - HMO) Sobia Mendez [id number] Sobia Mendez Notes Date Note Type Note [...] required to process visit. Tim Fields MD [address] [place] [address],[address] [facility], [place], [address], [employer] 05/16/2023 10:57:35 12/08/19 24 text/htm l HPI: Patient with home test + COVID yesterday ................................ ................................ ................................ ................................ ............. [facility] Nurse Triage Notes (Maria L Morales): Chief Complaints: Cough, Fever/Chills, Headache, Pain, URI PMH: Hypertension, COPD/Asthma, Hypertension Allergies: Diltiazem Other Allergies: Citalopram, Diltiazem niacin oxybuynin Comments: visit to assess resp status h/o asthma ................................ ................................ ................................ ................................ ............. Rock Splitter Note From Steve Carpenter: Pt Covid positive [...] follow up with pcp if symptoms persist. Rock Splitter Allergies: Diltiazem ................................ ................................ ................................ ................................ ............. [...] or other substances Renea Cortés MD [address] [facility],[address], [place], [address], [email or web address] 12/09/2023 13:08:39 OBGyn Episode No OBEpisode recorded.
--- OUTSIDE RECORDS SUMMARY | 2024-07-02 17:18 | XMS_ITS | Clinical Summary ---
Author Organization 175 [facility] Address [address] [place] [address] Phone Care Team Providers Care Payroll Accounting Manager Name Role Phone Elizabeth Boo RN Primary [...] limb movement disorder 12/31/2018 Recurrent major depression (CMS/HCC V24) 019 Uterine fibroid 12/31/2018 Varicose veins of both lower extremities 019 Medical History Medical History Date Comments Periodic limb movement disorder 12/31/2018 DX:Periodic limb movement disorder GERD (gastroesophageal reflu x disease) 12/31/2018 DX:GERD (gastroesophageal re flux disease) Hyperlipidemia 12/31/2018 DX:Hyperlipidemi a Uterine fibroid 12/31/2018 DX:Uterine fibro id Nonalcoholic fatty liver disease 12/31/2018 DX:Nonalcoholic fatty liver disease Lumbar radiculopathy 12/31/2018 DX:Lumbar r adiculopathy Glaucoma 12/31/2018 DX:Glaucoma Recurrent major depression ( CMS/HCC V24) 12/31/2018 DX:Recurrent major depressio n (HCC) Varicose veins of both lower extremities [...] 01/17/2024 Social Influencers of Health Screening 01/17/2024 COVID-19 Vaccine (5 - Moderna risk season) 2024 02/27/2024, 03/16/2021, 06/09/2020, Additional history exists Depression Screening 11/16/2024 11/17/2023 Hypertension/CHF/CAD Annual BMP Blood Test 01/10/2025 01/11/2024 DTaP,Tdap,and Td Vaccines (4 - Td or Tdap) 01/21/2026 01/22/2016, 07/04/2008, 03/27/1996 Cholesterol Screening (Lipid Panel) 09/24/2026 09/24/2021 Zoster Vaccines Completed 01/21/2021, 11/19/2020 Influenza Vaccine Completed 02/27/2024, , 01/28/2021, Additional [...] age to complete this topic Meningococcal B Vaccine Aged Out No l onger eligible based on patient's age to complete this topic RSV Immunization Patients Under 20 months Aged Out No longer eligible based on patient's age to complete this topic Varicella Vaccines Aged Out No longer eligible based on patient's age to complete this topic Insurance [employer] [facility] MEDICARE Member Subscriber Plan / Payer (Ef fective 2013-Present) Name:Stanford Mendeznette Relation to Subscriber:Self Name:Andrea Sobia Payer ID:[id number] Group ID:[id number] Type:Not on file Address: [facility] [address] [address] Care Teams Payroll Accounting Manager Relationship Specialty Start Date End Date Elizabeth Boo RN [address] [facility] 1 [place], [place] [phone] PCP - General 09/12/23
== END 2024-07-02 14:02 | disposition home or self-care (01) ==
LOC: HO.MAMMO 14:01
PROVIDERS: PCP Registered Nurse; Visit Provider Registered Nurse
DX: Z12.31 Encounter for screening mammogram for malignant neoplasm of breast (principal)
CPT/HCPCS: 77063; 77067

== ENCOUNTER → 2024-07-02 14:15 | Outpatient (BNV) | payer OTHER, SELFPAY | PROVIDERS: PCP Registered Nurse; Visit Provider Internal Medicine | DX: Z12.31 Encounter for screening mammogram for malignant neoplasm of breast (principal) | CPT/HCPCS: 77063; 77067 ==

== ENCOUNTER 2024-07-23 09:35 | Outpatient (REF) | payer OTHER, SELFPAY ==
--- NOTE | ~2024-07-23 | US_ITS ---
EXAMINATION: US RETROPERITONEAL LIMITED (RENAL ONLY) CLINICAL INFORMATION: Renal stones. COMPARISON: 11/30/2023 TECHNIQUE: Real-time imaging of the kidneys. FINDINGS: RIGHT KIDNEY: 11.8 x 4.2 x 5.4 cm (SAG x AP x TRV). The kidney is normal in size, contour, and echogenicity. Renal cortical thickness is normal. No calculi or focal parenchymal lesions. No hydronephrosis. There are vascular calcifications in the hilar region. LEFT KIDNEY: 11.8 x 5.7 x 6.6 cm (SAG x AP x TRV). The kidney is normal in size, contour, and echogenicity. Renal cortical thickness is normal. No calculi or focal parenchymal lesions. No hydronephrosis. There are vascular calcifications in the hilar region. US/US renal BI IMPRESSION: Normal bilateral kidneys. No definite calculi are evident. Per technologist note, vascular calcifications present in the hilar regions. Electronically signed by: Joe Olivas MD 07/23/2024 10:18 AM EDT
--- OUTSIDE RECORDS SUMMARY | 2024-07-23 10:34 | XMS_ITS | Clinical Summary ---
Author Organization 175 [facility] Address [address] [place] [address] Phone Care Team Providers Care Air Moving Technician Name Role Phone Elizabeth Boo RN Primary [...] ID:[id number] Group ID:[id number] Type:Not on file Address: [facility] [address] [address] Care Teams Air Moving Technician Relationship Specialty Start Date End Date Elizabeth Boo RN [address] [facility] 1 [place], [place] [phone] PCP - General 09/12/23
--- OUTSIDE RECORDS SUMMARY | 2024-07-23 10:34 | XMS_ITS | Encounter Summary ---
Author Organization [email or web address] Address [address] 7t [place] [address] Care Team Providers Care Motor And Controls Tester Name Role Phone SkylerElizabeth ag JOSE Primary Care Provider [phone] Pravin Guzman MD Unavailable [phone] June Unavailable Josiane Smith MD Unavailable Encounter Details Date Type Department Care Team (Late st Contact Info) Description 01/16/2024 Orders Only [facility] MED & PEDS [address] [place] [address] Provider, MD Ita Social History Tobacco Use Types Packs/Day Years [...] as of this encounter Plan of Treatment Upcoming Encounters Date Type Department Care Team ([facility] st Contact Info) Description 09/03/2024 11:30 AM EDT Office Visit [facility] & PEDS [address] [place] [address] Long Allen MD [address] [place] [address] 09/13/2024 1:45 PM EDT Office Visit [facility] [address] [place] [address] Elizabeth Boo FNP [address] [place] [address] documented as of this encounter Procedures Procedure Name Priority Date/Time Associated Diagnosis Comments COLONOSCOPY Routine 08/10/2023 5:22 PM EDT documented in this encounter Results * Hm Colonoscopy (08/10/2023 5:22 PM EDT) us Historical Provider HEALTH MAINTENANCE Final Result documented in this encounter Visit Diagnoses Not on filedocumented in this encounter Additional Health Concerns Assessment Noted Time PHQ-9 Depression Total Score: 15 024 1:03 PM EDT documented as of this encounter Care Teams Motor And Controls Tester Relationship Specialty Start Date End Date Elizabeth Boo FNP [address] [place] [address] PCP - General Family Medicine 04/11/22 Pravin Guzman MD [address] [place] [address] Cardiology 04/23/24June [address] 3rd [place] [address] Gastroenterology 04/23/24 Josiane Smith MD [address] [place] [address] Rheumatology 04/23/24 documented as of this encounter
--- OUTSIDE RECORDS SUMMARY | 2024-07-23 10:34 | XMS_ITS | Encounter Summary ---
Author Organization [employer] Address [address] [facility] 7t [place] [address] Care Team Providers Care Interlibrary Loan Services Librarian Name Role Phone Elizabeth Boo Primary Care Provider [phone] Pravin Guzman MD Unavailable [phone] June Unavailable Josiane Smith MD Unavailable Reason for Visit * Reason Comments Med Refill Encounter Details Date Type Department Care Team (Late Contact Info) Description 10/27/2022 Refill [facility] [address] [place] [address] Elizabeth Boo FNP [address] [place], [place] [phone] Social History Tobacco Use Types Packs/Day Years [...] Upcoming Encounters Date Type Department Care Team (Late Contact Info) Description 09/03/2024 11:30 AM EDT Office Visit [facility] [address] [place], [place] [phone] Long Allen MD [address] [place], [place] [phone] 09/13/2024 1:45 PM EDT Office Visit [facility] [address] [place] [address] Elizabeth Boo FNP [address] [place] [address] documented as of this encounter Visit Diagnoses Not on filedocumented in this encounter Additional Health Concerns Assessment Noted Time PHQ-9 Depression Total Score: 20 023 2:30 PM EST documented as of this encounter Care Teams Interlibrary Loan Services Librarian Relationship Specialty Start Date End Date Elizabeth Boo FNP [address] [place] [address] PCP - General Family Medicine 04/11/22 Pravin uGzman MD [address] [place] [address] Cardiology 04/23/24June [address] 3rd [place] [address] Gastroenterology 04/23/24 Josiane Smith MD [address] [place] [address] Rheumatology 04/23/24 documented as of this encounter
--- OUTSIDE RECORDS SUMMARY | 2024-07-23 10:34 | XMS_ITS | Encounter Summary ---
Author Organization [employer] Address [address] [facility] 7t [place] [address] Care Team Providers Care M48 M60 Armor Crewman Name Role Phone Elizabeth Boo JOSE Primary Care Provider [phone] Pravin Guzman MD Unavailable [phone] June Unavailable Josiane Smith MD Unavailable Encounter Details Date Type Department Care Team (Late Contact Info) Description 09/28/2022 Orders Only [facility] MED & PEDS [address] [place] [address] Mami Neely LPN Social History Tobacco Use [...] Description 09/03/2024 11:30 AM EDT Office Visit [facility] [address] [place] [address] Long Allen MD [address] [place] [address] 09/13/2024 1:45 PM EDT Office Visit [facility] [address] [place] [address] Elizabeth Boo FNP [address] [place] [address] documented as of this encounter Visit Diagnoses Not on filedocumented in this encounter Additional Health Concerns Assessment Noted Time PHQ-9 Depression Total Score: 20 023 2:30 PM EST documented as of this encounter Care Teams M48 M60 Armor Crewman Relationship Specialty Start Date End Date Elizabeth Boo FNP [address] [place] [address] PCP - General Family Medicine 04/11/22 Pravin Guzman MD [address] [place] [address] Cardiology 04/23/24June [address] 3rd [place] [address] Gastroenterology 04/23/24 Josiane Smith MD [address] [place] [address] Rheumatology 04/23/24 documented as of this encounter
--- OUTSIDE RECORDS SUMMARY | 2024-07-23 10:35 | XMS_ITS | Encounter Summary ---
Author Organization [employer] Address [address] [facility] 7t [place] [address] Care Team Providers Care Implementation Consultant Name Role Phone Elizabeth Boo Primary Care Provider [phone] Pravin Guzman MD Unavailable [phone] June Unavailable Josiane Smith MD Unavailable Reason for Visit * Reason Comments Med Refill Encounter Details Date Type Department Care Team ([facility] st Contact Info) Description 04/29/2024 Refill [facility] MED & PEDS [address] [place], [place] [phone] Elizabeth Boo FNP [address] [place], [place] [phone] Periodic limb movement disorder Social History Tobacco Use Types Packs/Day Years [...] Encounters Date Type Department Care Team (Late st Contact Info) Description 09/03/2024 11:30 AM EDT Office Visit [facility] MED & PEDS [address] [place] [address] Long Allen MD 505 [place] [address] 09/13/2024 1:45 PM EDT Office Visit [facility] MED & PEDS [address] [place] [address] Elizabeth Boo FNP [address] [place] [address] documented as of this encounter Visit Diagnoses Diagnosis Periodic limb movement disorder documented in this encounter Additional Health Concerns Assessment Noted Time PHQ-9 Depression Total Score: 21 025 10:36 AM EST documented as of this encounter Care Teams Implementation Consultant Relationship Specialty Start Date End Date Elizabeth Boo FNP [address] [place] [address] PCP - General Family Medicine 04/11/22 Pravin Guzman MD [address] [place] [address] Cardiology 04/23/24June [address] 3rd [place] [address] Gastroenterology 04/23/24 Josiane Smith MD [address] [place] [address] Rheumatology 04/23/24 documented as of this encounter
--- OUTSIDE RECORDS SUMMARY | 2024-07-23 10:35 | XMS_ITS | Encounter Summary ---
Author Organization [employer] Address [address] 7t [place] [address] Care Team Providers Care Preventive Maintenance Coordinator Name Role Phone Elizabeth Boo Primary Care Provider [phone] Pravin Guzman MD Unavailable [phone] June Unavailable Josiane Smith MD Unavailable Reason for Visit * Reason Onset Date Comments Appointment Request 08/10/2023 Encounter Details Date Type Department Care Team (Late st Contact Info) Description 08/10/2023 Telephone [facility] [address] [place] [address] Elizabeth Boo FNP [address] [place], [place] [phone] Appointment Request Social History Tobacco Use Types [...] report she had colonoscopy done today at [facility] and was advised to follow up with pcp. Please contact pt at [phone]. Urdu Speaker documented in this encounter Plan of Treatment Upcoming Encounters Date Type Department Care Team ([facility] st Contact Info) Description 09/03/2024 11:30 AM EDT Office Visit [facility] MED & PEDS [address] [place] [address] Long Allen MD [address] [place] [address] 09/13/2024 1:45 PM EDT Office Visit [facility] MED & PEDS [address] [place] [address] Elizabeth Boo FNP [address] [place] [address] documented as of this encounter Visit Diagnoses Not on filedocumented in this encounter Additional Health Concerns Assessment Noted Time PHQ-9 Depression Total Score: 21 023 8:12 AM EDT documented as of this encounter Care Teams Preventive Maintenance Coordinator Relationship Specialty Start Date End Date Elizabeth Boo FNP [address] [place] [address] PCP - General Family Medicine 04/11/22 Pravin Guzman MD [address] [place] [address] Cardiology 04/23/24June [address] 3rd [place] [address] Gastroenterology 04/23/24 Josiane Smith MD [address] [place] [address] Rheumatology 04/23/24 documented as of this encounter
--- OUTSIDE RECORDS SUMMARY | 2024-07-23 10:35 | XMS_ITS | Data Portability ---
Author Organization [employer] Address [address] [place] [address] Care Team Providers Care Wire Taper Name Role Phone HIM [facility] OTHER [facility] OTHER Assessment Encounter Date Assessment Date Assessment LastModified by Organization Details LastModified Time 12/08/2023 12/08/2023 I provided real -time medical direction via phone for this encounter, and was available for additional phone based assistance as needed. I have reviewed and agree with the Assessment and Plan as documented by the Anger Control Counselor. We discussed the diagnostic uncertainty of home [...] to call 911- verbalized understanding of instruction [email or web address] Not available 12/08/2023 12:39:33 Plan of Treatment Reminders Order Date Submit Date Provider Last Modified By Organization Details Last Modified Time Details Appointments None recorded. Lab None recorded. Referral None recorded. Procedures None recorded. Surgeries None recorded. Imaging None recorded. Medication Orders benzonatate [address] [facility], [address] [place] [address], [id number], 5 17:44:34 Tessalon Perles 100 [address] capsule [address] [facility], [address] [place] [address], [id number], 4 18:02:28 Patient TargetsNo targets recorded. Patient InstructionsNo instructions recorded. Reason for Referral None Reported. Medical Equipment None Reported. Allergies Allergen ID Allergen Name Allergen Category Reaction Reaction Severity Criticality Documentation Date Start Date Code Code System Note Provider Name and Address Organization Details Recorded Time 6290 Celexa medicatio n Not available Not available Not available 12/09/2023 23223 8 RxNorm Renea Cortés MD [address] [place] [address],[address], [place], [address], [employer], [employer] 4 13:07:20 6291 oxybutyni n medicatio n Not available Not available Not available 12/09/2023 73178 RxNorm Renea Cortés MD [address] [place] [address],[address], [place], [address], [employer], [employer] 4 13:07:27 6292 niacin medicatio n Not available Not available Not available 12/09/2023 7393 RxNorm Renea Cortés MD [address] [place] [address],[address], [place], [phone], [employer], [employer] 4 13:07:35 6293 citalopra m medicatio n Not available Not available Not available 12/09/2023 2556 RxNorm Renea Cortés MD [address] [place] [address],[address], [place], [address], [employer], [employer] 4 13:07:50 6294 diltiazem Not available Not available Not available Not available 12/09/2023 3443 RxNorm Not Available [employer] - production 4 03:40:07 Medications Name Sig Start Date Stop Date Status Note LastModified by Organization Details LastModified Time oximeter pulse vw [id number] [id number] usar TO Comprobar el nivel de oxgeno [...] /min 154.94 cm 74 /min 97.2 [degF] 04887.6 g 97 % 97 % 118 mm[Hg] 77 mm[Hg] Not Available [employer] 4 10:53:12 Date Recorded Oxygen saturation Oxygen saturation in Arterial blood by Pulse oximetry Respiratory rate Heart rate Body weight Body temperature Systolic blood pressure Diastolic blood pressure Provider Name and Address Organization Details Last Updated DateTime 4 99 % 99 % 16 /min 78 /min 16420.3 36 g 97.9 [degF] 112 mm[Hg] 72 mm[Hg] Not Available [employer] 4 12:34:03 Social History None recorded. Functional [...] Note Tim Fields MD Main - [facility] [address] [place] [phone] 05/16/2023 10:53:07 05/17/2023 17:21:08 Viral upper respiratory tract infection [id number] J06.9 This 53-year-ol d female has had a cough and congestion for four days. Her COVID-19, flu, and strep screens were negative. I called in a prescripti on for Dean Carter. She will follow-up with her PCP. The patient agreed with this plan. [id number] Renea Cortés MD Main - [facility] [address] [place] [phone] 12/08/2023 12:34:00 12/09/2023 15:48:47 Acute COVID-19 [id number] U07.1 We reviewed the risks/ benefits and [...] on. Verified allergies and that she uses [facility] pharmacy-d enies history of CKD-nothin g listed in PCP note Health Concerns Section Related Observation LastModified by Organization Detai ls LastModified Time None Recorded Concern Status LastModified by Organization Details LastModified Time None Recorded Advance Directives Directive None Recorded Payers Encounter Date Sequence Insurance Name Policy Number Policy Garcia Covered Member ID Garcia Member ID Guarantor Name 05/16/2023 1 [facility] - DOS ON OR AFTER 2022 - DUAL ELIGIBLE - ASSISTED OPTIONS AND ONE CARE (MEDICARE REPLACEMENT/ADV ANTAGE - HMO) Sobia Mendez [id number] Sobia Mendez 12/08/2023 1 [facility] - DOS ON OR AFTER 2022 - DUAL ELIGIBLE - ASSISTED OPTIONS AND ONE CARE (MEDICARE REPLACEMENT/ADV ANTAGE - HMO) Sobia Mendez [id number] Sobia Mendez Notes Date Note Type Note [...] required to process visit. Tim Fields MD [address] [place] [address],[address] [facility], [place], [address], [employer] 05/16/2023 10:57:35 12/08/19 24 text/htm l HPI: Patient with home test + COVID yesterday ................................ ................................ ................................ ................................ ............. [facility] Nurse Triage Notes (Maria L Morales): Chief Complaints: Cough, Fever/Chills, Headache, Pain, URI PMH: Hypertension, COPD/Asthma, Hypertension Allergies: Diltiazem Other Allergies: Citalopram, Diltiazem niacin oxybuynin Comments: visit to assess resp status h/o asthma ................................ ................................ ................................ ................................ ............. Anger Control Counselor Note From Steve Carpenter: Pt Covid positive [...] follow up with pcp if symptoms persist. Anger Control Counselor Allergies: Diltiazem ................................ ................................ ................................ ................................ ............. [...] or other substances Renea Cortés MD [address] [facility], [place], [address], [employer] 12/09/2023 13:08:39 OBGyn Episode No OBEpisode recorded.
--- OUTSIDE RECORDS SUMMARY | 2024-07-23 10:35 | XMS_ITS | Encounter Summary ---
Author Organization [employer] Address [address] 7t [place] [address] Care Team Providers Care Rn Wound Care Name Role Phone Elizabeth Boo JOSE Primary Care Provider [phone] Pravin Guzman MD Unavailable [phone] June Unavailable Josiane Smith MD Unavailable Encounter Details Date Type Department Care Team (Late st Contact Info) Description 07/16/2024 Orders Only [facility] MED & PEDS [address] [place] [address] Marian Pitts Social History Tobacco Use Types Packs/Day Years [...] Upcoming Encounters Date Type Department Care Team ([facility] st Contact Info) Description 09/03/2024 11:30 AM EDT Office Visit [facility] MED & PEDS [address] [place] [address] Long Allen MD [address] [place] [address] 09/13/2024 1:45 PM EDT Office Visit [facility] MED & PEDS [address] [place] [address] Elizabeth Boo FNP [address] [place] [address] documented as of this encounter Procedures Procedure Name Priority Date/Time Associated Diagnosis Comments HPV MRNA E6/E7 REFLEX TO HPV 16, 18/45 Routine 02/27/2024 12:00 AM EST documented in this encounter Results * HPV mRNA E6/E7 w/Reflex to HPV Genotypes 16, 18/45 (02/27/2024 12:00 AM EST) us Historical Provider LAB CYTOLOGY ORDERABLES F inal Result documented in this encounter Visit Diagnoses Not on filedocumented in this encounter Additional Health Concerns Assessment Noted Time PHQ-9 Depression Total Score: 21 025 10:36 AM EST documented as of this encounter Care Teams Rn Wound Care Relationship Specialty Start Date End Date Elizabeth Boo FNP [address] [place] [address] PCP - General Family Medicine 04/11/22 Pravin Guzman MD [address] [place] [address] Cardiology 04/23/24June [address] 3rd [place] [address] Gastroenterology 04/23/24 Josiane Smith MD [address] [place] [address] Rheumatology 04/23/24 documented as of this encounter
--- OUTSIDE RECORDS SUMMARY | 2024-07-23 10:35 | XMS_ITS | Encounter Summary ---
Author Organization [employer] Address [address] [facility] 7t [place] [address] Care Team Providers Care Medical Professionals Name Role Phone Elizabeth Boo JOSE Primary Care Provider [phone] Pravin Guzman MD Unavailable [phone] June Unavailable Josiane Smith MD Unavailable Reason for Visit * Reason Onset Date Comments Appointment 11/30/2022 Encounter Details Date Type Department Care Team (Late st Contact Info) Description 11/30/2022 Telephone [facility] [address] [place], [place] [phone] Costa Ackerman DDS [address] [place] [address] Appointment Social History Tobacco Use Types Packs/Day [...] 11:30 AM EDT Office Visit [facility] MED & PEDS [address] [place] [address] Long Allen MD [address] [place] [address] 09/13/2024 1:45 PM EDT Office Visit [facility] PEDS [address] [place] [address] Elizabeth Boo FNP [address] [place] [address] documented as of this encounter Visit Diagnoses Not on filedocumented in this encounter Additional Health Concerns Assessment Noted Time PHQ-9 Depression Total Score: 21 023 8:12 AM EDT documented as of this encounter Care Teams Medical Professionals Relationship Specialty Start Date End Date Elizabeth Boo FNP [address] [place] [address] PCP - General Family Medicine 04/11/22 Pravin Guzman MD [address] [place] [address] Cardiology 04/23/24June [address] 3rd [place] [address] Gastroenterology 04/23/24 Josiane Smith MD [address] [place] [address] Rheumatology 04/23/24 documented as of this encounter
--- OUTSIDE RECORDS SUMMARY | 2024-07-23 10:35 | XMS_ITS | Encounter Summary ---
Author Organization [employer] Address [address] [place] [address] Care Team Providers Care Jig Box Operator Name Role Phone SkylerElizabeth ag JOSE Primary Care Provider [phone] Pravin Guzman MD Unavailable [phone] June Unavailable Josiane Smith MD Unavailable Encounter Details Date Type Department Care Team (Late st Contact Info) Description 07/23/2024 Orders Only [facility] External Provider, [facility] Social History Tobacco Use Types Packs/Day Years [...] Upcoming Encounters Date Type Department Care Team ([facility] st Contact Info) Description 09/03/2024 11:30 AM EDT Office Visit [facility] [address] [place] [address] Long Allen MD [address] [place] [address] 09/13/2024 1:45 PM EDT Office Visit [facility] [address] [place] [address] Elizabeth Boo FNP [address] [place] [address] documented as of this encounter Procedures Procedure Name Priority Date/Time Associated Diagnosis Comments US RENAL BI Routine 07/23/2024 9:50 AM EDT documented in this encounter Results * US RENAL BI (07/23/2024 9:50 AM EDT) Anatomical Region Laterality Modality Abdomen Ultrasound 07/23/2024 9:50 AM EDT Narrative 07/23/2024 10:21 AM EDT ? [facility] ?[address] ?[place] [address] ? Ultrasound Report ? Signed ? Patient: Chin,Sobia ?MR#: ?? [id number] ? : 1970 ?Acct:[id number] ? Age/Sex: 54 / F ?ADM Date: 07/23/24 ? Loc: HO.US ? Attending Dr: Nataliia JACK ? Ordering Physician: Nataliia Robb ?? Date of Service: 07/23/24 ?? Procedure(s): US renal BI ?? Accession Number(s): [id number] ? cc: Nataliia Robb; Elizabeth Boo ? EXAMINATION: ?? US RETROPERITONEAL LIMITED (RENAL ONLY) ? CLINICAL INFORMATION: ?? Renal stones. ? COMPARISON: ?? 11/30/2023 ? TECHNIQUE: ?? Real-time imaging of the kidneys. ? FINDINGS: ? RIGHT KIDNEY: 11.8 x 4.2 x 5.4 cm (SAG x AP x TRV). The kidney is ?? normal in size, contour, and echogenicity. Renal cortical thickness is ?? normal. No calculi or focal parenchymal lesions. No hydronephrosis. ?? There are vascular calcifications in the hilar region. ? LEFT KIDNEY: 11.8 x 5.7 x 6.6 cm (SAG x AP x TRV). The kidney is normal ?? in size, contour, and echogenicity. Renal cortical thickness is normal. ?? No calculi or focal parenchymal lesions. No hydronephrosis. There are ?? vascular calcifications in the hilar region. ? US/US renal BI ?? IMPRESSION: ?? Normal bilateral kidneys. No definite calculi are evident. Per ?? technologist note, vascular calcifications present in the hilar regions. ? Electronically signed by: ??Joe Olivas MD ??07/23/2024 10:18 AM EDT RP ? Dictated By: ?Joe Olivas MD ? Signed By: ?<Electronically signed by Joe Olivas MD in OV> ?07/23/24 1018 ? DD/ 0950 ? TD/TT: 07/23/24 1009 ? Unit Control Clerk: ? Procedure Note Alex Montemayor - 07/23/[address] [address] Ultrasound Report Signed Patient: Chin,JannetteMR#: [id number] : 1970Acct:[id number] Age/Sex: 54 / FADM Date: 07/23/24 Loc: HO.US Attending Dr: Nataliia JACK Ordering Physician: Nataliia Robb Date of Service: 07/23/24 Procedure(s): US renal BI Accession Number(s): [id number] cc: Nataliia Robb; Elizabeth Boo EXAMINATION: US RETROPERITONEAL LIMITED (RENAL ONLY) CLINICAL INFORMATION: Renal stones. COMPARISON: 11/30/2023 TECHNIQUE: Real-time imaging of the kidneys. FINDINGS: RIGHT KIDNEY: 11.8 x 4.2 x 5.4 cm (SAG x AP x TRV). The kidney is normal in size, contour, and echogenicity. Renal cortical thickness is normal. No calculi or focal parenchymal lesions. No hydronephrosis. There are vascular calcifications in the hilar region. LEFT KIDNEY: 11.8 x 5.7 x 6.6 cm (SAG x AP x TRV). The kidney is normal in size, contour, and echogenicity. Renal cortical thickness is normal. No calculi or focal parenchymal lesions. No hydronephrosis. There are vascular calcifications in the hilar region. US/US renal BI IMPRESSION: Normal bilateral kidneys. No definite calculi are evident. Per technologist note, vascular calcifications present in the hilar regions. Electronically signed by: Joe Olivas MD 07/23/2024 10:18 AM EDT Dictated By: Joe Olivas MD Signed By: <Electronically signed by Joe Olivas MD in OV> 07/23/24 1018 DD/ 0950 TD/TT: 07/23/24 1009 Unit Control Clerk: [facility] External Provider IMG US PROCEDURES Final Result documented in this encounter Visit Diagnoses Not on filedocumented in this encounter Additional Health Concerns Assessment Noted Time PHQ-9 Depression Total Score: 21 04/22/2 025 10:36 AM EST documented as of this encounter Care Teams Jig Box Operator Relationship Specialty Start Date End Date Phalen, Elizabeth, [employer] [address] [place] [address] PCP - General Family Medicine 04/11/22 Pravin Guzman MD [address] [place] [address] Cardiology 04/23/24June [address] [place] [address] Gastroenterology 04/23/24 Josiane Smith MD [address] [place] [address] Rheumatology 04/23/24 documented as of this encounter
--- OUTSIDE RECORDS SUMMARY | 2024-07-23 10:35 | XMS_ITS | Clinical Summary ---
Author Organization [employer] Address [address] [place] [address] Care Team Providers Care Radiological Technologist Name Role Phone Elizabeth Boo JOSE Primary Care Provider [phone] Pravin Guzman MD Unavailable [phone] June Unavailable Josiane Smith MD Unavailable Allergies Active Allergy Reactions Criticality Noted Date Comments Citalopram Hives 08/28/2017 Diltiazem 01/15/2018 Niacin Dermatitis,Hives 11/02/2011 Pain red itchy Oxybutynin Hives 08/28/2017 Medications * This document contains information received from the source organization and may not represent a complete record from that organization. amLODIPine (Norvasc) 10 MG tablet Take 10 mg by mouth in the morning. 02/01/20 22 Active Bisacodyl EC 5 MG EC tablet TAKE 2 TABLETS BY MOUTH EVERY DAY AT BEDTIME 02/29/20 22 Active cholestyramine (Questran) 4 GM/DOSE powder DISSOLVE 4 GRAMS (1 SCOOP) IN 60-180 ML OF WATER, MILK, OR JUICE AND DRINK TWICE DAILY WITH MEALS. AVOID OTHER MEDICATIONS 1 HOUR BEFORE OR 4-6 HOURS AFTER DOSE 01/21/20 22 Active folic acid (Folvite) 1 MG tablet Take 1,000 mcg by mouth in the morning. 03/09/20 22 Active FREESTYLE LITE test strip TEST BLOOD SUGAR ONCE DAILY 02/29/20 22 Active metoprolol succinate XL (Toprol-XL) 200 MG 24 hr tablet Take 200 mg by mouth in the morning. 03/31/19 23 Active Simethicone Ultra Strength 180 MG capsule Take 180 mg by mouth 3 times daily. 03/31/19 23 Active TRUEplus Lancets 33G [facility] TEST BLOOD SUGAR EVERY DAY 100 each 11 09/29/19 23 Active lidocaine-prilocai ne (Emla) 2.5-2.5 % cream Apply topically if needed in the morning, at noon, and at bedtime for moderate pain. 100 g 1 06/12/19 24 Active Humira, 2 Pen, 40 MG/0.4ML Pen-injector Kit pen-injectorIndica tions:Rheumatoid arthritis of multiple sites with negative rheumatoid factor (CMS/HCC) 07/11/19 24 Active Salicylic Acid (Mediplast) 40 % padsIndications:Ve rruca vulgaris Soak wart in warm water for 5 minutes. Dry area thoroughly. Apply medicated pad directly over wart and secure firmly to skin. Repeat every 48 hours as needed until wart is removed for up to 12 weeks. 18 each 09/08/19 24 Active salicylic acid (Durasal) 26 % topcal liquid Soak wart in warm water for 5 minutes. Dry area. Apply to entire wart surface, allow to dry, and then apply a second time. Avoid contact with surrounding skin. Continue therapy once or twice daily for 4-6 weeks 10 mL 1 09/22/19 24 Active Blood Pressure kit Use to check blood pressure once daily and if symptomatic 1 kit 11/17/19 24 Active Misc. Devices (Pulse Oximeter Deluxe) [facility] Pulse ox use to check blood oxygen level at home as directed 1 each 11/17/19 24 Active sertraline (Zoloft) 25 MG tabletIndications: Severe episode of recurrent major depressive disorder, without psychotic features (CMS/HCC) 11/07/19 24 Active traZODone (Desyrel) 50 MG tabletIndications: Severe episode of recurrent major depressive disorder, without psychotic features (CMS/HCC) TAKE 1/2 TO 1 TABLET BY MOUTH AT BEDTIME NEEDED 10/09/19 24 Active Acetaminophen Extra Strength 500 MG tablet TAKE 1 OR 2 TABLETS BY MOUTH EVERY 8 HOURS NEEDED FOR PAIN 100 tablet 3 11/27/19 24 Active pantoprazole (ProtoNix) 20 MG EC tabletIndications: Gastroesophageal reflux disease, unspecified whether esophagitis present TAKE 1 TABLET BY MOUTH EVERY MORNING 90 tablet 1 11/30/19 24 Active tamsulosin (Flomax) 0.4 MG 24 hr capsule Take 1 capsule (0.4 mg) by mouth Once per day. Take for up to 30 days to help pass kidney stone. Stop using if kidney stone comes out. 30 capsule 12/13/19 24 Active simvastatin (Zocor) 10 MG tabletIndications: Mixed hyperlipidemia TAKE 1 TABLET BY MOUTH AT BEDTIME 90 tablet 3 12/26/19 24 Active melatonin 5 MG tablet TAKE 2 TABLETS BY MOUTH EVERY DAY AT BEDTIME NEEDED FOR SLEEP 90 tablet 3 02/04/20 24 Active metoprolol succinate XL (Toprol-XL) 25 MG 24 hr tablet Take 25 mg by mouth if needed each day. 02/06/20 24 Active fluticasone (Flonase) 50 MCG/ACT nasal sprayIndications:S easonal allergies INSTILL 2 SPRAYS IN EACH NOSTRIL ONCE DAILY IN THE MORNING 16 g 11 03/08/20 24 Active gabapentin (Neurontin) 400 MG capsuleIndications :Neuropathic pain,Restless leg TAKE 1 CAPSULE BY MOUTH THREE TIMES DAILY IN THE MORNING, EVENING, AND BEDTIME 90 capsule 5 04/01/19 25 Active Multiple Vitamins-Iron (Tab-A-Ivan/Iron) tabletIndications: Routine health maintenance TAKE 1 TABLET BY MOUTH EVERY MORNING 90 tablet 3 04/02/19 25 Active topiramate (Topamax) 25 MG tabletIndications: Other migraine without status migrainosus, not intractable TAKE 2 TABLETS BY MOUTH EVERY DAY AT BEDTIME 180 tablet 1 04/02/19 25 Active albuterol (2.5 MG/3ML) 0.083% nebulizer solutionIndication s:Moderate persistent asthma without complication INHALE 1 AMPULE USING A NEBULIZER THREE TIMES DAILY NEEDED FOR WHEEZING OR FOR ASTHMA 75 mL 2 04/22/19 25 Active Ventolin HFA 108 (90 Base) MCG/ACT inhalerIndications :Moderate persistent asthma without complication INHALE 2 PUFFS EVERY 4 TO 6 HOURS NEEDED FOR WHEEZING OR SHORTNESS OF BREATH 18 g 3 04/22/19 25 Active Fluticasone Furoate-Vilanterol (Breo Ellipta) 100-25 MCG/ACT aerosol powderIndications: Moderate persistent asthma without complication Inhale 1 Inhalation Once daily. Rinse mouth after use. 60 each 2 05/09/19 25 Active vitamin E 180 MG (400 UNIT) capsule TAKE 1 CAPSULE BY MOUTH TWICE DAILY IN THE MORNING AND AT BEDTIME 180 capsule 1 06/01/19 25 Active rOPINIRole (Requip) 2 MG tabletIndications: Restless Leg Syndrome Take 1 tablet (2 mg) by mouth at bedtime. 30 tablet 3 06/01/19 25 026 Active Blood Pressure kit Use to check blood pressure as directed by provider, and if symptomatic. 1 kit 07/02/19 25 Active Active Problems Problem Noted Date Diagnosed Date Vitreous floaters of left eye 04/23/2024 Overview (04/23/2024): Followed by [facility] Red flag/ED precautions Nephrolithiasis 04/23/2024 Assessment & Plan (04/23/2024 11:19 AM EST): Nov 2023: 4mm non-obstructing kidney stone right kidney. Started on flomax and referred to urology. Established with [facility]rology January 2024 ([facility] Plan to continue with surveillance monitoring, repeat renal ultrasound around July 2024 Ganglion cyst of left foot 04/23/2024 Overview (04/23/2024): [facility]. 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 Assessment & Plan (04/23/2024 11:20 AM EST): Continues with cholestyramine, metoclopramide, simethicone, pantoprazole High risk medication use 02/27/2024 Epigastric pain 02/27/2024 Environmental allergies 02/27/2024 Chronic headaches 02/27/2024 Bilateral knee pain 02/27/2024 GONZALEZ (nonalcoholic steatohepatitis) 11/20/2023 Assessment & Plan (11/20/2023 5:18 PM EDT): Following with [facility] - LAURYN Longo Abd US ordered September 2023 by GI with the impression of increase in hepatic echotexture, c/w fatty infiltration of hepatocellular disease. Hepatomegaly. Liver stiffness: 1.49 m/s . Rules out compensated advanced chronic liver disease. Healthcare maintenance 09/08/2023 Overview (04/23/2024): Mammo: BIRADS 2 on 04/17/23 OPH: CEE on 04/13/23 ([facility]) Colonoscopy: 08/10/23 at [facility] - Dr. Abraham. Tubular adenoma. Plan to repeat in 3 years (2026) Pap: NILM, HPV neg on 02/27/24. Repeat 3 yrs d/t immunosuppression Last comprehensive exam: 04/22/24 Moderate persistent asthma without complication 04/27/2022 Overview (04/27/2022): -Following with [facility] Pulm -Continues with Wixela 500 and albuterol [...] eval Apr 29, 2022 Rheumatoid arthritis of [facility] sites with negative rheumatoid factor 04/27/2022 Overview (09/10/2023): -Seronegative RA diagnosed 02/2022 -Followed by [facility] Rheum - Dr. Smith -Initially tx with methotrexate, med discontinued in October 2022 (d/t transaminitis) -Previous Med trial: Enbrel (August 2023 - June 2023: ineffective) -Currently treatment with Humira Assessment & Plan (04/23/2024 11:17 AM EST): Continue with current regimen Assessment & Plan (11/20/2023 5:24 PM EDT): [...] for further tx of joint pains -Encouraged [facility] acupuncture clinic Carpal tunnel syndrome 04/11/2022 Vascular insufficiency 04/11/2022 Varicose veins of both lower extremities 019 Anxiety 06/07/2018 Essential hypertension 07/13/2017 Overview (04/23/2024): BP goal: < 140/90 mmHg Continue with the following medications: Amlodipine 10mg daily Metoprolol XL 200mg daily -Followed by [facility] - Dr. Guzman -Asymptomatic EKG unremarkable 06/11/23 -GRZEGORZ completed Jan 2024: Normal left ventricular function. EF between 60-65%. Mild pulm HTN. Mild mitral regurgitation. Mild tricuspid regurgitation present. No change compared to prior 03/22/22 -Exercise stress test completed January 2024: EF 63% at rest. Normal study, no change compared to previous Nov 2020. Assessment & Plan (04/23/2024 11:18 AM EST): -Aerobic exercise to reduce BP. Initial goal [...] prescriptions without first consulting health care provider Assessment & Plan (06/13/2023 6:41 PM EDT): EKG NSR w/o significant ST or T-wave changes Severe episode of recurrent major depressive disorder, without psychotic features 07/13/2017 Assessment & Plan (04/22/2024 6:38 AM EST): - Reviewed PHQ9 with pt, denies SI/HI/thoughts of self harm - Following with psych - SPECIALTY PERSON Mary Ellen Brown - Continues with sertraline 25mg daily and trazodone 25-50mg nightly PRN sleep Assessment & Plan (11/20/2023 5:27 PM EDT): - Reviewed PHQ9 with pt, denies SI/HI/thoughts of self harm - Following with psych - SPECIALTY PERSON Mary Ellen Brown - Continues with sertraline [...] seek help PLAN: 1. Follow up with [facility]: Recommended for follow-up: As needed 2. Patient [...] harm, but reports increasingly difficult to function -[facility] crystal called in office, not in building today. [facility] provider plans to call pt later today to discuss. Follow up in 2 weeks for mental health and labs, sooner PRN. Lumbar radiculopathy 05/11/2017 Congenital cataract 08/17/2012 Pinguecula 08/17/2012 Periodic limb movement disorder 05/22/2012 Assessment & Plan (04/23/2024 11:26 AM EST): Ropinirole -currently prescribed ropinerole 1.5mg nightly. Reports initially helpful for symptoms, although no longer experiencing symptom relief. Will plan to increase to 2 mg nightly. follow-up if symptoms persist Assessment & Plan (11/20/2023 5:24 PM EDT): [...] 04/22/2024 Diarrhea 02/27/2024 04/22/2024 Chronic depression 02/27/2024 Bronchitis, mucopurulent recurrent 02/27/2024 04/22/2024 Asthma 02/27/2024 [...] Encounters Date Type Department Care Team Description 07/23/2024 Orders Only [facility] External Provider, [facility] 07/16/2024 Orders Only [facility] [address] [place] [address] Marian Pitts 07/01/2024 Telephone [facility] [address] [place] [address] Elizabeth Boo FNP 07/01/2024 Orders Only [facility] [address] [place] [address] Elizabeth Boo, FWS FACULTY ASSISTANT 07/01/2024 Travel 06/07/2024 Telephone [facility] [address] [place] [address] Elizabeth Boo, FWS FACULTY ASSISTANT Appointment Request (Pt needs derm appt) 05/30/2024 Refill [facility] [address] [place] [address] Elizabeth Boo, FWS FACULTY ASSISTANT Periodic limb movement disorder 05/20/2024 Telephone [facility] [address] [place] [address] Elizabeth Boo, FWS FACULTY ASSISTANT Appointment Request (PT NEEDS APPT) 05/10/2024 Telephone [facility] [address] [place] [address] Elizabeth Boo, FWS FACULTY ASSISTANT Appointment Request (Pt needs derm appt) 05/09/2024 Telephone [facility] [address] [place] [address] Anuradha Hitchcock, RN Results 05/09/2024 Telephone [facility] [address] [place] [address] Elizabeth Boo FWS FACULTY ASSISTANT TC: Inhaler Change per Insurance 05/07/2024 Orders Only [facility] [address] [place] [address] Elizabeth Boo FWS FACULTY ASSISTANT Liver function abnormality (Primary Dx); Elevated total protein 04/29/2024 Refill [facility] [address] [place] [address] Elizabeth Boo FNP Periodic limb movement disorder 04/26/2024 Telephone [facility] [address] [place] [address] Elizabeth Boo FNP from Last 3 Months [...] 04/22/2024 10:34 AM EST Plan of Treatment Upcoming Encounters Date Type Department Care Team (Late st Contact Info) Description 09/03/2024 11:30 AM EDT Office Visit [facility] [address] [place] [address] Long Allen MD [address] [place] [address] 09/13/2024 1:45 PM EDT Office Visit [facility] [address] [place] [address] Elizabeth Boo FNP [address] [place] [address] Health Maintenance Due Date Last Done Comments [...] 02/17 FIT 12/16/2023 12/15/2022 FOBT 12/16/2023 12/15/2022 Diagnostic Breast Imaging 08/08/2024 02/24/2017 Tobacco Screening 02/26/2025 02/27/2024 Alcohol/Substance Use Screening 04/22/2025 04/22/2024 Depression Screening 04/22/2025 04/22/2024, 04/22/19 25 Diabetes: Hemoglobin A1C 04/22/2025 025, 09/24/2021, 12/20/2019 SDOH Screening 04/22/2025 04/22/2024 DTaP/Tdap/Td Vaccines (2 - Td or Tdap) 01/21/2026 01/22/2016, 07/04/2008, 07/04/2008, Additional history exists Colonoscopy 08/09/2026 08/10/2023 Colorectal Cancer Screening 08/09/2026 Cervical Cancer Screening 02/26/2027 HPV/Cotest 02/26/2027 02/27/2024 Pap Smear 02/26/2027 02/27/2024 Lipid Panel 04/22/2029 04/22/2024, 07/0 10/2021, 12/20/2019 RSV Patients and Patients Aged 60 years [...] RENAL BI Routine 07/23/2024 9:50 AM EDT BI MAMMOGRAM SCREENING TOMOSYNTHESIS BILATERAL Routine 07/02/2024 2:05 PM EDT HEMOGLOBIN A1C Routine 04/22/2024 11:48 AM EST Healthcare maintenance LIPID PANEL, STANDARD Routine 04/22/2024 11:48 AM EST Healthcare maintenance PAP SMEAR Routine 02/27/2024 10:05 AM EST Cervical cancer screening HPV MRNA E6/E7 REFLEX TO HPV 16, 18/45 Routine 02/27/2024 12:00 AM EST HM COLONOSCOPY Routine 08/10/2023 5:22 PM EDT HEPATITIS PANEL, GENERAL Routine 06/16/2023 9:03 AM EDT FECAL GLOBIN BY IMMUNOCHEMISTRY Routine 12/15/2022 INTRAORAL - COMPLETE SERIES OF RADIOGRAPHIC IMAGES Routine 08/04/2020 12:00 AM EDT PERIODIC ORAL EVALUATION - ESTABLISHED PATIENT Routine 08/04/2020 12:00 AM EDT BI MAMMOGRAM DIAGNOSTIC BILATERAL Routine 02/24/2017 12:21 PM EST PROPHYLAXIS - ADULT Routine 01/19/2016 1 2:00 AM EDT from Last 3 Months or Most Recently Relevant to Health Maintenance Results * US RENAL BI (07/23/2024 9:50 AM EDT) Anatomical Region Laterality Modality Abdomen Ultrasound 07/23/2024 9:50 AM EDT Narrative 07/23/2024 10:21 AM EDT ? [facility] ?[address] ?[place] [address] ? Ultrasound Report ? Signed ? Patient: Sobia Silva ?MR#: ?? [id number] ? : 1970 ?Acct:[id number] ? Age/Sex: 54 / F ?ADM Date: 07/23/24 ? Loc: HO.US ? Attending Dr: Nataliia JACK ? Ordering Physician: Nataliia Robb ?? Date of Service: 07/23/24 ?? Procedure(s): US renal BI ?? Accession Number(s): [id number] ? cc: Nataliia Robb; Elizabeth Boo ? [...] DD/ 0950 ? TD/TT: 07/23/24 1009 ? Certified Pesticide Applicator: ? Procedure Note Donotuseinterpreter, Image - 07/23/[address] [address] Ultrasound Report Signed Patient: Fly Silva#: [id number] : 1970Acct:[id number] Age/Sex: 54 / FADM Date: 07/23/24 Loc: HO.US Attending Dr: Naatliia JACK Ordering Physician: Nataliia Robb Date of Service: 07/23/24 Procedure(s): US renal BI Accession Number(s): [id number] cc: Nataliia Robb; Elizabeth Boo EXAMINATION: US [...] 07/23/24 1018 DD/ 0950 TD/TT: 07/23/24 1009 Certified Pesticide Applicator: [facility] External Provider IMG US PROCEDURES Final Result * BI Mammogram Screening Tomosynthesis Bilateral (07/02/2024 2:05 PM EDT) Anatomical Region Laterality Modality Breast Bilateral Mammography 07/02/2024 2:05 PM EDT Narrative 07/13/2024 11:08 AM EDT ? [facility] [place] ? [address] ?[place] [address] ?[phone] ? Mammography Report ? Signed ? Patient: Sobia Silva ?MR#: ?? [id number] ? : 1970 ?Acct:[id number] ? Age/Sex: 54 / F ?ADM Date: 07/02/24 ? Loc: HO.MAMMO ? Attending Dr: Elizabeth Boo FWS FACULTY ASSISTANT ? Ordering Physician: Rajeev,Elizabeth FWS FACULTY ASSISTANT ?Results: 0Incom ?? plete: Needs Additional Imaging Evaluation ? Date of Service: 07/02/24 ?Follow Up: Additional Imagi ?? ng ? Procedure(s): MM tomosynthesis screening BI ?? Accession Number(s): [id number] ? cc: Elizabeth Boo FWS FACULTY ASSISTANT ? EXAMINATION: ?? MM SCREENING DIGITAL BREAST TOMOSYNTHESIS, BILATERAL ? CLINICAL INFORMATION: ? Screening. Asymptomatic. ? COMPARISON: ?? Mammography: Comparison is made with available priors ? TECHNIQUE: ?? Digital breast mammography with tomosynthesis is performed in both the ?? craniocaudal and mediolateral oblique views along with computer-aided ?? detection (CAD). ? FINDINGS: ?? The breasts are heterogeneously dense, which may obscure small masses ?? (ACR BI-RADS breast composition Category c). ?? Right: ?? New focal asymmetry in the lower inner breast anterior depth. ?? Marker clip in the upper outer quadrant. ? Left: ?? There are no significant masses, abnormal calcifications, or other ?? abnormalities. ? MM/MM tomosynthesis screening BI ?? IMPRESSION: ?? Additional imaging is recommended ? ASSESSMENT: ? BI-RADS BI-RADS 0 - Incomplete: Needs additional Imaging. ? RECOMMENDATION: ?? 1. Additional views of the right breast. ?? 2. Targeted ultrasound if warranted after review of the additional ?? views. ?? 3. Radiology department staff will contact the patient for additional ?? imaging. ? Additional Imaging required ? This examination should not preclude the clinical evaluation of a ?? suspicious palpable abnormality. ? This patient's information was entered into a reminder system with a ?? target due date for their next mammogram. ? Electronically signed by: ??Violeta Crystal DO ??07/13/2024 11:05 AM EDT ?? RP ? Dictated By: ?Violeta Crystal DO ? Signed By: ?<Electronically signed by Violeta Crystal, DO in OV> ? 07/13/24 1105 ? DD/ 1405 ? TD/TT: 07/02/24 1420 ? Certified Pesticide Applicator: ? Procedure Note Sim, Image - 07/13/2024 [facility] [address] [place] [address] Mammography Report Signed Patient: Fly Silva#: [id number] : 1970Acct:[id number] Age/Sex: 54 / FADM Date: 07/02/24 Loc: HO.MAMMO Attending Dr: Elizabeth GARCIA Ordering Physician: Elizabeth BooPResults: 0Incom plete: Needs Additional Imaging Evaluation Date of Service: 07/02/24Follow Up: Additional Imagi ng Procedure(s): MM tomosynthesis screening BI Accession Number(s): [id number] cc: Elizabeth Boo EXAMINATION: MM SCREENING DIGITAL BREAST TOMOSYNTHESIS, BILATERAL CLINICAL INFORMATION: Screening. Asymptomatic. COMPARISON: Mammography: Comparison is made with available priors TECHNIQUE: Digital breast mammography with tomosynthesis is performed in both the craniocaudal and mediolateral oblique views along with computer-aided detection (CAD). FINDINGS: The breasts are heterogeneously dense, which may obscure small masses (ACR BI-RADS breast composition Category c). Right: New focal asymmetry in the lower inner breast anterior depth. Marker clip in the upper outer quadrant. Left: There are no significant masses, abnormal calcifications, or other abnormalities. MM/MM tomosynthesis screening BI IMPRESSION: Additional imaging is recommended ASSESSMENT: BI-RADS BI-RADS 0 - Incomplete: Needs additional Imaging. RECOMMENDATION: 1. Additional views of the right breast. 2. Targeted ultrasound if warranted after review of the additional views. 3. Radiology department staff will contact the patient for additional imaging. Additional Imaging required This examination should not preclude the clinical evaluation of a suspicious palpable abnormality. This patient's information was entered into a reminder system with a target due date for their next mammogram. Electronically signed by: Violeta Crystal DO 07/13/2024 11:05 AM EDT Dictated By: Violeta Crystal DO Signed By: <Electronically signed by Violeta Crystal DO in OV> 07/13/24 1105 DD/ 1405 TD/TT: 07/02/24 1420 Certified Pesticide Applicator: Elizabeth GARCIA IMG BI PROCEDURES Edited Resul t - Final * Hemoglobin A1c (04/22/2024 11:48 AM EST) Hemoglobin A1c 5.9 <6.0 % [facility] Comment:Hemoglobin A1C Refer ence Range Adults: 4.8 - 6.0 % Non diabetic: < 6.0 % Goal: < 7.0 %Additional Action Suggested: > 8.0 %Note: Hemoglobin A1c results are invalid for patients with abnormal amounts of HbF. Blood transfusions may impact the HbA1c concentration in the patient sample. Estimated Average Glucose 123 mg/dL [facility] Comment:eAG = Estimated ave rage glucose which is %A1C expressed asaverage glucose, using the formula of the E3H-TstbnmaXlpsmvc Glucose study (ADAG), Diabetes Care, Vol.31,#8,2007 Blood Venous blood specimen / Unknown 04/22/2024 11:48 AM EST 04/22/2024 2:10 PM EST us Elizabeth Boo FWS FACULTY ASSISTANT LAB BLOOD ORDERABLES Final Res ult [facility] [address] [place] [phone] * (ABNORMAL) Lipid Panel, Standard (04/22/2024 11:48 AM EST) Triglycerides 113 <150 mg/dL [facility] Comment:Desirable Triglyceri de: less than 150 mg/dLBorderline High Triglyceride 150-199 mg/dLHigh Triglyceride: 200-499 mg/dLVery High Triglyceride: greater than or equal to 5OO mg/dL Cholesterol 107 <200 mg/dL [facility] Comment:Desirable Cholestero l: less than 200 mg/dLBorderline High Cholesterol: 200-239 mg/dLHigh Cholesterol: greater than 239 mg/dL LDL Cholesterol Calculated 53 <100 mg/dL [facility] Comment:Desirable LDL: less than 100 mg/dLNear Optimal/Above Optimal LDL: 110- 129 mg/dLBorderline High LDL: 130-159 mg/dLHigh LDL: 160-189 mg/dLVery High LDL: greater than or equal to 190 mg/dL HDL Cholesterol 32(L) >40 mg/dL [facility] Comment:Desirable HDL: great er than 40 mg/dL Note: This HDL assay may give artificially low results in patients with liver disease. Blood Venous blood specimen / Unknown 04/22/2024 11:48 AM EST 04/22/2024 2:10 PM EST us Elizabeth Boo FWS FACULTY ASSISTANT LAB BLOOD ORDERABLES Final Res ult [facility] [address] [place] [phone] * Pap Smear (02/27/2024 10:05 AM EST) Swab Cervix uteri structure / Unknown 02/27/2024 10:05 AM EST 02/28/2024 9:45 AM EST Narrative [facility] - 03/04/2024 4:03 PM EST ----- ------- Name: Sobia Silva ? Age/Sex: 53/F ? : 1970 Unit#: [id number] ?? Attend Dr: Elizabeth Bautista MD ?Re02/28/24 ?Status: DEP REF ? Location: HO.HHCLNP ? Disch: ? ----- ------- SPEC : [id number] ?RECD: 02/28/24 ? STATUS: ??SOUT ? REQ NUM: [id number] ? LILIBETH: 02/27/24 ? SUBM DR: Elizabeth Bautista MD ? ENTERED: ??02/28/24 ?SP TYPE: Pap Smr ?OTHR : ? ORDERED: ??Pap Smear ? Interpretation ?? Satisfactory for evaluation. ?? No endocervical cells seen. ?? Negative for intraepithelial lesion or malignancy. ? HPV High Risk: ??Negative ? HPV Genotyping 16: ??Negative ?? HPV Genotyping 18: ??Negative ?Clinical Information LMP: Unknown date Previous PAP test: Unknown date, NILM, -hrHPV ? Material Received ?? ThinPrep-Cervical ----- ------- Signed (signature on file) Naye Eaton CT ([place] [facility]) 03/04/24 1603 ? ----- ------- ? END OF REPORT ? Elizabeth Bautista MD LAB CYTOLOGY ORDERABLES Final Result [facility] [address] [place] [phone] * HPV mRNA E6/E7 w/Reflex to HPV Genotypes 16, 18/45 (02/27/2024 12:00 AM EST) Historical Provider LAB CYTOLOGY ORDERABLES F inal Result * Hm Colonoscopy (08/10/2023 5:22 PM EDT) Historical Provider HEALTH MAINTENANCE Final Result * Hepatitis Panel, General (06/16/2023 9:03 AM EDT) Hepatitis A IgM GRAYZONE Nonreactive [facility] Comment:IgM antibodies to DIMAS V may or may not be present. Patientswith specimens exhibiting grayzone reactive results shouldbe retested at one-week intervals. ~Hepatitis B Surface Antibody NONREACTIVE Nonreactive [facility] Comment:Nonreactive: < 8.00 mIU/mL Hepatitis B Core Antibody Nonreactive Nonreactive [facility] Hepatitis C Antibody Nonreactive Nonreactive [facility] Comment:Antibodies to HCV no t detected; does not exclude early acuteHCV infection. Hepatitis B Surface Ag Negative Negative [facility] 06/16/2023 9:03 AM EDT 06/16/2023 9:03 AM EDT us Generic External Data Provider LAB BLOOD ORDERAB LES Final Result [facility] [address] [place] [address] [phone] * Fecal Globin by Immunochemistry (12/15/2022) Stool Rectal contents / Unknown 12/15/2022 us Historical Provider LAB BODY FLUIDS AND STOOL S ORDERABLES Final Result * 3D BILATERAL DIAGN MAMMO 1 (02/24/2017 12:21 PM EST) Anatomical Region Laterality Modality Breast Bilateral Mammography 02/24/2017 12:2 1 PM EST Narrative 02/24/2017 4:43 PM EST Refer to the Notes tab for result details [facility] Procedure: 3D BILATERAL DIAGN MAMMO 1 Procedure Note Provider, Ita, - 06/11/2022 Refer to the Notes tab for result details Legacy Procedure: 3D BILATERAL DIAGN MAMMO 1 us Tin Higuera MD IMG BI PROCEDURES Final Resul t from Last 3 Months or Most Recently Relevant to Health Maintenance Insurance [employer] ONE CARE < [address] [id number] DENTAL - [facility] Care Teams Radiological Technologist Relationship Specialty Start Date End Date Elizabeth Boo FNP [address] [place], [place] PCP - General Family Medicine 04/11/22 Pravin Guzman MD [address] [place] [address] Cardiology 04/23/24June [address] 3rd Floor [place], [place] Gastroenterology 04/23/24 Josiane Smith MD [address] [place], [place] Rheumatology 04/23/24
== END 2024-07-23 09:36 | disposition home or self-care (01) ==
LOC: HO.US 09:35
PROVIDERS: PCP Registered Nurse; Visit Provider Nurse Practitioner Family
DX: N20.0 Calculus of kidney (principal)
CPT/HCPCS: 76775

== ENCOUNTER → 2024-07-23 09:39 | Outpatient (BNV) | payer OTHER, SELFPAY | PROVIDERS: PCP Registered Nurse; Visit Provider Radiology Diagnostic Radiology | DX: N20.0 Calculus of kidney (principal) | CPT/HCPCS: 76775 ==

== ENCOUNTER 2024-09-18 08:37 | Outpatient (REF) | payer OTHER, SELFPAY ==
--- NOTE | ~2024-09-18 | XR_ITS ---
EXAMINATION: XR FOOT, RIGHT CLINICAL INFORMATION: left great toe pain COMPARISON: None available. TECHNIQUE: AP, lateral, and oblique views of the right foot. FINDINGS: There is hallux valgus deformity. Joint spaces are preserved. There is no joint malalignment or diastases. No fracture line is evident. XR/XR foot RT min 3V IMPRESSION: Hallux valgus deformity. Electronically signed by: Chano Campbell MD 09/18/2024 02:43 PM EDT
--- NOTE | ~2024-09-18 | XR_ITS ---
EXAMINATION: XR CHEST 2 VIEWS HISTORY: Eval: SOB COMPARISON: Comparison is made with the prior examination dated 06/30/2021. FINDINGS: PA and lateral views of the chest are submitted. The lungs are expanded and clear. There is no pleural effusion, pneumothorax, or pulmonary vascular congestion. The heart is normal in size. The bones are intact. XR/XR chest 2V IMPRESSION: No acute cardiopulmonary abnormality. Electronically signed by: Adam Stephens MD 09/18/2024 03:00 PM EDT
--- OUTSIDE RECORDS SUMMARY | 2024-09-18 08:40 | XMS_ITS | Clinical Summary ---
Author Organization 175 [facility] Address [address] [place] [address] Phone Care Team Providers Care Orthotic Practitioner Name Role Phone Elizabeth Boo RN Primary [...] ID:[id number] Group ID:[id number] Type:Not on file Address: [facility] [address] [address] Care Teams Orthotic Practitioner Relationship Specialty Start Date End Date Elizabeth Boo RN 230 [facility] 1 [place], [place] [phone] PCP - General 09/12/23
--- OUTSIDE RECORDS SUMMARY | 2024-09-18 08:40 | XMS_ITS | Encounter Summary ---
Author Organization [employer] Address [address] [facility] 7t [place] [address] Care Team Providers Care Education Program Manager Name Role Phone Elizabeth Boo Primary Care Provider [phone] Pravin Guzman MD Unavailable [phone] June Unavailable Josiane Smith MD Unavailable Encounter Details Date Type Department Care Team (Late st Contact Info) Description 09/28/2022 Orders Only [facility] MED & PEDS [address] [place] [address] Mami Neely LPN Social History Tobacco Use [...] documented as of this encounter Care Teams Education Program Manager Relationship Specialty Start Date End Date Elizabeth Boo FNP [address] [place] [address] PCP - General Family Medicine 04/11/22 Pravin Guzman MD [address] [place] [address] Cardiology 04/23/24[address] 3rd [place] [address] Gastroenterology 04/23/24 Josiane Smith MD [address] [place] [address] Rheumatology 04/23/24 documented as of this encounter
== END 2024-09-18 08:38 | disposition home or self-care (01) ==
LOC: HO.XRAY 08:37
PROVIDERS: PCP Registered Nurse; Visit Provider Registered Nurse
DX: M79.675 Pain in left toe(s) (principal); R06.02 Shortness of breath
CPT/HCPCS: 71046; 73630

== ENCOUNTER → 2024-09-18 08:48 | Outpatient (BNV) | payer OTHER, SELFPAY | PROVIDERS: PCP Registered Nurse; Visit Provider Radiology Diagnostic Radiology | DX: R06.02 Shortness of breath (principal); M79.673 Pain in unspecified foot | CPT/HCPCS: 71046; 73630 ==

== ENCOUNTER 2024-09-23 07:51 | Outpatient (REF) | payer OTHER, SELFPAY ==
--- NOTE | ~2024-09-23 | CT_ITS ---
CLINICAL HISTORY: R04.2 - Hemoptysis CT chest with contrast Comparison: None provided Findings: The heart size is normal. Enlarged pulmonary trunk measuring 36 mm in width. Query pulmonary arterial hypertension. The visualized thyroid and mediastinum are otherwise unremarkable. The lungs are clear. Cholecystectomy. Indeterminate 20 mm right adrenal nodule. Further evaluation with adrenal protocol CT or MRI +/-correlation with prior imaging if available recommended. Hepatic steatosis. The bones are intact. IMPRESSION: 1. Indeterminate 20 mm right adrenal nodule. Further evaluation with adrenal protocol CT or MRI +/-correlation with prior imaging if available recommended. 2. Hepatic steatosis. 3. Enlarged pulmonary trunk measuring 36 mm in width. Query pulmonary arterial hypertension. This document has been electronically signed by: Indira Canas MD on 09/23/2024 13:38:28
--- OUTSIDE RECORDS SUMMARY | 2024-09-23 07:55 | XMS_ITS | Encounter Summary ---
Author Organization [employer] Address 75 [facility] 7t [place] [address] Care Team Providers Care Metallurgical Laboratory Assistant Name Role Phone Elizabeth Boo Primary Care Provider [phone] Pravin Guzman MD Unavailable [phone] June Unavailable Josiane Smith MD Unavailable Encounter Details Date Type Department Care Team (Late st Contact Info) Description 09/28/2022 Orders Only [facility] CHC MED & PEDS [address] [place] [address] Mami Neely LPN Social History Tobacco Use [...] documented as of this encounter Care Teams Metallurgical Laboratory Assistant Relationship Specialty Start Date End Date Elizabeth Boo FNP [address] [place] [address] PCP - General Family Medicine 04/11/22 Pravin Guzman MD [address] [place] [address] Cardiology 04/23/24[address] 3rd [place] [address] Gastroenterology 04/23/24 Josiane Smith MD [address] [place] [address] Rheumatology 04/23/24 documented as of this encounter
--- OUTSIDE RECORDS SUMMARY | 2024-09-23 07:55 | XMS_ITS | Data Portability ---
Author Organization [employer] [facility], [facility] Address [address] [place] [address] Care Team Providers Care Mold Yard Worker Name Role Phone HIM [facility] OTHER [facility] OTHER Assessment Encounter Date Assessment Date Assessment LastModified by Organization Details LastModified Time 12/08/2023 12/08/2023 I provided real -time medical direction via phone for this encounter, and was available for additional phone based assistance as needed. I have reviewed and agree with the Assessment and Plan as documented by the Bakery Decorator. We discussed the diagnostic uncertainty of home [...] to call 911- verbalized understanding of instruction [id number] Not available 12/08/2023 12:39:33 Plan of Treatment Reminders Order Date Submit Date Provider Last Modified By Organization Details Last Modified Time Details Appointments None recorded. Lab None recorded. Referral None recorded. Procedures None recorded. Surgeries None recorded. Imaging None recorded. Medication Orders benzonatate 200 mg capsule 2023 [facility], [address] [place] [address], [id number], 5 17:44:34 Tessalon Perles 100 mg capsule 2023 024 [facility], [address] [place], [place], [id number], 4 18:02:28 Patient TargetsNo targets recorded. Patient InstructionsNo instructions recorded. Reason for Referral None Reported. Medical Equipment None Reported. Allergies Allergen ID Allergen Name Allergen Category Reaction Reaction Severity Criticality Documentation Date Start Date Code Code System Note Provider Name and Address Organization Details Recorded Time 6290 Celexa medicatio n Not available Not available Not available 12/09/2023 24992 8 RxNorm Renea Cortés MD [address] [place] [address],[address], [place], [address], OtherInbox 4 13:07:20 6291 oxybutyni n medicatio n Not available Not available Not available 12/09/2023 45463 RxNorm Renea Cortés MD [address] [place] [address],[address], [place], [address], [employer] 4 13:07:27 6292 niacin medicatio n Not available Not available Not available 12/09/2023 7393 RxNorm Renea Cortés MD [address] [place] [address],[address], [place], [address], [employer] 4 13:07:35 6293 citalopra m medicatio n Not available Not available Not available 12/09/2023 2556 RxNorm Renea Cortés MD [address] [place] [address],[address], [place], [address], Other[employer]box 4 13:07:50 6294 diltiazem Not available Not available Not available Not available 12/09/2023 3443 RxNorm Not Available [facility] - production 4 03:40:07 Medications Name Sig Start Date Stop Date Status Note LastModified by Organization Details LastModified Time oximeter pulse vw spo2 [id number] usar TO Comprobar el nivel de oxgeno [...] in Arterial blood by Pulse oximetry Systolic And Diastolic Provider Name and Address Organization Details Last Updated DateTime 4 16 /min 154.94 cm 74 /min 97.2 [degF] 00983.6 g 97 % 97 % 118/77 mm[Hg] Not Available [employer] 4 10:53:12 Date Recorded Oxygen saturation Oxygen saturation in Arterial blood by Pulse oximetry Respiratory rate Heart rate Body weight Body temperature Systolic And Diastolic Provider Name and Address Organization Details Last Updated DateTime 4 99 % 99 % 16 /min 78 /min 51354.3 36 g 97.9 [degF] 112/72 mm[Hg] Not Available [facility] 4 12:34:03 Social History None recorded. Functional [...] Note Tim Fields MD Main - [facility] [address] [place] [phone] 05/16/2023 10:53:07 05/17/2023 17:21:08 Viral upper respiratory tract infection [id number] J06.9 This 53-year-ol d female has had a cough and congestion for four days. Her COVID-19, flu, and strep screens were negative. I called in a prescripti on for Dean Carter. She will follow-up with her PCP. The patient agreed with this plan. [id number] Renea Cortés MD Main - [facility] [address] [place] [address] 12/08/2023 12:34:00 12/09/2023 15:48:47 Acute COVID-19 0439209575 U07.1 We reviewed the risks/ benefits and [...] on. Verified allergies and that she uses [facility] pharmacy-d enies history of CKD-lesli g listed in PCP note Health Concerns Section Related Observation LastModified by Organization Detai ls LastModified Time None Recorded Concern Status LastModified by Organization Details LastModified Time None Recorded Advance Directives Directive None Recorded Payers Insurance Date Sequence Insurance Name Policy Number Policy Garcia Covered Member ID Garcia Member ID Guarantor Name 12/08/2023 1 [facility] - DOS ON OR AFTER 2022 - DUAL ELIGIBLE - GROUP HOME OPTIONS AND ONE CARE (MEDICARE REPLACEMENT/ADV ANTAGE - HMO) Sobia Mendez [id number] Sobia Mendez Notes Date Note Type Note [...] required to process visit. Tim Fields MD [address] [place] [address],[address], [place], [address] [employer] 05/16/2023 10:57:35 12/08/19 24 text/htm l HPI: Patient with home test + COVID yesterday ................................ ................................ ................................ ................................ ............. [facility] Nurse Triage Notes (Maria L Morales): Chief Complaints: Cough, Fever/Chills, Headache, Pain, URI PMH: Hypertension, COPD/Asthma, Hypertension Allergies: Diltiazem Other Allergies: Citalopram, Diltiazem niacin oxybuynin Comments: visit to assess resp status h/o asthma ................................ ................................ ................................ ................................ ............. Bakery Decorator Note From Steve Carpenter: Pt Covid positive as of yesterday, pt co cough. Pt resting in bed. Taking Tylenol 4x s per day. Pt instructed to lower to 3x s per day. Pt denies production with cough, sob, VD, abdominal pain, dizziness. Pt denies wheezing and has not had to use albuterol inhaler. Baseline vitals assessed, lungs clear, afebrile, pt eating and drinking fluids. Declines paxlovid. [facility] contacted and RX for benzonatate called in. Pt education on signs indicating the ER. Pt advised to follow up with pcp if symptoms persist. Bakery Decorator Allergies: Diltiazem ................................ ................................ ................................ ................................ ............. [...] or other substances Renea Cortés MD 30 [facility],[address], [place], [address], [employer] 12/09/2023 13:08:39 OBGyn Episode No OBEpisode recorded.
--- OUTSIDE RECORDS SUMMARY | 2024-09-23 07:55 | XMS_ITS | Clinical Summary ---
Author Organization 175 [facility] Address [address] [place] [address] Phone Care Team Providers Care Oil Sprayer Name Role Phone Elizabeth Boo RN Primary [...] Additional history exists Depression Screening 11/16/2024 11/17/2023 Influenza Vaccine (#1) 2024 , 12/02/2021, 01/28/2021, Additional history exists Hypertension/CHF/CAD Annual BMP Blood Test 01/10/2025 01/11/2024 DTaP,Tdap,and Td Vaccines (4 - Td or Tdap) 01/21/2026 01/22/2016, 07/04/2008, 03/27/1996 Cholesterol Screening (Lipid Panel) 09/24/2026 09/24/2021 Zoster Vaccines Completed 01/21/2021, 11/19/2020 HIB Vaccines Aged Out No longer eligi [...] patient's age to complete this topic Insurance [facility] MEDICARE Member Subscriber Plan / Payer (Ef fective 2013-Present) Name:Sobia Mendez Relation to Subscriber:Self Name:Sobia Mendez Payer ID:[id number] Group ID:[id number] Type:Not on file Address: [place] [address] [address] [address] Care Teams Oil Sprayer Relationship Specialty Start Date End Date Elizabeth Boo RN [address] [address] PCP - General 09/12/23
[2024-09-23 10:11] LABS: Creatinine POC 0.6 mg/dL (0.5-1.4); GFR POC > 60
== END 2024-09-23 07:52 | disposition home or self-care (01) ==
LOC: HO.CT 07:51
PROVIDERS: PCP Registered Nurse; Visit Provider Internal Medicine Pulmonary Disease
DX: R04.2 Hemoptysis (principal)
CPT/HCPCS: 71260; 82565

== ENCOUNTER → 2024-09-23 07:53 | Outpatient (BNV) | payer OTHER, SELFPAY | PROVIDERS: PCP Registered Nurse; Visit Provider Radiology Diagnostic Radiology | DX: D44.11 Neoplasm of uncertain behavior of right adrenal gland (principal) | CPT/HCPCS: 71260 ==

== ENCOUNTER 2024-09-25 08:52 | Outpatient (REF) | payer OTHER, SELFPAY ==
--- OUTSIDE RECORDS SUMMARY | 2024-09-25 09:07 | XMS_ITS | Clinical Summary ---
Author Organization 175 [facility] Address [address] [place] [address] Phone Care Team Providers Care Aerosol Supervisor Name Role Phone Elizabeth Boo RN Primary [...] 5 Years) and At-Risk Patients (6 to 49 Years) (2 of 2 - PCV) 03/27/1997 [...] patient's age to complete this topic Insurance [facility] MEDICARE Member Subscriber Plan / Payer (Ef fective 2013-Present) Name:Sobia Mendez Relation to Subscriber:Self Name:Sobia Mendez Payer ID:[id number] Group ID:[id number] Type:Not on file Address: [place] [address] [address] [address] Care Teams Aerosol Supervisor Relationship Specialty Start Date End Date Elizabeth Boo RN [address] [address] PCP - General 09/12/23
--- OUTSIDE RECORDS SUMMARY | 2024-09-25 09:07 | XMS_ITS | Data Portability ---
Author Organization [facility], [facility] Address [address] [place] [address] Care Team Providers Care Heel Shaper Name Role Phone HIM [facility] OTHER [facility] OTHER [phone] Assessment Encounter Date Assessment Date Assessment LastModified by Organization Details LastModified Time 12/08/2023 12/08/2023 I provided real -time medical direction via phone for this encounter, and was available for additional phone based assistance as needed. I have reviewed and agree with the Assessment and Plan as documented by the Blending Line Attendant. We discussed the diagnostic uncertainty of home [...] to call 911- verbalized understanding of instruction [email or web address] Not available 12/08/2023 12:39:33 Plan of Treatment Reminders Order Date Submit Date Provider Last Modified By Organization Details Last Modified Time Details Appointments None recorded. Lab None recorded. Referral None recorded. Procedures None recorded. Surgeries None recorded. Imaging None recorded. Medication Orders benzonatate 200 mg capsule 2023 [facility], [address] [place] [address], [id number], 5 17:44:34 Tessalon Perles 100 mg capsule 2023 024 [facility], [address] [place], [place], [id number], 4 18:02:28 Patient TargetsNo targets recorded. Patient InstructionsNo instructions recorded. Reason for Referral None Reported. Medical Equipment None Reported. Allergies Allergen ID Allergen Name Allergen Category Reaction Reaction Severity Criticality Documentation Date Start Date Code Code System Note Provider Name and Address Organization Details Recorded Time 6290 Celexa medicatio n Not available Not available Not available 12/09/2023 49782 8 RxNorm Renea Cortés MD [address] [place] [address],[address], [place], [address], Echo it 4 13:07:20 6291 oxybutyni n medicatio n Not available Not available Not available 12/09/2023 95140 RxNorm Renea Cortés MD [address] [place] [address],[address], [place], [address], Echo it 4 13:07:27 6292 niacin medicatio n Not available Not available Not available 12/09/2023 7393 RxNorm Renea Cortés MD [address] [place] [address],[address], [place], [address], Echo it 4 13:07:35 6293 citalopra m medicatio n Not available Not available Not available 12/09/2023 2556 RxNorm Renea Cortés MD [address] [place] [address],[address], [place], [address], Echo it 4 13:07:50 6294 diltiazem Not available Not available Not available Not available 12/09/2023 3443 RxNorm Not Available [facility] - production 4 03:40:07 Medications Name Sig Start Date Stop Date Status Note LastModified by Organization Details LastModified Time medbox status USE DIRECTED active Not Available Not Available No t Available oximeter pulse vw spo2 [id number] usar TO Comprobar el nivel de oxgeno [...] /min 154.94 cm 74 /min 97.2 [degF] 87808.6 g 97 % 97 % 118/77 mm[Hg] Not Available [employer] 4 10:53:12 Date Recorded Oxygen saturation Oxygen saturation in Arterial blood by Pulse oximetry Respiratory rate Heart rate Body weight Body temperature Systolic And Diastolic Provider Name and Address Organization Details Last Updated DateTime 4 99 % 99 % 16 /min 78 /min 37516.3 36 g 97.9 [degF] 112/72 mm[Hg] Not Available [employer] 4 12:34:03 Social History None recorded. Functional [...] Note Tim Fields MD Main - [facility] [address] [place] [phone] 05/16/2023 10:53:07 05/17/2023 17:21:08 Viral upper respiratory tract infection 240317097 J06.9 This 53-year-ol d female has had a cough and congestion for four days. Her COVID-19, flu, and strep screens were negative. I called in a prescripti on for Dean Carter. She will follow-up with her PCP. The patient agreed with this plan. [id number] Renea Cortés MD Main - [facility] [address] [place] [address] 12/08/2023 12:34:00 12/09/2023 15:48:47 Acute COVID-19 [id number] U07.1 We reviewed the risks/ benefits and [...] on. Verified allergies and that she uses [facility] pharmacy-d enies history of CKD-lesli g listed in PCP note Health Concerns Section Related Observation LastModified by Organization Detai ls LastModified Time None Recorded Concern Status LastModified by Organization Details LastModified Time None Recorded Advance Directives Directive None Recorded Payers Insurance Date Sequence Insurance Name Policy Number Policy Garcia Covered Member ID Garcia Member ID Guarantor Name 12/08/2023 1 [facility] - DOS ON OR AFTER 2022 - DUAL ELIGIBLE - NURSING HOME OPTIONS AND ONE CARE (MEDICARE REPLACEMENT/ADV ANTAGE - HMO) Sobia Mendez [id number] Sobia Mendez Notes Date Note Type Note [...] required to process visit. Tim Fields MD [address] [place] [address],[address], [place], [address] Flashnotes 05/16/2023 10:57:35 12/08/19 24 text/htm l HPI: Patient with home test + COVID yesterday ................................ ................................ ................................ ................................ ............. [facility] Nurse Triage Notes (Maria L Morales): Chief Complaints: Cough, Fever/Chills, Headache, Pain, URI PMH: Hypertension, COPD/Asthma, Hypertension Allergies: Diltiazem Other Allergies: Citalopram, Diltiazem niacin oxybuynin Comments: visit to assess resp status h/o asthma ................................ ................................ ................................ ................................ ............. Blending Line Attendant Note From Steve Carpenter: Pt Covid positive [...] follow up with pcp if symptoms persist. Blending Line Attendant Allergies: Diltiazem ................................ ................................ ................................ ................................ ............. [...] or other substances Renea Cortés MD 30 [facility],[address], [place], [address], Flashnotes 12/09/2023 13:08:39 OBGyn Episode No OBEpisode recorded.
--- OUTSIDE RECORDS SUMMARY | 2024-09-25 09:07 | XMS_ITS | Encounter Summary ---
Author Organization [employer] Address [address] [facility] 7[address] [place] [address] Care Team Providers Care Exterminator Helper Name Role Phone Elizabeth Boo Primary Care Provider [phone] Pravin Guzman MD Unavailable [phone] June Unavailable Josiane Smith MD Unavailable Reason for Visit * Reason Comments Med Refill Encounter Details Date Type Department Care Team (Late st Contact Info) Description 09/25/2024 Refill [facility] & PEDS [address] [place], [place] [phone] Elizabeth Boo FNP [address] [place], [place] [phone] Other migraine without status migrainosus, not intractable [...] as of this encounter Visit Diagnoses Diagnosis Other migraine without status migrainosus, not intractable documented in this encounter Additional Health Concerns Assessment Noted Time PHQ-9 Depression Total Score: 21 025 10:36 AM EST documented as of this encounter Care Teams Exterminator Helper Relationship Specialty Start Date End Date Elizabeth Boo FNP [address] [place] [address] PCP - General Family Medicine 04/11/22 Pravin Guzman MD [address] [place] [address] Cardiology 04/23/24June [address] 3rd [place] [address] Gastroenterology 04/23/24 Josiane Smith MD [address] [place] [address] Rheumatology 04/23/24 documented as of this encounter
[2024-09-25 09:50] LABS: Baso%MD 0.4 %; Eos%MD 2.8 %; Hematocrit 39.6 % (37.0-47.0); Hemoglobin 13.4 g/dl (12.0-16.0); IG%MD 0.4 %; Lymph%MD 18.7 %; Mean Corpuscular HGB Conc 33.8 g/dl (31.0-35.0); Mean Corpuscular Hemoglobin 29.0 pg (27.0-33.0); Mean Corpuscular Volume 85.7 fL (80.0-98.0); Mono%MD 7.4 %; NRBC Abs Auto 0.000 X10*3/uL (0.0-0.012); NRBC Pct Auto 0.0 /100WBC (0.0-0.2); Neut%MD 70.3 %; Platelet Count 360 X10*3/uL (160-400); Red Blood Count 4.62 X10*6/uL (4.20-5.50); White Blood Count 6.8 X10*3/uL (4.8-10.8)
[2024-09-25 10:17] LABS: Band Neutrophils Percent 0 % (3-5); Eosinophils Absolute Manual 0.2 X10*3/uL (0.0-0.4); Eosinophils Percent Manual 3 % (0-4); Lymphocytes Absolute Manual 1.5 X10*3/uL (1.2-4.9); Lymphocytes Percent Manual 22 % (20-40); Monocytes Absolute Manual 0.3 X10*3/uL (0.1-1.2); Monocytes Percent Manual 4 % (2-11); Neutrophils Absolute Manual 4.8 X10*3/uL (2.0-8.3); Neutrophils Percent Manual 71 % (45-73)
[2024-09-25 10:18] LABS: RBC Morphology NORMAL
[2024-09-25 10:24] LABS: Alanine Aminotransferase 60 U/L (0-31); Albumin Level 3.9 g/dL (3.5-5.0); Alkaline Phosphatase 131 U/L (39-117); Anion Gap 12 (12-20); Aspartate Amino Transferase 60 U/L (5-31); Blood Urea Nitrogen 7 mg/dL (9-16); Calcium 8.9 mg/dL (8.4-10.2); Carbon Dioxide 27 mmol/L (22-29); Chloride 108 mmol/L (96-108); Estimated Glomerular Filt Rate > 60; Potassium 3.6 mmol/L (3.3-5.1); Sodium 143 mmol/L (135-145); Total Protein 7.2 g/dL (6.5-8.0)
[2024-09-25 10:43] LABS: HBS Num1 1.55 mIU/mL (0-7.99); HBc Num1 0.08 S/CO (0.00-0.79); HBsAGNum1 0.32 S/CO (0.00-0.99); Hepatitis A Antibody IgM 0.50 Index (0-0.79); Hepatitis B Surface Antigen Negative (Negative); ~HepC Num1 0.19 S/CO (0.00-0.79); ~Hepatitis A Antibody IgM Nonreactive (Nonreactive); ~Hepatitis B Surface Antibody NONREACTIVE (Nonreactive); ~Hepatitis C Antibody Nonreactive (Nonreactive)
[2024-09-28 04:28] LABS: TS Negative Control Passed; TS Panel A 0; TS Panel B 0; TS Positive Control Passed; TSpotTB Negative (Negative)
== END 2024-09-25 08:53 | disposition home or self-care (01) ==
LOC: HO.LAB 08:52
PROVIDERS: PCP Registered Nurse; Visit Provider Student in an Organized Health Care Education/Training Program
DX: M06.09 Rheumatoid arthritis without rheumatoid factor, multiple sites (principal)
CPT/HCPCS: 36415; 80053; 85007; 85027; 85652; 86140; 86481; 86704; 86706; 86709; 86803; 87340

== ENCOUNTER 2024-09-30 09:36 | Outpatient (REF) | payer OTHER, SELFPAY ==
--- NOTE | ~2024-09-30 | MM_ITS ---
EXAMINATION: MM DIAGNOSTIC DIGITAL BREAST TOMOSYNTHESIS, RIGHT CLINICAL INFORMATION: Call back from screening for focal asymmetry in the central inner right breast. COMPARISON: Mammography: Priors on PACS. TECHNIQUE: Digital breast tomosynthesis is performed in both the craniocaudal and mediolateral oblique views along with computer-aided detection (CAD). Synthesized 2D images are generated from the tomosynthesis. FINDINGS: The breasts are heterogeneously dense, which may obscure small masses (ACR BI-RADS breast composition Category c). Circumscribed oval mass in the central inner right breast anterior to middle depth persists. No suspicious calcifications or other abnormal findings. Targeted color Doppler ultrasound demonstrates 2 adjacent simple to minimally complicated cysts at 2:00 5 cm from nipple measuring 10 x 5 x 3 mm which correlates with the circumscribed oval mass on mammography. There is no internal vascular flow. MM/MM tomosynthesis added views R IMPRESSION: 2 adjacent probably minimally complicated cysts in the right breast on ultrasound. Recommend 6 month follow-up ultrasound for further evaluation of stability. ASSESSMENT: BI-RADS BI-RADS 3 - Probably benign finding(s) - 6 month follow-up suggested RECOMMENDATION: 6 Month F/U Results were provided to the patient at time of visit by the technologist. This patient's information was entered into a reminder system with a target due date for their next mammogram. Electronically signed by: Violeta Crystal DO 09/30/2024 11:38 AM EDT
--- OUTSIDE RECORDS SUMMARY | 2024-09-30 10:04 | XMS_ITS | Clinical Summary ---
Author Organization [address] [facility] Address [address] [place] [address] Phone Care Team Providers Care Machinist Instructor Name Role Phone Elizabeth Boo RN Primary [...] ID:[id number] Group ID:[id number] Type:Not on file Address: [place] [address] [place] [address] Care Teams Machinist Instructor Relationship Specialty Start Date End Date Elizabeth Boo RN [address] [facility] 1 [place] [address] PCP - General 09/12/23
--- OUTSIDE RECORDS SUMMARY | 2024-09-30 10:04 | XMS_ITS | Data Portability ---
Author Organization ReplySend [facility] Address [address] [place] [address] Care Team Providers Care Development Writer Name Role Phone HIM [facility] OTHER [facility] OTHER [phone] Assessment Encounter Date Assessment Date Assessment LastModified by Organization Details LastModified Time 12/08/2023 12/08/2023 I provided real -time medical direction via phone for this encounter, and was available for additional phone based assistance as needed. I have reviewed and agree with the Assessment and Plan as documented by the Heel Edge Inker Machine. We discussed the diagnostic uncertainty of home [...] to call 911- verbalized understanding of instruction [email or web address] Not available 12/08/2023 12:39:33 Plan of Treatment Reminders Order Date Submit Date Provider Last Modified By Organization Details Last Modified Time Details Appointments None recorded. Lab None recorded. Referral None recorded. Procedures None recorded. Surgeries None recorded. Imaging None recorded. Medication Orders benzonatate 200 mg capsule 2023 [facility], [address] [place] [address], [id number], 5 17:44:34 Tessalon Perles 100 mg capsule 2023 024 [facility], [address] [place], [place], [phone], 4 18:02:28 Patient TargetsNo targets recorded. Patient InstructionsNo instructions recorded. Reason for Referral None Reported. Medical Equipment None Reported. Allergies Allergen ID Allergen Name Allergen Category Reaction Reaction Severity Criticality Documentation Date Start Date Code Code System Note Provider Name and Address Organization Details Recorded Time 6290 Celexa medicatio n Not available Not available Not available 12/09/2023 64690 8 RxNorm Renea Cortés MD [address] [place] [address],[address], [place], [address], Edai 4 13:07:20 6291 oxybutyni n medicatio n Not available Not available Not available 12/09/2023 05116 RxNorm Renea Cortés MD [address] [place] [address],[address], [place], [address], Edai 4 13:07:27 6292 niacin medicatio n Not available Not available Not available 12/09/2023 7393 RxNorm Renea Cortés MD [address] [place] [address],[address], [place], [address], Edai 4 13:07:35 6293 citalopra m medicatio n Not available Not available Not available 12/09/2023 2556 RxNorm eRnea Cortés MD [address] [place] [address],[address], [place], [address], Edai 4 13:07:50 6294 diltiazem Not available Not available Not available Not available 12/09/2023 3443 RxNorm Not Available [employer] - production 4 03:40:07 Medications Name Sig Start Date Stop Date Status Note LastModified by Organization Details LastModified Time medbox status USE DIRECTED active Not Available Not Available No t Available oximeter pulse vw [id number] [id number] usar TO Comprobar el nivel de oxgeno [...] /min 154.94 cm 74 /min 97.2 [degF] 09377.6 g 97 % 97 % 118/77 mm[Hg] Not Available Impressto 4 10:53:12 Date Recorded Oxygen saturation Oxygen saturation in Arterial blood by Pulse oximetry Respiratory rate Heart rate Body weight Body temperature Systolic And Diastolic Provider Name and Address Organization Details Last Updated DateTime 4 99 % 99 % 16 /min 78 /min 09171.3 36 g 97.9 [degF] 112/72 mm[Hg] Not Available Impressto 4 12:34:03 Social History None recorded. Functional [...] Note Tim Fields MD Main - [facility] [address] [place] [phone] 05/16/2023 10:53:07 05/17/2023 17:21:08 Viral upper respiratory tract infection [id number] J06.9 This 53-year-ol d female has had a cough and congestion for four days. Her COVID-19, flu, and strep screens were negative. I called in a prescripti on for Dean Carter. She will follow-up with her PCP. The patient agreed with this plan. [id number] Renea Cortés MD Main [facility] [address] [place] [address] 12/08/2023 12:34:00 12/09/2023 15:48:47 Acute COVID-19 [id number] U07.1 We reviewed the risks/ benefits and [...] on. Verified allergies and that she uses [facility] pharmacy-d enies history of CKD-lesli g listed in PCP note Health Concerns Section Related Observation LastModified by Organization Detai ls LastModified Time None Recorded Concern Status LastModified by Organization Details LastModified Time None Recorded Advance Directives Directive None Recorded Payers Insurance Date Sequence Insurance Name Policy Number Policy Garcia Covered Member ID Garcia Member ID Guarantor Name 12/08/2023 1 [facility] - DOS ON OR AFTER 2022 - DUAL ELIGIBLE - SENIOR LIVING OPTIONS AND ONE CARE (MEDICARE REPLACEMENT/ADV ANTAGE - HMO) Sobia Mendez [id number] Sobia Mendez Notes Date Note Type Note [...] required to process visit. Tim Fields MD [address] [place] [address],[address], [place], [address] [employer] 05/16/2023 10:57:35 12/08/19 24 text/htm l HPI: Patient with home test + COVID yesterday ................................ ................................ ................................ ................................ ............. [facility] Nurse Triage Notes (Maria L Morales): Chief Complaints: Cough, Fever/Chills, Headache, Pain, URI PMH: Hypertension, COPD/Asthma, Hypertension Allergies: Diltiazem Other Allergies: Citalopram, Diltiazem niacin oxybuynin Comments: visit to assess resp status h/o asthma ................................ ................................ ................................ ................................ ............. Heel Edge Inker Machine Note From Steve Carpenter: Pt Covid positive [...] follow up with pcp if symptoms persist. Heel Edge Inker Machine Allergies: Diltiazem ................................ ................................ ................................ ................................ ............. [...] or other substances Renea Cortés MD [address] [facility],[address], [place], [address], [employer] 12/09/2023 13:08:39 OBGyn Episode No OBEpisode recorded.
--- OUTSIDE RECORDS SUMMARY | 2024-09-30 10:04 | XMS_ITS | Encounter Summary ---
Author Organization [employer] Address [address] [facility] [address] [place] [address] Care Team Providers Care Service Observer Chief Name Role Phone Elizabeth Boo Primary Care Provider [phone] Pravin Guzman MD Unavailable [phone] June Unavailable Josiane Smith MD Unavailable Reason for Visit * Reason Comments Med Refill Encounter Details Date Type Department Care Team (Late st Contact Info) Description 09/25/[address] [facility] CH[facility] MED & PEDS [address] [place], [place] [phone] Elizabeth Boo FNP [address] [place], [place] [phone] Other migraine without status migrainosus, not intractable [...] documented as of this encounter Care Teams Service Observer Chief Relationship Specialty Start Date End Date Elizabeth Boo FNP [address] [place] [address] PCP - General Family Medicine 04/11/22 Pravin Guzman MD [address] [place] [address] Cardiology 04/23/24June [address] 3rd [place] [address] Gastroenterology 04/23/24 Josiane Smith MD [address] [place] [address] Rheumatology 04/23/24 documented as of this encounter
== END 2024-09-30 09:37 | disposition home or self-care (01) ==
LOC: HO.MAMMO 09:36
PROVIDERS: PCP Registered Nurse; Visit Provider Registered Nurse
DX: N64.89 Other specified disorders of breast (principal)
CPT/HCPCS: 76642; 77061; 77065

== ENCOUNTER → 2024-09-30 10:00 | Outpatient (BNV) | payer OTHER, SELFPAY | PROVIDERS: PCP Registered Nurse; Visit Provider Internal Medicine | DX: R92.8 Other abnormal and inconclusive findings on diagnostic imaging of breast (principal) | CPT/HCPCS: 76642; 77065; G0279 ==

== ENCOUNTER 2024-10-04 14:40 | Outpatient (AMB) | payer OTHER, SELFPAY ==
[2024-10-04 14:41] VITALS: BP 120/72; PULSE 69; O2SAT 97; BMI 34.4
--- NOTE | 2024-10-04 14:41 | A.OFFVIS_ITS ---
Vital Signs 10/04/24 14:41 Height 5 ft 1 in Weight 181 lb 14.102 oz BMI 34.4 BP 120/72 Blood Pressure Location Lt brachial Position Sitting Pulse 69 Pulse Source Pulse Oximeter Pulse Oximetry (%) 97 Oxygen Delivery Method Room Air Intake Visit Reasons: RA Intake Note: Patient last seen by Doctor Ramya Smith on 01/12/24. Presents today for RA follow up and test results. Public Health Advisor Required: Yes Public Health Advisor Name: [phone] Santos Allergies niacin (From NIASPAN EXTENDED-RELEASE) Allergy (Intermediate, Verified 10/04/24 14:45) TACHYCARDIA,DIFF.BREATHING citalopram (Celexa) Allergy (Unknown, Verified 10/04/24 14:45) unknown diltiazem (From CARTIA XT) Allergy (Unknown, Verified 10/04/24 14:45) UNKNOWN HPI Comments Details: Patient is a 54-year-old female with asthma, hypertension, hyperlipidemia, neuropathy, IBS with constipation and diarrhea, GERD, fatty liver disease, polyarticular osteoarthritis and rheumatoid arthritis here today for follow up Interval History: Patient last seen 01/12/[address] Smith. - on Humira 40 mg every other week - no pain and swelling in the hands - complained of pain to bilateral knees, feet and ankles associated with swelling - no evidence of active synovitis and no changes were made to medication. Today - Legs get swollen at the end of the day - Hands hurt sometimes - Still with knee pain Rheumatologic History: Initial history: A 51-year-old female with a past medical history of anxiety, depression, dyslipidemia, stroke, restless leg syndrome, neuropathy, migraine who presents for evaluation of diffuse pain. The condition started about 7-8 months ago with pain in her legs, ankles, feet and arms. The pain is generally worse at night, is burning pain. She stated that will she lost her balance a few weeks ago and fell and bumped her left ankle. Her left ankle has been swollen since. She did not get it evaluated. She denies any history of DVT/PE. She had a breast biopsy in the past and was told it was unremarkable. She never had a colonoscopy done. Current Rheumatology Medication(s): Humira 40mg SC every 2 weeks [facility] Medical History Colon cancer screening Acute bronchitis Abdominal bloating Epigastric pain Diarrhea Rheumatoid arthritis GERD (gastroesophageal reflux disease) HTN (hypertension) Stroke Bilateral carpal tunnel syndrome Dyslipidemia Anxiety Depression Migraine Restless legs Surgical History H/O colonoscopy S/P breast biopsy, right H/O prior ablation treatment History of esophagogastroduodenoscopy (EGD) History of cholecystectomy Family History Father High blood pressure Cancer Mother Diabetes High blood pressure Sister Diabetes High blood pressure Thyroid disease Cancer Brother High blood pressure Asthma Social History (Reviewed 02/01/24 @ 09:51 by Fausto Welch, [facility]) Alcohol intake: never Patient Tobacco Use Status: Never used Tobacco Current occupational status: disabled Current occupation: rt handed Review of Systems Const Details: Review of Systems Constitutional: Denies fever, chills, weight loss ENT: Denies vision changes, eye pain or eye redness, dental caries, dry mouth GI: Denies nausea, vomiting, diarrhea, abdominal pain, change in BM Pulm: Denies SOB, FALLON, hemoptysis, wheezing Cards: Denies chest pain, palpitations Skin: Denies Raynaud's, rash, nail changes, photosensitivity, PROPERTY ADJUSTER: Denies headaches, weakness, paresthesias, recurrent falls MSK: as per HPI All other systems reviewed and are unremarkable except noted above Physical Exam Exam Exam: Vital signs reviewed Physical Examination CONSTITUITIONAL Patient alert and cooperative. Well appearing and in no apparent painful distress HEENT Conjunctiva and sclera clear. No lymphadenopathy. MSK Hands * Right Hand: Able to make a fist. No swelling or tenderness to palpation of these joints. No deformities noted. * Left Hand: Able to make a fist. No swelling of these joints. No deformities noted. TTP of the 5th PIP Wrists * Right Wrist: Full ROM. 70 degrees of wrist flexion, 80 degrees of wrist extension. No swelling or TTP * Left Wrist: Full ROM. 70 degrees of wrist flexion, 80 degrees of wrist extension. No swelling or TTP Elbows * Right Elbow: Full ROM. No swelling or TTP. No TTP of the medial and lateral epicondyles * Left Elbow: Full ROM. No swelling or TTP. No TTP of the medial and lateral epicondyles Shoulders * Right shoulder: Full ROM. No swelling noted. No TTP of the AC joint, subacromial bursa or posterior shoulder * Left shoulder: Full ROM. No swelling noted. No TTP of the AC joint, subacromial bursa or posterior shoulder Knees * Right knee: Full ROM. No swelling noted. No TTP of the pes anserine bursa * Left knee: Full ROM. No swelling noted. No TTP of the pes anserine bursa. * TTP knee joint bilaterally * Crepitations felt bilaterally Ankles * Right ankle: Good ankle dorsiflexion and plantar flexion. No swelling. No TTP of the ankle joint * Left ankle: Good ankle dorsiflexion and plantar flexion. No swelling. No TTP of the ankle joint Feet * Right foot: Negative squeeze test * Left foot: Negative squeeze test Tender points? * No tenderness to palpation of the bilateral trapezius, supraspinatus, anterior costochondral junctions, bilateral suboccipital muscle insertions SKIN No rashes Vital Signs: Last Vital Signs Pulse 69 10/04/24 14:41 BP 120/72 10/04/24 14:41 Pulse Ox 97 10/04/24 14:41 Oxygen Delivery Method Room Air 10/04/24 14:41 BMI result Body Mass Index 34.4 Results Reviewed Results Reviewed: Laboratory Tests 01/11/24 04/22/24 09/25/24 08:33 11:48 09:11 WBC 6.8 RBC 4.62 Hgb 13.4 Hct 39.6 Plt Count 360 ESR 34 H 26 H Sodium 143 Potassium 3.6 Chloride 108 Carbon Dioxide 27 BUN 7 L Creatinine 0.52 AST 49 H 60 H ALT 47 H 60 H C-Reactive Protein 0.91 H 0.85 H Laboratory Tests 09/25/24 09:11 Hepatitis A IgM Ab Nonreactive Hep Bs Antigen Negative Hep Bs Antibody NONREACTIVE Hep B Core Total Ab Nonreactive Hepatitis C Ab (EIA) Nonreactive TB Test (T-Spot) Com Negative Assessment & Plan Assessment & Plan (1) Rheumatoid arthritis: Comment: Seronegative diagnosed 02/2022 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 6 tabs started 02/2022 Advanced to 8 tabs 04/2022 reduced to 6 tab 07/10 due to transaminitis DC 12/10 due to ongoing transaminitis Enbrel 09/09-DC 06/2022 ineffective Humira 06/2023 effective Code(s): M06.9 - Rheumatoid arthritis, unspecified Category: Medical Qualifiers: Rheumatoid arthritis location: multiple sites Rheumatoid factor presence: without rheumatoid factor Qualified Code(s): M06.09 - Rheumatoid arthritis without rheumatoid factor, multiple sites Plan: #RA Patient is a 54-year-old female with seronegative rheumatoid arthritis here today for follow up Currently in remission with no evidence of active synovitis. Her symptoms are likely related to her degenerative joint disease Plan - Humira 40mg SC every 2 weeks - RTC 4 months - Labs before visit: CBC, CMP, ESR, CRP (2) Polyarticular osteoarthritis: Code(s): M15.9 - Polyosteoarthritis, unspecified Plan: #Polyarticular OA Patient with polyarticular OA. Recommending topical diclofenac 4 times a day (3) Encounter for monitoring of adalimumab therapy: Code(s): Z51.81 - Encounter for therapeutic drug level monitoring; Z79.620 - FPC (current) use of immunosuppressive biologic Plan: #Long-term Use of TNF Inhibitors: Humira Discussed with the patient the benefits and risks of TNF inhibitors for the management of the rheumatic condition Benefits include reduce pain, maintenance of remission and reduction of flares as well as progression of the disease Risks include injection sites/infusion reactions, serious infections (such as bacterial infections, opportunistic infections), malignancy, delaminating syndromes, autoimmune phenomena, CHF exacerbations, palmar plantar psoriasis and cytopenias Recommended rotating injection sites, and holding medication during and for up to 1 week after resolution of a febrile illness or open skin wound Plan I spent 30 minutes reviewing the record and labs, taking a history, examining the patient, discussing the treatment plan, ordering diagnostic work up and documenting in the medical record Coding Level of Care Code Est Pt Level 4 (50622) Complex EM visit Add On G2211 Diagnoses Rheumatoid arthritis of multiple sites with negative rheumatoid factor M06.09 Rheumatoid arthritis location: multiple sites Rheumatoid factor presence: without rheumatoid factor Polyarticular osteoarthritis M15.9 Encounter for monitoring of adalimumab therapy Z51.81; Z79.620
--- OUTSIDE RECORDS SUMMARY | 2024-10-04 14:42 | XMS_ITS | Encounter Summary ---
Author Organization [facility] Address [address] [facility] [address] [facility] [address] [place] [address] Phone Care Team Providers Care Psychiatric Assistant Name Role Phone Unknown, Unknown Primary Care Provider Norman lo Encounter Details Date Type Department Care Team (Late st Contact Info) Description 10/18/2017 Ancillary Orders [facility] [address] [place] [address] [place] [address] Patricia Ward PA [address] [place] [address] Palpitations Social History Tobacco Use Types Packs/Day Years Used Date Smoking Tobacco: Never Assessed Comments Unknown Sex and Gender Information Value Date Recorded Sex Assigned at Not on file Legal Sex Female 11:21 AM EDT Gender Identity Not on file Sexual Orientation Not on file documented as of this encounter Plan of Treatment Not on file documented as of this encounter Results * Holter Monitor 24 Hours (10/18/2017 11:08 AM EDT) Anatomical Region Laterality Modality Heart Other Narrative 10/18/2017 11:39 AM EDT 24-hour monitor: Patient reported symptoms of chest pressure and agitated heart. Baseline rhythm is sinus with a minimum heart rate of 63 maximum 141 average 91 bpm. Rare PACs present. Impression: Normal 24-hour monitor, no arrhythmias present. Patricia [facility] ORDER[facility] BLES Final Result documented in this encounter Visit Diagnoses Diagnosis Palpitations Palpitations documented in this encounter Care Teams Psychiatric Assistant Relationship Specialty Start Date End Date Unknown, Unknown, PCP - General 10/17/17 documented as of this encounter Additional Source Comments The information contained in this document represents components of the legal health record. It is not the complete legal health record.[facility]
--- OUTSIDE RECORDS SUMMARY | 2024-10-04 14:42 | XMS_ITS | Encounter Summary ---
Author Organization [employer] Address [address] [facility] [address] [place] [address] Care Team Providers Care Salesperson Sheet Music Name Role Phone Elizabeth Boo Primary Care Provider [phone] Pravin Guzman MD Unavailable [phone] June Unavailable Josiane Smith MD Unavailable Encounter Details Date Type Department Care Team (Late st Contact Info) Description 09/28/2022 Orders Only [facility] CHC MED & PEDS [address] [place] [address] Mami Neely LPN Social History Tobacco Use [...] documented as of this encounter Care Teams Salesperson Sheet Music Relationship Specialty Start Date End Date Elizabeth Boo FNP [address] [place] [address] PCP - General Family Medicine 04/11/22 Pravin Guzman MD [address] [place] [address] Cardiology 04/23/24June [address]rd [place] [address] Gastroenterology 04/23/24 Josiane Smith MD [address] [place] [address] Rheumatology 04/23/24 documented as of this encounter
--- OUTSIDE RECORDS SUMMARY | 2024-10-04 14:42 | XMS_ITS | Data Portability ---
Author Organization [employer] [facility], [facility] Address [address] [place] [address] Care Team Providers Care Flatlock Sewing Machine Operator Name Role Phone HIM CCA OTHER [facility] OTHER Assessment Encounter Date Assessment Date Assessment LastModified by Organization Details LastModified Time 12/08/2023 12/08/2023 I provided real -time medical direction via phone for this encounter, and was available for additional phone based assistance as needed. I have reviewed and agree with the Assessment and Plan as documented by the Analytics Senior Manager. We discussed the diagnostic uncertainty of home [...] to call 911- verbalized understanding of instruction [email or web address] Not available 12/08/2023 12:39:33 Plan of Treatment Reminders Order Date Submit Date Provider Last Modified By Organization Details Last Modified Time Details Appointments None recorded. Lab None recorded. Referral None recorded. Procedures None recorded. Surgeries None recorded. Imaging None recorded. Medication Orders benzonatate 200 mg capsule 2023 [facility], [address] [place] [address], [id number], 5 17:44:34 Tessalon Perles 100 mg capsule 2023 024 [facility], [address], [place], [id number], 4 18:02:28 Patient TargetsNo targets recorded. Patient InstructionsNo instructions recorded. Reason for Referral None Reported. Medical Equipment None Reported. Allergies Allergen ID Allergen Name Allergen Category Reaction Reaction Severity Criticality Documentation Date Start Date Code Code System Note Provider Name and Address Organization Details Recorded Time 6290 Celexa medicatio n Not available Not available Not available 12/09/2023 56077 8 RxNorm Renea Cortés MD [address] [place] [address],[address], [place], [phone], [employer] 4 13:07:20 6291 oxybutyni n medicatio n Not available Not available Not available 12/09/2023 67587 RxNorm Renea Cortés MD [address] [place] [address],[address], [place], [phone], [employer] 4 13:07:27 6292 niacin medicatio n Not available Not available Not available 12/09/2023 7393 RxNorm Renea Cortés MD [address] [place] [address],[address], [place], [phone], [employer] 4 13:07:35 6293 citalopra m medicatio n Not available Not available Not available 12/09/2023 2556 RxNorm Renea Cortés MD [address] [place] [address],[address], [place], [phone], [employer] 4 13:07:50 6294 diltiazem Not available Not available Not available Not available 12/09/2023 3443 RxNorm Not Available [facility] - production 4 03:40:07 Medications Name Sig Start Date Stop Date Status Note LastModified by Organization Details LastModified Time medbox status USE DIRECTED active Not Available Not Available No t Available oximeter pulse [id number] [id number] usar TO Comprobar el nivel de oxgeno [...] /min 154.94 cm 74 /min 97.2 [degF] 70534.6 g 97 % 97 % 118/77 mm[Hg] Not Available [facility] 4 10:53:12 Date Recorded Oxygen saturation Oxygen saturation in Arterial blood by Pulse oximetry Respiratory rate Heart rate Body weight Body temperature Systolic And Diastolic Provider Name and Address Organization Details Last Updated DateTime 4 99 % 99 % 16 /min 78 /min 58683.3 36 g 97.9 [degF] 112/72 mm[Hg] Not Available [facility] 4 12:34:03 Social History None recorded. Functional [...] Note Tim Fields MD Main - [facility] [address] [place] [phone] 05/16/2023 10:53:07 05/17/2023 17:21:08 Viral upper respiratory tract infection [id number] J06.9 This 53-year-ol d female has had a cough and congestion for four days. Her COVID-19, flu, and strep screens were negative. I called in a prescripti on for Dean Carter. She will follow-up with her PCP. The patient agreed with this plan. [id number] Renea Cortés MD Main - [facility] [address] [place] [address] 12/08/2023 12:34:00 12/09/2023 15:48:47 Acute COVID-19 [id number] U07.1 We reviewed the risks/ benefits and [...] on. Verified allergies and that she uses [facility] pharmacy-d enies history of CKD-lesli g listed in PCP note Health Concerns Section Related Observation LastModified by Organization Detai ls LastModified Time None Recorded Concern Status LastModified by Organization Details LastModified Time None Recorded Advance Directives Directive None Recorded Payers Insurance Date Sequence Insurance Name Policy Number Policy Garcia Covered Member ID Garcia Member ID Guarantor Name 12/08/2023 1 [facility] - DOS ON OR AFTER 2022 - DUAL ELIGIBLE - JAIL OPTIONS AND ONE CARE (MEDICARE REPLACEMENT/ADV ANTAGE - HMO) Sobia Mendez [id number] Sobia Mendez Notes Date Note Type Note [...] required to process visit. Tim Fields MD [address] [place] [address],[address], [place], [phone] 05/16/2023 10:57:35 12/08/19 24 text/htm l HPI: Patient with home test + COVID yesterday ................................ ................................ ................................ ................................ ............. CRC Nurse Triage Notes (Maria L Morales): Chief Complaints: Cough, Fever/Chills, Headache, Pain, URI PMH: Hypertension, COPD/Asthma, Hypertension Allergies: Diltiazem Other Allergies: Citalopram, Diltiazem niacin oxybuynin Comments: visit to assess resp status h/o asthma ................................ ................................ ................................ ................................ ............. Analytics Senior Manager Note From Steve Carpenter: Pt Covid positive [...] follow up with pcp if symptoms persist. Analytics Senior Manager Allergies: Diltiazem ................................ ................................ ................................ ................................ ............. [...] or other substances Renea Cortés MD [address] [facility],[address], [place], [phone], [facility] 12/09/2023 13:08:39 OBGyn Episode No OBEpisode recorded.
--- OUTSIDE RECORDS SUMMARY | 2024-10-04 14:42 | XMS_ITS | Clinical Summary ---
Author Organization 175 [facility] Address [address] [place] [address] Phone Care Team Providers Care Ios Developer Name Role Phone Elizabeth Boo RN Primary [...] Influencers of Health Screening 01/17/2024 Depression Screening 03/20/2024 COVID-19 Vaccine (5 - Moderna risk season) 2024 02/27/2024, 03/16/2021, 06/09/2020, Additional history exists Influenza Vaccine (#1) 2024 , 12/02/2021, 01/28/2021, [...] ID:[id number] Group ID:ICO Type:Not on file Address: [address] [facility] [place] [address] Care Teams Ios Developer Relationship Specialty Start Date End Date Elizabeth Boo RN [address] [facility] [address] [place] [address] PCP - General 09/12/23
== END 2024-10-04 15:32 | disposition home or self-care (01) ==
LOC: HO.RHE 14:40
PROVIDERS: PCP Registered Nurse; Visit Provider Student in an Organized Health Care Education/Training Program
DX: M06.09 Rheumatoid arthritis without rheumatoid factor, multiple sites (principal); M15.9 Polyosteoarthritis, unspecified; Z51.81 Encounter for therapeutic drug level monitoring; Z79.620 Long term (current) use of immunosuppressive biologic
CPT/HCPCS: 99214; G2211

== ENCOUNTER → 2024-10-04 14:40 | Outpatient (BNVA) | payer OTHER, SELFPAY | PROVIDERS: PCP Registered Nurse; Visit Provider Student in an Organized Health Care Education/Training Program | DX: M06.09 Rheumatoid arthritis without rheumatoid factor, multiple sites (principal); M15.9 Polyosteoarthritis, unspecified; Z51.81 Encounter for therapeutic drug level monitoring | CPT/HCPCS: 99212 ==

== ENCOUNTER 2024-10-17 09:22 | Outpatient (AMB) | payer OTHER, SELFPAY ==
--- NOTE | 2024-10-17 09:32 | A.OFFVIS_ITS ---
Intake Visit Reasons: 9m/US(set) Intake Note: Patient is present for 9M/US Urology Medication:NONE Antibiotic Allergy:NONE Blood Thinner:NONE Wound Care Specialist Required: No Allergies niacin (From NIASPAN EXTENDED-RELEASE) Allergy (Intermediate, Verified 10/17/24 10:02) TACHYCARDIA,DIFF.BREATHING citalopram (Celexa) Allergy (Unknown, Verified 10/17/24 10:02) unknown diltiazem (From CARTIA XT) Allergy (Unknown, Verified 10/17/24 10:02) UNKNOWN Medication List - Last Reconciled 10/17/24 by JOSE Mcqueen- albuterol sulfate 90 mcg/actuation 2 puffs inhalation Q4-6H PRN albuterol sulfate 2.5 mg inhalation TID PRN amlodipine 10 mg PO DAILY cholestyramine (with sugar) 4 gram 8 grams PO BID diclofenac sodium 1% 2 grams topical QID fluticasone furoate-vilanterol 100-25 mcg/dose (Breo Ellipta) 1 inh inhalation DAILY fluticasone propionate 50 mcg/actuation sprays intranasal gabapentin 400 mg PO TID Humira(CF) Pen (adalimumab) 40 mg (0.4 mL) subcut Q2W NS lancets As directed melatonin 10 mg PO BEDTIME metoprolol succinate ER 200 mg PO QAM metoprolol succinate ER 25 mg PO DAILY PRN multivit-iron sulf-folic acid 15 mg iron- 400 mcg (Tab-A-Ivan Multivitamin w- iron) 1 tab PO DAILY pantoprazole 20 mg PO QAM ropinirole 1 mg PO BEDTIME ropinirole 0.5 mg PO BEDTIME sertraline 50 mg PO DAILY simethicone (Gas Relief (simethicone)) 180 mg PO TID simvastatin 10 mg PO BEDTIME topiramate 50 mg PO BEDTIME trazodone 50 mg PO BEDTIME vitamin E (dl, acetate) 180 mg PO BID HPI Comments Details: Sobia is a very pleasant 54-year-old Turkmen-speaking female patient of Dr. Emeli fitch. She has a past medical history of rheumatoid arthritis, GERD, hypertension, stroke, bilateral carpal tunnel syndrome, dyslipidemia, anxiety, depression, migraines, and restless leg syndrome. She presents to the office today for follow-up of her nephrolithiasis. In discussion with the patient today she reports to be doing and feeling well. She denies having had any bothersome urinary issues or concerns since her last office visit here. Recent renal imaging results reviewed with the patient today 08/11 bilateral kidneys are normal in size, contour, and echogenicity. No calculi, lesions, and or hydronephrosis noted bilaterally. There are bilateral vascular calcifications in the hilar region. When asked she denies any bothersome urinary issues or concerns. She denies urinary urgency, urinary frequency, incontinence, nocturia, hematuria, dysuria, foul smelling urine, changes to urinary stream, flank pain, fever, and or chills. She is happy with her current voiding parameters. In office urinalysis results reviewed with the patient today. We discussed at length potential causes of nephrolithiasis as well as metabolic workup. Discussed and stressed the importance of adequate hydration relation to nephrolithiasis as well as overall health and well-being. All questions were answered. She otherwise offers no other issues or concerns at this time. [facility] Medical History Colon cancer screening Acute bronchitis Abdominal bloating Epigastric pain Diarrhea Rheumatoid arthritis GERD (gastroesophageal reflux disease) HTN (hypertension) Stroke Bilateral carpal tunnel syndrome Dyslipidemia Anxiety Depression Migraine Restless legs Surgical History H/O colonoscopy S/P breast biopsy, right H/O prior ablation treatment History of esophagogastroduodenoscopy (EGD) History of cholecystectomy Family History Father High blood pressure Cancer Mother Diabetes High blood pressure Sister Diabetes High blood pressure Thyroid disease Cancer Brother High blood pressure Asthma Social History Alcohol intake: never Patient Tobacco Use Status: Never used Tobacco Current occupational status: disabled Current occupation: rt handed Review of Systems Const All systems reviewed & are unremarkable except as noted in HPI and below Physical Exam Const General: cooperative, healthy appearing, comfortable, no acute distress, well developed, alert and awake Orientation/consciousness: patient oriented x3 Limitations: no limitations HEENT Head: Yes normal to inspection, Yes normocephalic and Yes atraumatic Ears: hearing grossly normal bilaterally Eyes General: appearance normal, both eyes and all related structures Neck Neck: Yes normal visual inspection and Yes trachea midline Chest Chest palpation & inspection: normal inspection of the chest Resp Effort & Inspection: normal respiratory effort and able to speak in complete sentences Cardio Rate: regular rate GI Inspection: Yes normal to inspection General: Yes no CVA tenderness Back/Spine/Pelvis Back: no CVA tenderness Skin General skin exam: no rashes or lesions noted Neuro General: patient oriented x3 Extrem General: Yes normal to inspection Psych Appearance: grossly normal and well kempt Mental Status: mental status grossly normal Speech and movement: Normal speech and movement present and Clear speech present Affect: normal affect Attitude: cooperative Thought process: Normal thought process present Thought content: Normal thought content present Insight: Fair insight present (Psych) Judgement: Fair judgement present (Psych) Results AMB Urinalysis, Automated UA Leukoctes 0 Robbie/uL Last Edit by AVE Kemp on 10/17/24 09:45 UA Nitrite Negative Last Edit by AVE Kemp on 10/17/24 09:45 UA Urobilinogen 0.2 mg/dL Last Edit by AVE Kemp on 10/17/24 09:4 5 UA Protein 15 mg/dL Last Edit by AVE Kemp on 10/17/24 09:45 UA pH 6.0 Last Edit by AVE Kemp on 10/17/24 09:45 UA Blood 0 Chad/uL Last Edit by AVE Kemp on 10/17/24 09:45 UA Specific [place] 1.015 Last Edit by AVE Kemp on 10/17/24 09: 45 UA Ketone Negative Last Edit by AVE Kemp on 10/17/24 09:45 UA Bilirubin 0 mg/dL Last Edit by AVE Kemp on 10/17/24 09:45 UA Glucose 0 mg/dL Last Edit by AVE Kemp on 10/17/24 09:45 Results Reviewed Results Reviewed: Laboratory Last Values Urine pH (Auto) 6.0 10/17/24 09:44 Specific [place] (Auto) 1.015 10/17/24 09:44 Urine Protein (Auto) 15 mg/dL 10/17/24 09:44 Glucose (UA)(Auto) 0 mg/dL 10/17/24 09:44 Urine Ketones (Auto) Negative 10/17/24 09:44 Urine Blood (Auto) 0 Chad/uL 10/17/24 09:44 Urine Nitrite (Auto) Negative 10/17/24 09:44 Urine Bilirubin (Auto) 0 mg/dL 10/17/24 09:44 Urine Urobilinogen (Auto) 0.2 mg/dL 10/17/24 09:44 Leukocyte Esterase (Auto) 0 Robbie/uL 10/17/24 09:44 Date of Service: 07/23/24 Procedure(s): US renal BI FINDINGS: RIGHT KIDNEY: 11.8 x 4.2 x 5.4 cm (SAG x AP x TRV). The kidney is normal in size, contour, and echogenicity. Renal cortical thickness is normal. No calculi or focal parenchymal lesions. No hydronephrosis. There are vascular calcifications in the hilar region. LEFT KIDNEY: 11.8 x 5.7 x 6.6 cm (SAG x AP x TRV). The kidney is normal in size, contour, and echogenicity. Renal cortical thickness is normal. No calculi or focal parenchymal lesions. No hydronephrosis. There are vascular calcifications in the hilar region. IMPRESSION: Normal bilateral kidneys. No definite calculi are evident. Per technologist note, vascular calcifications present in the hilar regions. Assessment & Plan Assessment & Plan (1) Nephrolithiasis: Code(s): N20.0 - Calculus of kidney Category: Medical Plan In office urinalysis results with the patient today; as noted above. Recent renal imaging results reviewed with the patient today; as noted above. She currently denies any bothersome urinary issues or concerns. We discussed potential causes of nephrolithiasis as well as metabolic workup. She reports be happy with her current voiding parameters. Discussed, educated, and stressed the importance of adequate hydration relation to nephrolithiasis as well as overall health and well-being. Will continue with surveillance monitoring. Will obtain renal ultrasound in 6 months. Follow-up in 6 months with imaging to be completed prior; or sooner with any issues, concerns, and or questions. Orders: Orders US renal BI 6 Months N20.0 - Calculus of kidney AMB Urinalysis Automated Today Z13.9 - Encounter for screening, unspecified Patient Instructions: The patient had an opportunity to ask questions regarding the treatment plan. All questions were answered. Physical exam, labs, and imaging were discussed and reviewed in detail. As well as risks, benefits, and discussion of treatment choices. No major barriers to understanding were identified. The patient expressed understanding and agreement with the above treatment plan. The patient was made aware they should contact our office by phone for worsening of their current condition, the appearance of new symptoms, or with any questions or concerns. Compliance is encouraged with any medications and follow up testing that is ordered. It is a privilege to be allowed the opportunity to participate in? your urological care.? Again, if you have any questions or concerns If you have any questions or concerns please do not hesitate to contact me. The office is [phone]. This note is constructed using voice recognition software. While every effort has been made to ensure accuracy floor worker well service errors may have been included. Yours sincerely, GUERO Mcqueen Coding Level of Care Code Est Pt Level 3 (87801) Complex EM visit Add On G2211 Diagnoses Nephrolithiasis N20.0
--- OUTSIDE RECORDS SUMMARY | 2024-10-17 09:40 | XMS_ITS | Encounter Summary ---
Author Organization [employer] [facility] Address [address] [facility] [address] [place] [address] Phone Care Team Providers Care Employee Communications Manager Name Role Phone Unknown, Unknown Primary Care Provider Norman lo Encounter Details Date Type Department Care Team (Late st Contact Info) Description 10/18/2017 Ancillary Orders [facility] [address] [place] [address] [place] [address] Patricia Ward PA [address] [place] [address] Palpitations Social History Tobacco Use Types Packs/Day [...] Palpitations documented in this encounter Care Teams Employee Communications Manager Relationship Specialty Start Date End Date Unknown, Unknown, PCP - General 10/17/17 documented as of this encounter Additional Source Comments The information contained in this document represents components of the legal health record. It is not the complete legal health record.[facility]
--- OUTSIDE RECORDS SUMMARY | 2024-10-17 09:40 | XMS_ITS | Encounter Summary ---
Author Organization [employer] Address [address] [facility] [address] [place] [address] Care Team Providers Care Mass Spec Name Role Phone Elizabeth Boo Primary Care Provider [phone] Pravin Guzman MD Unavailable [phone] June Unavailable Josiane Smith MD Unavailable Encounter Details Date Type Department Care Team (Late st Contact Info) Description 09/28/[address] [facility] [address] [place] [address] Mami Neely LPN Social History Tobacco Use [...] documented as of this encounter Care Teams Mass Spec Relationship Specialty Start Date End Date Elizabeth Boo FNP [address] [place] [address] PCP - General Family Medicine 04/11/22 Pravin Guzman MD [address] [place] [address] Cardiology 04/23/24June [address]rd [place] [address] Gastroenterology 04/23/24 Josiane Smith MD [address] [place] [address] Rheumatology 04/23/24 documented as of this encounter
--- OUTSIDE RECORDS SUMMARY | 2024-10-17 09:40 | XMS_ITS | Clinical Summary ---
Author Organization 175 [facility] Address [address] [place] [address] Phone Care Team Providers Care Nanotechnology Engineering Technician Name Role Phone Elizabeth Boo RN [...] Group ID:ICO Type:Not on file Address: [address] [facility] [place] [address] Care Teams Nanotechnology Engineering Technician Relationship Specialty Start Date End Date Elizabeth Boo RN [address] [facility] [address] [place] [address] PCP - General 09/12/23
== END 2024-10-17 10:16 | disposition home or self-care (01) ==
LOC: HO.HUSH 09:23
PROVIDERS: PCP Registered Nurse; Visit Provider Nurse Practitioner Family
DX: N20.0 Calculus of kidney (principal); Z13.9 Encounter for screening, unspecified
CPT/HCPCS: 99213; G2211

== ENCOUNTER → 2024-10-17 09:22 | Outpatient (BNVA) | payer OTHER, SELFPAY | PROVIDERS: PCP Registered Nurse; Visit Provider Nurse Practitioner Family | DX: N20.0 Calculus of kidney (principal); Z13.9 Encounter for screening, unspecified | CPT/HCPCS: 81003; 99212 ==

== ENCOUNTER 2024-10-23 14:11 | Outpatient (REF) | payer OTHER, SELFPAY ==
--- NOTE | ~2024-10-23 | MR_ITS ---
CLINICAL HISTORY: BENIGN NEOPLASM OF RT ADRENAL GLAND MR abdomen with and without gadolinium Comparison: CT/SR - CT CHEST W IV CON - 09/23/24 08:34 EDT US/GA/SR - US ABDOMEN COMPLETE WITH LIVER ELASTOGRAPHY - 09/29/23 09:03 EDT US/GA/SR - US ABDOMEN LIMITED - 11/04/22 09:18 EDT Findings: Lung bases are clear. Heart size is normal. Liver, biliary tree, pancreas and pancreatic duct are normal in caliber. Status post cholecystectomy. Spleen is within normal limits. Left adrenal is normal in appearance. 20 mm right anterior adrenal nodule demonstrates signal dropout on out of phase gradient echo imaging. Kidneys are within normal limits. Visualized bowel loops and vasculature are normal in caliber. Duplicated inferior vena cava is present. Visualized osseous structures are within normal limits. IMPRESSION: 1. Right adrenal adenoma. 2. Duplicated inferior vena cava. This document has been electronically signed by: Fox Canchola MD on 10/23/2024 16:31:35
--- OUTSIDE RECORDS SUMMARY | 2024-10-23 14:44 | XMS_ITS | Encounter Summary ---
Author Organization [employer] [facility] Address [address] [facility] [address] [place] [address] Phone Care Team Providers Care Medical Appliance Maker Name Role Phone Unknown, Unknown Primary Care Provider Norman lo Encounter Details Date Type Department Care Team (Late st Contact Info) Description 10/18/2017 Ancillary Orders [facility] [address] [place] [address] [place] [address] Patricia Ward PA [address] [place] [address] Palpitations Social History Tobacco Use Types Packs/Day [...] Palpitations documented in this encounter Care Teams Medical Appliance Maker Relationship Specialty Start Date End Date Unknown, Unknown, PCP - General 10/17/17 documented as of this encounter Additional Source Comments The information contained in this document represents components of the legal health record. It is not the complete legal health record.[facility]
--- OUTSIDE RECORDS SUMMARY | 2024-10-23 14:44 | XMS_ITS | Clinical Summary ---
Author Organization 175 [facility] Address [address] [place] [address] Phone Care Team Providers Care Recruiting Scheduler Name Role Phone Elizabeth Boo RN Primary [...] Group ID:ICO Type:Not on file Address: [address] [facility] [place] [address] Care Teams Recruiting Scheduler Relationship Specialty Start Date End Date Elizabeth Boo RN [address] [facility] 1 [place] [address] PCP - General 09/12/23
--- OUTSIDE RECORDS SUMMARY | 2024-10-23 14:44 | XMS_ITS | Encounter Summary ---
Author Organization [employer] Address [address] [facility] [address] [place] [address] Care Team Providers Care Cardiac Cath Tech Name Role Phone Elizabeth Boo Primary Care Provider [phone] Pravin Guzman MD Unavailable [phone] June Unavailable Josiane Smith MD Unavailable Encounter Details Date Type Department Care Team (Late st Contact Info) Description 09/28/2022 Orders Only [facility] [address] [place] [address] Mami Neely LPN Social History Tobacco Use [...] documented as of this encounter Care Teams Cardiac Cath Tech Relationship Specialty Start Date End Date Elizabeth Boo FNP [address] [place] [address] PCP - General Family Medicine 04/11/22 Pravin Guzman MD [address] [place] [address] Cardiology 04/23/24June [address]rd [place] [address] Gastroenterology 04/23/24 Josiane Smith MD [address] [place] [address] Rheumatology 04/23/24 documented as of this encounter
== END 2024-10-23 14:12 | disposition home or self-care (01) ==
LOC: HO.MRI 14:11
PROVIDERS: PCP Registered Nurse; Visit Provider Registered Nurse
DX: D35.01 Benign neoplasm of right adrenal gland (principal); K21.9 Gastro-esophageal reflux disease without esophagitis; R11.0 Nausea; K58.2 Mixed irritable bowel syndrome; K30 Functional dyspepsia; K75.81 Nonalcoholic steatohepatitis (NASH)
CPT/HCPCS: 74183; A9585

== ENCOUNTER → 2024-10-23 14:43 | Outpatient (BNV) | payer OTHER, SELFPAY | PROVIDERS: PCP Registered Nurse; Visit Provider Radiology Diagnostic Radiology | DX: D35.01 Benign neoplasm of right adrenal gland (principal) | CPT/HCPCS: 74183 ==

== ENCOUNTER 2024-10-23 15:12 | Outpatient (AMB) | payer OTHER, SELFPAY ==
[2024-10-23 15:27] VITALS: BP 105/52; PULSE 62; BMI 34.2
--- NOTE | 2024-10-23 15:27 | MHC.OFFVIS ---
Vital Signs 10/23/24 15:27 Height 5 ft 1 in Weight 180 lb 12.465 oz BMI 34.2 BP 105/52 L Blood Pressure Location Lt brachial Position Sitting Pulse 62 Intake Visit Reasons: Follow up gastric emptying scan Intake Note: Sobia presents in follow up of gastric emptying scan (03/12). CC: Patient c/o stomach pain, nausea, blood in stool about a week ago, and diarrhea with dark feces. Allergies niacin (From NIASPAN EXTENDED-RELEASE) Allergy (Intermediate, Verified 10/23/24 15:31) TACHYCARDIA,DIFF.BREATHING citalopram (Celexa) Allergy (Unknown, Verified 10/23/24 15:31) unknown diltiazem (From CARTIA XT) Allergy (Unknown, Verified 10/23/24 15:31) UNKNOWN HPI HPI Follow up gastric emptying scan: Details: Assessment & Plan (1) Nausea: Code(s): R11.0 - Nausea Category: Medical (2) Early satiety: Code(s): R68.81 - Early satiety Category: Medical Plan Hebrew #[id number], Jay She says she is feeling much, much better. However, despite taking her cholestyramine, at the increased dose, every day consistently she still will have a week or so when she does not move her bowels and then she will have nothing but straight diarrhea. This is accompanied by quite a lot of bloating and severe nausea especially before her largest meal which is usually at supper time. It really sounds like her stomach might not be emptying properly to pace the entire GI system. We are going to get a gastric emptying study but in the meantime I am going to start her on a trial dose of Reglan 10 mg just before her largest meal to see if this gives her any relief. Her current GI regimen consists of cholestyramine, metoclopramide 10 mg once a day, pantoprazole 20 mg in the morning Return office visit in 8 weeks Orders: Orders NM gastric emptying study 02/01/24 R11.0 - Nausea, R68.81 - Early satiety Medications: New metoclopramide HCl (Reglan) 10 mg PO .qac supper 30 tabs 6RF R68.81 - Early satiety, R11.0 - Nausea GASTRIC EMPTYING STUDY 02/2024 FINDINGS: There is good visualization of activity in the stomach immediately post ingestion. As the study progresses, there is slightly slower clearance initially with subsequent good clearance from the stomach with no significant retention noted by the end of the study time period. Retention in the stomach at each time interval was;: 1 hour 92% (normal < 90%) 2 hours 79% (normal < 60%) 3 hours 2% 4 hours 1% (normal < 10%) Gastric emptying study grading per Consensus Recommendations in 2008 (https://tech.snmjournals.org/content/3644) NM/NM gastric emptying study IMPRESSION: There is no scintigraphic evidence for delayed gastric emptying. Laboratory Tests 09/25/24 09:11 Total Bilirubin 0.5 AST 60 H ALT 60 H Alkaline Phosphatase 131 H TODAY'S VISIT Hebrew #[id number] Her current GI regimen consists of cholestyramine, metoclopramide 10 mg once a day, pantoprazole 20 mg in the morning. She says that her stooling has now even doubt and she does not need any further changes in her medications or investigations. She is satisfied with her GI regimen. Return office visit in 6 months [facility] Medical History Colon cancer screening Acute bronchitis Abdominal bloating Epigastric pain Diarrhea Rheumatoid arthritis GERD (gastroesophageal reflux disease) HTN (hypertension) Stroke Bilateral carpal tunnel syndrome Dyslipidemia Anxiety Depression Migraine Restless legs Surgical History H/O colonoscopy S/P breast biopsy, right H/O prior ablation treatment History of esophagogastroduodenoscopy (EGD) History of cholecystectomy Family History Father High blood pressure Cancer Mother Diabetes High blood pressure Sister Diabetes High blood pressure Thyroid disease Cancer Brother High blood pressure Asthma Social History Alcohol intake: never Patient Tobacco Use Status: Never used Tobacco Current occupational status: disabled Current occupation: rt handed Review of Systems Const Denies fatigue, Denies fever(s), Denies night sweats, Denies poor appetite, Reports weight gain and Denies weight loss ENT Reports Normal hearing present, Denies dental pain, Denies dysphagia, Denies hearing loss, Denies mouth pain, Denies odynophagia, Denies throat swelling, Denies tongue swelling and Reports other (Dentition adequate) Card Reports no additional complaints Resp Reports no additional complaints GI Details: Denies abdominal pain, Denies melena, Denies bloating, Denies hematochezia, Denies constipation, Reports GI cramping, Denies dysphagia, Denies excessive flatus, Denies early satiety, Reports heartburn, Reports diarrhea, Reports nausea, Denies odynophagia, Denies vomiting and Denies hematemesis Skin/Breast Denies pruritus, Denies lesions, Denies rash and Denies jaundice Neuro Reports Normal hearing present and Denies Abnormal speech present Endo Denies fatigue Aller/Immun Denies throat swelling and Denies tongue swelling Physical Exam Vital Signs: Last Vital Signs Pulse 62 10/23/24 15:27 BP 105/52 L 10/23/24 15:27 BMI result Body Mass Index 34.2 Const General: cooperative, no acute distress, well developed and well groomed Nutritional Appearance: well nourished and obese Orientation/consciousness: oriented to person, oriented to place and oriented to time Limitations: No language barrier HEENT Head: Yes normocephalic and Yes atraumatic Eyes General: appearance normal, both eyes and all related structures Pupils: Equal, round and reactive pupils present Neck Neck: Yes normal visual inspection and Yes no lymphadenopathy Thyroid: Thyroid normal Resp Effort & Inspection: normal respiratory effort and able to speak in complete sentences Auscultation: clear to auscultation bilaterally Cardio Rate: regular rate Rhythm: regular rhythm Heart sounds: Normal, physiologic split S2 sound present Peripheral pulses: radial pulses present and posterior tibial pulses present GI Inspection: No distended, No Abdominal panniculus present and Yes obesity Palpation (GI): Soft to palpation, nontender, no guarding, not rigid and No hepatosplenomegaly present Percussion: Yes normal to percussion Auscultation: normal bowel sounds Rectal Exam - Female: deferred Skin General skin exam: no rashes or lesions noted, turgor normal, skin not dry, no jaundice, No spider nevi and no striae Rashes: no rashes Nails: normal Neuro General: oriented to person, oriented to place and oriented to time Cranial nerves: Yes Equal, round and reactive pupils present and Yes Normal hearing present Speech: No Abnormal speech present Extrem General: Yes normal to inspection, No clubbing, No cyanosis and No edema Psych Appearance: grossly normal and well kempt Mental Status: mental status grossly normal Speech and movement: Normal speech and movement present Affect: normal affect Attitude: cooperative Thought process: Normal thought process present and not confabulating Thought content: Normal thought content present Insight: Fair insight present (Psych) Assessment & Plan Assessment & Plan (1) Irritable bowel syndrome with both constipation and diarrhea: Code(s): K58.2 - Mixed irritable bowel syndrome Category: Medical (2) Nausea: Code(s): R11.0 - Nausea Category: Medical (3) GERD (gastroesophageal reflux disease): Code(s): K21.9 - Gastro-esophageal reflux disease without esophagitis Category: Medical (4) Functional dyspepsia: Code(s): K30 - Functional dyspepsia Category: Medical (5) GONZALEZ (nonalcoholic steatohepatitis): Comment: K75.81 (Primary), Neg 2019 Hep B, C, mild elevation LFT's, 12/2018 US, ferritin, autimmune work up WNL, AFP 1.8, fibrosis score F0 ULTRASOUND OF THE ABDOMEN WITH ELASTOGRAPHY (F-0) 11/30/23 CURRENT LABS 09/25/24 09:11 Total Bilirubin 0.5 AST 60 H ALT 60 H Alkaline Phosphatase 131 H ULTRASOUND OF THE ABDOMEN WITH ELASTOGRAPHY (F-0) 11/30/23 FINDINGS: PANCREAS: Normal. The visualized pancreatic head and body are normal in appearance. The remainder of the pancreas is obscured from visualization by the overlying bowel gas. ABDOMINAL AORTA: The proximal, middle, and distal aortic segments are normal in caliber. INFERIOR VENA CAVA: Visualized portions are normal. LIVER: The liver demonstrates normal size, contour and generally increased echogenicity. No focal lesion or intrahepatic biliary duct dilatation. The right lobe measures 18.0 cm in length. The left lobe measures 12.4 cm in length. Portal flow is towards the liver (hepatopetal). Shear wave liver elastography median stiffness is 1.49 m/s (reference: normal median stiffness is 1.3 m/s or less). IQR/median stiffness to assess sampling precision is 0.15 (reference: good quality data set is IQR/median stiffness of 0.15 or less). GALLBLADDER: Surgically absent. COMMON BILE DUCT: Normal in caliber measuring 0.7 cm in diameter. RIGHT KIDNEY: Normal. No hydronephrosis. No renal calculi or focal parenchymal lesions. The kidney measures 11.2 cm in maximum dimension. LEFT KIDNEY: Normal. No hydronephrosis. No renal calculi or focal parenchymal lesions. The kidney measures 12.3 cm in maximum dimension. SPLEEN: Normal. The spleen measures 11.8 cm in maximum dimension. FREE FLUID: None. US/US abdomen comp w elastography IMPRESSION: 1. There is generalized increase in hepatic echotexture, consistent with fatty infiltration or hepatocellular disease. Please correlate clinically. No focal hepatic mass or intrahepatic biliary dilatation is seen. 2. There is hepatomegaly. 3. Liver elastography: In the absence of other known clinical signs, measurements rule out compensated advanced chronic liver disease. If there are known clinical signs, further testing may be needed for confirmation. 4. The gallbladder is surgically absent. Code(s): K75.81 - Nonalcoholic steatohepatitis (GONZALEZ) Category: Medical Plan Hebrew #[id number] Her current GI regimen consists of cholestyramine, metoclopramide 10 mg once a day, pantoprazole 20 mg in the morning. She says that her stooling has now even doubt and she does not need any further changes in her medications or investigations. She is satisfied with her GI regimen. We review her labs and her liver enzymes are rising again and she admits that she has been gaining weight. I again emphasized the importance of so steady weight loss to further protect her liver health. 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
== END 2024-10-23 16:11 | disposition home or self-care (01) ==
LOC: HO.HGI 15:12
PROVIDERS: PCP Registered Nurse; Visit Provider Nurse Practitioner
DX: K58.2 Mixed irritable bowel syndrome (principal); R11.0 Nausea; K21.9 Gastro-esophageal reflux disease without esophagitis; K30 Functional dyspepsia; K75.81 Nonalcoholic steatohepatitis (NASH)
CPT/HCPCS: 99213

== ENCOUNTER 2024-11-01 14:19 | Outpatient (AMB) | payer OTHER, SELFPAY ==
[2024-11-01 14:21] VITALS: BP 104/60; PULSE 81; O2SAT 97; BMI 34.4
--- NOTE | 2024-11-01 14:21 | MHC.OFFVIS ---
Vital Signs 11/01/24 14:21 Height 5 ft 1 in Weight 182 lb BMI 34.4 BP 104/60 Blood Pressure Location Rt brachial Position Sitting Pulse 81 Pulse Source Pulse Oximeter Pulse Oximetry (%) 97 Oxygen Delivery Method Room Air Intake Visit Reasons: Asthma Plumbing Service Technician Required: Yes Plumbing Service Technician Name: Mami Toth Allergies niacin (From NIASPAN EXTENDED-RELEASE) Allergy (Intermediate, Verified 11/01/24 14:23) TACHYCARDIA,DIFF.BREATHING citalopram (Celexa) Allergy (Unknown, Verified 11/01/24 14:23) unknown diltiazem (From CARTIA XT) Allergy (Unknown, Verified 11/01/24 14:23) UNKNOWN HPI HPI Asthma: Details: 54-year-old lady, nonsmoker, initially referred for evaluation of hemoptysis which she denied, now followed for recurrent bronchitis and asthma. She has been using Breo and albuterol MDI/nebs with good control of her symptoms. Her hemoptysis has not recurred. Her CT chest did not demonstrate any evidence of bronchiectasis. Patient does complain of cough productive of greenish sputum. [facility] Medical History Colon cancer screening Acute bronchitis Abdominal bloating Epigastric pain Diarrhea Rheumatoid arthritis GERD (gastroesophageal reflux disease) HTN (hypertension) Stroke Bilateral carpal tunnel syndrome Dyslipidemia Anxiety Depression Migraine Restless legs Surgical History H/O colonoscopy S/P breast biopsy, right H/O prior ablation treatment History of esophagogastroduodenoscopy (EGD) History of cholecystectomy Family History Father High blood pressure Cancer Mother Diabetes High blood pressure Sister Diabetes High blood pressure Thyroid disease Cancer Brother High blood pressure Asthma Social History Alcohol intake: never Patient Tobacco Use Status: Never used Tobacco Current occupational status: disabled Current occupation: rt handed Review of Systems Const Denies daytime sleepiness, Denies excessive sweating, Denies fatigue, Denies fever(s), Denies lethargy, Denies malaise, Denies night sweats, Denies snoring and Denies weight loss Eyes Denies blurry vision and Denies itchy eyes ENT Denies nasal congestion, Denies post nasal drip, Denies sinus pain, Denies sinus pressure and Denies other ( Thrush) Card Denies chest pain, Denies pedal edema, Denies dyspnea, Denies orthopnea and Denies paroxysmal nocturnal dyspnea Resp Reports cough, Denies hemoptysis, Reports excessive phlegm production, Denies dyspnea, Denies snoring and Denies wheezing GI Denies abdominal pain and Denies heartburn Musc Denies myalgias, Denies arthralgias and Denies joint swelling Skin/Breast Denies rash Neuro Denies memory loss and Denies seizure-like activity Psych Denies abnormal sleep pattern, Denies anxiety and Denies memory loss Endo Denies excessive sweating, Denies fatigue and Denies heat intolerance David/Lymph Denies easy bruising Aller/Immun Denies itchy eyes, Denies seasonal rhinorrhea and Denies wheezing Physical Exam Vital Signs: Last Vital Signs Pulse 81 11/01/24 14:21 BP 104/60 11/01/24 14:21 Pulse Ox 97 11/01/24 14:21 Oxygen Delivery Method Room Air 11/01/24 14:21 BMI result Body Mass Index 34.4 Const General: no acute distress and alert Nutritional Appearance: not obese Orientation/consciousness: Other orientation findings ( oriented) HEENT Head: Yes atraumatic Eyes General: appearance normal, both eyes and all related structures Sclerae: sclerae normal EOM: EOMs intact bilaterally Neck Neck: Yes supple Lymphatic: no lymphadenopathy noted Resp Effort & Inspection: normal respiratory effort and no use of accessory muscles Auscultation: clear to auscultation bilaterally Cardio Rate: regular rate Rhythm: regular rhythm Heart sounds: no gallops, no murmurs and no rubs Skin General skin exam: other ( warm) Extrem General: No clubbing, No cyanosis and No edema Assessment & Plan Assessment & Plan (1) Moderate persistent asthma: Code(s): J45.40 - Moderate persistent asthma, uncomplicated Category: Medical Plan: Well controlled on current regimen of Breo and albuterol MDI/nebs. Continue current regimen. (2) Bronchitis, mucopurulent recurrent: Code(s): J41.1 - Mucopurulent chronic bronchitis Category: Medical Plan: Now with exacerbation, will treat with a course of Levaquin. Coding Level of Care Code Est Pt Level 4 (72082) Diagnoses Moderate persistent asthma J45.40 Bronchitis, mucopurulent recurrent J41.1
--- OUTSIDE RECORDS SUMMARY | 2024-11-01 14:22 | XMS_ITS | Encounter Summary ---
Author Organization [employer] Address [address] [place] [address] Care Team Providers Care Tool Setter Name Role Phone Elizabeth Boo Primary Care Provider [phone] Pravin Guzman MD Unavailable [phone] June Unavailable Josiane Smith MD Unavailable Encounter Details Date Type Department Care Team (Late st Contact Info) Description 09/28/2022 Orders Only [facility] [address] [place] [address] Mami Neely LPN Social History Tobacco Use [...] documented as of this encounter Care Teams Tool Setter Relationship Specialty Start Date End Date Elizabeth Boo FNP [address] [place] [address] PCP - General Family Medicine 04/11/22 Pravin Guzman MD [address] [place] [address] Cardiology 04/23/[address]June [address] [place] [address] Gastroenterology 04/23/24 Josiane Smith MD [address] [place] [address] Rheumatology 04/23/24 documented as of this encounter
--- OUTSIDE RECORDS SUMMARY | 2024-11-01 14:22 | XMS_ITS | Encounter Summary ---
Author Organization [email or web address] [facility] Address [address] [place] [address] Phone Care Team Providers Care Kitchen Mechanic Name Role Phone Unknown, Unknown Primary Care Provider Norman lo Encounter Details Date Type Department Care Team (Late st Contact Info) Description 10/18/2017 Ancillary Orders [facility] [address] [place] [address] [place] [address] Patricia Ward PA [address] [place] [address] Palpitations Social History Tobacco Use Types Packs/Day [...] Palpitations documented in this encounter Care Teams Kitchen Mechanic Relationship Specialty Start Date End Date Unknown, Unknown, PCP - General 10/17/17 documented as of this encounter Additional Source Comments The information contained in this document represents components of the legal health record. It is not the complete legal health record.Formerly [facility]
== END 2024-11-01 14:36 | disposition home or self-care (01) ==
LOC: HO.HPS 14:20
PROVIDERS: PCP Registered Nurse; Visit Provider Internal Medicine Pulmonary Disease
DX: J45.40 Moderate persistent asthma, uncomplicated (principal); J41.1 Mucopurulent chronic bronchitis
CPT/HCPCS: 99214

== ENCOUNTER → 2024-11-01 14:19 | Outpatient (BNVA) | payer OTHER, SELFPAY | PROVIDERS: PCP Registered Nurse; Visit Provider Internal Medicine Pulmonary Disease | DX: J45.40 Moderate persistent asthma, uncomplicated (principal); J41.1 Mucopurulent chronic bronchitis | CPT/HCPCS: 99212 ==

== ENCOUNTER 2024-12-23 09:59 | Outpatient (REF) | payer OTHER, SELFPAY ==
--- OUTSIDE RECORDS SUMMARY | 2024-12-18 14:30 | XMS_ITS | Encounter Summary ---
Author Organization [employer] Address [address] [place] [address] Care Team Providers Care Bakery Machine Mechanic Supervisor Name Role Phone Elizabeth Boo Primary Care Provider [phone] Pravin Guzman MD Unavailable [phone] June Unavailable Josiane Smith MD Unavailable Encounter Details Date Type Department Care Team (Late st Contact Info) Description 12/18/2024 2:30 PM EDT Telemedicine [facility] [address] [place] [address] Elizabeth Boo FNP [address] [place], [place] [id number] Congenital anomaly of vena cava (Primary Dx); Adrenal adenoma, right Social History Tobacco Use Types Packs/Day Years [...] as of this encounter Progress Notes * Elizabeth Boo, JOSE - 12/18/2024 2:30 PM EDT Subjective: Sobia Chin is a 54 y.o. female who presents via telehealth with her daughter to review MRI results. HPI - Incidental finding of indeterminate 20 mm right adrenal nodule identified on CT Chest September 2024 ordered by Pulm - Subsequent MRI abdomen adrenal protocol ordered through PCP office for further evaluation of the adenoma. Results below reviewed with pt and daughter. 10/23/24 - MRI Findings: Lung bases are clear. Heart size is normal. Liver, biliary tree, pancreas and pancreatic duct are normal in caliber. Status post cholecystectomy. Spleen is within normal limits. Left adrenal is normal in appearance. 20 mm right anterior adrenal nodule demonstrates signal dropout on out of phase gradient echo imaging. Kidneys are within normal limits. Visualized bowel loops and vasculature are normal in caliber. Duplicated inferior vena cava is present. Visualized osseous structures are within normal limits. IMPRESSION: 1. Right adrenal adenoma. 2. Duplicated inferior vena cava. Telehealth: Patient gave verbal consent to be seen in this manner. A complete assessment and plan is detailed in the note, all of which were conducted remotely using virtual technology. Patient identity was verbally confirmed with 2 identifiers at the start of the visit. Patient verbalized being located in the [facility] [place] during the televisit. Provider was located in an Ambulatory examroom/outside the office at a secure location during the visits. Problem List[1] Review of Systems Constitutional: Negative for chills and fever. Respiratory: Negative for cough and wheezing. Cardiovascular: Negative for chest pain and palpitations. Gastrointestinal: Negative for vomiting. Allergies[2] Objective: Telehealth - No Physical Exam Psych: Alert & oriented x 3. Normal mood and affect. Assessment/Plan: Problem List Items Addressed This Visit Cardiac and Vasculature Congenital anomaly of vena cava - Primary Overview Duplicated inferior vena cava (incidental finding on MRI Abdomen October 2024) Current Assessment & Plan Reviewed results with patient and daughter, all questions answered. Aware of possible slight increased risk of blood clots, as well as to inform any providers prior to surgery about duplicated vena cava. Hematology and Neoplasia Adrenal adenoma, right Current Assessment & Plan - Incidental finding on CT Chest September 2024 - F/up MRI imaging October 2024 demonstrated 20 mm right anterior adrenal nodule demonstrates signaldropout on out of phase gradient echo imaging. - No further imaging necessary at this time Follow up: per recall, sooner as needed [1] Patient Active Problem List Diagnosis Anxiety Carpal tunnel syndrome Congenital cataract Essential hypertension Gastroesophageal reflux disease Hyperlipidemia Insomnia Lumbar radiculopathy Migraine with aura Severe episode of recurrent major depressive disorder, without psychotic features (CMS/HCC) (HCC) Periodic limb movement disorder Pinguecula Uterine leiomyoma Vascular insufficiency Moderate persistent asthma without complication Bilateral nipple discharge Rheumatoid arthritis of multiple sites with negative rheumatoid factor (CMS/HCC) (HCC) Healthcare maintenance GONZALEZ (nonalcoholic steatohepatitis) Varicose veins of both lower extremities Post-cholecystectomy syndrome Neuropathy Medial epicondylitis of right elbow Irritable bowel syndrome with both constipation and diarrhea High risk medication use Epigastric pain Environmental allergies Chronic headaches Bilateral knee pain Vitreous floaters of left eye Nephrolithiasis Ganglion cyst of left foot Prediabetes Adrenal adenoma, right Congenital anomaly of vena cava [2] Allergies Allergen Reactions Citalopram Hives Diltiazem Niacin Dermatitis and Hives Pain red itchy Oxybutynin Hives documented in this encounter Miscellaneous Notes * Assessment & Plan Note - JOSE Weiss - 12/18/2024 8:13 PM EDTAssociated Problem(s): Congenital anomaly of vena cava Reviewed results with patient and daughter, all questions answered. Aware of possible slight increased risk of blood clots, as well as to inform any providers prior to surgery about duplicated vena cava. * Assessment & Plan Note - JOSE Weiss - 12/18/2024 8:08 PM EDTAssociated Problem(s): Adrenal adenoma, right - Incidental finding on CT Chest September 2024 - F/up MRI imaging October 2024 demonstrated 20 mm right anterior adrenal nodule demonstrates signaldropout on out of phase gradient echo imaging. - No further imaging necessary at this time documented in this encounter Plan of Treatment Not on file documented as of this encounter Visit Diagnoses Diagnosis Congenital anomaly of vena cava- Primary Congenital anomaly of great veins unspecified Adrenal adenoma, right documented in this encounter Additional Health Concerns Assessment Noted Time PHQ-9 Depression Total Score: 21 025 10:36 AM EST documented as of this encounter Care Teams Bakery Machine Mechanic Supervisor Relationship Specialty Start Date End Date Elizabeth Boo FNP [address] [place] [address] PCP - General Family Medicine 04/11/22 Pravin Guzman MD [address] [place] [address] Cardiology 04/23/24June [address]rd [place] [address] Gastroenterology 04/23/24 Josiaen Smith MD [address] [place] [address] Rheumatology 04/23/24 documented as of this encounter
--- NOTE | ~2024-12-23 | US_ITS ---
CLINICAL HISTORY: K75.81 - Nonalcoholic steatohepatitis (GONZALEZ) US abdomen complete Comparison: MR - MR ABDOMEN WO/W CON - 10/23/24 14:40 EDT US/NV/SR - US ABDOMEN COMPLETE WITH LIVER ELASTOGRAPHY - 09/29/23 09:03 EDT Findings: The visualized pancreas is normal. Possible small fluid adjacent to the pancreatic head. The aorta and inferior vena cava are normal caliber. The liver is enlarged with increase of echogenicity. There is no intrahepatic bile duct dilatation. The common duct is 5.0 mm in diameter. Cholecystectomy. The main portal vein is antegrade. The right kidney is 12 cm in length. Small calcifications. The left kidney is 12 cm in length. The spleen is normal. No ascites. IMPRESSION: Hepatomegaly and hepatic steatosis. Possible small right kidney stones. Small fluid adjacent to the pancreatic head. This document has been electronically signed by: Noemy Alegre MD on 12/23/2024 17:23:39
--- OUTSIDE RECORDS SUMMARY | 2024-12-23 11:30 | XMS_ITS | Encounter Summary ---
Author Organization [employer] Address [address] [facility] 7[address] [place] [address] Care Team Providers Care Funeral Home Director Name Role Phone Elizabeth Boo Primary Care Provider [phone] Pravin Guzman MD Unavailable [phone] June Unavailable Josiane Smith MD Unavailable Encounter Details Date Type Department Care Team (Late st Contact Info) Description 09/28/2022 Orders Only [facility] & PEDS [address] [place] [address] Mami Neely LPN Social History Tobacco Use [...] documented as of this encounter Care Teams Funeral Home Director Relationship Specialty Start Date End Date Elizabeth Boo FNP [address] [place] [address] PCP - General Family Medicine 04/11/22 Pravin Guzman MD [address] [place] [address] Cardiology 04/23/24June [address]rd [place] [address] Gastroenterology 04/23/24 Josiane Smith MD [address] [place] [address] Rheumatology 04/23/24 documented as of this encounter
--- OUTSIDE RECORDS SUMMARY | 2024-12-23 11:31 | XMS_ITS | Encounter Summary ---
Author Organization [employer] Address [address] [facility] [place] [address] Care Team Providers Care Quilter Fixer Name Role Phone Elizabeth Boo Primary Care Provider [phone] Pravin Guzman MD Unavailable [phone] June Unavailable Josiane Smith MD Unavailable Encounter Details Date Type Department Care Team (Late st Contact Info) Description 07/16/2024 Orders Only [facility] MED & PEDS [address] [place] [address] Marian Pitts Social History Tobacco Use Types [...] documented as of this encounter Care Teams Quilter Fixer Relationship Specialty Start Date End Date Elizabeth Boo FNP [address] [place] [address] PCP - General Family Medicine 04/11/22 Pravin Guzman MD [address] [place] [address] Cardiology 04/23/24June [address]rd [place] [address] Gastroenterology 04/23/24 Josiane Smith MD [address] [place] [address] Drive [address] [place] [address] Rheumatology 04/23/24 documented as of this encounter
--- OUTSIDE RECORDS SUMMARY | 2024-12-23 11:31 | XMS_ITS | Encounter Summary ---
Author Organization [employer] Address [address] [facility] [place] [address] Care Team Providers Care Laundry Sorter Name Role Phone Elizabeth Boo Primary Care Provider Pravin Guzman MD Unavailable [phone] June Unavailable Josiane Smith MD Unavailable Encounter Details Date Type Department Care Team (Latest Contact Info) Description 12/18/2024 Travel Social History Tobacco Use Types Packs/Day [...] documented as of this encounter Care Teams Laundry Sorter Relationship Specialty Start Date End Date Elizabeth Boo FNP [address] [place] [address] PCP - General Family Medicine 04/11/22 Pravin Guzman MD [address] [place] [address] Cardiology 04/23/24June [address]rd [place] [address] Gastroenterology 04/23/24 Josiane Smith MD [address] [place] [address] Rheumatology 04/23/24 documented as of this encounter
--- OUTSIDE RECORDS SUMMARY | 2024-12-23 11:31 | XMS_ITS | Encounter Summary ---
Author Organization [employer] [facility] Address [address] [facility] [facility] [address] [place] [address] Phone Care Team Providers Care Esthetician Permanent Makeup Artist Name Role Phone Unknown, Unknown Primary Care Provider Norman lo Encounter Details Date Type Department Care Team (Late st Contact Info) Description 10/18/2017 Ancillary Orders [facility] [address] [place] [address] [place] [address] Patricia Ward PA [address] [place] [address] Palpitations Social History Tobacco Use Types Packs/Day [...] Palpitations documented in this encounter Care Teams Esthetician Permanent Makeup Artist Relationship Specialty Start Date End Date Unknown, Unknown, PCP - General 10/17/17 documented as of this encounter Additional Source Comments The information contained in this document represents components of the legal health record. It is not the complete legal health record.[facility]
--- OUTSIDE RECORDS SUMMARY | 2024-12-23 11:31 | XMS_ITS | Encounter Summary ---
Author Organization [employer] Address [address] [facility] [address]t [place] [address] Care Team Providers Care Exec. Creative Director Name Role Phone Elizabeth Boo Primary Care Provider [phone] Pravin Guzman MD Unavailable [phone] June Unavailable Josiane Smith MD Unavailable Reason for Visit * Reason Comments Med Refill Encounter Details Date Type Department Care Team (Late st Contact Info) Description 10/27/2022 Refill [facility] [address] [place] [address] Elizabeth Boo FNP [address] [place], [place] [id number] Social History Tobacco Use Types Packs/Day Years [...] documented as of this encounter Care Teams Exec. Creative Director Relationship Specialty Start Date End Date Elizabeth Boo FNP [address] [place] [address] PCP - General Family Medicine 04/11/22 Pravin Guzman MD [address] [place] [address] Cardiology 04/23/[address] [place] [address] Gastroenterology 04/23/24 Josiane Smith MD [address] [place] [address] Rheumatology 04/23/24 documented as of this encounter
--- OUTSIDE RECORDS SUMMARY | 2024-12-23 11:31 | XMS_ITS | Clinical Summary ---
Author Organization [employer] Address [address] [facility] [address] [place] [address] Care Team Providers [employer] Web Application Developer Name Role Phone Elizabeth Boo Primary Care Provider [phone] Pravin Guzman MD Unavailable [phone] June Unavailable Josiane Smith MD Unavailable Allergies [...] 200 mg by mouth in the morning. 023 Active Simethicone Ultra Strength 180 MG capsule Take 180 mg by mouth 3 times daily. 023 Active TRUEplus Lancets 33G [facility] TEST BLOOD SUGAR EVERY DAY 100 each 11 023 Active lidocaine-priloca ine (Emla) 2.5-2.5 % cream Apply topically if needed in the morning, at noon, and at bedtime for moderate pain. 100 g 1 024 Active Humira, 2 Pen, 40 MG/0.4ML Pen-injector Kit pen-injectorIndic ations:Rheumatoid arthritis of multiple sites with negative rheumatoid factor (CMS/HCC) ([facility]) 024 Active Salicylic Acid (Mediplast) 40 % [...] 4-6 weeks 10 mL 1 024 Active Blood Pressure kit Use to check blood pressure once daily and if symptomatic 1 kit 024 Active Misc. Devices (Pulse Oximeter Deluxe) [facility] Pulse ox use to check blood oxygen level at home as directed 1 each 024 Active sertraline (Zoloft) 25 MG tabletIndications :Severe episode of recurrent major depressive disorder, without psychotic features (CMS/HCC) ([facility]) 024 Active traZODone (Desyrel) 50 MG tabletIndications :Severe episode of recurrent major depressive disorder, without psychotic features (CMS/HCC) ([facility]) TAKE 1/2 TO 1 TABLET BY MOUTH AT BEDTIME NEEDED 024 Active Acetaminophen Extra Strength 500 MG [...] stone comes out. 30 capsule 024 Active metoprolol succinate XL (Toprol-XL) 25 MG 24 hr tablet Take 25 mg by mouth if needed each day. 024 Active fluticasone (Flonase) 50 MCG/ACT nasal sprayIndications: Seasonal allergies INSTILL 2 SPRAYS IN EACH NOSTRIL ONCE DAILY IN THE MORNING 16 g 11 024 Active Multiple Vitamins-Iron (Tab-A-Ivan/Iron) tabletIndications :Routine health maintenance TAKE 1 TABLET BY MOUTH EVERY MORNING 90 tablet 3 025 Active Blood Pressure kit Use to check blood pressure as directed by provider, and if symptomatic. 1 kit 025 Active melatonin 5 MG tablet TAKE 2 TABLETS BY MOUTH EVERY DAY AT BEDTIME NEEDED FOR SLEEP 90 tablet 3 025 Active Ventolin HFA 108 (90 Base) MCG/ACT inhalerIndication s:Moderate persistent asthma without complication INHALE 2 PUFFS EVERY 4 TO 6 HOURS NEEDED FOR WHEEZING OR SHORTNESS OF BREATH 18 g 3 025 Active Fluticasone Furoate-Vilantero l (Breo Ellipta) 100-25 MCG/ACT aerosol powderIndications :Moderate persistent asthma without complication Inhale 1 Inhalation in the morning. Rinse mouth after use. 60 each 2 025 Active topiramate (Topamax) 25 MG tabletIndications :Other migraine without status migrainosus, not intractable TAKE 2 TABLETS BY MOUTH EVERY DAY AT BEDTIME 180 tablet 1 025 Active gabapentin (Neurontin) 400 MG capsuleIndication s:Neuropathic pain,Restless leg TAKE 1 CAPSULE BY MOUTH THREE TIMES DAILY IN THE MORNING, EVENING, AND BEDTIME 90 capsule 5 025 Active azithromycin (Zithromax Z-Deepak) 250 MG tablet Take 2 tablets once on day 1, then 1 tablet 1x/day for 4 days. 6 tablet 025 Active albuterol (2.5 MG/3ML) 0.083% nebulizer solutionIndicatio ns:Moderate persistent asthma with acute exacerbation INHALE 1 AMPULE USING A NEBULIZER THREE TIMES DAILY NEEDED FOR WHEEZING OR FOR ASTHMA 75 mL 2 025 Active rOPINIRole (Requip) 2 MG tabletIndications :Periodic limb movement disorder TAKE 1 TABLET BY MOUTH AT BEDTIME 30 tablet 3 025 Active simvastatin (Zocor) 10 MG tabletIndications :Mixed hyperlipidemia TAKE 1 TABLET BY MOUTH AT BEDTIME 90 tablet 3 025 Active vitamin E 180 MG (400 UNIT) capsule TAKE 1 CAPSULE BY MOUTH TWICE DAILY IN THE MORNING AND AT BEDTIME 180 capsule 1 025 Active simvastatin (Zocor) 10 MG tabletIndications :Mixed hyperlipidemia TAKE 1 TABLET BY MOUTH AT BEDTIME 90 tablet 3 024 2024 Discontinued vitamin E 180 MG (400 UNIT) capsule TAKE 1 CAPSULE BY MOUTH TWICE DAILY IN THE MORNING AND AT BEDTIME 180 capsule 1 025 2024 Discontinued Active Problems Problem Noted Date Diagnosed Date Adrenal adenoma, right 12/18/2024 Assessment & Plan (12/18/2024 8:08 PM EDT): - Incidental finding on CT Chest September 2024 - F/up MRI imaging October 2024 demonstrated 20 mm right anterior adrenal nodule demonstrates signal dropout on out of phase gradient echo imaging. 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 Aware of possible slight increased risk of blood clots, as well as to inform any providers prior to surgery about duplicated vena cava. Prediabetes 09/23/2024 Overview (09/23/2024): Lab Results Component Value Date HGBA1C 5.9 04/22/2024 - Lifestyle interventions encouraged Vitreous floaters of left eye 04/23/2024 Overview (04/23/2024): Followed by [facility] Red flag/ED precautions Nephrolithiasis 04/23/2024 Assessment & Plan (09/23/2024 9:25 AM EDT): Nov 2023: 4mm non-obstructing kidney stone right kidney. Started on flomax and referred to urology. Established with urology January 2024 ([facility] Plan to continue with surveillance monitoring, repeat renal ultrasound around July: Renal US demonstrated normal bilat kidneys w/o evidence of calculi Assessment & Plan (04/23/2024 11:19 AM EST): Nov 2023: 4mm non-obstructing kidney stone right kidney. Started on flomax and referred to urology. Established with urology January 2024 ([facility]). Plan to continue with surveillance monitoring, repeat renal ultrasound around July 2024 Ganglion cyst of left foot 04/23/2024 Overview (04/23/2024): Followed by [facility]-Dr. Owens. 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 Assessment & Plan (04/23/2024 11:20 AM EST): Continues with cholestyramine, metoclopramide, simethicone, pantoprazole High risk medication use 02/27/2024 Epigastric pain 02/27/2024 Environmental allergies 02/27/2024 Chronic headaches 02/27/2024 Bilateral knee pain 02/27/2024 GONZALEZ (nonalcoholic steatohepatitis) 11/20/2023 Assessment & Plan (11/20/2023 5:18 PM EDT): Following with [facility] GI - LAURYN Longo Abd US ordered September 2023 by GI with the impression of increase in hepatic echotexture, c/w fatty infiltration of hepatocellular disease. Hepatomegaly. Liver stiffness: 1.49 m/s . Rules out compensated advanced chronic liver disease. Healthcare maintenance 09/08/2023 Overview (09/23/2024): Mammo: BIRADS 0 on 07/02/24, scheduled for additional imaging OPH: CEE on 06/12/24 ([facility]) Colonoscopy: 08/10/23 at [facility] GI - Dr. Abraham. Tubular adenoma. Plan to repeat in 3 years (2026) Pap: NILM, HPV neg on 02/27/24. Repeat 3 yrs d/t immunosuppression Last comprehensive exam: 04/22/24 Moderate persistent asthma without complication 04/27/2022 Overview (09/23/2024): -Following with [facility] Pulm - Dr. Ruggiero -Current therapy: Breo-Ellipta 100/25mcg daily and albuterol PRN -Previous tx: Wixela 500 -Chest CT in September 2019 did not show any pulm abnormalities or nodules Assessment & Plan (09/23/2024 9:22 AM EDT): Pulm consult May 2024 w/ plan for CT chest given report of hemoptysis Assessment & Plan (04/27/2022 6:58 PM EST): Consider further imaging pending most recent results from pulm consult Bilateral nipple discharge 04/27/2022 Overview (04/27/2022): -Diagnostic mammo w/ ultrasound September 2021: IMPRESSION: [...] eval Apr 29, 2022 Rheumatoid arthritis of [facility] sites with negative rheumatoid factor ([facility]) 04/27/2022 Overview (09/10/2023): -Seronegative RA diagnosed 02/2022 -Followed by [facility] Rheum - Dr. Smith -Initially tx with [...] for further tx of joint pains -Encouraged [facility] acupuncture clinic Carpal tunnel syndrome 04/11/2022 Vascular insufficiency 04/11/2022 Varicose veins of both lower extremities 019 Anxiety 06/07/2018 Essential hypertension 07/13/2017 Overview (04/23/2024): BP goal: < 140/90 mmHg Continue with the following medications: Amlodipine 10mg daily Metoprolol XL 200mg daily -Followed by [facility] - Dr. Guzman -Asymptomatic EKG unremarkable 06/11/23 [...] major depressive disorder, without psychotic features (CMS/HCC) 07/13/2017 Assessment & Plan (04/22/2024 6:38 AM EST): - Reviewed PHQ9 with pt, denies SI/HI/thoughts of self harm - Following with psych - [employer] HELPER Mary Ellen Brown - Continues with sertraline 25mg daily and trazodone 25-50mg nightly PRN sleep Assessment & Plan (11/20/2023 5:27 PM EDT): - Reviewed PHQ9 with pt, denies SI/HI/thoughts of self harm - Following with psych - [employer] P[employer]ERER HELPER Mary Ellen Brown - Continues with sertraline [...] recurrent major depressive disorder, without psychotic features ([facility]) Patient ready to address current needs Yes Strengths include willingness to seek help PLAN: 1. Follow up with [facility]: Recommended for follow-up: As needed 2. Patient [...] harm, but reports increasingly difficult to function -[facility] crystal called in office, not in building today. [facility] provider plans to call pt later today to discuss. Follow up in 2 weeks for mental health and labs, sooner PRN. Lumbar radiculopathy 05/11/2017 Congenital cataract 08/17/2012 Pinguecula 08/17/2012 Periodic limb movement disorder 05/22/2012 Assessment & Plan (09/23/2024 9:28 AM EDT): Ropinirole increased to 2 mg nightly, although still with bothersome symptoms Referral to Neurology placed August 2024 Assessment & Plan (04/23/2024 11:26 AM EST): [...] Assessment & Plan (11/03/2022 9:41 AM EDT): Increase ropinerole to 1mg nightly Hyperlipidemia 01/02/2012 Gastroesophageal reflux disease 11/02/2011 Migraine with aura 11/02/2011 Assessment & Plan (04/17/2022 9:28 PM EST): -Continue with topiramate 25mg nightly Uterine leiomyoma 11/02/2011 Insomnia 09/29/2011 Resolved Problems Problem Noted Date Diagnosed Date Resolved Date Post-nasal drip 02/27/2024 04/22/2024 Pain in left shoulder 02/27/20242024 Hot flashes 02/27/2024 04/22/2024 Diarrhea 02/27/2024 04/22/2024 Chronic depression 02/27/2024 Bronchitis, mucopurulent recurrent (CMS/HCC) 04/22/2024 Asthma 02/27/2024 04/22/2024 Acute bronchitis 02/27/2024 [...] Encounters Date Type Department Care Team Description 12/18/2024 2:30 PM EDT Telemedicine [facility] [address] [place] [address] Elizabeth Boo, PLAN EXAMINER Congenital anomaly of vena cava (Primary Dx); Adrenal adenoma, right 12/18/2024 Travel 12/09/2024 Telephone [facility] [address] [place] [address] PhalReagan agle, PLAN EXAMINER TC: MRI Results 11/26/2024 Refill [facility] [address] [place] [address] Reagan Boole, PLAN EXAMINER Mixed hyperlipidemia 11/01/2024 Refill [facility] [address] [place] [address] PhalElizabeth ag, PLAN EXAMINER Periodic limb movement disorder 10/04/2024 Results Follow-Up [facility] [address] [place] [address] Rajeev Elizabeth, PLAN EXAMINER XR Chest 2 Views, XR Foot 3+ Views Right 10/02/2024 3:00 PM EDT Office Visit [facility] [address] [place] [phone] Myron Hernandez MD Moderate persistent asthma with acute exacerbation 10/02/2024 Travel 09/30/[address] [address] Phalancelmo Elizabeth, PLAN EXAMINER Nurse Triage 09/30/2024 Orders Only [facility] [address] [place] [address] Phalancelmo Elizabeth, PLAN EXAMINER 09/27/2024 Refill [facility] [address] [place] [address] Phalen Elizabeth, PLAN EXAMINER Neuropathic pain; Restless leg 09/25/2024 Orders Only GENERIC EXTERNAL DATA DEPARTMENT Provider, Generic External Data 09/25/2024 Refill [facility] [address] [place] [address] Phalen Elizabeth, PLAN EXAMINER Other migraine without status migrainosus, not intractable 09/23/2024 Orders Only GENERIC EXTERNAL DATA DEPARTMENT Provider, Generic External Data from Last 3 Months Immunizations Immunization Administration Dates Next Due Influenza injectable quadriv [...] Sign Reading Time Taken Comments Blood Pressure 116/80 10/02/2024 10:56 AM EDT Pulse 87 10/02/2024 10:56 AM EDT Temperature 37.1 C (98.7 F) 10/02/2024 12:14 PM EDT Respiratory Rate 21 10/02/2024 10:56 AM EDT Oxygen Saturation 97% 10/02/2024 10:56 AM EDT Inhaled Oxygen Concentration - - Weight 81 kg (178 lb 9.6 oz) 09/13/2024 1:34 PM EDT Height 154.9 cm (5' 1 ) 09/13/2024 1:34 PM EDT Body Mass Index 33.75 09/13/2024 1:34 PM EDT Plan of Treatment Health Maintenance Due Date [...] 02/17 FIT 12/16/2023 12/15/2022 FOBT 12/16/2023 12/15/2022 Depression Monitoring 10/20/2024 04/22/2024, 025 Influenza Vaccine (#1) 2024 , 12/02/2021, 01/28/2021, Additional history exists Diagnostic Breast Imaging 04/02/2025 09/30/2024, 10/2016 Alcohol/Substance Use Screening 04/22/2025 04/22/2024 Diabetes: Hemoglobin A1C 04/22/2025 025, 09/24/2021, 12/20/2019 SDOH Screening 04/22/2025 04/22/2024 Disability Screening 09/13/2025 09/13/2024 Tobacco Screening 10/02/2025 10/02/2024 DTaP/Tdap/Td Vaccines (2 - Td or Tdap) 01/21/2026 01/22/2016, 07/04/2008, 07/04/2008, Additional history exists Colonoscopy 08/09/2026 08/10/2023 Colorectal Cancer Screening 08/09/2026 Cervical Cancer Screening 02/26/2027 HPV/Cotest 02/26/2027 02/27/2024 Pap Smear 02/26/2027 02/27/2024 Lipid Panel 04/22/2029 04/22/2024, 07/0 10/2021, 12/20/2019 RSV Patients and Patients Aged 60 years or older (1 - 1-dose 75+ series) 2043 Zoster Vaccines Completed 01/21/2021, 11/19/2020 COVID-19 Vaccine Completed 02/27/2024, , 06/09/2020, Additional history exists Pneumococcal Vaccine: 50+ Years Completed 04/22/2024, 03/27/1996 Hepatitis C Screening Completed 09/25/2024, 024 HIB Vaccines Aged Out No longer eligi [...] Procedure Name Priority Date/Time Associated Diagnosis Comments MR ABDOMEN W AND WO CONTRAST Routine 10/23/2024 4:31 PM EDT Adenoma of right adrenal gland POCT INFLUENZA B (ID NOW RAPID MOLECULAR) Routine 10/02/2024 11:18 AM EDT Moderate persistent asthma with acute exacerbation POCT INFLUENZA A (ID NOW RAPID MOLECULAR) Routine 10/02/2024 11:18 AM EDT Moderate persistent asthma with acute exacerbation POCT RAPID COVID ANTIGEN Routine 10/02/2024 11:18 AM EDT Moderate persistent asthma with acute exacerbation BI US BREAST LIMITED RIGHT Routine 09/30/2024 10:35 AM EDT BI MAMMOGRAM DIAGNOSTIC TOMOSYNTHESIS ADDED VIEW RIGHT Routine 09/30/2024 9:40 AM EDT T-SPOT(R).TB Routine 09/25/2024 9:11 AM EDT HEPATITIS PANEL, GENERAL Routine 09/25/2024 9:11 AM EDT SED RATE BY MODIFIED WESTERGREN Routine 09/25/2024 9:11 AM EDT C-REACTIVE PROTEIN Routine 09/25/2024 9: 11 AM EDT COMPREHENSIVE METABOLIC PANEL Routine 09/25/2024 9:11 AM EDT COMPLETE BLOOD COUNT MAN DIF Routine 09/25/2024 9:[address] CHEST W CONTRAST Routine 09/23/2024 1 :38 PM EDT POCT CREATININE GFR Routine 09/23/2024 8 :13 AM EDT HEMOGLOBIN A1C Routine 04/22/2024 11:48 AM EST Healthcare maintenance LIPID PANEL, STANDARD Routine 04/22/2024 11:48 AM EST Healthcare maintenance PAP SMEAR Routine 02/27/2024 10:05 AM EST Cervical cancer screening HPV MRNA E6/E7 REFLEX TO HPV 16, 18/45 Routine 02/27/2024 12:00 AM EST HM COLONOSCOPY Routine 08/10/2023 5:22 PM EDT FECAL GLOBIN BY IMMUNOCHEMISTRY Routine 12/15/2022 INTRAORAL - COMPLETE SERIES OF RADIOGRAPHIC IMAGES Routine 08/04/2020 12:00 AM EDT PERIODIC ORAL EVALUATION - ESTABLISHED PATIENT Routine 08/04/2020 12:00 AM EDT PROPHYLAXIS - ADULT Routine 01/19/2016 1 2:00 AM EDT from Last 3 Months or Most Recently Relevant to Health Maintenance Results * MR Abdomen w/ and w/o Contrast (10/23/2024 4:31 PM EDT) Anatomical Region Laterality Modality Abdomen Magnetic Resonan ce 10/23/2024 4:31 PM EDT Narrative 10/23/2024 4:32 PM EDT [address] [address] Magnetic Resonance Report Signed Patient: Sobia Silva MR#: [id number] : 1970 Acct:[id number] Age/Sex: 54 / F ADM Date: 10/23/24 Loc: HO.MRI Attending Dr: Elizabeth Boo PLAN EXAMINER Ordering Physician: Elizabeth Boo Date of Service: 10/23/24 Procedure(s): MR abdomen wo/w con Accession Number(s): [id number] cc: Elizabeth Boo CLINICAL HISTORY: BENIGN NEOPLASM OF RT ADRENAL GLAND MR abdomen with and without gadolinium Comparison: CT/SR - CT CHEST W IV CON - 09/23/24 08:34 EDT US/AK/SR - US ABDOMEN COMPLETE WITH LIVER ELASTOGRAPHY - 09/29/23 09:03 EDT US/AK/SR - US ABDOMEN LIMITED - 11/04/22 09:18 EDT Findings: Lung bases are clear. Heart size [...] adrenal adenoma. 2. Duplicated inferior vena cava. This document has been electronically signed by: Fox Canchola MD on 10/23/2024 16:31:35 Dictated By: Fox Canchola MD Signed By: <Electronically signed by Fox Canchola MD in OV> 10/23/24 1632 DD/ 1631 TD/TT: 10/23/24 1631 Technical Support 1 Software Engineer: Procedure Note Donotuseinterpreter, Image - 10/23/2024 [place] [id number] Magnetic Resonance Report Signed Patient: Fly Silva#: [id number] : 1970Acct:[id number] Age/Sex: 54 / FADM Date: 10/23/24 Loc: HO.MRI Attending Dr: Elizabeth GARCIA Ordering Physician: Elizabeth Boo Date of Service: 10/23/24 Procedure(s): MR abdomen wo/w con Accession Number(s): [id number] cc: Elizabeth Boo CLINICAL HISTORY: BENIGN NEOPLASM OF RT ADRENAL GLAND MR abdomen with and without gadolinium Comparison: CT/SR - CT CHEST W IV CON - 09/23/24 08:34 EDT US/AK/SR - US ABDOMEN COMPLETE WITH LIVER ELASTOGRAPHY - 09/29/23 09:03 EDT US/AK/SR - US ABDOMEN LIMITED - 11/04/22 09:18 EDT Findings: Lung bases are clear. Heart size [...] adrenal adenoma. 2. Duplicated inferior vena cava. This document has been electronically signed by: Fox Canchola MD on 10/23/2024 16:31:35 Dictated By: Fox Canchola MD Signed By: <Electronically signed by Fox Canchola MD in OV> 10/23/24 1632 DD/ 1631 TD/TT: 10/23/24 1631 Technical Support 1 Software Engineer: Elizabeth Boo PLAN EXAMINER IMG MRI PROCEDURES Final Resul t * Influenza B (ID NOW Rapid Molecular) (10/02/2024 11:18 AM EDT) Pathologist [facility] Influenza B Negative Negative, Indeterminate [facility] Swab 10/02/2024 11:1 8 AM EDT Myron Hernandez MD POINT OF CARE TEST ENTER/EDIT OR DERABLES Final Result [facility] [address] [place] [phone] * Influenza A (ID NOW Rapid Molecular) (10/02/2024 11:18 AM EDT) [facility] Influenza A Negative Negative, Indeterminate [facility] Swab 10/02/2024 11:1 8 AM EDT us Myron Hernandez MD POINT OF CARE TEST ENTER/EDIT OR DERABLES Final Result Performing Organization Address [facility]/ZIP Co de Phone Number [facility] [address] [place] [phone] * POCT Rapid COVID Ag (10/02/2024 11:18 AM EDT) Rapid COVID Ag Negative [facility] Swab 10/02/2024 11:1 8 AM EDT us Myron Hernandez MD POINT OF CARE TEST ENTER/EDIT OR DERABLES Final Result Performing Organization Address [facility] de Phone Number [facility] [address] [place] [phone] * BI US Breast Limited Right (09/30/2024 10:35 AM EDT) Anatomical Region Laterality Modality Breast Right Ultrasound 09/30/2024 10:3 5 AM EDT Narrative 09/30/2024 11:41 AM EDT [address] [place] [address] Ultrasound Report Signed Patient: Sobia Silva MR#: [id number] : 1970 Acct:[id number] Age/Sex: 54 / F ADM Date: 09/30/24 Loc: HO.MAMMO Attending Dr: Elizabeth Boo PLAN EXAMINER Ordering Physician: Elizabeth Boo Date of Service: 09/30/24 Procedure(s): US breast RT limited mamm only Accession Number(s): [id number] cc: Elizabeth Boo EXAMINATION: MM DIAGNOSTIC DIGITAL BREAST TOMOSYNTHESIS, RIGHT CLINICAL INFORMATION: Call back from screening for focal asymmetry in the central inner right breast. COMPARISON: Mammography: Priors on PACS. TECHNIQUE: Digital breast tomosynthesis is performed in both the craniocaudal and mediolateral oblique views along with computer-aided detection (CAD). Synthesized 2D images are generated from the tomosynthesis. FINDINGS: The breasts are heterogeneously dense, which may obscure small masses (ACR BI-RADS breast composition Category c). Circumscribed oval mass in the central inner right breast anterior to middle depth persists. No suspicious calcifications or other abnormal findings. Targeted color Doppler ultrasound demonstrates 2 adjacent simple to minimally complicated cysts at 2:00 5 cm from nipple measuring 10 x 5 x 3 mm which correlates with the circumscribed oval mass on mammography. There is no internal vascular flow. US/US breast RT limited mamm only IMPRESSION: 2 adjacent probably minimally complicated cysts in the right breast on ultrasound. Recommend 6 month follow-up ultrasound for further evaluation of stability. ASSESSMENT: BI-RADS BI-RADS 3 - Probably benign finding(s) - 6 month follow-up suggested RECOMMENDATION: 6 Month F/U Results were provided to the patient at time of visit by the technologist. This patient's information was entered into a reminder system with a target due date for their next mammogram. Electronically signed by: Violeta Crystal DO 09/30/2024 11:38 AM EDT Dictated By: Violeta Crystal DO Signed By: <Electronically signed by Violeta Crystal DO in OV> 09/30/24 1138 DD/ 1035 TD/TT: 09/30/24 1100 Technical Support 1 Software Engineer: Procedure Note Donotuseinterpreter, Image - 09/30/2024 [facility] [address] [place] [address] Ultrasound Report Signed Patient: Fly Silva#: [id number] : 1970Acct:[id number] Age/Sex: 54 / FADM Date: 09/30/24 Loc: MAMMO Attending Dr: Elizabeth GARCIA Ordering Physician: Elizabeth Boo Date of Service: 09/30/24 Procedure(s): US breast RT limited mamm only Accession Number(s): [id number] cc: Elizabeth Boo EXAMINATION: MM DIAGNOSTIC DIGITAL BREAST TOMOSYNTHESIS, RIGHT CLINICAL INFORMATION: Call back from screening for focal asymmetry in the central inner right breast. COMPARISON: Mammography: Priors on PACS. TECHNIQUE: Digital breast tomosynthesis is performed in both the craniocaudal and mediolateral oblique views along with computer-aided detection (CAD). Synthesized 2D images are generated from the tomosynthesis. FINDINGS: The breasts are heterogeneously dense, which may obscure small masses (ACR BI-RADS breast composition Category c). Circumscribed oval mass in the central inner right breast anterior to middle depth persists. No suspicious calcifications or other abnormal findings. Targeted color Doppler ultrasound demonstrates 2 adjacent simple to minimally complicated cysts at 2:00 5 cm from nipple measuring 10 x 5 x 3 mm which correlates with the circumscribed oval mass on mammography. There is no internal vascular flow. US/US breast RT limited mamm only IMPRESSION: 2 adjacent probably minimally complicated cysts in the right breast on ultrasound. Recommend 6 month follow-up ultrasound for further evaluation of stability. ASSESSMENT: BI-RADS BI-RADS 3 - Probably benign finding(s) - 6 month follow-up suggested RECOMMENDATION: 6 Month F/U Results were provided to the patient at time of visit by the technologist. This patient's information was entered into a reminder system with a target due date for their next mammogram. Electronically signed by: Violeta Crystal DO 09/30/2024 11:38 AM EDT Dictated By: Violeta Crystal DO Signed By: <Electronically signed by Violeta Crystal DO in OV> 09/30/24 1138 DD/ 1035 TD/TT: 09/30/24 1100 Technical Support 1 Software Engineer: us Elizabeth GARCIA IMG US PROCEDURES Final Result * BI Mammogram Diagnostic Tomosynthesis added right (09/30/2024 9:40 AM EDT) Anatomical Region Laterality Modality Breast Left Mammography 09/30/2024 9:40 AM EDT Narrative 09/30/2024 11:41 AM EDT [facility] [address] [place] [address] Mammography Report Signed Patient: Sobia Silva MR#: [id number] : 1970 Acct:[id number] Age/Sex: 54 / F ADM Date: 09/30/24 Loc: HO.MAMMO Attending Dr: Elizabeth Boo PLAN EXAMINER Ordering Physician: Elizabeth Boo PLAN EXAMINER Results: 3.6MPr obably Benign Finding - Short 6 M F/U Suggested Date of Service: 09/30/24 Follow Up: 6 Month F/U Procedure(s): MM tomosynthesis added views R Accession Number(s): [id number] cc: Elizabeth Boo PLAN EXAMINER EXAMINATION: MM DIAGNOSTIC DIGITAL BREAST TOMOSYNTHESIS, RIGHT CLINICAL INFORMATION: Call back from screening for focal asymmetry in the central inner right breast. COMPARISON: Mammography: Priors on PACS. TECHNIQUE: Digital breast tomosynthesis is performed in both the craniocaudal and mediolateral oblique views along with computer-aided detection (CAD). Synthesized 2D images are generated from the tomosynthesis. FINDINGS: The breasts are heterogeneously dense, which may obscure small masses (ACR BI-RADS breast composition Category c). Circumscribed oval mass in the central inner right breast anterior to middle depth persists. No suspicious calcifications or other abnormal findings. Targeted color Doppler ultrasound demonstrates 2 adjacent simple to minimally complicated cysts at 2:00 5 cm from nipple measuring 10 x 5 x 3 mm which correlates with the circumscribed oval mass on mammography. There is no internal vascular flow. MM/MM tomosynthesis added views R IMPRESSION: 2 adjacent probably minimally complicated cysts in the right breast on ultrasound. Recommend 6 month follow-up ultrasound for further evaluation of stability. ASSESSMENT: BI-RADS BI-RADS 3 - Probably benign finding(s) - 6 month follow-up suggested RECOMMENDATION: 6 Month F/U Results were provided to the patient at time of visit by the technologist. This patient's information was entered into a reminder system with a target due date for their next mammogram. Electronically signed by: Violeta Crystal DO 09/30/2024 11:38 AM EDT Dictated By: Violeta Crystal DO Signed By: <Electronically signed by Violeta Crystal DO in OV> 09/30/24 1138 DD/ 0940 TD/TT: 09/30/24 0959 Technical Support 1 Software Engineer: Procedure Note Donotuseinterpreter, Image - 09/30/2024 [place] [facility] [address] [place] [address] Mammography Report Signed Patient: Nicolás SilvaR#: [id number] : 1970Acct:[id number] Age/Sex: 54 / FADM Date: 09/30/24 Loc: HO.MAMMO Attending Dr: Elizabeth Boo PLAN EXAMINER Ordering Physician: Elizabeth Boo FNPResults: 3.6MPr obably Benign Finding - Short 6 M F/U Suggested Date of Service: 09/30/24Follow Up: 6 Month F/U Procedure(s): MM tomosynthesis added views R Accession Number(s): [id number] cc: Elizabeth Boo PLAN EXAMINER EXAMINATION: MM DIAGNOSTIC DIGITAL BREAST TOMOSYNTHESIS, RIGHT CLINICAL INFORMATION: Call back from screening for focal asymmetry in the central inner right breast. COMPARISON: Mammography: Priors on PACS. TECHNIQUE: Digital breast tomosynthesis is performed in both the craniocaudal and mediolateral oblique views along with computer-aided detection (CAD). Synthesized 2D images are generated from the tomosynthesis. FINDINGS: The breasts are heterogeneously dense, which may obscure small masses (ACR BI-RADS breast composition Category c). Circumscribed oval mass in the central inner right breast anterior to middle depth persists. No suspicious calcifications or other abnormal findings. Targeted color Doppler ultrasound demonstrates 2 adjacent simple to minimally complicated cysts at 2:00 5 cm from nipple measuring 10 x 5 x 3 mm which correlates with the circumscribed oval mass on mammography. There is no internal vascular flow. MM/MM tomosynthesis added views R IMPRESSION: 2 adjacent probably minimally complicated cysts in the right breast on ultrasound. Recommend 6 month follow-up ultrasound for further evaluation of stability. ASSESSMENT: BI-RADS BI-RADS 3 - Probably benign finding(s) - 6 month follow-up suggested RECOMMENDATION: 6 Month F/U Results were provided to the patient at time of visit by the technologist. This patient's information was entered into a reminder system with a target due date for their next mammogram. Electronically signed by: Violeta Crystal DO 09/30/2024 11:38 AM EDT Dictated By: Violeta Crystal DO Signed By: <Electronically signed by Violeta Crystal DO in OV> 09/30/24 1138 DD/ TD/TT: 09/30/24 0959 Technical Support 1 Software Engineer: Elizabeth Boo PLAN EXAMINER IMG BI PROCEDURES Final Result * (ABNORMAL) Complete Blood Count Manual Diff (09/25/2024 9:11 AM EDT) White Blood Count 6.8 4.8 - 10.8 X10*3/uL [facility] Red Blood Count 4.62 4.20 - 5.50 X10*6/uL [facility] Hemoglobin 13.4 12.0 - 16.0 g/dl [facility] Hematocrit 39.6 37.0 - 47.0 % [facility] Mean Corpuscular Volume 85.7 80.0 - 98.0 fL [facility] Mean Corpuscular Hemoglobin 29.0 27.0 - 33.0 pg [facility] Mean Corpuscular HGB Conc 33.8 31.0 - 35.0 g/dl [facility] Red Cell Distribution Width 14.1 11.0 - 16.0 % [facility] Platelet Count 360 160 - 400 X10*3/uL [facility] Mean Platelet Volume 9.3(L) 9.4 - 12.3 fL [facility] NRBC Pct Auto 0.0 0.0 - 0.2 /100WBC [facility] NRBC Abs Auto 0.000 0.0 - 0.012 X10*3/uL [facility] Neutrophils % Manual 71 45 - 73 % [facility] Band Neutrophils Percent 0(L) 3 - 5 % [facility] Lymphocytes Percent Manual 22 20 - 40 % [facility] Monocytes Percent Manual 4 2 - 11 % [facility] EOSINOPHILS % MANUAL 3 0 - 4 % [facility] NEUTROPHILS ABSOLUTE MANUAL 4.8 2.0 - 8.3 X10*3/uL [facility] LYMPHOCYTES ABSOLUTE MANUAL 1.5 1.2 - 4.9 X10*3/uL [facility] MONOCYTES ABSOLUTE MANUAL 0.3 0.1 - 1.2 X10*3/uL [facility] EOSINOPHILS ABSOLUTE MANUAL 0.2 0.0 - 0.4 X10*3/uL [facility] Platelet Estimate NORMAL N[facility]AL [facility] Platelet Morphology Comment NORMAL [facility] RBC Morphology NORMAL [facility] 09/25/2024 9:11 AM EDT 09/25/2024 9:11 AM EDT us Generic External Data Provider LAB BLOOD ORDERAB LES Final Result [facility] [address] [place] [address] [phone] * T-SPOT??.TB (09/25/2024 9:11 AM EDT) T Spot TB Negative Negative [facility] Comment:A negative test resu lt does not exclude the possibilityof exposure to or infection with Mycobacteriumtuberculosis (M. tuberculosis). Patients with recentexposure to TB infected individuals exhibiting anegative T-SPOT.TB result should be considered forretesting within 6 weeks or if other relevant clinicalsymptoms indicate. Results from T-SPOT.TB testing mustbe used in conjunction with each individual'sepidemiological history, current medical status,and results of other diagnostic evaluations.The T-SPOT.TB test is qualitative and results arereported as positive, borderline, or negative, giventhat the test controls perform as expected. In linewith the Centers for Disease Control and Prevention's2010 recommendation to report quantitative measurementsalongside the qualitative result, the laboratoryprovides spot counts for informational purposes only.The T-SPOT.TB test should not be interpreted as aquantitative test. TS PANEL A 0 [facility] TS PANEL B 0 [facility] Negative Control Passed [facility] Positive Control Passed [facility] Comment:For additional infor jaymie, please refer tohttp://education.Wolonge/faq/UVB279(This link is being provided for informational/educational purposes only.)THIS TEST WAS PERFORMED AT:[employer]/[facility]ENTERUZMSXBLBV[address] [place] [address]PLDVZYXSHIVAM COVINGTON MD,PHD 09/25/2024 9:11 AM EDT 09/25/2024 9:11 AM EDT Generic External Data Provider LAB BLOOD ORDERAB LES Final Result Performing Organization Address [facility] Co de Phone Number [facility] [address] [place] [address] [phone] * Hepatitis Panel, General (09/25/2024 9:11 AM EDT) Hepatitis A IgM Nonreactive Nonreactive [facility] Comment:IgM antibodies to DIMAS V not detected; does not exclude earlyacute or recovered HAV infection. ~Hepatitis B Surface Antibody NONREACTIVE Nonreactive [facility] Comment:Nonreactive: < 8.00 mIU/mL Hepatitis B Core Antibody Nonreactive Nonreactive [facility] Hepatitis C Antibody Nonreactive Nonreactive [facility] Comment:Antibodies to HCV no t detected; does not exclude early acuteHCV infection. Hepatitis B Surface Ag Negative Negative [facility] 09/25/2024 9:11 AM EDT 09/25/2024 9:11 AM EDT Generic External Data Provider LAB BLOOD ORDERAB LES Final Result Performing Organization Address [facility] Co de Phone Number [facility] [address] [place] [phone] * (ABNORMAL) Sed Rate by Modified Jeramy (09/25/2024 9:11 AM EDT) Erythrocyte Sedimentation Rate 26(H) 0 - 20 MM/HR [facility] Comment:Patients with polycy themia and many hemoglobin abnormalitiesmay have depressed sed rates whereas patients with anemiamay have elevated sed rates. 09/25/2024 9:11 AM EDT 09/25/2024 9:11 AM EDT Generic External Data Provider LAB BLOOD ORDERAB LES Final Result Performing Organization Address [facility]/ZIP Co de Phone Number [facility] [address] [place] [phone] * (ABNORMAL) C-reactive Protein (09/25/2024 9:11 AM EDT) C Reactive Protein 0.85(H) < or = 0.50 mg/dL [facility] 09/25/2024 9:11 AM EDT 09/25/2024 9:11 AM EDT Generic External Data Provider LAB BLOOD ORDERAB LES Final Result Performing Organization Address [facility] de Phone Number [facility] [address] [place] [phone] * (ABNORMAL) Comprehensive Metabolic Panel (09/25/2024 9:11 AM EDT) Sodium 143 135 - 145 mmol/L [facility] Potassium 3.6 3.3 - 5.1 mmol/L [facility] Chloride 108 96 - 108 mmol/L [facility] Carbon Dioxide 27 22 - 29 mmol/L [facility] Anion Gap 12 12 - 20 [facility] Urea Nitrogen (BUN) 7(L) 9 - 16 mg/dL [facility] Creatinine, Serum 0.52 0.5 - 1.4 mg/dL [facility] Estimated Glomerular Filt Rate >60 [facility] Comment:Chronic Kidney Disea se: Estimated GFR < 60 mL/min/1.45z1Ztnsyz Kidney Disease: Estimated GFR < 15 mL/min/1.73m2 Glucose 116(H) 60 - 115 mg/dL [facility] Calcium 8.9 8.4 - 10.2 mg/dL [facility] Bilirubin, Total 0.5 0.0 - 1.0 mg/dL [facility] Aspartate Amino Transferase 60(H) 5 - 31 U/L [facility] Alanine Aminotransferase 60(H) 0 - 31 U/L [facility] Total Protein 7.2 6.5 - 8.0 g/dL [facility] Albumin Level 3.9 3.5 - 5.0 g/dL [facility] Alkaline Phosphatase 131(H) 39 - 117 U/L [facility] 09/25/2024 9:11 AM EDT 09/25/2024 9:11 AM EDT us Generic External Data Provider LAB BLOOD ORDERAB LES Final Result Performing Organization Address City/State/[facility] Co de Phone Number [facility] [address] [place] [phone] * CT Chest w/ Contrast (09/23/2024 1:38 PM EDT) Anatomical Region Laterality Modality Body, Chest Computed Tomogra phy 09/23/2024 1:38 PM EDT Narrative 09/23/2024 1:39 PM EDT [place] [address] CT Scan Report Signed Patient: Sobia Silva MR#: [id number] : 1970 Acct:[id number] Age/Sex: 54 / F ADM Date: 09/23/24 Loc: HO.CT Attending Dr: Anjel Ruggiero MD Ordering Physician: Anjel Ruggiero MD Date of Service: 09/23/24 Procedure(s): CT chest w IV con Accession Number(s): [id number] cc: Anjel Ruggiero MD; Elizabeth Boo [facility] Report Number: [id number]: Total DLP = 168.00 mGy-cm CLINICAL HISTORY: R04.2 - Hemoptysis CT chest with contrast Comparison: None provided Findings: The heart size is normal. Enlarged pulmonary trunk measuring 36 mm in width. Query pulmonary arterial hypertension. The visualized thyroid and mediastinum are otherwise unremarkable. The lungs are clear. Cholecystectomy. Indeterminate 20 mm right adrenal nodule. Further evaluation with adrenal protocol CT or MRI +/-correlation with prior imaging if available recommended. Hepatic steatosis. The bones are intact. IMPRESSION: 1. Indeterminate 20 mm right adrenal nodule. Further evaluation with adrenal protocol CT or MRI +/-correlation with prior imaging if available recommended. 2. Hepatic steatosis. 3. Enlarged pulmonary trunk measuring 36 mm in width. Query pulmonary arterial hypertension. This document has been electronically signed by: Indira Canas MD on 09/23/2024 13:38:28 Dictated By: Indira Canas MD Signed By: <Electronically signed by Indira Canas MD in OV> 09/23/241338 DD/ 37 TD/TT: 09/23/241337 Technical Support 1 Software Engineer: Procedure Note Donotuseinterpreter, Image - 09/23/[address] [place] [address] [address] Scan Report Signed Patient: Fly Silva#: [id number] : 1970Acct:[id number] Age/Sex: 54 / FADM Date: 09/23/24 Loc: HO.CT Attending Dr: Anjel Ruggiero MD Ordering Physician: Anjel Ruggiero MD Date of Service: 09/23/24 Procedure(s): CT chest w IV con Accession Number(s): [id number] cc: Anjel Ruggiero MD; Elizabeth Boo [facility] Report Number: [id number]: Total DLP = 168.00 mGy-cm CLINICAL HISTORY: R04.2 - Hemoptysis CT chest with contrast Comparison: None provided Findings: The heart size is normal. Enlarged pulmonary trunk measuring 36 mm in width. Query pulmonary arterial hypertension. The visualized thyroid and mediastinum are otherwise unremarkable. The lungs are clear. Cholecystectomy. Indeterminate 20 mm right adrenal nodule. Further evaluation with adrenal protocol CT or MRI +/-correlation with prior imaging if available recommended. Hepatic steatosis. The bones are intact. IMPRESSION: 1. Indeterminate 20 mm right adrenal nodule. Further evaluation with adrenal protocol CT or MRI +/-correlation with prior imaging if available recommended. 2. Hepatic steatosis. 3. Enlarged pulmonary trunk measuring 36 mm in width. Query pulmonary arterial hypertension. This document has been electronically signed by: Indira Canas MD on 09/23/2024 13:38:28 Dictated By: Indira Canas MD Signed By: <Electronically signed by Indira Canas MD in OV> 09/23/24 1339 DD/ 37 TD/TT: 09/23/241337 Technical Support 1 Software Engineer: [facility] External Provider IMG CT PROCEDURES Final Result * POCT Creatinine GFR (09/23/2024 8:13 AM EDT) POCT Creatinine 0.6 0.5 - 1.4 mg/dL [facility] GFR POC >60 [facility] Comment:Chronic Kidney Disea se: Estimated GFR < 60 mL/min/1.45a1Hxscda Kidney Disease: Estimated GFR < 15 mL/min/1.73m2 09/23/2024 8:13 AM EDT 09/23/2024 10:11 AM EDT Narrative [facility] - 09/23/2024 10:11 AM EDT [id number] Generic External Data Provider LAB POINT OF CARE TEST DOCKED DEVICE ORDERABLES Final Result [facility] [address] [place] [phone] * Hemoglobin A1c (04/22/2024 11:48 AM EST) Hemoglobin A1c 5.9 <6.0 % [facility] Comment:Hemoglobin A1C Refer ence Range Adults: 4.8 - 6.0 % Non diabetic: < 6.0 % Goal: < 7.0 %Additional Action Suggested: > 8.0 %Note: Hemoglobin A1c results are invalid for patients with abnormal amounts of HbF. Blood transfusions may impact the HbA1c concentration in the patient sample. Estimated Average Glucose 123 mg/dL [facility] Comment:eAG = Estimated ave rage glucose which is %A1C expressed asaverage glucose, using the formula of the T1G-KwphusxDdoieaz Glucose study (ADAG), Diabetes Care, Vol.31,#8,2007 Blood Venous blood specimen / Unknown 04/22/2024 11:48 AM EST 04/22/2024 2:10 PM EST Elizabeth Boo [facility] LAB BLOOD ORDERABLES Final Res ult Performing Organization Address [facility] de Phone Number [facility] [address] [place] [phone] * (ABNORMAL) Lipid Panel, Standard (04/22/2024 11:48 AM EST) Triglycerides 113 <150 mg/dL [facility] Comment:Desirable Triglyceri de: less than 150 mg/dLBorderline High Triglyceride 150-199 mg/dLHigh Triglyceride: 200-499 mg/dLVery High Triglyceride: greater than or equal to 5OO mg/dL Cholesterol 107 <200 mg/dL [facility] Comment:Desirable Cholestero l: less than 200 mg/dLBorderline High Cholesterol: 200-239 mg/dLHigh Cholesterol: greater than 239 mg/dL LDL Cholesterol Calculated 53 <100 mg/dL [facility] Comment:Desirable LDL: less than 100 mg/dLNear Optimal/Above Optimal LDL: 110- 129 mg/dLBorderline High LDL: 130-159 mg/dLHigh LDL: 160-189 mg/dLVery High LDL: greater than or equal to 190 mg/dL HDL Cholesterol 32(L) >40 mg/dL [facility] Comment:Desirable HDL: great er than 40 mg/dL Note: This HDL assay may give artificially low results in patients with liver disease. Blood Venous blood specimen / Unknown 04/22/2024 11:48 AM EST 04/22/2024 2:10 PM EST us Elizabeth Boo PLAN EXAMINER LAB BLOOD ORDERABLES Final Res ult Performing Organization Address [facility] Co de Phone Number [facility] [address] [place] [phone] * Pap Smear (02/27/2024 10:05 AM EST) Swab Cervix uteri structure / Unknown 02/27/2024 10:05 AM EST 02/28/2024 9:45 AM EST Brinda [facility] - 03/04/2024 4:03 PM EST ----- ------- Name: Andrea ChinSobia Age/Sex: 53/F : 1970 Unit#: [id number] Attend Dr: Elizabeth Bautista MD Re02/28/24 Status: DEP REF Location: HO.HHCLNP Disch: ----- ------- SPEC : [id number] RECD: 02/28/2445 STATUS: MARTHA BETH NUM: [id number] LILIBETH: 02/27/24-[address] [facility] [address]: Elizabeth Bautista MD ENTERED: 02/28/24-1023 SP TYPE: Pap Smr OT : ORDERED: Pap Smear Interpretation Satisfactory for evaluation. No endocervical cells seen. Negative for intraepithelial lesion or malignancy. HPV High Risk: Negative HPV Genotyping 16: Negative HPV Genotyping 18: Negative Clinical Information LMP: Unknown date Previous PAP test: Unknown date, NILM, -hrHPV Material Received ThinPrep-Cervical ----- ------- Signed (signature on file) RINKU Bustamante ([facility]) 03/04/24 1603 ----- ------- END OF REPORT Elizabeth Bautista MD LAB CYTOLOGY ORDERABLES Final Result [facility] [address] [place] [phone] * HPV mRNA E6/E7 w/Reflex to HPV Genotypes 16, 18/45 (02/27/2024 12:00 AM EST) Historical Provider LAB CYTOLOGY ORDERABLES F inal Result * Hm Colonoscopy (08/10/2023 5:22 PM EDT) Historical Provider HEALTH MAINTENANCE Final Result * Fecal Globin by Immunochemistry (12/15/2022) Stool Rectal contents / Unknown 12/15/2022 Historical Provider LAB BODY FLUIDS AND STOOL S ORDERABLES Final Result from Last 3 Months or Most Recently Relevant to Health Maintenance Insurance * Guarantor: Sobia Silva Account Type Relation to Patient Date of Phone Billing Address Personal/Family Self [address] Care Teams [employer] Relationship Specialty Start Date End Date Elizabeth Boo FNP [address] [place] [address] PCP - General Family Medicine 04/11/22 Pravin Guzman MD [address] [place] [address] Cardiology 04/23/24[address] [place] [address] Gastroenterology 04/23/24 Josiane Smith MD [address] [place] [address] Rheumatology 04/23/24
--- OUTSIDE RECORDS SUMMARY | 2024-12-23 11:31 | XMS_ITS | Clinical Summary ---
Author Organization [facility] Address [address] [place] [address] [place], [place] [id number] Phone Care Team Providers Care Patient Relations Representative Name Role Phone Unknown, Unknown Primary Care Provider Norman lo Social History Tobacco Use Types Packs/Day Years Used Date Smoking Tobacco: Never Assessed Education Answer Date Recorded Are you interested in more education? Not on bairon e 07/15/2022 Are you concerned about learning? Not on file 07/15/2022 No 07/15/2022 No 07/15/2022 Digital Access Answer Date Recorded No 08/16/2022 No 08/16/2022 No 08/16/2022 Reliable internet access at home? Not on file 08/16/2022 Device with a working camera? Not on file Comments Unknown Sex and Gender Information Value Date Recorded Sex Assigned at Not on file Legal Sex Female 11:21 AM EDT Gender Identity Not on file Sexual Orientation Not on file Plan of Treatment Not on file Medical Devices Not on file Insurance [facility] ONE CARE MEDICARE REPLACEMENT [place] [address] [facility] MEDICARE [place] [address] [address] MEDICARE REPLACEMENT [facility] MEDICARE REPLACEMENT [facility] CARE MEDICARE REPLACEMENT Member Subscriber Plan / Payer (Ef fective 2017-Present) Name:Sobia Mendez Relation to Subscriber:Self Name:Sobia Mendez Payer ID:[id number] (NAIC) Group ID:Not on file Type:Medicare Address: [address] [place] [facility] CARE MEDICARE REPLACEMENT Care Teams Patient Relations Representative Relationship Specialty Start Date End Date Unknown, Unknown, PCP - General 10/17/17 Additional Source Comments The information contained in this document represents components of the legal health record. It is not the complete legal health record.[facility]
--- OUTSIDE RECORDS SUMMARY | 2024-12-23 11:31 | XMS_ITS | Encounter Summary ---
Author Organization [facility] Address [address] [place] [address] Phone Care Team Providers Care Cottage Attendant Name Role Phone Unknown, Unknown Primary Care Provider Norman lo Encounter Details Date Type Department Care Team (Late st Contact Info) Description 10/18/2017 Ancillary Orders [facility] [address] [place] [address] 3rd Floor, [address] [place] [address] Patricia Ward PA [address] [place] [address] Social History Tobacco Use Types Packs/Day Years [...] Diagnoses Not on filedocumented in this encounter Care Teams Cottage Attendant Relationship Specialty Start Date End Date Unknown, Unknown, PCP - General 10/17/17 documented as of this encounter Additional Source Comments The information contained in this document represents components of the legal health record. It is not the complete legal health record.[facility]
--- OUTSIDE RECORDS SUMMARY | 2024-12-23 11:31 | XMS_ITS | Encounter Summary ---
Author Organization [employer] Address [address] [facility] 7t [place] [address] Care Team Providers Care Telemarketer Name Role Phone Elizabeth Boo Primary Care Provider [phone] Pravin Guzman MD Unavailable [phone] June Unavailable Josiane Smith MD Unavailable Reason for Visit * Reason Onset Date Comments Appointment Request 08/10/2023 Encounter Details Date Type Department Care Team (Late st Contact Info) Description 08/10/2023 Telephone [facility] [address] [place] [address] Elizabeth Boo FNP [address] [place], [place] [id number] Appointment Request Social History Tobacco Use Types Packs/Day Years Used Date Smoking Tobacco: Never Smokeless Tobacco: Never Alcohol Use Standard Drinks/Week Comments Never 0 (1 standard drink = 0.6 oz pur e alcohol) Depression Answer Date Recorded Patient Health Questionnaire-9 Score 21 11/07/2022 Housing Stability Answer Date Recorded What is your housing situation today? I have carlos alberto sing 06/12/[address] you li [...] encounter Miscellaneous Notes * Telephone Encounter - Sorinmariana Kim - 08/10/2023 10:47 AM EDT Tc from pt calling to report she had colonoscopy done today at [facility] and was advised to follow up with pcp. Please contact pt at [phone]. Polish Speaker documented in this encounter Plan of Treatment Not on file documented as of this encounter Visit Diagnoses Not on filedocumented in this encounter Additional Health Concerns Assessment Noted Time PHQ-9 Depression Total Score: 21 023 8:12 AM EDT documented as of this encounter Care Teams Telemarketer Relationship Specialty Start Date End Date Elizabeth Boo FNP [address] [place] [address] PCP - General Family Medicine 04/11/22 Pravin Guzman MD [address] [place] [address] Cardiology 04/23/24June 11 [facility] 3rd [place] [address] Gastroenterology 04/23/24 Josiane Smith MD [address] [place] [address] Rheumatology 04/23/24 documented as of this encounter
--- OUTSIDE RECORDS SUMMARY | 2024-12-23 11:31 | XMS_ITS | Clinical Summary ---
Author Organization [address] [facility] Address [address] [place] [address] Phone Care Team Providers Care Litigation Services Manager Name Role Phone Elizabeth Boo RN [...] 03/04/2024 10:46 AM EST Plan of Treatment Upcoming Encounters Date Type Department Care Team (Late st Contact Info) Description 02/11/2025 9:15 AM EST Office Visit Orthopedic Surgery - [place] [address] [address] Gonzalez Owens, DPM [address] [address] Health Maintenance Due Date Last Done Comments [...] of Health Screening 01/17/2024 Depression Screening 03/20/2024 Influenza Vaccine (#1) 2024 , 12/02/2021, 01/28/2021, Additional history exists Hypertension/CHF/CAD Annual BMP Blood Test 01/10/2025 01/11/2024 DTaP,Tdap,and Td Vaccines (4 - Td or Tdap) 01/21/2026 01/22/2016, 07/04/2008, 03/27/1996 Cholesterol Screening (Lipid Panel) 09/24/2026 09/24/2021 RSV Immunization Adult Patients (1 - 1-dose 75+ series) 2043 Zoster Vaccines Completed 01/21/2021, 11/19/2020 COVID-19 Vaccine Completed 02/27/2024, , 06/09/2020, Additional history exists HIB Vaccines Aged Out [...] Subscriber Plan / Payer (Ef fective 2013-Present) Name:IHSAN MENDEZ Relation to Subscriber:Self Name:Ihsan Mendez Payer ID:[id number] Group ID:[id number] Type:Not on file Address: [place] [address] [place] [address] Care Teams Litigation Services Manager Relationship Specialty Start Date End Date Elizabeth Boo RN [address] [address] PCP - General 09/12/23
--- OUTSIDE RECORDS SUMMARY | 2024-12-23 11:31 | XMS_ITS | Encounter Summary ---
Author Organization [employer] Address [address] [facility] 7t [place] [address] Care Team Providers Care Time Study Analyst Name Role Phone Elizabeth Boo Primary Care Provider [phone] Pravin Guzman MD Unavailable [phone] June Unavailable Josiane Smith MD Unavailable Reason for Visit * Reason Onset Date Comments Nurse Triage 09/30/2024 Encounter Details Date Type Department Care Team (Late st Contact Info) Description 09/30/2024 Telephone [facility] [address] [place] [address] Elizabeth Boo FNP [address] [place], [place] [id number] Nurse Triage Social History Tobacco Use Types Packs/Day Years [...] encounter Miscellaneous Notes * Telephone Encounter - Lindsey Garrett RN - 09/30/2024 12:30 PM EDT Triage call [place] [id number],[place] Pt reports started with a fever of 99.8 yesterday, cough and some sob at times today. Pt tested negfor Covid. Pt has been drinking adequate liquids, taking tylenol as needed and resting. Pt is offered an INSted visit with [facility] insurance but, declines and will call back tomorrow if sx get worse. Today Pt will continue with home care advised. Pt agrees with disposition. Protocol Used: Cough (Adult) Protocol-Based Disposition: Home Care Positive Triage Question: * Cough with cold symptoms (e.g., runny nose, postnasal drip, throat clearing) * All higher-acuity triage questions were negative Care Advice Discussed: * Reassurance and Education - Cough * Cough Medicines * Coughing Spells * Prevent Dehydration * Fever Medicines * Reasons To Call Back - Difficulty breathing - Cough lasts more than 3 weeks - Fever lasts more than 3 days - You become worse * Telephone Encounter - Sorin Kim - 09/30/2024 11:43 AM EDT Symptoms: Fever, Breathing Trouble, Cough Outcome: Schedule an urgent appointment (within 1 hour) or talk to a nurse or provider soon Reason: Caller denied all higher acuity questions Please contact pt at [phone]. (Telugu Speaker) documented in this encounter Plan of Treatment Not on file documented as of this encounter Visit Diagnoses Not on filedocumented in this encounter Additional Health Concerns Assessment Noted Time PHQ-9 Depression Total Score: 21 025 10:36 AM EST documented as of this encounter Care Teams Time Study Analyst Relationship Specialty Start Date End Date Elizabeth Boo FNP [address] [place] [address] PCP - General Family Medicine 04/11/22 Pravin Guzman MD [address] [place] [address] Cardiology 04/23/[address] 3rd [place] [address] Gastroenterology 04/23/24 Josiane Smith MD [address] [place] [address] Rheumatology 04/23/24 documented as of this encounter
--- OUTSIDE RECORDS SUMMARY | 2024-12-23 11:31 | XMS_ITS | Encounter Summary ---
Author Organization [employer] Address [address] [facility] 7t [place] [address] Care Team Providers Care Receivable Manager Name Role Phone Elizabeth Boo Primary Care Provider [phone] Pravin Guzman MD Unavailable [phone] June Unavailable Josiane Smith MD Unavailable Reason for Visit * Reason Onset Date Comments TC: MRI Results 12/09/2024 Encounter Details Date Type Department Care Team ([facility] st Contact Info) Description 12/09/2024 Telephone [facility] MED & PEDS [address] [place], [place] [phone] Elizabeth Boo FNP [address] [place] [address] TC: MRI Results Social History Tobacco Use Types Packs/Day Years [...] encounter Miscellaneous Notes * Telephone Encounter - Rosario Baig RN - 12/18/2024 2:36 PM EDT Appointment booked for telehealth visit for 2:30 per Elizabeth Boo. Message was not seen by RN until 2:30. TC to green team nurses to let them know about the visit and check in. * Telephone Encounter - Kory Singh - 12/18/2024 10:50 AM EDT Tc from pt reporting that she did not understand the results and is requesting for PCP to contact daughter. Contact Paige at [phone] * Telephone Encounter - JOSE Weiss - 12/11/2024 2:38 PM EDT Outgoing TC placed to pt to review results below. All questions answered. * Telephone Encounter - Marcos Walker - 12/10/2024 9:24 AM EDT Pt returning pcp call regarding below: Called to review results of MRI. LVM requesting return call. MRI abdomen demonstrated: IMPRESSION: 1. Right adrenal adenoma --> no f/up needed 2. Duplicated inferior vena cava --> important to know especially pre-surgery and may increase risk of blood clots Please reach out to PCP if pt returns call. * Telephone Encounter - JOSE Weiss - 12/09/2024 4:53 PM EDT Called to review results of MRI. LVM requesting return call. MRI abdomen demonstrated: IMPRESSION: 1. Right adrenal adenoma --> no f/up needed 2. Duplicated inferior vena cava --> important to know especially pre-surgery and may increase risk of blood clots Please reach out to PCP if pt returns call. documented in this encounter Plan of Treatment Not on file documented as of this encounter Visit Diagnoses Not on filedocumented in this encounter Additional Health Concerns Assessment Noted Time PHQ-9 Depression Total Score: 21 025 10:36 AM EST documented as of this encounter Care Teams Receivable Manager Relationship Specialty Start Date End Date Elizabeth Boo FNP [address] [place] [address] PCP - General Family Medicine 04/11/22 Pravin Guzman MD [address] [place] [address] Cardiology 04/23/24June [address] [place] [address] [address] [place] [address] Gastroenterology 04/23/24 Josiane Smith MD [address] [place] [address] Rheumatology 04/23/24 documented as of this encounter
--- OUTSIDE RECORDS SUMMARY | 2024-12-23 11:31 | XMS_ITS | Encounter Summary ---
Author Organization [employer] Address [address] [facility] 7t [place] [address] Care Team Providers Care Tube Balancer Name Role Phone Elizabeth Boo Primary Care Provider [phone] Pravin Guzman MD Unavailable [phone] June Unavailable Josiane Smith MD Unavailable Reason for Visit * Reason Onset Date Comments Appointment 11/30/2022 Encounter Details Date Type Department Care Team (Late st Contact Info) Description 11/30/[address] [facility] [address] [place], [place] [phone] Costa Ackerman DDS [address] [place], [place] [phone] Appointment Social History Tobacco Use Types Packs/Day [...] documented as of this encounter Care Teams Tube Balancer Relationship Specialty Start Date End Date Elizabeth Boo FNP [address] [place] [address] PCP - General Family Medicine 04/11/22 Pravin Guzman MD [address] [place] [address] Cardiology 04/23/24[address] 3rd [place] [address] Gastroenterology 04/23/24 Josiane Smith MD [address] [place] [address] Rheumatology 04/23/24 documented as of this encounter
--- OUTSIDE RECORDS SUMMARY | 2024-12-23 11:31 | XMS_ITS | Encounter Summary ---
Author Organization [facility] Address [address] [facility] [address] [place] [address] Phone Care Team Providers Care Wood Carver Name Role Phone Unknown, Unknown Primary Care Provider Norman lo Encounter Details Date Type Department Care Team (Late st Contact Info) Description 01/25/2018 Ancillary Orders [facility] [address] [place] [address] Pravni Guzman, DO [address] [place] [address] Tachycardia Social History Tobacco Use Types Packs/Day Years [...] encounter Results * Holter Monitor 24 Hours (01/25/2018 1:36 PM EST) Anatomical Region Laterality Modality Heart Other Narrative 01/25/2018 2:05 PM EST 24-hour monitor: Baseline rhythm is sinus with a minimum heart rate 56 maximum 144 average 84 bpm. No long pauses present. Rare PACs present. Patient event marker activated during sinus rhythm. Impression: Normal 24-hour monitor. Patient event markers during sinus rhythm. Procedure Note Huang Cummings MD - 01/25/2018 24-hour monitor: Baseline rhythm is sinus with a minimum heart rate 56maximum 144 average 84 bpm. No long pauses present. Rare PACs present.Patient event marker activated during sinus rhythm. Impression: Normal 24-hour monitor. Patient event markers during sinusrhythm. Pravin Guzman DO [facility] ORDERABLE S Final Result documented in this encounter Visit Diagnoses Diagnosis Tachycardia Unspecified tachycardia Tachycardia Unspecified tachycardia documented in this encounter Care Teams Wood Carver Relationship Specialty Start Date End Date Unknown, Unknown, PCP - General 10/17/17 documented as of this encounter Additional Source Comments The information contained in this document represents components of the legal health record. It is not the complete legal health record.[facility]
--- OUTSIDE RECORDS SUMMARY | 2024-12-23 11:31 | XMS_ITS | Encounter Summary ---
Author Organization [employer] Address [address] [facility] 7t [place] [address] Care Team Providers Care Home Aide Name Role Phone Elizabeth Boo Primary Care Provider [phone] Pravin Guzman MD Unavailable [phone] June Unavailable Josiane Smith MD Unavailable Reason for Visit * Reason Comments Med Refill Encounter Details Date Type Department Care Team (Late st Contact Info) Description 04/29/2024 Refill [facility] PEDS [address] [place], [place] [phone] Elizabeth Boo FNP [address] [place], [place] [phone] Periodic limb movement disorder Social History Tobacco [...] documented as of this encounter Care Teams Home Aide Relationship Specialty Start Date End Date Elizabeth Boo FNP [address] [place] [address] PCP - General Family Medicine 04/11/22 Pravin Guzman MD [address] [place] [address] Cardiology 04/23/24[address] 3rd [place] [address] Gastroenterology 04/23/24 Josiane Smith MD [address] [place] [address] Rheumatology 04/23/24 documented as of this encounter
--- OUTSIDE RECORDS SUMMARY | 2024-12-23 11:31 | XMS_ITS | Encounter Summary ---
Author Organization [employer] Address [address] [facility] [address] 7t [place] [address] Care Team Providers Care Infant Lead Teacher Name Role Phone Elizabeth Boo Primary Care Provider [phone] Pravin Guzman MD Unavailable [phone] June Unavailable Josiane Smith MD Unavailable Encounter Details Date Type Department Care Team (Late st Contact Info) Description 01/16/[address] [facility]S [address] [place] [address] Provider, MD Ita Social History Tobacco Use [...] documented as of this encounter Care Teams Infant Lead Teacher Relationship Specialty Start Date End Date Elizabeth Boo FNP [address] [place] [address] PCP - General Family Medicine 04/11/22 Pravin Guzman MD [address] [place] [address] Cardiology 04/23/24[address] 3rd [place] [address] Gastroenterology 04/23/24 Josiane Smith MD [address] [place] [address] Rheumatology 04/23/24 documented as of this encounter
== END 2024-12-23 10:00 | disposition home or self-care (01) ==
LOC: HO.US 09:59
PROVIDERS: PCP Registered Nurse; Visit Provider Nurse Practitioner
DX: K75.81 Nonalcoholic steatohepatitis (NASH) (principal)
CPT/HCPCS: 76700

== ENCOUNTER → 2024-12-23 10:03 | Outpatient (BNV) | payer OTHER, SELFPAY | PROVIDERS: PCP Registered Nurse; Visit Provider Nuclear Medicine | DX: R16.0 Hepatomegaly, not elsewhere classified (principal); K76.0 Fatty (change of) liver, not elsewhere classified; K86.89 Other specified diseases of pancreas | CPT/HCPCS: 76700 ==

== ENCOUNTER 2024-12-31 13:18 | Outpatient (AMB) | payer OTHER, SELFPAY ==
--- NOTE | 2024-12-31 13:22 | MHC.OFFVIS ---
Intake Visit Reasons: ENP-Periodic limb mov dis Allergies niacin (From NIASPAN EXTENDED-RELEASE) Allergy (Intermediate, Verified 11/01/24 14:23) TACHYCARDIA,DIFF.BREATHING citalopram (Celexa) Allergy (Unknown, Verified 11/01/24 14:23) unknown diltiazem (From CARTIA XT) Allergy (Unknown, Verified 11/01/24 14:23) UNKNOWN HPI Comments Details: The patient is a 54-year-old female being treated for rheumatoid arthritis is presenting with persistent leg pain and sensations consistent with restless legs. The complaint has been present for over two years with nighttime predominance, though it can occur during the day. The sensations are described as cramping and tingling, predominant in the feet, and compared to a feeling of numerous ants over the area. She denies alcohol consumption and diabetes. Gabapentin and Ropinirole have been used without sufficient symptom relief. Her medical history includes a transient ischemic attack in 2012, which led to hospitalizations due to tremor, and treatment with medications targeting migraines and GERD. Neurologist consultations have mainly focused on migraine management with Topiramate. [facility] Medical History (Updated 12/31/24 @ 13:43 by Jovana Fan MD) Periodic limb movement disorder Colon cancer screening Acute bronchitis Abdominal bloating Epigastric pain Diarrhea Rheumatoid arthritis GERD (gastroesophageal reflux disease) HTN (hypertension) Stroke Bilateral carpal tunnel syndrome Dyslipidemia Anxiety Depression Migraine Restless legs Surgical History H/O colonoscopy S/P breast biopsy, right H/O prior ablation treatment History of esophagogastroduodenoscopy (EGD) History of cholecystectomy Family History Father High blood pressure Cancer Mother Diabetes High blood pressure Sister Diabetes High blood pressure Thyroid disease Cancer Brother High blood pressure Asthma Social History Alcohol intake: never Patient Tobacco Use Status: Never used Tobacco Current occupational status: disabled Current occupation: rt handed Review of Systems Const Details: - Neurological: Reports cramping, tingling, and a 'crawling' sensation in the legs, primarily at night and sometimes during the day. - Endocrine: Denies diabetes. - General: Denies alcohol consumption. Physical Exam Neuro Other: Mental Status: Alert and oriented to person, place, and time. Normal attention. Normal spontaneous speech, fluency, and comprehension. No obvious issues with mood and memory. Affect is appropriate. Cranial Nerves: CN II: Visual pimentel full to confrontation, visual acuity intact. CN III, IV, : Pupils equal, round, reactive to light and accommodation. Extraocular movements are normal. CN V: Facial sensation is normal. CN VII: Facial movements symmetrical. CN VIII: Hearing intact to bedside conversation is normal. CN IX, X: Palate elevates symmetrically. CN XI: Shoulder shrug and head turn symmetrical. CN XII: Tongue midline without atrophy or fasciculations. Motor: Bulk and tone normal in all extremities. No significant muscle weakness in arms and legs. No drift. Reflexes: Deep tendon reflexes 2+ and symmetric. Plantar response down-going bilaterally. Coordination: [id number]-vg-[id number] and tlzj-ix-[id number] testing normal. No dysmetria. Gait and Station: No obvious gait abnormality. No ataxia or instability. Sensory: Intact to light touch, pinprick, and vibration. Romberg is negative. Extrapyramidal: Full facial expressions and blinking. No rigidity. Movements are appropriate with no tremor or abnormality. Speech: Normal; no dysarthria or tremor. Assessment & Plan Assessment & Plan (1) Restless legs: Code(s): G25.81 - Restless legs syndrome Category: Medical (2) Neuropathy: Code(s): G62.9 - Polyneuropathy, unspecified Category: Medical (3) Migraine: Code(s): G43.909 - Migraine, unspecified, not intractable, without status migrainosus Category: Medical Qualifiers: Migraine type: migraine (< 15 days per month) without aura Status migrainosus presence: without status migrainosus Intractability: not intractable Qualified Code(s): G43.009 - Migraine without aura, not intractable, without status migrainosus Plan Impression: 1. Chronic restless legs syndrome 2. Possible small fiber neuropathy 3. Migraine without aura Recommendations 1. Discontinue gabapentin as it was not helping 2. Discontinue ropinirole as it was not helping either 3. Try pramipexole 0.5 mg 1 at bedtime 4. EMG nerve conduction study to classify and great neuropathy Orders: Orders NE nerve conduction velocity Today G62.9 - Polyneuropathy, unspecified NE electromyogram (EMG) Today G62.9 - Polyneuropathy, unspecified Medications: New pramipexole 0.5 mg PO BEDTIME 30 tabs 1RF Coding Level of Care Code New Pt Level 4 (88135) Diagnoses Restless legs G25.81 Neuropathy G62.9 Migraine without aura and without status migrainosus, not intractable G43.009 Migraine type: migraine (< 15 days per month) without aura Status migrainosus presence: without status migrainosus Intractability: not intractable
--- OUTSIDE RECORDS SUMMARY | 2024-12-31 16:06 | XMS_ITS | Encounter Summary ---
Author Organization [employer] Address [address] [facility] 7[address] [place] [address] Care Team Providers Care Operations Section Manager Name Role Phone Elizabeth Boo Primary Care Provider [phone] Pravin Guzman MD Unavailable [phone] June Unavailable Josiane Smith MD Unavailable Encounter Details Date Type Department Care Team (Late st Contact Info) Description 09/28/2022 Orders Only [facility] CH[facility] MED & PEDS [address] [place] [address] Mami Neely LPN Social History Tobacco Use [...] documented as of this encounter Care Teams Operations Section Manager Relationship Specialty Start Date End Date Elizabeth Boo FNP [address] [place] [address] PCP - General Family Medicine 04/11/22 Pravin Guzman MD [address] [place] [address] Cardiology 04/23/24June [address]rd [place] [address] Gastroenterology 04/23/24 Josiane Smith MD [address] [place] [address] Rheumatology 04/23/24 documented as of this encounter
--- OUTSIDE RECORDS SUMMARY | 2024-12-31 16:06 | XMS_ITS | Encounter Summary ---
Author Organization [employer] Address [address] [facility] 7t [place] [address] Care Team Providers Care Science Tutor Name Role Phone Elizabeth Boo Primary Care Provider [phone] Pravin Guzman MD Unavailable [phone] June Unavailable Josiane Smith MD Unavailable Reason for Visit * Reason Onset Date Comments Appointment 11/30/2022 Encounter Details Date Type Department Care Team (Late st Contact Info) Description 11/30/2022 Telephone [facility] ADULT DENTAL [address] [place], [place] [phone] Costa Ackerman DDS [address] [place], [place] [phone] Appointment Social History Tobacco Use Types Packs/Day [...] documented as of this encounter Care Teams Science Tutor Relationship Specialty Start Date End Date Elizabeth Boo FNP [address] [place] [address] PCP - General Family Medicine 04/11/22 Pravin Guzman MD [address] [place] [address] Cardiology 04/23/24June [address]rd [place] [address] Gastroenterology 04/23/24 Josiane Smith MD [address] [place] [address] Rheumatology 04/23/24 documented as of this encounter
--- OUTSIDE RECORDS SUMMARY | 2024-12-31 16:06 | XMS_ITS | Encounter Summary ---
Author Organization [employer] Address [address] [facility] 7t [place] [address] Care Team Providers Care Mud Plant Operator Name Role Phone Elizabeth Boo Primary Care Provider [phone] Pravin Guzman MD Unavailable [phone] June Unavailable Josiane Smith MD Unavailable Reason for Visit * Reason Onset Date Comments Appointment Request 08/10/2023 Encounter Details Date Type Department Care Team (Late st Contact Info) Description 08/10/2023 Telephone [facility] MEDICINE [address] [place] [address] Elizabeth Boo FNP [address] [place], [place] [phone] Appointment Request Social History Tobacco Use Types [...] report she had colonoscopy done today at [facility] and was advised to follow up with pcp. Please contact pt at [phone]. Yakut Speaker documented in this encounter Plan of Treatment Not on file documented as of this encounter Visit Diagnoses Not on filedocumented in this encounter Additional Health Concerns Assessment Noted Time PHQ-9 Depression Total Score: 21 023 8:12 AM EDT documented as of this encounter Care Teams Mud Plant Operator Relationship Specialty Start Date End Date Elizabeth Boo FNP [address] [place] [address] PCP - General Family Medicine 04/11/22 Prvain Guzman MD [address] [place] [address] Cardiology 04/23/24June [address] [facility] 3rd [place] [address] Gastroenterology 04/23/24 Josiane Smith MD [address] [facility] [address] [place] [address] Rheumatology 04/23/24 documented as of this encounter
--- OUTSIDE RECORDS SUMMARY | 2024-12-31 16:06 | XMS_ITS | Clinical Summary ---
Author Organization [employer] Address [address] [place] [address] Care Team Providers Care [employer] Name Role Phone Elizabeth Boo Primary Care Provider [phone] Pravin Guzman MD Unavailable [phone] Unavailable Josiane Smith MD Unavailable [...] mg by mouth in the morning. 03/31/19 Active Simethicone Ultra Strength 180 MG capsule Take 180 mg by mouth 3 times daily. 03/31/19 23 Active TRUEplus Lancets 33G misc TEST BLOOD SUGAR EVERY DAY 100 each 11 09/29/19 23 Active lidocaine-prilocai ne (Emla) 2.5-2.5 % cream Apply topically if needed in the morning, at noon, and at bedtime for moderate pain. 100 g 1 06/12/19 24 Active Humira, 2 Pen, 40 MG/0.4ML Pen-injector Kit pen-injectorIndica tions:Rheumatoid arthritis of multiple sites with negative rheumatoid factor (CMS/HCC) (HCC) 07/11/19 24 Active Salicylic Acid (Mediplast) 40 [...] 24 Active Misc. Devices (Pulse Oximeter Deluxe) [facility] Pulse ox use to check blood oxygen level at home as directed 1 each 11/17/19 24 Active sertraline (Zoloft) 25 MG tabletIndications: Severe episode of recurrent major depressive disorder, without psychotic features (CMS/HCC) (HCC) 11/07/19 24 Active traZODone (Desyrel) 50 MG tabletIndications: Severe episode of recurrent major depressive disorder, without psychotic features (CMS/HCC) (HCC) TAKE 1/2 TO 1 TABLET BY MOUTH [...] comes out. 30 capsule 12/13/19 24 Active metoprolol succinate XL (Toprol-XL) 25 MG 24 hr tablet Take 25 mg by mouth if needed each day. 02/06/20 24 Active fluticasone (Flonase) 50 MCG/ACT nasal sprayIndications:S easonal allergies INSTILL 2 SPRAYS IN EACH NOSTRIL ONCE DAILY IN THE MORNING 16 g 11 03/08/20 24 Active Multiple Vitamins-Iron (Tab-A-Ivan/Iron) tabletIndications: Routine health maintenance TAKE 1 TABLET BY MOUTH EVERY MORNING 90 tablet 3 04/02/19 25 Active Blood Pressure kit Use to check blood pressure as directed by provider, and if symptomatic. 1 kit 07/02/19 25 Active melatonin 5 MG tablet TAKE 2 TABLETS BY MOUTH EVERY DAY AT BEDTIME NEEDED FOR SLEEP 90 tablet 3 07/26/19 25 Active Ventolin HFA 108 (90 Base) MCG/ACT inhalerIndications :Moderate persistent asthma without complication INHALE 2 PUFFS EVERY 4 TO 6 HOURS NEEDED FOR WHEEZING OR SHORTNESS OF BREATH 18 g 3 09/14/19 25 Active Fluticasone Furoate-Vilanterol (Breo Ellipta) 100-25 MCG/ACT aerosol powderIndications: Moderate persistent asthma without complication Inhale 1 Inhalation in the morning. Rinse mouth after use. 60 each 2 09/14/19 25 Active topiramate (Topamax) 25 MG tabletIndications: Other migraine without status migrainosus, not intractable TAKE 2 TABLETS BY MOUTH EVERY DAY AT BEDTIME 180 tablet 1 09/26/19 25 Active gabapentin (Neurontin) 400 MG capsuleIndications :Neuropathic pain,Restless leg TAKE 1 CAPSULE BY MOUTH THREE TIMES DAILY IN THE MORNING, EVENING, AND BEDTIME 90 capsule 5 09/28/19 25 Active azithromycin (Zithromax Z-Deepak) 250 MG tablet Take 2 tablets once on day 1, then 1 tablet 1x/day for 4 days. 6 tablet 10/03/19 25 Active albuterol (2.5 MG/3ML) 0.083% nebulizer solutionIndication s:Moderate persistent asthma with acute exacerbation INHALE 1 AMPULE USING A NEBULIZER THREE TIMES DAILY NEEDED FOR WHEEZING OR FOR ASTHMA 75 mL 2 10/03/19 25 Active rOPINIRole (Requip) 2 MG tabletIndications: Periodic limb movement disorder TAKE 1 TABLET BY MOUTH AT BEDTIME 30 tablet 3 11/02/19 25 Active simvastatin (Zocor) 10 MG tabletIndications: Mixed hyperlipidemia TAKE 1 TABLET BY MOUTH AT BEDTIME 90 tablet 3 11/28/19 25 Active vitamin E 180 MG (400 UNIT) capsule TAKE 1 CAPSULE BY MOUTH TWICE DAILY IN THE MORNING AND AT BEDTIME 180 capsule 1 11/28/19 25 Active Active Problems Problem Noted Date [...] left eye 04/23/2024 Overview (04/23/2024): Followed by [facility] Red flag/ED precautions Nephrolithiasis 04/23/2024 Assessment & Plan (09/23/2024 9:25 AM EDT): Nov 2023: 4mm non-obstructing kidney stone right kidney. Started on flomax and referred to urology. Established with urology January 2024 ([facility]). Plan to continue with surveillance monitoring, repeat renal ultrasound around July: Renal US demonstrated normal bilat kidneys w/o evidence of calculi Assessment & Plan (04/23/2024 11:19 AM EST): Nov 2023: 4mm non-obstructing kidney stone right kidney. Started on flomax and referred to urology. Established with urology January 2024 ([facility]). Plan to continue with surveillance monitoring, repeat [...] and diarrhea 02/27/2024 Overview (04/23/2024): Following with [facility] FRANK Longo 03/06/24: Gastric emptying study completed: No significant evidence for delayed gastric emptying. Assessment & Plan (04/23/2024 11:20 AM EST): Continues with cholestyramine, metoclopramide, simethicone, pantoprazole High risk medication use 02/27/2024 Epigastric pain 02/27/2024 Environmental allergies 02/27/2024 Chronic headaches 02/27/2024 Bilateral knee pain 02/27/2024 GONZALEZ (nonalcoholic steatohepatitis) 11/20/2023 Assessment & Plan (11/20/2023 5:18 PM EDT): Following with [facility] CEDRICK Longo Abd US ordered September 2023 by GI with the impression of increase in hepatic echotexture, c/w fatty infiltration of hepatocellular disease. Hepatomegaly. Liver stiffness: 1.49 m/s . Rules out compensated advanced chronic liver disease. Healthcare maintenance 09/08/2023 Overview (09/23/2024): Mammo: BIRADS 0 on 07/02/24, scheduled for additional imaging OPH: [facility] on 06/12/24 ([facility]) Colonoscopy: 08/10/23 at [facility] GI - Dr. Abraham. Tubular adenoma. Plan to repeat in 3 years (2026) Pap: NILM, HPV neg on 02/27/24. Repeat 3 yrs d/t immunosuppression Last comprehensive exam: 04/22/24 Moderate persistent asthma without complication 04/27/2022 Overview (09/23/2024): -Following with [facility] Pulm - Dr. Ruggiero -Current therapy: Breo-Ellipta [...] EST): -Missed MRI appt for further eval Feb 10th, 2023 -Pt reports rescheduled for sometime next 1-2 months Assessment & Plan (11/06/2022 10:01 AM EDT): -Pt reports continues with symptoms -Missed MRI appt for further eval Apr 29, 2022 -Pt planning to call to reschedule Assessment & Plan (04/27/2022 7:01 PM EST): -Pt reports continues with symptoms -Upcoming MRI for further eval Apr 29, 2022 Rheumatoid arthritis of [facility] with negative rheumatoid factor ([facility]) 04/27/2022 Overview (09/10/2023): -Seronegative RA diagnosed 02/2022 -Followed by [facility] Rheum - Dr. Smith -Initially tx with [...] for further tx of joint pains -Encouraged [facility] acupuncture clinic Carpal tunnel syndrome 04/11/2022 Vascular insufficiency 04/11/2022 Varicose veins of both lower extremities 019 Anxiety 06/07/2018 Essential hypertension 07/13/2017 Overview (04/23/2024): BP goal: < 140/90 mmHg Continue with the following medications: Amlodipine 10mg daily Metoprolol XL 200mg daily -Followed by [facility] - Dr. Guzman -Asymptomatic EKG unremarkable 06/11/23 [...] self harm - Following with psych - [employer]IC[employer] Mary Ellen Brown - Continues with sertraline 25mg daily and trazodone 25-50mg nightly PRN sleep Assessment & Plan (11/20/2023 5:27 PM EDT): - Reviewed PHQ9 with pt, denies SI/HI/thoughts of self harm - Following with psych - [employer] Mary Ellen Brown - Continues with sertraline [...] harm, but reports increasingly difficult to function -[facility] crystal called in office, not in building today. [facility] provider plans to call pt [...] Encounters Date Type Department Care Team Description 12/23/2024 Orders Only [facility] External Provider, [facility] 12/18/2024 2:30 PM EDT Telemedicine [facility] [address] [place] [phone] Elizabeth Boo FNP Congenital anomaly of vena cava (Primary Dx); Adrenal adenoma, right 12/18/2024 Travel 12/09/2024 Telephone [facility] [address] [place] [address] Elizabeth Boo FNP TC: MRI Results 11/26/2024 Refill [facility] [address] [place] [address] Elizabeth Boo FNP Mixed hyperlipidemia 11/01/2024 Refill [facility] [address] [place] [address] Elizabeth Boo FNP Periodic limb movement disorder 10/04/2024 Results Follow-Up [facility] [address] [place] [address] Elizabeth Boo FNP XR Chest 2 Views, XR Foot 3+ Views Right 10/02/2024 3:00 PM EDT Office Visit [facility] [address] [place] [phone] Myron Hernandez MD Moderate persistent asthma with acute exacerbation 10/02/2024 Travel 09/30/2024 Telephone [facility] [address] [place] [phone] Elizabeth Boo FNP Nurse Triage 09/30/2024 Orders Only [facility] [address], [place] [phone] lEizabeth Boo FNP from Last 3 Months Immunizations Immunization Administration [...] Name Priority Date/Time Associated Diagnosis Comments US ABDOMEN COMPLETE Routine 12/23/2024 5 :23 PM EDT MR ABDOMEN W AND WO CONTRAST Routine [...] VIEW RIGHT Routine 09/30/2024 9:40 AM EDT HEPATITIS PANEL, GENERAL Routine 09/25/2024 9:11 AM EDT HEMOGLOBIN A1C Routine 04/22/2024 11:48 [...] Relevant to Health Maintenance Results * US Abdomen Complete (12/23/2024 5:23 PM EDT) Anatomical Region Laterality Modality Abdomen Ultrasound 12/23/2024 5:23 PM EDT Narrative 12/23/2024 5:24 PM EDT [address] [address] Ultrasound Report Signed Patient: Sobia Silva MR#: [id number] : 1970 Acct:[id number] Age/Sex: 54 / F ADM Date: 12/23/24 Loc: HO.US Attending Dr: Rekha EVERETT Ordering Physician: Rekha Longo Date of Service: 12/23/24 Procedure(s): US abdomen complete Accession Number(s): [id number] cc: Rekha Longo; Elizabeth Boo Reason for Exam: K75.81 - Nonalcoholic steatohepatitis (GONZALEZ) CLINICAL HISTORY: K75.81 - Nonalcoholic steatohepatitis (GONZALEZ) US abdomen complete Comparison: MR - MR ABDOMEN WO/W CON - 10/23/24 14:40 EDT US/[place]/SR - US ABDOMEN COMPLETE WITH LIVER ELASTOGRAPHY - 09/29/23 09:03 EDT Findings: The visualized pancreas is normal. Possible small fluid adjacent to the pancreatic head. The aorta and inferior vena cava are normal caliber. The liver is enlarged with increase of echogenicity. There is no intrahepatic bile duct dilatation. The common duct is 5.0 mm in diameter. Cholecystectomy. The main portal vein is antegrade. The right kidney is 12 cm in length. Small calcifications. The left kidney is 12 cm in length. The spleen is normal. No ascites. IMPRESSION: Hepatomegaly and hepatic steatosis. Possible small right kidney stones. Small fluid adjacent to the pancreatic head. This document has been electronically signed by: Noemy Alegre MD on 12/23/2024 17:23:39 Dictated By: Noemy Alegre MD Signed By: <Electronically signed by Noemy Alegre MD in OV> 12/23/241723 DD/ 22 TD/TT: 12/23/241722 Airport Operations Officer: Procedure Note Donotuseinterpreter, Image - 12/23/[address] [address] Ultrasound Report Signed Patient: Fly Silva#: [id number] : 1970Acct:[id number] Age/Sex: 54 / FADM Date: 12/23/24 Loc: HO.US Attending Dr: Rekha EVERETT Ordering Physician: Rekha Longo Date of Service: 12/23/24 Procedure(s): US abdomen complete Accession Number(s): [id number] cc: Rekha Longo; Elizabeth Boo Reason for Exam: K75.81 - Nonalcoholic steatohepatitis (GONZALEZ) CLINICAL HISTORY: K75.81 - Nonalcoholic steatohepatitis (GONZALEZ) US abdomen complete Comparison: MR - MR ABDOMEN WO/W CON - 10/23/24 14:40 EDT US/NY/SR - US ABDOMEN COMPLETE WITH LIVER ELASTOGRAPHY - 09/29/23 09:03 EDT Findings: The visualized pancreas is normal. Possible small fluid adjacent to the pancreatic head. The aorta and inferior vena cava are normal caliber. The liver is enlarged with increase of echogenicity. There is no intrahepatic bile duct dilatation. The common duct is 5.0 mm in diameter. Cholecystectomy. The main portal vein is antegrade. The right kidney is 12 cm in length. Small calcifications. The left kidney is 12 cm in length. The spleen is normal. No ascites. IMPRESSION: Hepatomegaly and hepatic steatosis. Possible small right kidney stones. Small fluid adjacent to the pancreatic head. This document has been electronically signed by: Noemy Alegre MD on 12/23/2024 17:23:39 Dictated By: Noemy Alegre MD Signed By: <Electronically signed by Noemy Alegre MD in OV> 12/23/24 1724 DD/ 1723 TD/TT: 12/23/24 1723 Airport Operations Officer: [facility] External Provider IMG US PROCEDURES Final Result * MR Abdomen w/ and w/o Contrast (10/23/2024 4:31 PM EDT) Anatomical Region Laterality Modality Abdomen Magnetic Resonan ce 10/23/2024 4:31 PM EDT Narrative 10/23/2024 4:32 PM EDT [address] [address] Magnetic Resonance Report Signed Patient: Sobia Silva MR#: [id number] : 1970 Acct:[id number] Age/Sex: 54 / F ADM Date: 10/23/24 Loc: HO.MRI Attending Dr: Elizabeth Boo REED MAKER Ordering Physician: Elizabeth Boo Date of Service: 10/23/24 Procedure(s): MR abdomen wo/w con Accession Number(s): [id number] cc: Elizabeth Boo CLINICAL HISTORY: BENIGN NEOPLASM OF RT ADRENAL GLAND MR abdomen with and without gadolinium Comparison: CT/SR - CT CHEST W IV CON - 09/23/24 08:34 EDT US/NY/SR - US ABDOMEN COMPLETE WITH LIVER ELASTOGRAPHY - 09/29/23 09:03 EDT US/NY/SR - US ABDOMEN LIMITED - 11/04/22 09:18 [...] 10/23/24 1632 DD/ 1631 TD/TT: 10/23/24 1631 Airport Operations Officer: Procedure Note Donotuseinterpreter, Image - 10/23/[address] [address] Magnetic Resonance Report Signed Patient: Gloria SilvaeMR#: [id number] : 1970Acct:[id number] Age/Sex: 54 / FADM Date: 10/23/24 Loc: HO.MRI Attending Dr: Elizabeth GARCIA Ordering Physician: Elizabeth Boo Date of Service: 10/23/24 Procedure(s): MR abdomen wo/w con Accession Number(s): [id number] cc: Elizabeth Boo CLINICAL HISTORY: BENIGN NEOPLASM OF RT ADRENAL GLAND MR abdomen with and without gadolinium Comparison: CT/SR - CT CHEST W IV CON - 09/23/24 08:34 EDT US/[place]/SR - US ABDOMEN COMPLETE WITH LIVER ELASTOGRAPHY - 09/29/23 09:03 EDT US/[place]/SR - US ABDOMEN LIMITED - 11/04/22 09:18 [...] 10/23/24 1632 DD/ 1631 TD/TT: 10/23/24 1631 Airport Operations Officer: Elizabeth Boo [facility] IMG MRI PROCEDURES Final Resul t * Influenza B (ID NOW Rapid Molecular) (10/02/2024 11:18 AM EDT) Influenza B Negative Negative, Indeterminate [facility] Swab 10/02/2024 11:1 8 AM EDT Myron Hernandez MD POINT OF CARE TEST ENTER/EDIT OR DERABLES Final Result [facility] [address] [place] [phone] * Influenza A (ID NOW Rapid Molecular) (10/02/2024 11:18 AM EDT) Influenza A Negative Negative, Indeterminate [facility] Swab 10/02/2024 11:1 8 AM EDT Myron Hernandez MD POINT OF CARE TEST ENTER/EDIT OR DERABLES Final Result Performing Organization Address [facility] Co de Phone Number [facility] [address] [place] [address] [phone] * POCT Rapid COVID Ag (10/02/2024 11:18 AM EDT) Rapid COVID Ag Negative [facility] Swab 10/02/2024 11:1 8 AM EDT us Myron Hernandez MD POINT OF CARE TEST ENTER/EDIT OR DERABLES Final Result Performing Organization Address [facility] de Phone Number [facility] [address] [place] [phone] * BI US Breast Limited Right (09/30/2024 10:35 AM EDT) Anatomical Region Laterality Modality Breast Right Ultrasound 09/30/2024 10:3 5 AM EDT Narrative 09/30/2024 11:41 AM EDT [facility] [address] [place] [address] Ultrasound Report Signed Patient: Sobia Silva MR#: [id number] : 1970 Acct:[id number] Age/Sex: 54 / F ADM Date: 09/30/24 Loc: HO.MAMMO Attending Dr: Elizabeth GARCIA Ordering Physician: Elizabeth Boo Date of Service: 09/30/24 Procedure(s): US breast RT limited mamm only Accession Number(s): [id number] cc: Elizabeth Boo EXAMINATION: MM DIAGNOSTIC DIGITAL [...] 09/30/24 1138 DD/ 1035 TD/TT: 09/30/24 1100 Airport Operations Officer: Procedure Note Donotuseinterpreter, Image - 09/30/2024 [facility] [address] [place], [place] [address] Ultrasound Report Signed Patient: Fly Silva#: [id number] : 1970Acct:[id number] Age/Sex: 54 / FADM Date: 09/30/24 Loc: HO.MAMMO Attending Dr: Elizabeth Boo REED MAKER Ordering Physician: Elizabeth Boo Date of Service: 09/30/24 Procedure(s): US breast RT limited mamm only Accession Number(s): [id number] cc: Elizabeth Boo EXAMINATION: MM DIAGNOSTIC DIGITAL [...] 09/30/24 1138 DD/ 1035 TD/TT: 09/30/24 1100 Airport Operations Officer: us Elizabeth GARCIA IMG US PROCEDURES Final Result * BI Mammogram Diagnostic Tomosynthesis added right (09/30/2024 9:40 AM EDT) Anatomical Region Laterality Modality Breast Left Mammography 09/30/2024 9:40 AM EDT Narrative 09/30/2024 11:41 AM EDT [facility] [address] [place], [place] [address] Mammography Report Signed Patient: Sobia Silva MR#: [id number] : 1970 Acct:[id number] Age/Sex: 54 / F ADM Date: 09/30/24 Loc: HO.MAMMO Attending Dr: Elizabeth Boo REED MAKER Ordering Physician: Elizabeth Boo REED MAKER Results: 3.6MPr obably Benign Finding - Short 6 M F/U Suggested Date of Service: 09/30/24 Follow Up: 6 Month F/U Procedure(s): MM tomosynthesis added views R Accession Number(s): [id number] cc: Elizabeth Boo REED MAKER EXAMINATION: MM DIAGNOSTIC DIGITAL BREAST TOMOSYNTHESIS, RIGHT [...] Violeta Crystal DO 09/30/2024 11:38 AM EDT RP Dictated By: Violeta Crystal DO Signed By: <Electronically signed by Violeta Crystal DO in OV> 09/30/24 1138 DD/ 0940 TD/TT: 09/30/24 0959 Airport Operations Officer: Procedure Note Donotuseinterpreter, Image - 09/30/2024 [facility] [address] [place], [place] [address] Mammography Report Signed Patient: Nicolás SilvaR#: [id number] : 1970Acct:[id number] Age/Sex: 54 / FADM Date: 09/30/24 Loc: HO.MAMMO Attending Dr: Elizabeth Boo REED MAKER Ordering Physician: Elizabeth Boo FNPResults: 3.6MPr obably Benign Finding - Short 6 M F/U Suggested Date of Service: 09/30/24Follow Up: 6 Month F/U Procedure(s): MM tomosynthesis added views R Accession Number(s): [id number] cc: Elizabeth Boo REED MAKER EXAMINATION: MM DIAGNOSTIC DIGITAL BREAST TOMOSYNTHESIS, RIGHT [...] Violeta Crystal DO 09/30/2024 11:38 AM EDT RP Dictated By: Violeta Crystal DO Signed By: <Electronically signed by Violeta Crystal DO in OV> 09/30/24 1138 DD/ TD/TT: 09/30/2459 Airport Operations Officer: us Elizabeth GARCIA IMG BI PROCEDURES Final Result * Hepatitis Panel, General (09/25/2024 9:11 AM EDT) Hepatitis A IgM Nonreactive Nonreactive [facility] Comment:IgM antibodies to DIMAS V not detected; does not exclude earlyacute or recovered HAV infection. ~Hepatitis B Surface Antibody NONREACTIVE Nonreactive [facility] Comment:Nonreactive: < 8.00 mIU/mL Hepatitis B Core Antibody Nonreactive Nonreactive [facility] Hepatitis C Antibody Nonreactive Nonreactive [facility] Comment:Antibodies to HCV no t detected; does not exclude early acuteHCV infection. Hepatitis B Surface Ag Negative Negative [facility] 09/25/2024 9:11 AM EDT 09/25/2024 9:11 AM EDT us Generic External Data Provider LAB BLOOD ORDERAB LES Final Result [facility] [address] [place] [phone] * Hemoglobin A1c (04/22/2024 11:48 AM EST) Hemoglobin A1c 5.9 <6.0 % [facility] Comment:Hemoglobin A1C Refer ence Range Adults: 4.8 - 6.0 % Non diabetic: < 6.0 % Goal: < 7.0 %Additional Action Suggested: > 8.0 %Note: Hemoglobin A1c results are invalid for patients with abnormal amounts of HbF. Blood transfusions may impact the HbA1c concentration in the patient sample. Estimated Average Glucose 123 mg/dL [facility] Comment:eAG = Estimated ave rage glucose which is %A1C expressed asaverage glucose, using the formula of the C1Q-UlursbhSotavpp Glucose study (ADAG), Diabetes Care, Vol.31,#8,Oct. 2007 Blood Venous blood specimen / Unknown 04/22/2024 11:48 AM EST 04/22/2024 2:10 PM EST us Elizabeth Boo REED MAKER LAB BLOOD ORDERABLES Final Res ult [facility] [address] [place] [phone] * (ABNORMAL) Lipid Panel, Standard (04/22/2024 11:48 AM EST) Triglycerides 113 <150 mg/dL [facility] Comment:Desirable Triglyceri de: less than 150 mg/dLBorderline High Triglyceride 150-199 mg/dLHigh Triglyceride: 200-499 mg/dLVery High Triglyceride: greater than or equal to 5OO mg/dL Cholesterol 107 <200 mg/dL [facility] Comment:Desirable Cholestero l: less than 200 mg/dLBorderline High Cholesterol: 200-239 mg/dLHigh Cholesterol: greater than 239 mg/dL LDL Cholesterol Calculated 53 <100 mg/dL [facility] Comment:Desirable LDL: less than 100 mg/dLNear Optimal/Above Optimal LDL: 110- 129 mg/dLBorderline High LDL: 130-159 mg/dLHigh LDL: 160-189 mg/dLVery High LDL: greater than or equal to 190 mg/dL HDL Cholesterol 32(L) >40 mg/dL [facility] Comment:Desirable HDL: great er than 40 mg/dL Note: This HDL assay may give artificially low results in patients with liver disease. Blood Venous blood specimen / Unknown 04/22/2024 11:48 AM EST 04/22/2024 2:10 PM EST us Elizabeth Boo [facility] LAB BLOOD ORDERABLES Final Res ult [facility] [address] [place] [phone] * Pap Smear (02/27/2024 10:05 AM EST) Swab Cervix uteri structure / Unknown 02/27/2024 10:05 AM EST 02/28/2024 9:45 AM EST Narrative [facility] - 03/04/2024 4:03 PM EST ----- ------- Name: Sobia Silva Age/Sex: 53/F : 1970 Unit#: [id number] Attend Dr: Elizabeth Bautista MD Re02/28/24 Status: DEP REF Location: HO.HHCLNP Disch: ----- ------- SPEC : [id number] RECD: 02/28/24 STATUS: MARTHA BETH NUM: [id number] LILIBETH: 02/27/24-[address]: Elizabeth Bautista MD ENTERED: 02/28/24 SP TYPE: Pap Smr OTHR DR: ORDERED: Pap Smear Interpretation Satisfactory for evaluation. No endocervical cells seen. Negative for intraepithelial lesion or malignancy. HPV High Risk: Negative HPV Genotyping 16: Negative HPV Genotyping 18: Negative Clinical Information LMP: Unknown date Previous PAP test: Unknown date, BRICE, -hrHPV Material Received ThinPrep-Cervical ----- ------- Signed (signature on file) RINKU Bustamante (ASCP) 03/04/24 1603 ----- ------- END OF REPORT Elizabeth Bautista MD LAB CYTOLOGY ORDERABLES Final Result [facility] [address] [place] [phone] * HPV mRNA E6/E7 w/Reflex to [...] Most Recently Relevant to Health Maintenance Insurance [facility] < [address] [place] [id number] [facility] Care Teams [employer] Senior Sergeant Relationship Specialty Start Date End Date Elizabeth Boo FNP [address] [place] [address] PCP - General Family Medicine 04/11/22 Pravin Guzman MD [address] [place] [address] Cardiology 04/23/24June [address] [place] [address] Gastroenterology 04/23/24 Josiane Smith MD [address] [place] [address] Rheumatology 04/23/24
--- OUTSIDE RECORDS SUMMARY | 2024-12-31 16:06 | XMS_ITS | Encounter Summary ---
Author Organization [employer] Address [address] [facility] 7t [place] [address] Care Team Providers Care Laboratory Technologist Name Role Phone Elizabeth Boo Primary Care Provider [phone] Pravin Guzman MD Unavailable [phone] June Unavailable Josiane Smith MD Unavailable Reason for Visit * Reason Onset Date Comments Nurse Triage 09/30/2024 Encounter Details Date Type Department Care Team (Late st Contact Info) Description 09/30/2024 Telephone [facility] [address] [place] [address] Elizabeth Boo FNP [address] [place], [place] [phone] Nurse Triage Social History Tobacco Use Types [...] 09/30/2024 12:30 PM EDT Triage call with [facility] [place] [id number],[place] Pt reports started with a fever of 99.8 yesterday, cough and some sob at times today. Pt tested negfor Covid. Pt has been drinking adequate liquids, taking tylenol as needed and resting. Pt is offered an INSted visit with [facility] insurance but, declines and will call back [...] higher acuity questions Please contact pt at [phone]. (Hong Konger Speaker) documented in this encounter Plan of Treatment Not on file documented as of this encounter Visit Diagnoses Not on filedocumented in this encounter Additional Health Concerns Assessment Noted Time PHQ-9 Depression Total Score: 21 025 10:36 AM EST documented as of this encounter Care Teams Laboratory Technologist Relationship Specialty Start Date End Date Elizabeth Boo FNP [address] [place] [address] PCP - General Family Medicine 04/11/22 Pravin Guzman MD [address] [place] [address] Cardiology 04/23/24June [address] 3rd [place] [address] Gastroenterology 04/23/24 Josiane Smith MD [address] [place] [address] Rheumatology 04/23/24 documented as of this encounter
--- OUTSIDE RECORDS SUMMARY | 2024-12-31 16:06 | XMS_ITS | Encounter Summary ---
Author Organization [employer] Address [address] [facility] [address] Floor [address] Care Team Providers Care Channel Man Name Role Phone Elizabeth Boo Primary Care Provider [phone] Pravin Guzman MD Unavailable [phone] June Unavailable Josiane Smith MD Unavailable Encounter Details Date Type Department Care Team (Late st Contact Info) Description 01/16/2024 Orders Only [facility] CHC MED & PEDS [address] [place] [address] Provider, MD Ita Social History Tobacco Use [...] documented as of this encounter Care Teams Channel Man Relationship Specialty Start Date End Date Elizabeth Boo FNP [address] [place] [address] PCP - General Family Medicine 04/11/22 Pravin Guzman MD [address] [place] [address] Cardiology 04/23/24June [address] 3rd [place] [address] Gastroenterology 04/23/24 Josiane Smith MD [address] [place] [address] Rheumatology 04/23/24 documented as of this encounter
--- OUTSIDE RECORDS SUMMARY | 2024-12-31 16:06 | XMS_ITS | Encounter Summary ---
Author Organization [employer] Address [address] [facility] 7t [place] [address] Care Team Providers Care Crayon Sawyer Name Role Phone Elizabeth Boo Primary Care Provider [phone] Pravin Guzman MD Unavailable [phone] June Unavailable Josiane Smith MD Unavailable Reason for Visit * Reason Comments Med Refill Encounter Details Date Type Department Care Team (Late st Contact Info) Description 10/27/2022 Refill [facility]INE [address] [place] [address] Elizabeth Boo FNP [address] [place], [place] [phone] Social History Tobacco Use Types Packs/Day Years [...] documented as of this encounter Care Teams Crayon Sawyer Relationship Specialty Start Date End Date Elizabeth Boo FNP [address] [place] [address] PCP - General Family Medicine 04/11/22 Pravin Guzman MD [address] [place] [address] Cardiology 04/23/[address] 3rd [place] [address] Gastroenterology 04/23/24 Josiane Smith MD [address] [place] [address] Rheumatology 04/23/24 documented as of this encounter
--- OUTSIDE RECORDS SUMMARY | 2024-12-31 16:06 | XMS_ITS | Clinical Summary ---
Author Organization 175 [facility] Address [address] [place] [address] Phone Care Team Providers Care Senior Security Architect Name Role Phone Elizabeth Boo RN Primary [...] AM EST Office Visit Orthopedic Surgery - [place] [address] [address] Gonzalez Owens, DPM [address] [address] Health Maintenance Due Date Last [...] ID:[id number] Group ID:[id number] Type:Not on file Address: [place] [address] [place] [address] Care Teams Senior Security Architect Relationship Specialty Start Date End Date Elizabeth Boo RN [address] [address] PCP - General 09/12/23
--- OUTSIDE RECORDS SUMMARY | 2024-12-31 16:06 | XMS_ITS | Encounter Summary ---
Author Organization [facility] Address [address] [facility] [address] [place] [address] Phone Care Team Providers Care Insulation Foreman Name Role Phone Unknown, Unknown Primary Care Provider Norman lo Encounter Details Date Type Department Care Team (Late st Contact Info) Description 10/18/2017 Ancillary Orders [facility] [address] [place] [address] [place] [address] Patricia Ward PA [address] [place] [address] Palpitations Social History Tobacco Use Types Packs/Day [...] Palpitations documented in this encounter Care Teams Insulation Foreman Relationship Specialty Start Date End Date Unknown, Unknown, PCP - General 10/17/17 documented as of this encounter Additional Source Comments The information contained in this document represents components of the legal health record. It is not the complete legal health record.[facility]
--- OUTSIDE RECORDS SUMMARY | 2024-12-31 16:07 | XMS_ITS | Encounter Summary ---
Author Organization [employer] Address [address] [facility] 7t [place] [address] Care Team Providers Care Inspector Packer Name Role Phone Elizabeth Boo Primary Care Provider [phone] Pravin Guzman MD Unavailable [phone] June Unavailable Josiane Smith MD Unavailable Reason for Visit * Reason Comments Med Refill Encounter Details Date Type Department Care Team (Late st Contact Info) Description 04/29/2024 Refill [facility] CHC MED & PEDS [address] [place], [place] [phone] Elizabeth Boo FNP [address] [place], [place] [phone] Periodic limb movement disorder Social History Tobacco [...] documented as of this encounter Care Teams Inspector Packer Relationship Specialty Start Date End Date Elizabeth Boo FNP [address] [place] [address] PCP - General Family Medicine 04/11/22 Pravin Guzman MD [address] [place] [address] Cardiology 04/23/24June [address] 3rd [place] [address] Gastroenterology 04/23/24 Josiane Smith MD [address] [place] [address] Rheumatology 04/23/24 documented as of this encounter
--- OUTSIDE RECORDS SUMMARY | 2024-12-31 16:07 | XMS_ITS | Clinical Summary ---
Author Organization [facility] Address [address] [place] [address] [place], [place] [phone] Phone Care Team Providers Care Cost Clerk Name Role Phone Unknown, Unknown Primary Care [...] file Medical Devices Not on file Insurance [facility] ONE CARE MEDICARE REPLACEMENT [place] [id number] [facility] MEDICARE [place] [address] [address] MEDICARE REPLACEMENT [facility] MEDICARE REPLACEMENT [facility] CARE MEDICARE REPLACEMENT Member Subscriber Plan / Payer (Ef fective 2017-Present) Name:Sobia Mendez Relation to Subscriber:Self Name:Sobia Mendez Payer ID:[id number] (NAIC) Group ID:Not on file Type:Medicare Address: [address] [place] [facility] CARE MEDICARE REPLACEMENT Care Teams Cost Clerk Relationship Specialty Start Date End Date Unknown, Unknown, PCP - General 10/17/17 Additional Source Comments The information contained in this document represents components of the legal health record. It is not the complete legal health record.[facility]
--- OUTSIDE RECORDS SUMMARY | 2024-12-31 16:07 | XMS_ITS | Encounter Summary ---
Author Organization [employer] Address [address] [facility] 7t [place] [address] Care Team Providers Care Cryptography Teacher Name Role Phone Elizabeth Boo Primary Care Provider [phone] Pravin Guzman MD Unavailable [phone] June Unavailable Josiane Smith MD Unavailable Encounter Details Date Type Department Care Team (Late st Contact Info) Description 07/16/2024 Orders Only [facility] CHC MED & PEDS [address] [place], [place] [phone] Marian Pitts Social History Tobacco Use Types [...] documented as of this encounter Care Teams Cryptography Teacher Relationship Specialty Start Date End Date Elizabeth Boo FNP [address] [place] [address] PCP - General Family Medicine 04/11/22 Pravin Guzman MD [address] [place] [address] Cardiology 04/23/24June [address] 3rd [place] [address] Gastroenterology 04/23/24 Josiane Smith MD [address] [place] [address] Drive [address] [place] [address] Rheumatology 04/23/24 documented as of this encounter
--- OUTSIDE RECORDS SUMMARY | 2024-12-31 16:07 | XMS_ITS | Encounter Summary ---
Author Organization [facility] Address [address] [facility] [address] [place] [address] Phone Care Team Providers Care Oncology Rn Name Role Phone Unknown, Unknown Primary Care Provider Norman lo Encounter Details Date Type Department Care Team (Late st Contact Info) Description 01/25/2018 Ancillary Orders [facility] [address] [place] [address] Pravin Guzman, DO [address] [place] [address] Tachycardia Social History Tobacco Use Types Packs/Day [...] tachycardia documented in this encounter Care Teams Oncology Rn Relationship Specialty Start Date End Date Unknown, Unknown, PCP - General 10/17/17 documented as of this encounter Additional Source Comments The information contained in this document represents components of the legal health record. It is not the complete legal health record.[facility]
--- OUTSIDE RECORDS SUMMARY | 2024-12-31 16:07 | XMS_ITS | Encounter Summary ---
Author Organization [facility] Address [address] [facility] [address] [place] [address] Phone Care Team Providers Care Pre Fabricator Name Role Phone Unknown, Unknown Primary Care Provider Norman lo Encounter Details Date Type Department Care Team (Late st Contact Info) Description 10/18/2017 Ancillary Orders [facility] [address] [place] [address] 3rd Floor, [address] [place] [address] Patricia Ward PA [address] [place] [address] Social History Tobacco Use Types Packs/Day Years [...] on filedocumented in this encounter Care Teams Pre Fabricator Relationship Specialty Start Date End Date Unknown, Unknown, PCP - General 10/17/17 documented as of this encounter Additional Source Comments The information contained in this document represents components of the legal health record. It is not the complete legal health record.[facility]
== END 2024-12-31 13:51 | disposition home or self-care (01) ==
LOC: HO.HSM 13:18
PROVIDERS: PCP Registered Nurse; Visit Provider Psychiatry & Neurology Neurology
DX: G25.81 Restless legs syndrome (principal); G62.9 Polyneuropathy, unspecified; G43.009 Migraine without aura, not intractable, without status migrainosus
CPT/HCPCS: 99204

== ENCOUNTER → 2024-12-31 13:18 | Outpatient (BNVA) | payer OTHER, SELFPAY | PROVIDERS: PCP Registered Nurse; Visit Provider Psychiatry & Neurology Neurology | DX: G25.81 Restless legs syndrome (principal); G62.9 Polyneuropathy, unspecified; G43.009 Migraine without aura, not intractable, without status migrainosus | CPT/HCPCS: 99202 ==

== ENCOUNTER 2025-01-23 10:19 | Outpatient (REF) | payer OTHER, SELFPAY ==
--- OUTSIDE RECORDS SUMMARY | 2025-01-23 12:04 | XMS_ITS | Encounter Summary ---
Author Organization [facility] Address [address] [facility] [address] [place] [address] Phone Care Team Providers Care Long Term Care Social Worker Name Role Phone Unknown, Unknown Primary Care Provider Norman lo Encounter Details Date Type Department Care Team (Late st Contact Info) Description 10/18/2017 Ancillary Orders [facility] [address] [place] [address] [place] [address] Patricia Ward PA [address] [place] [address] Palpitations Social History Tobacco Use Types Packs/Day [...] Palpitations documented in this encounter Care Teams Long Term Care Social Worker Relationship Specialty Start Date End Date Unknown, Unknown, PCP - General 10/17/17 documented as of this encounter Additional Source Comments The information contained in this document represents components of the legal health record. It is not the complete legal health record.[facility]
--- OUTSIDE RECORDS SUMMARY | 2025-01-23 12:04 | XMS_ITS | Encounter Summary ---
Author Organization [facility] Address [address] [place] [address] Phone Care Team Providers Care Gas Pit Worker Name Role Phone Unknown, Unknown Primary Care Provider Norman lo Encounter Details Date Type Department Care Team (Late st Contact Info) Description 10/18/2017 Ancillary Orders [facility] [address] [place] [address] 3rd Floor, [address] [place] [address] Patricia Ward PA [address] [place] [address] Social History Tobacco Use Types Packs/Day Years [...] on filedocumented in this encounter Care Teams Gas Pit Worker Relationship Specialty Start Date End Date Unknown, Unknown, PCP - General 10/17/17 documented as of this encounter Additional Source Comments The information contained in this document represents components of the legal health record. It is not the complete legal health record.[facility]
--- OUTSIDE RECORDS SUMMARY | 2025-01-23 12:04 | XMS_ITS | Encounter Summary ---
Author Organization [facility] Address [address] [facility] [address] [place] [address] Phone Care Team Providers Care Bi Architect Name Role Phone Unknown, Unknown Primary Care Provider Norman lo Encounter Details Date Type Department Care Team (Late st Contact Info) Description 01/25/2018 Ancillary Orders [facility] [address] [place] [address] Pravin Guzman, DO [address] [place] [address] Tachycardia Social History Tobacco Use Types Packs/Day [...] tachycardia documented in this encounter Care Teams Bi Architect Relationship Specialty Start Date End Date Unknown, Unknown, PCP - General 10/17/17 documented as of this encounter Additional Source Comments The information contained in this document represents components of the legal health record. It is not the complete legal health record.[facility]
--- OUTSIDE RECORDS SUMMARY | 2025-01-23 12:04 | XMS_ITS | Clinical Summary ---
Author Organization 175 [facility] Address [address] [place] [address] Phone Care Team Providers Care Electromechanisms Design Drafter Name Role Phone Elizabeth Boo RN Primary [...] AM EST Office Visit Orthopedic Surgery - [place] [address] [address] Gonzalez Owens, DPM [address] [address] Health Maintenance Due Date Last Done Comments Breast Cancer Screening 1968 Hepatitis A Vaccines (1 of 2 - Risk 2-dose series) 1987 Hepatitis B Vaccines (1 of 3 - 19+ 3-dose series) 1987 Cervical Cancer Screening: Pap Smear 1989 Pneumococcal Vaccine: 50+ Years (2 of 2 - PCV) 03/27/1997 03/27/1996 RSV Immunization Adult Patients (1 - Risk 50-74 years 1-dose series) 2018 Colorectal Cancer Screening: Stool Based Tests (FOBT/FIT) [...] ID:[id number] Group ID:[id number] Type:Not on file Address: [place] [address] [place] [address] Care Teams Electromechanisms Design Drafter Relationship Specialty Start Date End Date Elizabeth Boo RN [address] [address] PCP - General 09/12/23
--- OUTSIDE RECORDS SUMMARY | 2025-01-23 12:05 | XMS_ITS | Clinical Summary ---
Author Organization [facility] Address [address] [place] [address] [place], [place] [address] Phone Care Team Providers Care Improvement Spec Name Role Phone Unknown, Unknown Primary Care [...] file Medical Devices Not on file Insurance [facility] ONE CARE MEDICARE REPLACEMENT [place] [id number] [facility] MEDICARE [place] [address] [place] [address] MEDICARE REPLACEMENT [facility] MEDICARE REPLACEMENT [facility] CARE MEDICARE REPLACEMENT Member Subscriber Plan / Payer (Ef fective 2017-Present) Name:Sobia Mendez Relation to Subscriber:Self Name:Sobia Mendez Payer ID:[id number] (NAIC) Group ID:Not on file Type:Medicare Address: [address] [place] [facility] CARE MEDICARE REPLACEMENT Care Teams Improvement Spec Relationship Specialty Start Date End Date Unknown, Unknown, PCP - General 10/17/17 Additional Source Comments The information contained in this document represents components of the legal health record. It is not the complete legal health record.[facility]
--- OUTSIDE RECORDS SUMMARY | 2025-01-23 12:05 | XMS_ITS | Data Portability ---
Author Organization [employer] Address [address] [place] [address] Care Team Providers Care Chancellor Name Role Phone HIM CCA OTHER Unavailable OTHER Assessment Encounter Date Assessment Date Assessment LastModified by Organization Details LastModified Time 12/08/2023 12/08/2023 I provided real -time medical direction via phone for this encounter, and was available for additional phone based assistance as needed. I have reviewed and agree with the Assessment and Plan as documented by the Physical Plant Manager. We discussed the diagnostic uncertainty of [...] to call 911- verbalized understanding of instruction [email or web address] Not available 12/08/2023 12:39:33 Plan of Treatment Reminders Order Date Submit Date Provider Last Modified By Organization Details Last Modified Time Details Appointments None recorded. Lab None recorded. Referral None recorded. Procedures None recorded. Surgeries None recorded. Imaging None recorded. Medication Orders benzonatate 200 mg capsule 2023 024 [facility], [address] [place] [address], [id number], 5 17:44:34 Tessalon Perles 100 mg capsule 2023 024 [facility], [address] [place], [id number], 4 18:02:28 Patient TargetsNo targets recorded. Patient InstructionsNo instructions recorded. Reason for Referral None Reported. Medical Equipment None Reported. Allergies Allergen ID Allergen Name Allergen Category Reaction Reaction Severity Criticality Documentation Date Start Date Code Code System Note Provider Name and Address Organization Details Recorded Time 6290 Celexa medicatio n Not available Not available Not available 12/09/2023 51611 8 RxNorm Renea Cortés MD [address] [place] [address],[address], [place], [address], [employer] 4 13:07:20 6291 oxybutyni n medicatio n Not available Not available Not available 12/09/2023 66552 RxNorm Renea Cortés MD [address] [place] [address],[address], [place], [address], [employer] 4 13:07:27 6292 niacin medicatio n Not available Not available Not available 12/09/2023 7393 RxNorm Renea Cortés MD [address] [place] [address],[address], [place], [address], [employer] 4 13:07:35 6293 citalopra m medicatio n Not available Not available Not available 12/09/2023 2556 RxNorm Renea Cortés MD [address] [place] [address],[address], [place], [address], [employer] 4 13:07:50 6294 diltiazem Not available Not available Not available Not available 12/09/2023 3443 RxNorm Not Available [facility] - production 4 03:40:07 Medications Name Sig Start Date Stop Date Status Note LastModified by Organization Details LastModified Time medbox status USE DIRECTED active Not Available Not Available No t Available oximeter pulse vw [id number] [id number] usar TO Comprobar el nivel de oxgeno [...] /min 154.94 cm 74 /min 97.2 [degF] 63820.6 g 97 % 97 % 118/77 mm[Hg] Not Available [employer] 4 10:53:12 Date Recorded Oxygen saturation Oxygen saturation in Arterial blood by Pulse oximetry Respiratory rate Heart rate Body weight Body temperature Systolic And Diastolic Provider Name and Address Organization Details Last Updated DateTime 4 99 % 99 % 16 /min 78 /min 45191.3 36 g 97.9 [degF] 112/72 mm[Hg] Not Available [facility] 4 12:34:03 Social History None recorded. Functional Status None recorded. Mental Status None recorded. Family History Nothing Reported. Medical History No medical history recorded. Gynecological HistoryNo gynecological history recorded. Obstetrics History GPAL:G 0 P 0 0 0 0 Past Encounters Encounter ID Performer Location Encounter Start Date Encounter Closed Date Diagnosis/Indication Diagnosis SNOMED-CT Code Diagnosis ICD10 Code Diagnosis IMO Codes Diagnosis Note Tim Fields MD [facility] [address] [place] [phone] 05/16/2023 10:53:07 05/17/2023 17:21:08 Viral upper respiratory tract infection 755555847 J06.9 This 53-year-ol d female has had a cough and congestion for four days. Her COVID-19, flu, and strep screens were negative. I called in a prescripti on for Dean Carter. She will follow-up with her PCP. The patient agreed with this plan. [id number] Renea Cortés MD Main - [facility] [address] [place] [address] 12/08/2023 12:34:00 12/09/2023 15:48:47 Acute COVID-19 6920058942 U07.1 We reviewed the risks/ benefits and [...] on. Verified allergies and that she uses [facility] pharmacy-d enies history of CKD-lesli g listed in PCP note Health Concerns Section Related Observation LastModified by Organization Detai ls LastModified Time None Recorded Concern Status LastModified by Organization Details LastModified Time None Recorded Advance Directives Directive None Recorded Payers Insurance Date Sequence Insurance Name Policy Number Policy Garcia Covered Member ID Garcia Member ID Guarantor Name 12/08/2023 1 [facility] - DOS ON OR AFTER 2022 - DUAL ELIGIBLE - LONGTERM OPTIONS AND ONE CARE (MEDICARE REPLACEMENT/ADV ANTAGE - HMO) Sobia Mendez [id number] Sobia Mendez Notes Date Note Type Note Provider Name and Address Organization Details Recorded Time 05/16/19 24 text/htm l ROS as noted in the HPI HPI: Patient with history of Migraines. Has onset of illness on Monday with Negative home COVID that day ahs not retested. Has headache and body aches with severe sore throat at time of call. T 101.2 after Tylenol. ................................ ................................ ................................ ................................ ............. [facility] Nurse Triage Notes (Elizabeth Painter): Comments: HPI reviewed. No further information required to process visit. Tim Fields MD [address] [place] [address],[address], [place], [address] [employer] 05/16/2023 10:57:35 12/08/19 24 text/htm l ROS as noted in the HPI HPI: Patient with home test + COVID yesterday ................................ ................................ ................................ ................................ ............. [facility] Nurse Triage Notes (Maria L Morales): Chief Complaints: Cough, Fever/Chills, Headache, Pain, URI PMH: Hypertension, COPD/Asthma, Hypertension Allergies: Diltiazem Other Allergies: Citalopram, Diltiazem niacin oxybuynin Comments: visit to assess resp status h/o asthma ................................ ................................ ................................ ................................ ............. Physical Plant Manager Note From Steve Carpenter: Pt Covid [...] pt eating and drinking fluids. Declines paxlovid. [facility] contacted and RX for benzonatate called in. Pt education on signs indicating the ER. Pt advised to follow up with pcp if symptoms persist. Physical Plant Manager Allergies: Diltiazem ................................ ................................ ................................ ................................ [...] or other substances Renea Cortés MD [address] [facility],[address], [place], [address], [employer] 12/09/2023 13:08:39 OBGyn Episode No OBEpisode recorded.
--- NOTE | 2025-01-23 12:20 | EMG_ITS ---
Chief complaint: Bilateral polyneuropathy of lower extremities Reason for referral: G62.9 Polyneuropathy, neuropathy Referred by: Rodriguez Fan MD Procedure done: NCS/ EMG of bilateral lower extremities Bilateral peroneal and tibial motor studies were performed with F responses. Bilateral tibial H reflexes were obtained. Bilateral superficial peroneal and sural sensory studies were performed. Bilateral median and lateral mixed plantars sensory studies were performed. EMG needle examination was performed. Findings: Median and lateral mixed plantars studies revealed absent to minimal amplitude. Lateral responses were absent. Otherwise no significant abnormality was noted. 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 [place] [id number] [facility]
== END 2025-01-23 10:20 | disposition home or self-care (01) ==
LOC: HO.NEURO 10:19
PROVIDERS: PCP Registered Nurse; Visit Provider Psychiatry & Neurology Neurology
DX: G62.9 Polyneuropathy, unspecified (principal)
CPT/HCPCS: 95886; 95913

== ENCOUNTER → 2025-01-23 12:20 | Outpatient (BNV) | payer OTHER, SELFPAY | PROVIDERS: PCP Registered Nurse; Visit Provider Psychiatry & Neurology Neurology | DX: G57.83 Other specified mononeuropathies of bilateral lower limbs (principal) | CPT/HCPCS: 95886; 95913 ==

== ENCOUNTER 2025-01-30 08:02 | Outpatient (AMB) | payer OTHER, SELFPAY ==
--- NOTE | 2025-01-30 08:06 | A.OFFVIS_ITS ---
Intake Visit Reasons: RESULTS Allergies niacin (From NIASPAN EXTENDED-RELEASE) Allergy (Intermediate, Verified 11/01/24 14:23) TACHYCARDIA,DIFF.BREATHING citalopram (Celexa) Allergy (Unknown, Verified 11/01/24 14:23) unknown diltiazem (From CARTIA XT) Allergy (Unknown, Verified 11/01/24 14:23) UNKNOWN HPI Comments Details: 54 years old woman with chronic restless legs syndrome, tarsal tunnel syndrome, and migraine without aura. She had not responded to gabapentin or ropinirole and was given a trial of pramipexole. EMG nerve conduction study was done to evaluate for neuropathy. She had rheumatological evaluation and numerous labs done in 2022 not revealing any distinct pathology. Most of the labs were normal except anti DNAase titer was 186. Her liver enzymes have been mildly abnormal. Hemoglobin A1c and blood glucose have been normal. TSH has been normal. 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 She is presenting with Restless Leg Syndrome and neuropathy complaints. The Restless Leg Syndrome has shown improvement with medication used before bedtime, although some inconsistency in the symptom control is noted. The patient experiences foot numbness and tingling due to neuropathy likely linked to nerve stretching from foot arch issues related to weight. She reports longstanding headaches, currently well-managed. Lifestyle modifications were advised to assist in symptom mitigation. [facility] Medical History (Updated 01/30/25 @ 08:20 by Jovana Fan MD) Periodic limb movement disorder Colon cancer screening Acute bronchitis Abdominal bloating Epigastric pain Diarrhea Rheumatoid arthritis GERD (gastroesophageal reflux disease) HTN (hypertension) Stroke Bilateral carpal tunnel syndrome Dyslipidemia Anxiety Depression Migraine Restless legs Surgical History H/O colonoscopy S/P breast biopsy, right H/O prior ablation treatment History of esophagogastroduodenoscopy (EGD) History of cholecystectomy Family History Father High blood pressure Cancer Mother Diabetes High blood pressure Sister Diabetes High blood pressure Thyroid disease Cancer Brother High blood pressure Asthma Social History Alcohol intake: never Patient Tobacco Use Status: Never used Tobacco Current occupational status: disabled Current occupation: rt handed Review of Systems Narrative - Neurological: Reports restless leg syndrome and foot numbness/tingling. - Musculoskeletal: Reports foot arch issues. - General: Reports headaches, well-managed. Physical Exam Neuro Other: Mental Status: Alert and oriented to person, place, and time. Normal attention. Normal spontaneous speech, fluency, and comprehension. No obvious issues with mood and memory. Affect is appropriate. Cranial Nerves: CN II: Visual pimentel full to confrontation, visual acuity intact. CN III, IV, : Pupils equal, round, reactive to light and accommodation. Extraocular movements are normal. CN V: Facial sensation is normal. CN VII: Facial movements symmetrical. CN VIII: Hearing intact to bedside conversation is normal. CN IX, X: Palate elevates symmetrically. CN XI: Shoulder shrug and head turn symmetrical. CN XII: Tongue midline without atrophy or fasciculations. Extrapyramidal: Full facial expressions and blinking. No rigidity. Movements are appropriate with no tremor or abnormality. Speech: Normal; no dysarthria or tremor. Assessment & Plan Assessment & Plan (1) Restless legs: Code(s): G25.81 - Restless legs syndrome Category: Medical (2) Migraine: Code(s): G43.909 - Migraine, unspecified, not intractable, without status migrainosus Category: Medical Qualifiers: Migraine type: migraine (< 15 days per month) without aura Status migrainosus presence: without status migrainosus Intractability: not intractable Qualified Code(s): G43.009 - Migraine without aura, not intractable, without status migrainosus (3) Neuropathy: Code(s): G62.9 - Polyneuropathy, unspecified Category: Medical (4) TTS (tarsal tunnel syndrome): Comment[place] [facility] [place]: B/L distal tibial neuropathy across TT Code(s): G57.50 - Tarsal tunnel syndrome, unspecified lower limb Category: Medical Qualifiers: Laterality: bilateral Qualified Code(s): G57.53 - Tarsal tunnel syndrome, bilateral lower limbs Plan Impression: 1. Restless legs syndrome 2. Tarsal tunnel syndrome related to her weight 3. Migraine without aura Recommendations: 1. Pramipexole 0.5 mg 1 at bedtime. she was educated about restless legs syndrome and its proper management especially common sense measures in the evening to avoid further worsening. 2. Education about tarsal tunnel syndrome and its relationship to wait 3. Proper shoe inserts to manage tarsal tunnel syndrome 4. Sumatriptan 50 mg p.r.n. for migraine management Medications: New pramipexole 0.5 mg PO BEDTIME 90 tabs 1RF Coding Level of Care Code Est Pt Level 4 (51562) Diagnoses Restless legs G25.81 Migraine without aura and without status migrainosus, not intractable G43.009 Migraine type: migraine (< 15 days per month) without aura Status migrainosus presence: without status migrainosus Intractability: not intractable Neuropathy G62.9 Tarsal tunnel syndrome of both lower extremities G57.53 Laterality: bilateral Time Spent (min) 35
--- OUTSIDE RECORDS SUMMARY | 2025-01-30 08:11 | XMS_ITS | Encounter Summary ---
Author Organization [employer] Address [address] [facility] 7t [place] [address] Care Team Providers Care Life Skills Coordinator Name Role Phone Elizabeth Boo Primary Care Provider [phone] Pravin Guzman MD Unavailable [phone] June Unavailable Josiane Smith MD Unavailable Reason for Visit * Reason Onset Date Comments Nurse Triage 09/30/2024 Encounter Details Date Type Department Care Team (Late st Contact Info) Description 09/30/2024 Telephone [facility] MEDICINE [address] [place] [address] Elizabeth Boo FNP [address] [place], [place] [phone] Nurse Triage Social History Tobacco Use Types [...] 09/30/2024 12:30 PM EDT Triage call with [facility] [place] [id number],[place] Pt reports started with a fever of 99.8 yesterday, cough and some sob at times today. Pt tested negfor Covid. Pt has been drinking adequate liquids, taking tylenol as needed and resting. Pt is offered an INSted visit with [facility] insurance but, declines and will call back [...] higher acuity questions Please contact pt at [phone]. (Nigerien Speaker) documented in this encounter Plan of Treatment Not on file documented as of this encounter Visit Diagnoses Not on filedocumented in this encounter Additional Health Concerns Assessment Noted Time PHQ-9 Depression Total Score: 21 025 10:36 AM EST documented as of this encounter Care Teams Life Skills Coordinator Relationship Specialty Start Date End Date Elizabeth Boo FNP [address] [place] [address] PCP - General Family Medicine 04/11/22 Pravin Guzman MD [address] [place] [address] Cardiology 04/23/[address] 3rd [place] [address] Gastroenterology 04/23/24 Josiane Smith MD [address] [place] [address] Rheumatology 04/23/24 documented as of this encounter
--- OUTSIDE RECORDS SUMMARY | 2025-01-30 08:11 | XMS_ITS | Encounter Summary ---
Author Organization [employer] Address [address] [facility] [address] 7[address] [place] [address] Care Team Providers Care Nitriles Lab Technician Name Role Phone Elizabeth Boo Primary Care Provider [phone] Pravin Guzman MD Unavailable [phone] June Unavailable Josiane Smith MD Unavailable Encounter Details Date Type Department Care Team (Late st Contact Info) Description 01/23/2025 Telephone [facility] [address] [place] [address] Elizabeth Boo FNP [address] [place], [place] [phone] Social History Tobacco Use Types Packs/Day Years [...] encounter Miscellaneous Notes * Telephone Encounter - JOSE Weiss - 01/27/2025 3:43 PM EST Agree to DME request for wedge pillow. Associated diagnosis: bilat knee pain, rheumatoid arthritis For recliner lift chair, I would like her to be seen for an appointment before placing request to determine if appropriate. She is welcome to schedule appointment to discuss chronic pain/request for recliner lift chair. If [facility] wound care coordinator could help facilitate this appointment, that would be great! Thanks! * Telephone Encounter - Melina Jett - 01/23/2025 10:42 AM EST Please see message below and advise if agree with DME request. Thank you * Telephone Encounter - Melina Jett - 01/23/2025 10:42 AM EST ----- Message from Keke Sainz sent at 01/22/2025 1:31 PM EST ----- Regarding: DME request Contact: Ye, I am Keke Renee, Jet Dyeing Machine Operator for [facility], submitting a request for the following DME items on behalf of the patient. Please review and, if deemed appropriate, provide prescriptions for: Requested DME Items: ??? Wedge pillow (for knee support) ??? Recliner lift chair (will require PT evaluation) Supportive Diagnoses: Restless Leg Syndrome, Rheumatoid Arthritis, Neuropathy, Knee Pain, Edema If you have any questions or need additional information regarding this request, please feel free to contact me directly. Thank you, Jet Dyeing Machine Operator: Keke Renee E-mail: [email or web address] Farmer Vegetable: Jacqueline Hardin E-mail: [email or web address] documented in this encounter Plan of Treatment Not on file documented as of this encounter Visit Diagnoses Not on filedocumented in this encounter Additional Health Concerns Assessment Noted Time PHQ-9 Depression Total Score: 21 025 10:36 AM EST documented as of this encounter Care Teams Nitriles Lab Technician Relationship Specialty Start Date End Date Elizabeth Boo FNP [address] [place] [address] PCP - General Family Medicine 04/11/22 Pravin Guzman MD [address] [place] [address] Cardiology 04/23/24[address]rd [place] [address] Gastroenterology 04/23/24 Josiane Smith MD [address] [place] [address] Rheumatology 04/23/24 documented as of this encounter
--- OUTSIDE RECORDS SUMMARY | 2025-01-30 08:11 | XMS_ITS | Encounter Summary ---
Author Organization [employer] Address [address] [facility] 7t [place] [address] Care Team Providers Care Laboratory Immunologist Name Role Phone Elizabeth Boo Primary Care Provider [phone] Pravin Guzman MD Unavailable [phone] June Unavailable Josiane Smith MD Unavailable Reason for Visit * Reason Comments Med Refill Encounter Details Date Type Department Care Team (Late st Contact Info) Description 10/27/2022 Refill [facility] [address] [place] [address] Elizabeth Boo FNP [address] [place], [place] [phone] Social History Tobacco Use Types Packs/Day Years [...] Noted Time PHQ-9 Depression Total Score: 20 04/11/ 023 2:30 PM EST documented as of this encounter Care Teams Laboratory Immunologist Relationship Specialty Start Date End Date Elizabeth Boo FNP [address] [place] [address] PCP - General Family Medicine 04/11/22 Pravin Guzman MD [address] [place] [address] Cardiology 04/23/[address]rd [place] [address] Gastroenterology 04/23/24 Josiane Smith MD [address] [place] [address] Rheumatology 04/23/24 documented as of this encounter
--- OUTSIDE RECORDS SUMMARY | 2025-01-30 08:11 | XMS_ITS | Encounter Summary ---
Author Organization [employer] Address [address] [facility] 7t [place] [address] Care Team Providers Care Pheresis Nurse Name Role Phone Elizabeth Boo Primary Care Provider [phone] Pravin Guzman MD Unavailable [phone] June Unavailable Josiane Smith MD Unavailable Encounter Details Date Type Department Care Team (Late st Contact Info) Description 09/28/2022 Orders Only [facility] PEDS [address] [place] [address] Mami Neely LPN Social History Tobacco Use [...] documented as of this encounter Care Teams Pheresis Nurse Relationship Specialty Start Date End Date Elizabeth Boo FNP [address] [place] [address] PCP - General Family Medicine 04/11/22 Pravin Guzman MD [address] [place] [address] Cardiology 04/23/24[address] 3rd [place] [address] Gastroenterology 04/23/24 Josiane Smith MD [address] [place] [address] Rheumatology 04/23/24 documented as of this encounter
--- OUTSIDE RECORDS SUMMARY | 2025-01-30 08:11 | XMS_ITS | Encounter Summary ---
Author Organization [employer] Address [address] [facility] 7t [place] [address] Care Team Providers Care Spin Table Operator Name Role Phone Elizabeth Boo Primary Care Provider [phone] Pravin Guzman MD Unavailable [phone] June Unavailable Josiane Smith MD Unavailable Reason for Visit * Reason Onset Date Comments Appointment Request 08/10/2023 Encounter Details Date Type Department Care Team (Late st Contact Info) Description 08/10/2023 Telephone [facility] MEDICINE [address] [place] [address] Elizabeth Boo FNP [address] [place], [place] [phone] Appointment Request Social History Tobacco Use Types [...] up with pcp. Please contact pt at [phone]. Slovenian Speaker documented in this encounter Plan of Treatment Not on file documented as of this encounter Visit Diagnoses Not on filedocumented in this encounter Additional Health Concerns Assessment Noted Time PHQ-9 Depression Total Score: 21 023 8:12 AM EDT documented as of this encounter Care Teams Spin Table Operator Relationship Specialty Start Date End Date Elizabeth Boo FNP [address] [place] [address] PCP - General Family Medicine 04/11/22 Pravin Guzman MD [address] [place] [address] Cardiology 04/23/24June [address] [facility] 3rd [place] [address] Gastroenterology 04/23/24 Josiane Smith MD [address] [place] [address] Rheumatology 04/23/24 documented as of this encounter
--- OUTSIDE RECORDS SUMMARY | 2025-01-30 08:12 | XMS_ITS | Clinical Summary ---
Author Organization [address] [facility] Address [address] [place] [address] Phone Care Team Providers Care Dairy Supplies Sales Representative Name Role Phone Elizabeth Boo RN Primary [...] AM EST Office Visit Orthopedic Surgery - [place] [address] [address] Gonzalez Owens, DPM [address] [address] Health Maintenance Due Date Last [...] Screening 01/17/2024 Depression Screening 03/20/2024 COVID-19 Vaccine ( season) 2024 02/27/2024, 03/16/2021, 06/09/2020, Additional history [...] patient's age to complete this topic Insurance [address] [place] [address] [employer] MEDICARE Member Subscriber Plan / Payer (Ef fective 2013-Present) Name:IHSAN MENDEZ Relation to Subscriber:Self Name:Andrea Ihsan Payer ID:[id number] Group ID:[id number] Type:Not on file Address: [place] [address] [address] [address] Care Teams Dairy Supplies Sales Representative Relationship Specialty Start Date End Date Elizabeth Boo RN [address] [address] PCP - General 09/12/23
--- OUTSIDE RECORDS SUMMARY | 2025-01-30 08:12 | XMS_ITS | Encounter Summary ---
Author Organization [employer] Address [address] [facility] 7t [place] [address] Care Team Providers Care Roll Up Machine Operator Name Role Phone Elizabeth Boo Primary Care Provider [phone] Pravin Guzman MD Unavailable [phone] June Unavailable Josiane Smith MD Unavailable Reason for Visit * Reason Onset Date Comments Appointment 11/30/2022 Encounter Details Date Type Department Care Team (Late st Contact Info) Description 11/30/2022 Telephone [facility] [address] [place], [place] [phone] Costa Ackerman DDS [address] [place], [place] [phone] Appointment Social History Tobacco Use Types Packs/Day [...] documented as of this encounter Care Teams Roll Up Machine Operator Relationship Specialty Start Date End Date Elizabeth Boo FNP [address] [place] [address] PCP - General Family Medicine 04/11/22 Pravin Guzman MD [address] [place] [address] Cardiology 04/23/24[address]rd [place] [address] Gastroenterology 04/23/24 Josiane Smith MD [address] [place] [address] Rheumatology 04/23/24 documented as of this encounter
--- OUTSIDE RECORDS SUMMARY | 2025-01-30 08:13 | XMS_ITS | Clinical Summary ---
Author Organization [employer] Address [address] [facility] [address] [place] [address] Care Team Providers Care Wellhead Pumper Name Role Phone Elizabeth Boo Primary Care Provider [phone] Pravin Guzman MD Unavailable [phone] June Unavailable Josiane Smith MD Unavailable Allergies [...] times daily. 023 Active TRUEplus Lancets 33G [facility] TEST BLOOD SUGAR EVERY DAY 100 each 11 023 Active lidocaine-priloca ine (Emla) 2.5-2.5 % cream Apply topically if needed in the morning, at noon, and at bedtime for moderate pain. 100 g 1 024 Active Humira, 2 Pen, 40 MG/0.4ML Pen-injector Kit pen-injectorIndic ations:Rheumatoid arthritis of multiple sites with negative rheumatoid factor (CMS/HCC) ([facility]) 024 Active Salicylic Acid (Mediplast) 40 [...] 024 Active Misc. Devices (Pulse Oximeter Deluxe) [facility] Pulse ox use to check blood oxygen level at home as directed 1 each 024 Active sertraline (Zoloft) 25 MG tabletIndications :Severe episode of recurrent major depressive disorder, without psychotic features (CMS/HCC) ([facility]) 024 Active traZODone (Desyrel) 50 MG tabletIndications :Severe episode of recurrent major depressive disorder, without psychotic features (CMS/HCC) ([facility]) TAKE 1/2 TO 1 TABLET BY [...] mouth if needed each day. 024 Active Multiple Vitamins-Iron (Tab-A-Ivan/Iron) tabletIndications :Routine health maintenance TAKE 1 TABLET BY MOUTH EVERY MORNING 90 tablet 3 025 Active Blood Pressure kit Use to check blood pressure as directed by provider, and if symptomatic. 1 kit 025 Active Ventolin HFA 108 (90 Base) MCG/ACT inhalerIndication s:Moderate persistent asthma without complication INHALE 2 PUFFS EVERY 4 TO 6 HOURS NEEDED FOR WHEEZING OR SHORTNESS OF BREATH 18 g 3 025 Active topiramate (Topamax) 25 MG [...] AT BEDTIME 180 capsule 1 025 Active melatonin 5 MG tablet TAKE 2 TABLETS BY MOUTH EVERY DAY AT BEDTIME NEEDED FOR SLEEP 180 tablet 1 Active Breo Ellipta 100-25 MCG/ACT aerosol powderIndications :Moderate persistent asthma without complication INHALE 1 PUFF BY MOUTH EVERY MORNING RINSE MOUTH AFTER USING. 60 each 2 Active fluticasone (Flonase) 50 MCG/ACT nasal sprayIndications: Seasonal allergies INSTILL 2 SPRAYS IN EACH NOSTRIL ONCE DAILY IN THE MORNING 16 g 11 025 Active fluticasone (Flonase) 50 MCG/ACT nasal sprayIndications: Seasonal allergies INSTILL 2 SPRAYS IN EACH NOSTRIL ONCE DAILY IN THE MORNING 16 g 11 024 2024 Discontinued(R eorder (will not trigger notification to Pharmacy)) melatonin 5 MG tablet TAKE 2 TABLETS BY MOUTH EVERY DAY AT BEDTIME NEEDED FOR SLEEP 90 tablet 3 025 2024 Discontinued Fluticasone Furoate-Vilantero l (Breo Ellipta) 100-25 MCG/ACT aerosol powderIndications :Moderate persistent asthma without complication Inhale 1 Inhalation in the morning. Rinse mouth after use. 60 each 2 025 2024 Discontinued Active Problems Problem Noted [...] left eye 04/23/2024 Overview (04/23/2024): Followed by [facility] Red flag/ED precautions Nephrolithiasis 04/23/2024 Assessment & Plan (09/23/2024 9:25 AM EDT): Nov 2023: 4mm non-obstructing kidney stone right kidney. Started on flomax and referred to urology. Established with urology January 2024 ([facility]). Plan to continue with surveillance monitoring, repeat renal ultrasound around July: Renal US demonstrated normal bilat kidneys w/o evidence of calculi Assessment & Plan (04/23/2024 11:19 AM EST): Nov 2023: 4mm non-obstructing kidney stone right kidney. Started on flomax and referred to urology. Established with urology January 2024 ([facility]). Plan to continue with surveillance monitoring, repeat [...] and diarrhea 02/27/2024 Overview (04/23/2024): Following with [facility] GI-GUNITE NOZZLE OPERATORPercy Longo 03/06/24: Gastric emptying study completed: No significant evidence for delayed gastric emptying. Assessment & Plan (04/23/2024 11:20 AM EST): Continues with cholestyramine, metoclopramide, simethicone, pantoprazole High risk medication use 02/27/2024 Epigastric pain 02/27/2024 Environmental allergies 02/27/2024 Chronic headaches 02/27/2024 Bilateral knee pain 02/27/2024 GONZALEZ (nonalcoholic steatohepatitis) 11/20/2023 Assessment & Plan (11/20/2023 5:18 PM EDT): Following with [facility] GI - LAURYN Longo Abd US ordered September 2023 by GI with the impression of increase in hepatic echotexture, c/w fatty infiltration of hepatocellular disease. Hepatomegaly. Liver stiffness: 1.49 m/s . Rules out compensated advanced chronic liver disease. Healthcare maintenance 09/08/2023 Overview (09/23/2024): Mammo: BIRADS 0 on 07/02/24, scheduled for additional imaging OPH: CEE on 06/12/24 ([facility]) Colonoscopy: 08/10/23 at [facility] GI - Dr. Abraham. Tubular adenoma. Plan to repeat in 3 years (2026) Pap: NILM, HPV neg on 02/27/24. Repeat 3 yrs d/t immunosuppression Last comprehensive exam: 04/22/24 Moderate persistent asthma without complication 04/27/2022 Overview (09/23/2024): -Following with [facility] Pulm - Dr. Ruggiero -Current therapy: Breo-Ellipta [...] eval Apr 29, 2022 Rheumatoid arthritis of [facility] sites with negative rheumatoid factor ([facility]) 04/27/2022 Overview (09/10/2023): -Seronegative RA diagnosed 02/2022 -Followed by [facility] Rheum - Dr. 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) Patient ready to address current needs Yes Strengths include willingness to seek help PLAN: 1. Follow up with [facility]: Recommended for follow-up: As needed 2. Patient [...] called in office, not in building today. [facility] provider plans to call pt later [...] Chronic depression 02/27/2024 Bronchitis, mucopurulent recurrent (CMS/HCC) 4 04/22/2024 Asthma 02/27/2024 04/22/2024 Acute bronchitis 02/27/2024 [...] Encounters Date Type Department Care Team Description 01/24/2025 Refill [facility] [address] [place] [address] Elizabeth Boo FNP Moderate persistent asthma without complication 01/23/2025 Telephone [facility] [address] [place] [address] Elizabeth Boo FNP 01/23/2025 Refill [facility] [address] [place] [address] Elizabeth Boo FNP Seasonal allergies 01/14/2025 Telephone [facility] [address] [place] [address] Elizabeth Boo FNP Nurse Triage 12/23/2024 Orders Only [facility] External Provider, [facility] 12/18/2024 2:30 PM EDT Telemedicine [facility] [address] [place] [address] Elizabeth Boo FNP Congenital anomaly of vena cava (Primary Dx); Adrenal adenoma, right 12/18/2024 Travel 12/09/2024 Telephone [facility] [address] [place] [address] Elizabeth Boo FNP TC: MRI Results 11/26/2024 Refill [facility] [address] [place] [address] Elizabeth Boo FNP Mixed hyperlipidemia 11/01/2024 Refill [facility] [address] [place] [address] Elizabeth Boo FNP Periodic limb movement disorder from Last 3 Months Immunizations Immunization Administration [...] 3-dose series) 1987 Dental Prophylaxis 07/19/2016 01/19/2016 RSV Patients and Patients Aged 60 years or older (1 - Risk 50-74 years 1-dose series) 2018 Dental Oral Exam 02/05/2021 08/04/2020, , 01/06/2016, Additional history exists Dental X-Ray: Bitewings 08/05/2021 08/05/19 21, 01/06/2016, 03/04/2014 Dental X-Ray: Full Mouth 08/06/2023 08/04/2020, 02/17 FIT 12/16/2023 12/15/2022 FOBT 12/16/2023 12/15/2022 Depression Monitoring 10/20/2024 04/22/2024, 025 COVID-19 Vaccine ( season) 2024 02/27/2024, 03/16/2021, [...] Lipid Panel 04/22/2029 04/22/2024, 07/0 10/2021, 12/20/2019 Zoster Vaccines Completed 01/21/2021, 11/19/2020 Pneumococcal Vaccine: 50+ Years Completed 04/22/2024, 03/27/1996 [...] COMPLETE Routine 12/23/2024 5 :23 PM EDT BI US BREAST LIMITED RIGHT Routine 09/30/2024 10:35 AM EDT HEPATITIS PANEL, GENERAL Routine 09/25/2024 [...] PM EDT Narrative 12/23/2024 5:24 PM EDT [address] [address] Ultrasound Report Signed Patient: Sobia Silva MR#: [id number] : 1970 Acct:[id number] Age/Sex: 54 / F ADM Date: 12/23/24 Loc: HO.US Attending Dr: Rekha EVERETT Ordering Physician: Rekha Longo Date of Service: 12/23/24 Procedure(s): US abdomen complete Accession Number(s): [id number] cc: Rekha Longo; Elizabeth Boo Reason for Exam: K75.81 - Nonalcoholic steatohepatitis (GONZALEZ) CLINICAL HISTORY: K75.81 - Nonalcoholic steatohepatitis (GONZALEZ) US abdomen complete Comparison: MR - MR ABDOMEN WO/W CON - 10/23/24 14:40 EDT US/RI/SR - US ABDOMEN COMPLETE WITH LIVER ELASTOGRAPHY [...] OV> 12/23/24 1724 DD/ 1723 TD/TT: 12/23/24 172 Shingle Bolt Cutter: Procedure Note Donotuseinterpreter, Image - 12/23/[address] [address] Ultrasound Report Signed Patient: Nicolás SilvaR#: [id number] : 1970Acct:[id number] Age/Sex: 54 / FADM Date: 12/23/24 Loc: HO.US Attending Dr: Rekha EVERETT Ordering Physician: Rekha Longo Date of Service: 12/23/24 Procedure(s): US abdomen complete Accession Number(s): [id number] cc: Rekha Longo; Elizabeth Boo Reason for Exam: K75.81 - Nonalcoholic steatohepatitis (GONZALEZ) CLINICAL HISTORY: K75.81 - Nonalcoholic steatohepatitis (GONZALEZ) US abdomen complete Comparison: MR - MR ABDOMEN WO/W CON - 10/23/24 14:40 EDT US/RI/SR - US ABDOMEN COMPLETE WITH LIVER ELASTOGRAPHY [...] Alegre MD in OV> 12/23/24 1724 DD/ 172 TD/TT: 12/23/24 172 Shingle Bolt Cutter: us [facility] External Provider IMG US PROCEDURES Final Result * BI US Breast Limited Right (09/30/2024 10:35 AM EDT) Anatomical Region Laterality Modality Breast Right Ultrasound 09/30/2024 10:3 5 AM EDT Narrative 09/30/2024 11:41 AM EDT [facility] [address] [place] [address] Ultrasound Report Signed Patient: Sobia Silva MR#: [id number] : 1970 Acct:[id number] Age/Sex: 54 / F ADM Date: 09/30/24 Loc: HO.MAMMO Attending Dr: Elizabeth Boo STATIONS SUPERINTENDENT Ordering Physician: Elizabeth Boo Date of Service: 09/30/24 Procedure(s): US breast RT limited mamm only Accession Number(s): [id number] cc: Elizabeth Boo EXAMINATION: MM DIAGNOSTIC DIGITAL [...] 09/30/24 1138 DD/ 1035 TD/TT: 09/30/24 1100 Sh[address] Bolt Cutter: Procedure Note Donotuseinterpreter, Image - 09/30/2024 [facility] [address] [place] [address] [place] [address] Ultrasound Report Signed Patient: Fly Silva#: [id number] : 1970Acct:[id number] Age/Sex: 54 / FADM Date: 09/30/24 Loc: HO.MAMMO Attending Dr: Elizabeth Boo STATIONS SUPERINTENDENT Ordering Physician: Elizabeth Boo Date of Service: 09/30/24 Procedure(s): US breast RT limited mamm only Accession Number(s): [id number] cc: Elizabeth Boo EXAMINATION: MM DIAGNOSTIC DIGITAL [...] 09/30/24 1138 DD/ 1035 TD/TT: 09/30/24 1100 Shingle Bolt Cutter: us Elizabethradha Boo STATIONS SUPERINTENDENT IMG US PROCEDURES Final Result * Hepatitis Panel, General (09/25/2024 9:11 AM EDT) Hepatitis A IgM Nonreactive Nonreactive [facility] Comment:IgM antibodies to DIMAS V not detected; does not exclude earlyacute or recovered HAV infection. ~Hepatitis B Surface Antibody NONREACTIVE Nonreactive [facility] Comment:Nonreactive: < 8.00 mIU/mL Hepatitis B Core Antibody Nonreactive Nonreactive [facility] Hepatitis C Antibody Nonreactive Nonreactive [facility] Comment:Antibodies to HCV no t detected; does not exclude early acuteHCV infection. Hepatitis B Surface Ag Negative Negative [facility] 09/25/2024 9:11 AM EDT 09/25/2024 9:11 AM EDT us Generic External Data Provider LAB BLOOD ORDERAB LES Final Result [facility] [address] [place] [phone] * Hemoglobin A1c (04/22/2024 11:48 AM EST) Hemoglobin A1c 5.9 <6.0 % [facility] Comment:Hemoglobin A1C Refer ence Range Adults: 4.8 - 6.0 % Non diabetic: < 6.0 % Goal: < 7.0 %Additional Action Suggested: > 8.0 %Note: Hemoglobin A1c results are invalid for patients with abnormal amounts of HbF. Blood transfusions may impact the HbA1c concentration in the patient sample. Estimated Average Glucose 123 mg/dL [facility] Comment:eAG = Estimated ave rage glucose which is %A1C expressed asaverage glucose, using the formula of the [id number] Glucose study (ADAG), Diabetes Care, Vol.31,#8,Oct. 2007 Blood Venous blood specimen / Unknown 04/22/2024 11:48 AM EST 04/22/2024 2:10 PM EST Elizabeth Boo [facility] LAB BLOOD ORDERABLES Final Res ult Performing Organization Address City/[facility] Co de Phone Number [facility] [address] [place] [phone] * (ABNORMAL) Lipid Panel, Standard (04/22/2024 11:48 AM EST) Triglycerides 113 <150 mg/dL [facility] Comment:Desirable Triglyceri de: less than 150 mg/dLBorderline High Triglyceride 150-199 mg/dLHigh Triglyceride: 200-499 mg/dLVery High Triglyceride: greater than or equal to 5OO mg/dL Cholesterol 107 <200 mg/dL [facility] Comment:Desirable Cholestero l: less than 200 mg/dLBorderline High Cholesterol: 200-239 mg/dLHigh Cholesterol: greater than 239 mg/dL LDL Cholesterol Calculated 53 <100 mg/dL [facility] Comment:Desirable LDL: less than 100 mg/dLNear Optimal/Above Optimal LDL: 110- 129 mg/dLBorderline High LDL: 130-159 mg/dLHigh LDL: 160-189 mg/dLVery High LDL: greater than or equal to 190 mg/dL HDL Cholesterol 32(L) >40 mg/dL [facility] Comment:Desirable HDL: great er than 40 mg/dL Note: This HDL assay may give artificially low results in patients with liver disease. Blood Venous blood specimen / Unknown 04/22/2024 11:48 AM EST 04/22/2024 2:10 PM EST Elizabeth Boo [facility] LAB BLOOD ORDERABLES Final Res ult Performing Organization Address City/[facility]/ZIP Co de Phone Number [facility] [address] [place] [phone] * Pap Smear (02/27/2024 10:05 AM EST) Swab Cervix uteri structure / Unknown 02/27/2024 10:05 AM EST 02/28/2024 9:45 AM EST Narrative [facility] - 03/04/2024 4:03 PM EST ----- ------- Name: Sobia Silva Age/Sex: 53/F : 1970 Unit#: [id number] Attend Dr: Elizabeth Bautista MD Re02/28/24 Status: DEP [facility] ----- ------- SPEC : [id number] RECD: 02/28/24 STATUS: MARTHA BETH NUM: [id number] LILIBETH: 02/27/24-[address] [facility] [address]: Elizabeth Bautista MD ENTERED: 02/28/24-1023 SP TYPE: Pap Smr OTHR DR: ORDERED: [...] Bautista MD LAB CYTOLOGY ORDERABLES Final Result [facility] [address] [place] [phone] * HPV mRNA E6/E7 w/Reflex to [...] Most Recently Relevant to Health Maintenance Insurance [facility] ONE CARE < 65 DENTAL - [facility] Care Teams Wellhead Pumper Relationship Specialty Start Date End Date Elizabeth Boo FNP [address] [place] [address] PCP - General Family Medicine 04/11/22 Pravin Guzman MD [address] [place] [address] Cardiology 04/23/24June [address] [place] [address] [address] [place] [address] Gastroenterology 04/23/24 Josiane Smith MD [address] [place] [address] Drive [address] [place] J[place] [address] Rheumatology 04/23/24
--- OUTSIDE RECORDS SUMMARY | 2025-01-30 08:13 | XMS_ITS | Encounter Summary ---
Author Organization [facility] Address [address] [facility] [address] [place] [address] Phone Care Team Providers Care Film Critic Name Role Phone Unknown, Unknown Primary Care Provider Norman lo Encounter Details Date Type Department Care Team (Late st Contact Info) Description 10/18/2017 Ancillary Orders [facility] [address] [place] [address] [place] [address] Patricia Ward PA [address] [place] [address] Palpitations Social History Tobacco Use Types Packs/Day [...] Palpitations documented in this encounter Care Teams Film Critic Relationship Specialty Start Date End Date Unknown, Unknown, PCP - General 10/17/17 documented as of this encounter Additional Source Comments The information contained in this document represents components of the legal health record. It is not the complete legal health record.[facility]
--- OUTSIDE RECORDS SUMMARY | 2025-01-30 08:13 | XMS_ITS | Encounter Summary ---
Author Organization [employer] Address [address] [place] [address] Care Team Providers Care Personal Care Aid Name Role Phone Elizabeth Boo Primary Care Provider [phone] Pravin Guzman MD Unavailable [phone] June Unavailable Josiane Smith MD Unavailable Encounter Details Date Type Department Care Team (Late st Contact Info) Description 01/16/2024 Orders Only [facility] [address] [place] [address] Provider, MD Ita Social History Tobacco Use [...] documented as of this encounter Care Teams Personal Care Aid Relationship Specialty Start Date End Date Elizabeth Boo FNP [address] [place] [address] PCP - General Family Medicine 04/11/22 Pravin Guzman MD [address] [place] [address] Cardiology 04/23/24June [address] 3rd [place] [address] Gastroenterology 04/23/24 Josiane Smith MD [address] [place] [address] Rheumatology 04/23/24 documented as of this encounter
--- OUTSIDE RECORDS SUMMARY | 2025-01-30 08:14 | XMS_ITS | Encounter Summary ---
Author Organization [employer] Address [address] [facility] 7t [place] [address] Care Team Providers Care Billing Rep Name Role Phone Elizabeth Boo Primary Care Provider [phone] Pravin Guzman MD Unavailable [phone] June Unavailable Josiane Smith MD Unavailable Reason for Visit * Reason Comments Med Refill Encounter Details Date Type Department Care Team (Late st Contact Info) Description 04/29/2024 Refill [facility] [address] [place], [place] [phone] Elizabeth Boo FNP [address] [place], [place] [phone] Periodic limb movement disorder Social History Tobacco [...] documented as of this encounter Care Teams Billing Rep Relationship Specialty Start Date End Date Elizabeth Boo FNP [address] [place] [address] PCP - General Family Medicine 04/11/22 Pravin Guzman MD [address] [place] [address] Cardiology 04/23/24June [address] 3rd [place] [address] Gastroenterology 04/23/24 Josiane Smith MD [address] [place] [address] Rheumatology 04/23/24 documented as of this encounter
--- OUTSIDE RECORDS SUMMARY | 2025-01-30 08:14 | XMS_ITS | Clinical Summary ---
Author Organization [facility] Address [address] [place] [address] [place], [place] [phone] Phone Care Team Providers Care Development Advisor Name Role Phone Unknown, Unknown Primary Care [...] file Medical Devices Not on file Insurance [facility] ONE CARE MEDICARE REPLACEMENT SANDRA HOYOS [id number] [facility] MEDICARE [place] [address] [place] [address] MEDICARE REPLACEMENT [facility] MEDICARE REPLACEMENT [facility] CARE MEDICARE REPLACEMENT Member Subscriber Plan / Payer (Ef fective 2017-Present) Name:Sobia Mendez Relation to Subscriber:Self Name:Sobia Mendez Payer ID:[id number] (NAIC) Group ID:Not on file Type:Medicare Address: [address] SANDRA HOYOS[address] [facility] CARE MEDICARE REPLACEMENT Care Teams Development Advisor Relationship Specialty Start Date End Date Unknown, Unknown, PCP - General 10/17/17 Additional Source Comments The information contained in this document represents components of the legal health record. It is not the complete legal health record.[facility]
--- OUTSIDE RECORDS SUMMARY | 2025-01-30 08:14 | XMS_ITS | Encounter Summary ---
Author Organization [facility] Address [address] [place] [address] Phone Care Team Providers Care Filterer Name Role Phone Unknown, Unknown Primary Care Provider Norman lo Encounter Details Date Type Department Care Team (Late st Contact Info) Description 10/18/2017 Ancillary Orders [facility] [address] [place] [address] 3rd Floor, [address] [place] [address] Patricia Ward PA [address] [place] [address] Social History Tobacco Use Types Packs/Day Years [...] on filedocumented in this encounter Care Teams Filterer Relationship Specialty Start Date End Date Unknown, Unknown, PCP - General 10/17/17 documented as of this encounter Additional Source Comments The information contained in this document represents components of the legal health record. It is not the complete legal health record.[facility]
--- OUTSIDE RECORDS SUMMARY | 2025-01-30 08:14 | XMS_ITS | Encounter Summary ---
Author Organization [facility] Address [address] [facility] [address] [place] [address] Phone Care Team Providers Care Barytes Grinder Name Role Phone Unknown, Unknown Primary Care Provider Norman lo Encounter Details Date Type Department Care Team (Late st Contact Info) Description 01/25/2018 Ancillary Orders [facility] [address] [place] [address] Pravin Guzman, DO [address] [place] [address] Tachycardia Social History Tobacco Use Types Packs/Day [...] tachycardia documented in this encounter Care Teams Barytes Grinder Relationship Specialty Start Date End Date Unknown, Unknown, PCP - General 10/17/17 documented as of this encounter Additional Source Comments The information contained in this document represents components of the legal health record. It is not the complete legal health record.[facility]
--- OUTSIDE RECORDS SUMMARY | 2025-01-30 08:15 | XMS_ITS | Encounter Summary ---
Author Organization [employer] Address [address] [place] [address] Care Team Providers Care Court Liaison Name Role Phone Elizabeth Boo Primary Care Provider [phone] Pravin Guzman MD Unavailable [phone] June Unavailable Josiane Smith MD Unavailable Encounter Details Date Type Department Care Team (Late st Contact Info) Description 07/16/2024 Orders Only [facility] [address] [place] [address] Marian Pitts Social History Tobacco Use Types [...] documented as of this encounter Care Teams Court Liaison Relationship Specialty Start Date End Date Elizabeth Boo FNP [address] [place] [address] PCP - General Family Medicine 04/11/22 Pravin Guzman MD [address] [place] [address] Cardiology 04/23/24June [address] 3rd [place] [address] Gastroenterology 04/23/24 Josiane Smith MD [address] [place] [address] Drive [address] [place] [address] Rheumatology 04/23/24 documented as of this encounter
== END 2025-01-30 08:25 | disposition home or self-care (01) ==
LOC: HO.HSM 08:03
PROVIDERS: PCP Registered Nurse; Visit Provider Psychiatry & Neurology Neurology
DX: G25.81 Restless legs syndrome (principal); G43.009 Migraine without aura, not intractable, without status migrainosus; G62.9 Polyneuropathy, unspecified; G57.53 Tarsal tunnel syndrome, bilateral lower limbs
CPT/HCPCS: 99214

== ENCOUNTER → 2025-01-30 08:02 | Outpatient (BNVA) | payer OTHER, SELFPAY | PROVIDERS: PCP Registered Nurse; Visit Provider Psychiatry & Neurology Neurology | DX: G25.81 Restless legs syndrome (principal); G43.009 Migraine without aura, not intractable, without status migrainosus; G62.9 Polyneuropathy, unspecified; G57.53 Tarsal tunnel syndrome, bilateral lower limbs | CPT/HCPCS: 99212 ==

== ENCOUNTER 2025-02-05 13:38 | Outpatient (AMB) | payer OTHER, SELFPAY ==
--- NOTE | 2025-02-05 14:22 | A.OFFVIS_ITS ---
Vital Signs 02/05/25 14:25 Height 5 ft 1 in Weight 183 lb 3.266 oz BMI 34.6 BP 110/76 Blood Pressure Location Lt brachial Position Sitting Pulse 68 Pulse Oximetry (%) 98 Oxygen Delivery Method Room Air Intake Visit Reasons: follow up Intake Note: Patient presents for RA follow up. Book Jacket Cover Machine Operator Required: Yes Book Jacket Cover Machine Operator Language: Internal Medicine Nurse Services: Book Jacket Cover Machine Operator Present Book Jacket Cover Machine Operator Name: Checo [id number] Information Interpreted: non-clinical & clinical Allergies niacin (From NIASPAN EXTENDED-RELEASE) Allergy (Intermediate, Verified 02/05/25 14:31) TACHYCARDIA,DIFF.BREATHING citalopram (Celexa) Allergy (Unknown, Verified 02/05/25 14:31) unknown diltiazem (From CARTIA XT) Allergy (Unknown, Verified 02/05/25 14:31) UNKNOWN Medication List - Last Reconciled 02/05/25 by Nicolasa Garcia MD albuterol sulfate 90 mcg/actuation 2 puffs inhalation Q4-6H PRN albuterol sulfate 2.5 mg inhalation TID PRN amlodipine 10 mg PO DAILY cholestyramine (with sugar) 4 gram 8 grams PO BID diclofenac sodium 1% 2 grams topical QID fluticasone furoate-vilanterol 100-25 mcg/dose (Breo Ellipta) 1 inh inhalation DAILY fluticasone propionate 50 mcg/actuation sprays intranasal gabapentin 400 mg PO TID Humira(CF) Pen (adalimumab) 40 mg (0.4 mL) subcut Q2W NS lancets As directed levofloxacin 750 mg PO DAILY melatonin 10 mg PO BEDTIME metoclopramide HCl (Reglan) 10 mg PO QIDACHS metoprolol succinate ER 200 mg PO QAM metoprolol succinate ER 25 mg PO DAILY PRN multivit-iron sulf-folic acid 15 mg iron- 400 mcg (Tab-A-Ivan Multivitamin w- iron) 1 tab PO DAILY pantoprazole 20 mg PO QAM pramipexole 0.5 mg PO BEDTIME ropinirole 2 mg PO BEDTIME sertraline 50 mg PO DAILY simethicone (Gas Relief (simethicone)) 180 mg PO TID simvastatin 10 mg PO BEDTIME topiramate 50 mg PO BEDTIME trazodone 50 mg PO BEDTIME vitamin E (dl, acetate) 180 mg PO BID HPI Comments Details: Patient is a 54-year-old female with asthma, hypertension, hyperlipidemia, joanne ropathy, IBS with constipation and diarrhea, GERD, fatty liver disease, polyarticular osteoarthritis and rheumatoid arthritis here today for follow up Interval History: Patient last seen 10/04/24 with me - On Humira 40 mg every other week - Legs get swollen at the end of the day - Hands hurt sometimes - Still with knee pain Today - On Humira 40mg every other week - States that she notices the effeect of the Humira decreases after the first week - Took the Humira 1 week ago and is currently complaining of bilateral hand pain, bilateral knee pain and left elbow pain Rheumatologic History: Initial history: A 51-year-old female with a past medical history of anxiety, depression, dyslipidemia, stroke, restless leg syndrome, neuropathy, migraine who presents for evaluation of diffuse pain. The condition started about 7-8 months ago with pain in her legs, ankles, feet and arms. The pain is generally worse at night, is burning pain. She stated that will she lost her balance a few weeks ago and fell and bumped her left ankle. Her left ankle has been swollen since. She did not get it evaluated. She denies any history of DVT/PE. She had a breast biopsy in the past and was told it was unremarkable. She never had a colonoscopy done. Current Rheumatology Medication(s): Humira 40mg SC every 2 weeks [facility] Medical History (Updated 02/05/25 @ 14:58 by Nicolasa Garcia MD) Periodic limb movement disorder Colon cancer screening Acute bronchitis Abdominal bloating Epigastric pain Diarrhea Rheumatoid arthritis GERD (gastroesophageal reflux disease) HTN (hypertension) Stroke Bilateral carpal tunnel syndrome Dyslipidemia Anxiety Depression Migraine Restless legs Surgical History H/O colonoscopy S/P breast biopsy, right H/O prior ablation treatment History of esophagogastroduodenoscopy (EGD) History of cholecystectomy Family History Father High blood pressure Cancer Mother Diabetes High blood pressure Sister Diabetes High blood pressure Thyroid disease Cancer Brother High blood pressure Asthma Social History Alcohol intake: never Patient Tobacco Use Status: Never used Tobacco Current occupational status: disabled Current occupation: rt handed Review of Systems Narrative Review of Systems Constitutional: Denies fever, chills, weight loss ENT: Denies vision changes, eye pain or eye redness, dental caries, dry mouth GI: Denies nausea, vomiting, diarrhea, abdominal pain, change in BM Pulm: Denies SOB, FALLON, hemoptysis, wheezing Cards: Denies chest pain, palpitations Skin: Denies Raynaud's, rash, nail changes, photosensitivity, FLIGHT OPERATIONS DISPATCH CLERK: Denies headaches, weakness, paresthesias, recurrent falls MSK: as per HPI All other systems reviewed and are unremarkable except noted above Physical Exam Exam Exam: Vital signs reviewed Physical Examination CONSTITUITIONAL Patient alert and cooperative. Well appearing and in no apparent painful distress MSK Hands * Right Hand: Able to make a fist. No swelling or tenderness to palpation of the MCPs, PIPs or DIPs. No deformities noted. * Left Hand: Able to make a fist. No swelling or tenderness to palpation of the MCPs, PIPs or DIPs. No deformities noted. Wrists * Right Wrist: Full ROM to flexion and extension. No swelling or TTP * Left Wrist: Full ROM to flexion and extension. No swelling or TTP Elbows * Right Elbow: Full ROM. No swelling or TTP. No TTP of the medial epicondyle. No TTP of the lateral epicondyle * Left Elbow: Full ROM. No swelling or TTP. No TTP of the medial epicondyle. No TTP of the lateral epicondyle Shoulders * Right shoulder: Full ROM. No swelling noted. No TTP of the AC joint. No TTP of the subacromial bursa. No TTP of the posterior shoulder * Left shoulder: Full ROM. No swelling noted. No TTP of the AC joint. No TTP of the subacromial bursa. No TTP of the posterior shoulder Hips * Right hip: Good ROM. No pain elicited with hip flexion/internal rotation/exter nal rotation * Left hip: Good ROM. No pain elicited with hip flexion/internal rotation/external rotation Hip bursa: No tenderness to palpation bilaterally Knees * Right knee: Full ROM. No swelling noted. No TTP of the knee joint line. No TTP of pes anserine bursa * Left knee: Full ROM. No swelling noted. No TTP of the knee joint line. No TTP of pes anserine bursa. Ankles * Right ankle: Good ankle dorsiflexion and plantar flexion. No swelling. No TTP of the ankle joint * Left ankle: Good ankle dorsiflexion and plantar flexion. No swelling. No TTP of the ankle joint Feet * Right foot: Negative squeeze test * Left foot: Negative squeeze test Tender points? * No tenderness to palpation of the bilateral trapezius, supraspinatus, anterior costochondral junctions, bilateral suboccipital muscle insertions SKIN No rashes Vital Signs: Last Vital Signs Pulse 68 02/05/25 14:25 BP 110/76 02/05/25 14:25 Pulse Ox 98 02/05/25 14:25 Oxygen Delivery Method Room Air 02/05/25 14:25 BMI result Body Mass Index 34.6 Results Reviewed Results Reviewed: Laboratory Tests 01/11/24 04/22/24 09/25/24 08:33 11:48 09:11 WBC 6.8 RBC 4.62 Hgb 13.4 Hct 39.6 Plt Count 360 ESR 34 H 26 H Sodium 143 Potassium 3.6 Chloride 108 Carbon Dioxide 27 BUN 7 L Creatinine 0.52 AST 49 H 60 H ALT 47 H 60 H C-Reactive Protein 0.91 H 0.85 H Laboratory Tests 09/25/24 09:11 Hepatitis A IgM Ab Nonreactive Hep Bs Antigen Negative Hep Bs Antibody NONREACTIVE Hep B Core Total Ab Nonreactive Hepatitis C Ab (EIA) Nonreactive TB Test (T-Spot) Com Negative Assessment & Plan Assessment & Plan (1) Rheumatoid arthritis: Comment: Seronegative diagnosed 02/2022 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 6 tabs started 02/2022 Advanced to 8 tabs 04/2022 reduced to 6 tab 07/10 due to transaminitis DC 12/10 due to ongoing transaminitis Enbrel 09/09-DC 06/2022 ineffective Humira 06/2023 effective - frequency increased to every week 01/2025 Code(s): M06.9 - Rheumatoid arthritis, unspecified Category: Medical Qualifiers: Rheumatoid arthritis location: multiple sites Rheumatoid factor presence: without rheumatoid factor Qualified Code(s): M06.09 - Rheumatoid arthritis without rheumatoid factor, multiple sites Plan: #RA Patient is a 54-year-old female with seronegative rheumatoid arthritis here today for follow up Moderate disease activity due to waning effect of Humira Will increase the frequency Plan - Humira 40mg SC every 7 days - Labs today: CBC, CMP, ESR, CRP - RTC 4 months - Labs before visit: CBC, CMP, ESR, CRP (2) Polyarticular osteoarthritis: Code(s): M15.9 - Polyosteoarthritis, unspecified Plan: #Polyarticular OA Patient with polyarticular OA. Recommending topical diclofenac 4 times a day (3) Encounter for monitoring of adalimumab therapy: Code(s): Z51.81 - Encounter for therapeutic drug level monitoring; Z79.620 - intermediate manager (current) use of immunosuppressive biologic Plan: #Long-term Use of TNF Inhibitors: Humira Discussed with the patient the benefits and risks of TNF inhibitors for the management of the rheumatic condition Benefits include reduce pain, maintenance of remission and reduction of flares as well as progression of the disease Risks include injection sites/infusion reactions, serious infections (such as bacterial infections, opportunistic infections), malignancy, delaminating syn dromes, autoimmune phenomena, CHF exacerbations, palmar plantar psoriasis and cytopenias Recommended rotating injection sites, and holding medication during and for up to 1 week after resolution of a febrile illness or open skin wound Plan I spent 30 minutes reviewing the record and labs, taking a history, examining the patient, discussing the treatment plan, ordering diagnostic work up and documenting in the medical record Orders: Orders Comprehensive Met. Panel 4 Months Z79.899 - Other senior living (current) drug therapy C Reactive Protein 4 Months Z79.899 - Other senior living (current) drug therapy Complete Blood Count Auto Diff Today Z79.899 - Other laborer marine terminal (current) drug therapy Comprehensive Met. Panel Today Z79.899 - Other laborer marine terminal (current) drug therapy Erythrocyte Sedimentation Rate Today Z79.899 - Other laborer marine terminal (current) drug therapy Complete Blood Count Auto Diff 4 Months Z79.899 - Other senior living (current) drug therapy Erythrocyte Sedimentation Rate 4 Months Z79.899 - Other senior living (current) drug therapy C Reactive Protein Today Z79.899 - Other senior living (current) drug therapy Medications: Changed From Humira(CF) Pen (adalimumab) 40 mg (0.4 mL) subcut Q2W 2 ea 5RF NS M06.09 - Rheumatoid arthritis without rheumatoid factor, multiple sites To Humira(CF) Pen (adalimumab) 40 mg (0.4 mL) subcut QWEEK 4 ea 5RF NS M06.09 - Rheumatoid arthritis without rheumatoid factor, multiple sites Coding Level of Care Code Est Pt Level 4 (28205) Complex EM visit Add On G2211 Diagnoses Rheumatoid arthritis of multiple sites with negative rheumatoid factor M06.09 Rheumatoid arthritis location: multiple sites Rheumatoid factor presence: without rheumatoid factor Polyarticular osteoarthritis M15.9 Encounter for monitoring of adalimumab therapy Z51.81; Z79.620
[2025-02-05 14:25] VITALS: BP 110/76; PULSE 68; O2SAT 98; BMI 34.6
--- OUTSIDE RECORDS SUMMARY | 2025-02-06 01:40 | XMS_ITS | Encounter Summary ---
Author Organization [employer] Address [address] [facility] [address] [place] [address] Care Team Providers Care Clean In Places Operator Name Role Phone Elizabeth Boo Primary Care Provider [phone] Pravin Guzman MD Unavailable [phone] June Unavailable Josiane Smith MD Unavailable Encounter Details Date Type Department Care Team (Late st Contact Info) Description 09/28/2022 Orders Only [facility] [address] [place] [address] Mami Neely LPN Social History Tobacco Use [...] documented as of this encounter Care Teams Clean In Places Operator Relationship Specialty Start Date End Date Elizabeth Boo FNP [address] [place] [address] PCP - General Family Medicine 04/11/22 Pravin Guzman MD [address] [place] [address] Cardiology 04/23/24[address] [place] [address] Gastroenterology 04/23/24 Josiane Smith MD [address] [place] [address] Rheumatology 04/23/24 documented as of this encounter
--- OUTSIDE RECORDS SUMMARY | 2025-02-06 01:40 | XMS_ITS | Encounter Summary ---
Author Organization [employer] Address [address] [place] [address] Care Team Providers Care Grain Operations Manager Name Role Phone Elizabeth Boo Primary Care Provider [phone] Pravin Guzman MD Unavailable [phone] June Unavailable Josiane Smith MD Unavailable Encounter Details Date Type Department Care Team (Late st Contact Info) Description 01/16/2024 Orders Only [facility] MED [facility] PEDS [address] [place] [address] Provider, MD Ita Social History Tobacco Use [...] documented as of this encounter Care Teams Grain Operations Manager Relationship Specialty Start Date End Date Elizabeth Boo FNP [address] [place] [address] PCP - General Family Medicine 04/11/22 Pravin Guzman MD [address] [place] [address] Cardiology 04/23/24[address] [place] [address] Gastroenterology 04/23/24 Josiane Smith MD [address] [place] [address] Rheumatology 04/23/24 documented as of this encounter
--- OUTSIDE RECORDS SUMMARY | 2025-02-06 01:40 | XMS_ITS | Encounter Summary ---
Author Organization [employer] Address [address] [facility] [address] [place] [address] Care Team Providers Care Installer Helper Name Role Phone Elizabeth Boo Primary Care Provider [phone] Pravin Guzman MD Unavailable [phone] June Unavailable Josiane Smith MD Unavailable Reason for Visit * Reason Comments Med Refill Encounter Details Date Type Department Care Team (Late st Contact Info) Description 02/01/2025 Refill [facility] [address] [place], [place] [id number] Myron Hernandez MD [address] [place] [address] Moderate persistent asthma with acute exacerbation Social History Tobacco Use Types Packs/Day Years [...] as of this encounter Visit Diagnoses Diagnosis Moderate persistent asthma with acute exacerbation documented in this encounter Additional Health Concerns Assessment Noted Time PHQ-9 Depression Total Score: 21 025 10:36 AM EST documented as of this encounter Care Teams Installer Helper Relationship Specialty Start Date End Date Elizabeth Boo FNP [address] [place] [address] PCP - General Family Medicine 04/11/22 Pravin Guzman MD [address] [place] [address] Cardiology 04/23/24[address] [place] [address] Gastroenterology 04/23/24 Josiane Smith MD [address] [place] [address] Rheumatology 04/23/24 documented as of this encounter
--- OUTSIDE RECORDS SUMMARY | 2025-02-06 01:40 | XMS_ITS | Clinical Summary ---
Author Organization [employer] Address [address] [facility] 7t [place] [address] Care Team Providers Care Battalion Chief Name Role Phone Elizabeth Boo Primary Care Provider [phone] Pravin Guzman MD Unavailable [phone] June Unavailable Josiane Smith MD Unavailable Allergies [...] times daily. 023 Active TRUEplus Lancets 33G [facility] [place] TEST BLOOD SUGAR EVERY DAY 100 each 11 023 Active lidocaine-priloca ine (Emla) 2.5-2.5 % cream Apply topically if needed in the morning, at noon, and at bedtime for moderate pain. 100 g 1 024 Active Humira, 2 Pen, 40 MG/0.4ML Pen-injector Kit pen-injectorIndic ations:Rheumatoid arthritis of multiple sites with negative rheumatoid factor (CMS/HCC) ([facility]) 024 Active Salicylic Acid (Mediplast) 40 % [...] 024 Active Misc. Devices (Pulse Oximeter Deluxe) [facility] [place] Pulse ox use to check blood oxygen level at home as directed 1 each 024 Active sertraline (Zoloft) 25 MG tabletIndications :Severe episode of recurrent major depressive disorder, without psychotic features (CMS/HCC) ([facility]) 024 Active traZODone (Desyrel) 50 MG tabletIndications :Severe episode of recurrent major depressive disorder, without psychotic features (CMS/HCC) ([facility]) TAKE 1/2 TO 1 TABLET BY MOUTH [...] left eye 04/23/2024 Overview (04/23/2024): Followed by [facility] Red flag/ED precautions Nephrolithiasis 04/23/2024 Assessment & Plan (09/23/2024 9:25 AM EDT): Nov 2023: 4mm non-obstructing kidney stone right kidney. Started on flomax and referred to urology. Established with urology January 2024 ([facility]). Plan to continue with surveillance monitoring, repeat renal ultrasound around July: Renal US demonstrated normal bilat kidneys w/o evidence of calculi Assessment & Plan (04/23/2024 11:19 AM EST): Nov 2023: 4mm non-obstructing kidney stone right kidney. Started on flomax and referred to urology. Established with urology January 2024 ([facility]). Plan to continue with surveillance monitoring, repeat [...] and diarrhea 02/27/2024 Overview (04/23/2024): Following with [facility] GI-CALIBRATION SPECIALISTPercy Longo 03/06/24: Gastric emptying study completed: No significant evidence for delayed gastric emptying. Assessment & Plan (04/23/2024 11:20 AM EST): Continues with cholestyramine, metoclopramide, simethicone, pantoprazole High risk medication use 02/27/2024 Epigastric pain 02/27/2024 Environmental allergies 02/27/2024 Chronic headaches 02/27/2024 Bilateral knee pain 02/27/2024 GONZALEZ (nonalcoholic steatohepatitis) 11/20/2023 Assessment & Plan (11/20/2023 5:18 PM EDT): Following with [facility] GI - LAURYN Longo Abd US ordered September 2023 by GI with the impression of increase in hepatic echotexture, c/w fatty infiltration of hepatocellular disease. Hepatomegaly. Liver stiffness: 1.49 m/s . Rules out compensated advanced chronic liver disease. Healthcare maintenance 09/08/2023 Overview (09/23/2024): Mammo: BIRADS 0 on 07/02/24, scheduled for additional imaging OPH: CEE on 06/12/24 ([facility]) Colonoscopy: 08/10/23 at [facility] GI - Dr. Abraham. Tubular adenoma. Plan to repeat in 3 years (2026) Pap: NILM, HPV neg on 02/27/24. Repeat 3 yrs d/t immunosuppression Last comprehensive exam: 04/22/24 Moderate persistent asthma without complication 04/27/2022 Overview (09/23/2024): -Following with [facility] Pulm - Dr. Ruggiero -Current therapy: Breo-Ellipta [...] eval Apr 29, 2022 Rheumatoid arthritis of [facility] sites with negative rheumatoid factor ([facility]) 04/27/2022 Overview (09/10/2023): -Seronegative RA diagnosed 02/2022 -Followed by [facility] Rheum - Dr. Smith -Initially tx with [...] for further tx of joint pains -Encouraged [facility] acupuncture clinic Carpal tunnel syndrome 04/11/2022 [...] recurrent major depressive disorder, without psychotic features ([facility]/HCC) 07/13/2017 Assessment & Plan (04/22/2024 6:38 AM EST): - Reviewed PHQ9 with pt, denies SI/HI/thoughts of self harm - Following with psych - LINUX UNIX ADMINISTRATOR Mary Ellen Brown - Continues with sertraline 25mg daily and trazodone 25-50mg nightly PRN sleep Assessment & Plan (11/20/2023 5:27 PM EDT): - Reviewed PHQ9 with pt, denies SI/HI/thoughts of self harm - Following with psych - LIN[employer] UN[employer] ADMINISTRATOR Mary Ellen Brown - Continues with sertraline [...] recurrent major depressive disorder, without psychotic features ([facility]) Patient ready to address current needs Yes [...] called in office, not in building today. [facility] provider plans to call pt later today [...] Encounters Date Type Department Care Team Description 02/05/2025 Orders Only GENERIC EXTERNAL DATA DEPARTMENT Provider, Generic External Data 02/05/2025 Telephone [facility] [address] [place] [phone] Elizabeth Boo FNP Durable Medical Equipment 02/01/2025 Refill [facility] [address] [place] [phone] Myron Hernandez MD Moderate persistent asthma with acute exacerbation 01/24/2025 Refill [facility] [address] [place] [address] Elizabeth Boo FNP Moderate persistent asthma without complication 01/23/[address] [address] Elizabeth Boo FNP Durable Medical Equipment 01/23/2025 Refill [facility] [address] [place] [address] Elizabeth Boo FNP Seasonal allergies 01/14/[address] [address] Elizabeth Boo FNP Nurse Triage 12/23/2024 Orders Only [facility] External Provider, [facility] 12/18/2024 2:30 PM EDT Telemedicine [address] [address] Elizabeth Boo FNP Congenital anomaly of vena cava (Primary Dx); Adrenal adenoma, right 12/18/2024 Travel 12/09/2024 Telephone [facility] [address] [place] [address] Elizabeth Boo FNP TC: MRI Results 11/26/[address] [address] Elizabeth Boo FNP Mixed hyperlipidemia from Last 3 Months Immunizations Immunization Administration [...] Procedure Name Priority Date/Time Associated Diagnosis Comments C-REACTIVE PROTEIN Routine 02/05/2025 3: 06 PM EST COMPREHENSIVE METABOLIC PANEL Routine 02/05/2025 3:06 PM EST SED RATE BY MODIFIED WESTERGREN Routine 02/05/2025 3:06 PM EST CBC WITH AUTO DIFFERENTIAL Routine 02/05/2025 3:06 PM EST US ABDOMEN COMPLETE Routine 12/23/2024 5 :23 [...] Recently Relevant to Health Maintenance Results * (ABNORMAL) CBC auto differential (02/05/2025 3:06 PM EST) White Blood Count 7.4 4.8 - 10.8 X10*3/uL [facility] Red Blood Count 4.97 4.20 - 5.50 X10*6/uL [facility] Hemoglobin 14.1 12.0 - 16.0 g/dl [facility] Hematocrit 43.7 37.0 - 47.0 % [facility] Mean Corpuscular Volume 87.9 80.0 - 98.0 fL [facility] Mean Corpuscular Hemoglobin 28.4 27.0 - 33.0 pg [facility] Mean Corpuscular HGB Conc 32.3 31.0 - 35.0 g/dl [facility] Red Cell Distribution Width 14.0 11.0 - 16.0 % [facility] Platelet Count 406(H) 160 - 400 X10*3/uL [facility] Mean Platelet Volume 9.6 9.4 - 12.3 fL [facility] Neutrophils Percent Auto 60.3 45 - 73 % [facility] Imm Gran Pct Auto 0.4 0.0 - 0.4 % [facility] Lymphocytes Percent Auto 27.0 20 - 40 % [facility] Monocytes Percent Auto 9.2 2 - 11 % [facility] Eosinophils Percent Auto 2.4 0 - 4 % [facility] Basophils Percent Auto 0.7 0 - 2 % [facility] NRBC Pct Auto 0.0 0.0 - 0.2 /100WBC [facility] Neutrophils Absolute Auto 4.5 2.0 - 8.3 x10*3/uL [facility] Imm Gran Abs Auto 0.03 0.00 - 0.03 X10*3/uL [facility] Lymphocytes Absolute Auto 2.0 1.2 - 4.9 X10*3/uL [facility] Monocytes Absolute Auto 0.7 0.1 - 1.2 X10*3/uL [facility] Eosinophils Absolute Auto 0.2 0.0 - 0.4 X10*3/uL [facility] Basophils Absolute Auto 0.1 0.0 - 0.2 X10*3/uL [facility] NRBC Abs Auto 0.000 0.0 - 0.012 X10*3/uL [facility] 02/05/2025 3:06 PM EST 02/05/2025 3:06 PM EST Generic External Data Provider LAB BLOOD ORDERAB LES Final Result Performing Organization Address [facility] Co de Phone Number [facility] [address] [place] [phone] * (ABNORMAL) Sed Rate by Modified Westergren (02/05/2025 3:06 PM EST) Erythrocyte Sedimentation Rate 32(H) 0 - 20 MM/HR [facility] Comment:Patients with polycy themia and many hemoglobin abnormalitiesmay have depressed sed rates whereas patients with anemiamay have elevated sed rates. 02/05/2025 3:06 PM EST 02/05/2025 3:06 PM EST Generic External Data Provider LAB BLOOD ORDERAB LES Final Result Performing Organization Address [facility] Co de Phone Number [facility] [address] [place] [phone] * (ABNORMAL) C-reactive Protein (02/05/2025 3:06 PM EST) C Reactive Protein 0.89(H) < or = 0.50 mg/dL [facility] 02/05/2025 3:06 PM EST 02/05/2025 3:06 PM EST us Generic External Data Provider LAB BLOOD ORDERAB LES Final Result Performing Organization Address City/[facility]/ZIP Co de Phone Number [facility] [address] [place] [address] [phone] * (ABNORMAL) Comprehensive Metabolic Panel (02/05/2025 3:06 PM EST) Sodium 141 135 - 145 mmol/L [facility] Potassium 3.8 3.3 - 5.1 mmol/L [facility] Chloride 105 96 - 108 mmol/L [facility] Carbon Dioxide 26 22 - 29 mmol/L [facility] Anion Gap 14 12 - 20 [facility] Urea Nitrogen (BUN) 6(L) 9 - 16 mg/dL [facility] Creatinine, Serum 0.56 0.5 - 1.4 mg/dL [facility] Estimated Glomerular Filt Rate >60 [facility] Comment:Chronic Kidney Disea se: Estimated GFR < 60 mL/min/1.37w4Jdvnwn Kidney Disease: Estimated GFR < 15 mL/min/1.73m2 Glucose 101 60 - 115 mg/dL [facility] Calcium 9.6 8.4 - 10.2 mg/dL [facility] Bilirubin, Total 0.6 0.0 - 1.0 mg/dL [facility] Aspartate Amino Transferase 93(H) 5 - 31 U/L [facility] Alanine Aminotransferase 86(H) 0 - 31 U/L [facility] Total Protein 7.9 6.5 - 8.0 g/dL [facility] Albumin Level 4.4 3.5 - 5.0 g/dL [facility] Alkaline Phosphatase 151(H) 39 - 117 U/L [facility] 02/05/2025 3:06 PM EST 02/05/2025 3:06 PM EST us Generic External Data Provider LAB BLOOD ORDERAB LES Final Result Performing Organization Address City/[facility]/ZIP Co de Phone Number [facility] [address] [place] [phone] * US Abdomen Complete (12/23/2024 5:23 PM EDT) Anatomical Region Laterality Modality Abdomen Ultrasound 12/23/2024 5:23 PM EDT Narrative 12/23/2024 5:24 PM EDT [address] [address] Ultrasound Report Signed Patient: Sobia Silva MR#: [id number] : 1970 Acct:[id number] Age/Sex: 54 / F ADM Date: 12/23/24 Loc: HO.US Attending Dr: Rekha EVERETT Ordering Physician: Rekha Longo Date of Service: 12/23/24 Procedure(s): US abdomen complete Accession Number(s): [id number] cc: Rekha Longo; Elizabeth Boo Reason for Exam: K75.81 - Nonalcoholic steatohepatitis (GONZALEZ) CLINICAL HISTORY: K75.81 - Nonalcoholic steatohepatitis (GONZALEZ) US abdomen complete Comparison: MR - MR ABDOMEN WO/W CON - 10/23/24 14:40 EDT US/TX/SR - US ABDOMEN COMPLETE WITH LIVER ELASTOGRAPHY [...] Alegre MD in OV> 12/23/24 1724 DD/ 22 TD/TT: 12/23/241722 Resident Care Aide: Procedure Note Donotuseinterpreter, Image - 12/23/[address] [address] Ultrasound Report Signed Patient: Fly Silva#: [id number] : 1970Acct:[id number] Age/Sex: 54 / FADM Date: 12/23/24 Loc: HO.US Attending Dr: Rekha EVERETT Ordering Physician: Rekha Longo Date of Service: 12/23/24 Procedure(s): US abdomen complete Accession Number(s): [id number] cc: Rekha Longo; Elizabeth Boo Reason for Exam: K75.81 - Nonalcoholic steatohepatitis (GONZALEZ) CLINICAL HISTORY: K75.81 - Nonalcoholic steatohepatitis (GONZALEZ) US abdomen complete Comparison: MR - MR ABDOMEN WO/W CON - 10/23/24 14:40 EDT US/TX/SR - US ABDOMEN COMPLETE WITH LIVER ELASTOGRAPHY [...] in OV> 12/23/241723 DD/ 22 TD/TT: 12/23/241722 Resident Care Aide: us [facility] External Provider IMG US PROCEDURES Final Result * BI US Breast Limited Right (09/30/2024 10:35 AM EDT) Anatomical Region Laterality Modality Breast Right Ultrasound 09/30/2024 10:3 5 AM EDT Narrative 09/30/2024 11:41 AM EDT [facility] [address] [place], [place] [address] Ultrasound Report Signed Patient: Sobia Silva MR#: [id number] : 1970 Acct:[id number] Age/Sex: 54 / F ADM Date: 09/30/24 Loc: HO.MAMMO Attending Dr: Elizabeth Boo FURNACE REPAIRER Ordering Physician: Elizabeth Boo Date of Service: 09/30/24 Procedure(s): US breast RT limited mamm only Accession Number(s): [id number] cc: Elizabeth Boo EXAMINATION: MM DIAGNOSTIC DIGITAL [...] 09/30/24 1138 DD/ 1035 TD/TT: 09/30/24 1100 Resident Care Aide: Procedure Note Donotuseinterpreter, Image - [facility]/30/[facility] [address] [place], [place] [address] Ultrasound Report Signed Patient: Nicolás SilvaR#: [id number] : 1970Acct:[id number] Age/Sex: 54 / FADM Date: 09/30/24 Loc: HO.MAMMO Attending Dr: Elizabeth Boo FURNACE REPAIRER Ordering Physician: Elizabeth Boo Date of Service: 09/30/24 Procedure(s): US breast RT limited mamm only Accession Number(s): [id number] cc: Elizabeth Boo EXAMINATION: MM DIAGNOSTIC DIGITAL [...] 09/30/24 1138 DD/ 1035 TD/TT: 09/30/24 1100 Resident Care Aide: us Elizabeth Boo FURNACE REPAIRER IMG US PROCEDURES Final Result * Hepatitis Panel, General (09/25/2024 9:11 AM EDT) Hepatitis A IgM Nonreactive Nonreactive [facility] Comment:IgM antibodies to DIMAS V not detected; does not exclude earlyacute or recovered HAV infection. ~Hepatitis B Surface Antibody NONREACTIVE Nonreactive [facility] Comment:Nonreactive: < 8.00 mIU/mL Hepatitis B Core Antibody Nonreactive Nonreactive [facility] Hepatitis C Antibody Nonreactive Nonreactive [facility] Comment:Antibodies to HCV no t detected; does not exclude early acuteHCV infection. Hepatitis B Surface Ag Negative Negative [facility] 09/25/2024 9:11 AM EDT 09/25/2024 9:11 AM EDT us Generic External Data Provider LAB BLOOD ORDERAB LES Final Result [facility] [address] [place] [phone] * Hemoglobin A1c (04/22/2024 11:48 AM EST) Hemoglobin A1c 5.9 <6.0 % [facility] Comment:Hemoglobin A1C Refer ence Range Adults: 4.8 - 6.0 % Non diabetic: < 6.0 % Goal: < 7.0 %Additional Action Suggested: > 8.0 %Note: Hemoglobin A1c results are invalid for patients with abnormal amounts of HbF. Blood transfusions may impact the HbA1c concentration in the patient sample. Estimated Average Glucose 123 mg/dL [facility] Comment:eAG = Estimated ave rage glucose which is %A1C expressed asaverage glucose, using the formula of the B8D-KifwcbzBeefrha Glucose study (ADAG), Diabetes Care, Vol.31,#8,Oct. 2007 Blood Venous blood specimen / Unknown 04/22/2024 11:48 AM EST 04/22/2024 2:10 [address] B[address] [facility] BLOOD ORDERABLES Final Res ult [facility] [address] [place] [phone] * (ABNORMAL) Lipid Panel, Standard (04/22/2024 11:48 AM EST) Triglycerides 113 <150 mg/dL [facility] Comment:Desirable Triglyceri de: less than 150 mg/dLBorderline High Triglyceride 150-199 mg/dLHigh Triglyceride: 200-499 mg/dLVery High Triglyceride: greater than or equal to 5OO mg/dL Cholesterol 107 <200 mg/dL [facility] Comment:Desirable Cholestero l: less than 200 mg/dLBorderline High Cholesterol: 200-239 mg/dLHigh Cholesterol: greater than 239 mg/dL LDL Cholesterol Calculated 53 <100 mg/dL [facility] Comment:Desirable LDL: less than 100 mg/dLNear Optimal/Above Optimal LDL: 110- 129 mg/dLBorderline High LDL: 130-159 mg/dLHigh LDL: 160-189 mg/dLVery High LDL: greater than or equal to 190 mg/dL HDL Cholesterol 32(L) >40 mg/dL [facility] Comment:Desirable HDL: great er than 40 mg/dL Note: This HDL assay may give artificially low results in patients with liver disease. Blood Venous blood specimen / Unknown 04/22/2024 11:48 AM EST 04/22/2024 2:10 PM EST Elizabeth Boo FURNACE REPAIRER LAB BLOOD ORDERABLES Final Res ult [facility] [address] [place] [address] [phone] * Pap Smear (02/27/2024 10:05 AM EST) Swab Cervix uteri structure / Unknown 02/27/2024 10:05 AM EST 02/28/2024 9:45 AM EST Narrative [facility] - 03/04/2024 4:03 PM EST ----- ------- Name: Sobia Silva Age/Sex: 53/F : 1970 Unit#: [id number] Attend Dr: Elizabeth Bautista MD Re02/28/24 Status: [facility] REF Location: [facility] Disch: ----- ------- SPEC : [id number] RECD: 02/28/24 STATUS: MARTHA BETH NUM: [id number] LILIBETH: 02/27/24-[address] [facility] [address]: Elizabeth Bautista MD ENTERED: 02/28/24-1023 SP TYPE: Pap Smr [facility] DR: ORDERED: Pap Smear Interpretation Satisfactory for [...] Bautista MD LAB CYTOLOGY ORDERABLES Final Result [facility] [address] [place] [phone] * HPV mRNA E6/E7 w/Reflex to HPV [...] Most Recently Relevant to Health Maintenance Insurance [facility] 65 Care Teams Battalion Chief Relationship Specialty Start Date End Date Elizabeth Boo FNP [address] [place] [phone] PCP - General Family Medicine 04/11/22 Pravin Guzman MD [address] [place] [address] Cardiology 04/23/24June [address] 3rd [place] [address] Gastroenterology 04/23/24 Josiane Smith MD [address] [place] [address] Rheumatology 04/23/24
--- OUTSIDE RECORDS SUMMARY | 2025-02-06 01:40 | XMS_ITS | Encounter Summary ---
Author Organization [employer] Address [address] [facility] 7t [place] [address] Care Team Providers Care Tennis Coach Name Role Phone Elizabeth Boo Primary Care Provider [phone] Pravin Guzman MD Unavailable [phone] June Unavailable Josiane Smith MD Unavailable Reason for Visit * Reason Onset Date Comments Appointment Request 08/10/2023 Encounter Details Date Type Department Care Team (Late st Contact Info) Description 08/10/2023 Telephone [facility] [address] [place] [address] Elizabeth Boo FNP [address] [place], [place] [phone] Appointment Request Social History Tobacco Use Types [...] report she had colonoscopy done today at [facility] and was advised to follow up with pcp. Please contact pt at [phone]. Romansh Speaker documented in this encounter Plan of Treatment Not on file documented as of this encounter Visit Diagnoses Not on filedocumented in this encounter Additional Health Concerns Assessment Noted Time PHQ-9 Depression Total Score: 21 023 8:12 AM EDT documented as of this encounter Care Teams Tennis Coach Relationship Specialty Start Date End Date Elizabeth Boo FNP [address] [place] [address] PCP - General Family Medicine 04/11/22 Pravin Guzman MD [address] [place] [address] Cardiology 04/23/24June [address] [facility] 3rd [place] [address] Gastroenterology 04/23/24 Josiane Smith MD [address] [place] [address] Rheumatology 04/23/24 documented as of this encounter
--- OUTSIDE RECORDS SUMMARY | 2025-02-06 01:40 | XMS_ITS | Encounter Summary ---
Author Organization [employer] Address [address] [facility] 7t [place] [address] Care Team Providers Care Medical Office Supervisor Name Role Phone Elizabeth Boo Primary Care Provider [phone] Pravin Guzman MD Unavailable [phone] June Unavailable Josiane Smith MD Unavailable Reason for Visit * Reason Comments Med Refill Encounter Details Date Type Department Care Team (Late st Contact Info) Description 04/29/2024 Refill [facility] [address] [place], [place] [phone] Elizabeth Boo FNP [address] [place], [place] [phone] Periodic limb movement disorder Social History Tobacco [...] as of this encounter Care Teams Medical Office Supervisor Relationship Specialty Start Date End Date Elizabeth Boo FNP [address] [place] [address] PCP - General Family Medicine 04/11/22 Pravin Guzman MD [address] [place] [address] Cardiology 04/23/24June [address]rd [place] [address] Gastroenterology 04/23/24 Josiane Smith MD [address] [place] [address] Rheumatology 04/23/24 documented as of this encounter
--- OUTSIDE RECORDS SUMMARY | 2025-02-06 01:40 | XMS_ITS | Encounter Summary ---
Author Organization [employer] Address [address] [facility] 7t [place] [address] Care Team Providers Care Tar Pot Man Name Role Phone Elizabeth Boo Primary Care Provider [phone] Pravin Guzman MD Unavailable [phone] June Unavailable Josiane Smith MD Unavailable Reason for Visit * Reason Onset Date Comments Nurse Triage 09/30/2024 Encounter Details Date Type Department Care Team (Late st Contact Info) Description 09/30/2024 Telephone [facility] MEDICINE [address] [place] [address] Elizabeth Boo FNP [address] [place], [place] [phone] Nurse Triage Social History Tobacco Use Types [...] 09/30/2024 12:30 PM EDT Triage call with [facility] [place] [id number],Olla Pt reports started with a fever of 99.8 yesterday, cough and some sob at times today. Pt tested negfor Covid. Pt has been drinking adequate liquids, taking tylenol as needed and resting. Pt is offered an INSted visit with [facility] insurance but, declines and will call [...] higher acuity questions Please contact pt at [phone]. (Lebanese Speaker) documented in this encounter Plan of Treatment Not on file documented as of this encounter Visit Diagnoses Not on filedocumented in this encounter Additional Health Concerns Assessment Noted Time PHQ-9 Depression Total Score: 21 025 10:36 AM EST documented as of this encounter Care Teams Tar Pot Man Relationship Specialty Start Date End Date Elizabeth Boo FNP [address] [place] [address] PCP - General Family Medicine 04/11/22 Praivn Guzman MD [address] [place] [address] Cardiology 04/23/24June [address]rd [place] [address] Gastroenterology 04/23/24 Josiane Smith MD [address] [place] [address] Rheumatology 04/23/24 documented as of this encounter
--- OUTSIDE RECORDS SUMMARY | 2025-02-06 01:40 | XMS_ITS | Encounter Summary ---
Author Organization [employer] Address [address] [facility] 7t [place] [address] Care Team Providers Care Hazardous Materials Handler Name Role Phone Elizabeth Boo Primary Care Provider [phone] Pravin Guzman MD Unavailable [phone] June Unavailable Josiane Smith MD Unavailable Reason for Visit * Reason Comments Med Refill Encounter Details Date Type Department Care Team (Late st Contact Info) Description 10/27/2022 Refill [facility] MEDICINE [address] [place] [address] Elizabeth Boo FNP [address] [place], [place] [phone] Social History Tobacco Use Types Packs/Day Years [...] documented as of this encounter Care Teams Hazardous Materials Handler Relationship Specialty Start Date End Date Elizabeth Boo FNP [address] [place] [address] PCP - General Family Medicine 04/11/22 Pravin Guzman MD [address] [place] [address] Cardiology 04/23/[address] 3rd [place] [address] Gastroenterology 04/23/24 Josiane Smith MD [address] [place] [address] Rheumatology 04/23/24 documented as of this encounter
--- OUTSIDE RECORDS SUMMARY | 2025-02-06 01:40 | XMS_ITS | Encounter Summary ---
Author Organization [employer] Address [address] [facility] 7t [place] [address] Care Team Providers Care Hamper Maker Machine Name Role Phone Elizabeth Boo Primary Care Provider [phone] Pravin Guzman MD Unavailable [phone] June Unavailable Josiane Smith MD Unavailable Reason for Visit * Reason Onset Date Comments Appointment 11/30/2022 Encounter Details Date Type Department Care Team (Late st Contact Info) Description 11/30/2022 Telephone [facility] D[facility]AL [address] [place], [place] [phone] Costa Ackerman DDS [address] [place], [place] [phone] Appointment Social History Tobacco Use Types Packs/Day [...] documented as of this encounter Care Teams Hamper Maker Machine Relationship Specialty Start Date End Date Elizabeth Boo FNP [address] [place] [address] PCP - General Family Medicine 04/11/22 Pravin Guzman MD [address] [place] [address] Cardiology 04/23/24[address] 3rd [place] [address] Gastroenterology 04/23/24 Josiane Smith MD [address] [place] [address] Rheumatology 04/23/24 documented as of this encounter
--- OUTSIDE RECORDS SUMMARY | 2025-02-06 01:40 | XMS_ITS | Encounter Summary ---
Author Organization [employer] Address [address] [facility] [address] 7t [place] [address] Care Team Providers Care Elementary School Registrar Name Role Phone Elizabeth Boo Primary Care Provider [phone] Pravin Guzman MD Unavailable [phone] June Unavailable Josiane Smith MD Unavailable Encounter Details Date Type Department Care Team (Late st Contact Info) Description 02/05/2025 Orders Only GENERIC EXTERNAL DATA DEPARTMENT Provider, Generic External Data Social History Tobacco Use Types Packs/Day Years [...] Procedure Name Priority Date/Time Associated Diagnosis Comments CBC WITH AUTO DIFFERENTIAL Routine 02/05/2025 3:06 PM EST SED RATE BY MODIFIED WESTERGREN Routine 02/05/2025 3:06 PM EST C-REACTIVE PROTEIN Routine 02/05/2025 3: 06 PM EST COMPREHENSIVE METABOLIC PANEL Routine 02/05/2025 3:06 PM EST documented in this encounter Results * (ABNORMAL) C-reactive Protein (02/05/2025 3:06 PM EST) C Reactive Protein 0.89(H) < or = 0.50 mg/dL [facility] 02/05/2025 3:06 PM EST 02/05/2025 3:06 PM EST us Generic External Data Provider LAB BLOOD ORDERAB LES Final Result [facility] [address] [place] [phone] * (ABNORMAL) Comprehensive Metabolic Panel (02/05/2025 3:06 PM EST) Sodium 141 135 - 145 mmol/L [facility] Potassium 3.8 3.3 - 5.1 mmol/L [facility] Chloride 105 96 - 108 mmol/L [facility] Carbon Dioxide 26 22 - 29 mmol/L [facility] Anion Gap 14 12 - 20 [facility] Urea Nitrogen (BUN) 6(L) 9 - 16 mg/dL [facility] Creatinine, Serum 0.56 0.5 - 1.4 mg/dL [facility] Estimated Glomerular Filt Rate >60 [facility] Comment:Chronic Kidney Disea se: Estimated GFR < 60 mL/min/1.57r1Imaxck Kidney Disease: Estimated GFR < 15 mL/min/1.73m2 Glucose 101 60 - 115 mg/dL [facility] Calcium 9.6 8.4 - 10.2 mg/dL [facility] Bilirubin, Total 0.6 0.0 - 1.0 mg/dL [facility] Aspartate Amino Transferase 93(H) 5 - 31 U/L [facility] Alanine Aminotransferase 86(H) 0 - 31 U/L [facility] Total Protein 7.9 6.5 - 8.0 g/dL [facility] Albumin Level 4.4 3.5 - 5.0 g/dL [facility] Alkaline Phosphatase 151(H) 39 - 117 U/L [facility] 02/05/2025 3:06 PM EST 02/05/2025 3:06 PM EST Generic External Data Provider LAB BLOOD ORDERAB LES Final Result [facility] [address] [place], [place] [phone] * (ABNORMAL) Sed Rate by Modified Jeramy (02/05/2025 3:06 PM EST) Erythrocyte Sedimentation Rate 32(H) 0 - 20 MM/HR [facility] Comment:Patients with polycy themia and many hemoglobin abnormalitiesmay have depressed sed rates whereas patients with anemiamay have elevated sed rates. 02/05/2025 3:06 PM EST 02/05/2025 3:06 PM EST us Generic External Data Provider LAB BLOOD ORDERAB LES Final Result [facility] [address] [place], [place] [phone] * (ABNORMAL) CBC auto differential (02/05/2025 3:06 PM EST) White Blood Count 7.4 4.8 - 10.8 X10*3/uL [facility] Red Blood Count 4.97 4.20 - 5.50 X10*6/uL [facility] Hemoglobin 14.1 12.0 - 16.0 g/dl [facility] Hematocrit 43.7 37.0 - 47.0 % [facility] Mean Corpuscular Volume 87.9 80.0 - 98.0 fL [facility] Mean Corpuscular Hemoglobin 28.4 27.0 - 33.0 pg [facility] Mean Corpuscular HGB Conc 32.3 31.0 - 35.0 g/dl [facility] Red Cell Distribution Width 14.0 11.0 - 16.0 % [facility] Platelet Count 406(H) 160 - 400 X10*3/uL [facility] Mean Platelet Volume 9.6 9.4 - 12.3 fL [facility] Neutrophils Percent Auto 60.3 45 - 73 % [facility] Imm Gran Pct Auto 0.4 0.0 - 0.4 % [facility] Lymphocytes Percent Auto 27.0 20 - 40 % [facility] Monocytes Percent Auto 9.2 2 - 11 % [facility] Eosinophils Percent Auto 2.4 0 - 4 % [facility] Basophils Percent Auto 0.7 0 - 2 % [facility] NRBC Pct Auto 0.0 0.0 - 0.2 /100WBC [facility] Neutrophils Absolute Auto 4.5 2.0 - 8.3 x10*3/uL [facility] Imm Gran Abs Auto 0.03 0.00 - 0.03 X10*3/uL [facility] Lymphocytes Absolute Auto 2.0 1.2 - 4.9 X10*3/uL [facility] Monocytes Absolute Auto 0.7 0.1 - 1.2 X10*3/uL [facility] Eosinophils Absolute Auto 0.2 0.0 - 0.4 X10*3/uL [facility] Basophils Absolute Auto 0.1 0.0 - 0.2 X10*3/uL [facility] NRBC Abs Auto 0.000 0.0 - 0.012 X10*3/uL [facility] 02/05/2025 3:06 PM EST 02/05/2025 3:06 PM EST us Generic External Data Provider LAB BLOOD ORDERAB LES Final Result Performing Organization Address City/State/[facility] Co de Phone Number [facility] [address] [place] [address] [phone] documented in this encounter Visit Diagnoses Not on filedocumented in this encounter Additional Health Concerns Assessment Noted Time PHQ-9 Depression Total Score: 21 025 10:36 AM EST documented as of this encounter Care Teams Elementary School Registrar Relationship Specialty Start Date End Date Elizabeth Boo FNP [address] [place] [address] PCP - General Family Medicine 04/11/22 Pravin Guzman MD [address] [place] [address] Cardiology 04/23/24[address] 3rd [place] [address] Gastroenterology 04/23/24 Josiane Smith MD [address] [place] [address] Rheumatology 04/23/24 documented as of this encounter
--- OUTSIDE RECORDS SUMMARY | 2025-02-06 01:40 | XMS_ITS | Encounter Summary ---
Author Organization [employer] Address [address] [facility] 7t [place] [address] Care Team Providers Care Film Loader Name Role Phone Elizabeth Boo Primary Care Provider [phone] Pravin Guzman MD Unavailable [phone] June Unavailable Josiane Smith MD Unavailable Reason for Visit * Reason Onset Date Comments Durable Medical Equipment 02/05/2025 Encounter Details Date Type Department Care Team (Late st Contact Info) Description 02/05/2025 Telephone [facility] MEDICINE [address] [place] [address] Elizabeth Boo FNP [address] [place], [place] [phone] Durable Medical Equipment Social History Tobacco Use Types Packs/Day Years [...] encounter Miscellaneous Notes * Telephone Encounter - Pierce Kim - 02/05/2025 3:33 PM EST Tc from pt requesting DME Recliner chair [place] [address] documented in this encounter Plan of Treatment Not on file documented as of this encounter Visit Diagnoses Not on filedocumented in this encounter Additional Health Concerns Assessment Noted Time PHQ-9 Depression Total Score: 21 025 10:36 AM EST documented as of this encounter Care Teams Film Loader Relationship Specialty Start Date End Date Elizabeth Boo FNP [address] [place] [address] PCP - General Family Medicine 04/11/22 Pravin Guzman MD [address] [place] [address] Cardiology 04/23/24June [address] 3rd [place] [address] Gastroenterology 04/23/24 Josiane Smith MD [address] [place] [address] Rheumatology 04/23/24 documented as of this encounter
--- OUTSIDE RECORDS SUMMARY | 2025-02-06 01:41 | XMS_ITS | Encounter Summary ---
Author Organization [facility] Address [address] [place] [address] Phone Care Team Providers Care Construction Equipment Overhauler Name Role Phone Unknown, Unknown Primary Care Provider Norman lo Encounter Details Date Type Department Care Team (Late st Contact Info) Description 10/18/2017 Ancillary Orders [facility] [address] [place] [address] 3rd Floor, [address] [place] [address] Patricia Ward PA [address] [place] [address] Social History Tobacco Use Types Packs/Day Years [...] on filedocumented in this encounter Care Teams Construction Equipment Overhauler Relationship Specialty Start Date End Date Unknown, Unknown, PCP - General 10/17/17 documented as of this encounter Additional Source Comments The information contained in this document represents components of the legal health record. It is not the complete legal health record.[facility]
--- OUTSIDE RECORDS SUMMARY | 2025-02-06 01:41 | XMS_ITS | Encounter Summary ---
Author Organization [employer] Address [address] [facility] 7t [place] [address] Care Team Providers Care Veterans Service Officer Name Role Phone Elizabeth Boo Primary Care Provider [phone] Pravin Guzman MD Unavailable [phone] June Unavailable Josiane Smith MD Unavailable Encounter Details Date Type Department Care Team (Late st Contact Info) Description 07/16/2024 Orders Only [facility] [address] [place] [address] Marian Pitts Social History Tobacco Use Types [...] documented as of this encounter Care Teams Veterans Service Officer Relationship Specialty Start Date End Date Elizabeth Boo FNP [address] [place] [address] PCP - General Family Medicine 04/11/22 Pravin Guzman MD [address] [place] [address] Cardiology 04/23/24[address] 3rd [place] [address] Gastroenterology 04/23/24 Josiane Smith MD [address] [place] [address] Drive [address] [place] [address] Rheumatology 04/23/24 documented as of this encounter
--- OUTSIDE RECORDS SUMMARY | 2025-02-06 01:41 | XMS_ITS | Data Portability ---
Author Organization [employer] [facility] Address [address] [place] [address] Care Team Providers Care Project Management Director Name Role Phone HIM [facility] OTHER Unavailable OTHER Assessment Encounter Date Assessment Date Assessment LastModified by Organization Details LastModified Time 12/08/2023 12/08/2023 I provided real -time medical direction via phone for this encounter, and was available for additional phone based assistance as needed. I have reviewed and agree with the Assessment and Plan as documented by the Hha. We discussed the diagnostic uncertainty of home [...] to call 911- verbalized understanding of instruction Not available 12/08/2023 12:39:33 Plan of Treatment Reminders Order Date Submit Date Provider Last Modified By Organization Details Last Modified Time Details Appointments None recorded. Lab None recorded. Referral None recorded. Procedures None recorded. Surgeries None recorded. Imaging None recorded. Medication Orders benzonatate 200 mg capsule 2023 024 [facility], [address] [place] [address], [phone], 5 17:44:34 Tessalon Perles 100 mg capsule 2023 024 [facility], [address] [place], [place], [id number], 4 18:02:28 Patient TargetsNo targets recorded. Patient InstructionsNo instructions recorded. Reason for Referral None Reported. Medical Equipment None Reported. Allergies Allergen ID Allergen Name Allergen Category Reaction Reaction Severity Criticality Documentation Date Start Date Code Code System Note Provider Name and Address Organization Details Recorded Time 6290 Celexa medicatio n Not available Not available Not available 12/09/2023 56817 8 RxNorm Renea Cortés MD [address] [place] [address],[address], [place], [phone], [employer] 4 13:07:20 6291 oxybutyni n medicatio n Not available Not available Not available 12/09/2023 20008 RxNorm Renea Cortés MD [address] [place] [address],[address], [place], [phone], [employer] 4 13:07:27 6292 niacin medicatio n Not available Not available Not available 12/09/2023 7393 RxNorm Renea Cortés MD [address] [place] [address],[address], [place], [address], [employer] 4 13:07:35 6293 citalopra m medicatio n Not available Not available Not available 12/09/2023 2556 RxNorm Renea Cortés MD [address] [place] [address],[address], [place], [address], [employer] 4 13:07:50 6294 diltiazem Not available Not available Not available Not available 12/09/2023 3443 RxNorm Not Available [employer] - production 4 03:40:07 Medications Name Sig Start Date Stop Date Status Note LastModified by Organization Details LastModified Time medbox status USE DIRECTED active Not Available Not Available No t Available oximeter pulse vw spo2 [id number] usar TO Compro[employer] el nivel de oxgeno [...] /min 154.94 cm 74 /min 97.2 [degF] 47069.6 g 97 % 97 % 118/77 mm[Hg] Not Available [employer] 4 10:53:12 Date Recorded Oxygen saturation Oxygen saturation in Arterial blood by Pulse oximetry Respiratory rate Heart rate Body weight Body temperature Systolic And Diastolic Provider Name and Address Organization Details Last Updated DateTime 4 99 % 99 % 16 /min 78 /min 51410.3 36 g 97.9 [degF] 112/72 mm[Hg] Not Available [employer] 4 12:34:03 Social History None recorded. Functional [...] Note Tim Fields MD Main - [facility] [address] [place] [phone] 05/16/2023 10:53:07 05/17/2023 17:21:08 Viral upper respiratory tract infection [id number] J06.9 This 53-year-ol d female has had a cough and congestion for four days. Her COVID-19, flu, and strep screens were negative. I called in a prescripti on for Dean Carter. She will follow-up with her PCP. The patient agreed with this plan. [id number] Renea Cortés MD Main - [facility] [address] [place] [address] 12/08/2023 12:34:00 12/09/2023 15:48:47 Acute COVID-19 [id number] U07.1 We reviewed the risks/ benefits and [...] on. Verified allergies and that she uses [facility] pharmacy-d enies history of CKD-carminehiurszula g listed in PCP note Health Concerns Section Related Observation LastModified by Organization Detai ls LastModified Time None Recorded Concern Status LastModified by Organization Details LastModified Time None Recorded Advance Directives Directive None Recorded Payers Insurance Date Sequence Insurance Name Policy Number Policy Garcia Covered Member ID Garcia Member ID Guarantor Name 02/01/2025 1 [facility] - DOS ON OR AFTER 2022 - DUAL ELIGIBLE - [facility] OPTIONS AND ONE CARE (MEDICARE REPLACEMENT/ADV ANTAGE - HMO) Sobia Mendez [id number] Sobia Mendez Notes Date Note Type Note [...] required to process visit. Tim Fields MD [address] [place] [address],[address], [place], [phone] [employer] 05/16/2023 10:57:35 12/08/19 24 text/htm l ROS [...] h/o asthma ................................ ................................ ................................ ................................ ............. Hha Note From Steve Carpenter: Pt Covid positive [...] pt eating and drinking fluids. Declines paxlovid. [facility] contacted and RX for benzonatate called in. Pt education on signs indicating the ER. Pt advised to follow up with pcp if symptoms persist. Hha Allergies: Diltiazem ................................ ................................ ................................ ................................ ............. [...] substances Renea Cortés MD [address] [facility],[address], [place], [address], [employer] 12/09/2023 13:08:39 OBGyn Episode No OBEpisode recorded.
--- OUTSIDE RECORDS SUMMARY | 2025-02-06 01:41 | XMS_ITS | Encounter Summary ---
Author Organization [facility] Address [address] [facility] [address] [place] [address] Phone Care Team Providers Care Laborer Wharf Name Role Phone Unknown, Unknown Primary Care Provider Norman lo Encounter Details Date Type Department Care Team (Late st Contact Info) Description 01/25/2018 Ancillary Orders [facility] [address] [place] [address] Pravin Guzman, DO [address] [place] [address] Tachycardia Social History Tobacco Use Types Packs/Day [...] tachycardia documented in this encounter Care Teams Laborer Wharf Relationship Specialty Start Date End Date Unknown, Unknown, PCP - General 10/17/17 documented as of this encounter Additional Source Comments The information contained in this document represents components of the legal health record. It is not the complete legal health record.[facility]
--- OUTSIDE RECORDS SUMMARY | 2025-02-06 01:41 | XMS_ITS | Clinical Summary ---
Author Organization [facility] Address [address] [place] [address] [place], [place] [phone] Phone Care Team Providers Care Asbestos Abatement Technician Name Role Phone Unknown, Unknown Primary Care [...] file Medical Devices Not on file Insurance [facility] ONE CARE MEDICARE REPLACEMENT [place]DR[place]OS [id number] [facility] MEDICARE [place] [address] [place] [address] MEDICARE REPLACEMENT [facility] MEDICARE REPLACEMENT [facility] CARE MEDICARE REPLACEMENT Member Subscriber Plan / Payer (Ef fective 2017-Present) Name:Sobia Mendez Relation to Subscriber:Self Name:Sobia Mendez Payer ID:[id number] (NAIC) Group ID:Not on file Type:Medicare Address: [address] [place]DR[place] [facility] CARE MEDICARE REPLACEMENT Care Teams Asbestos Abatement Technician Relationship Specialty Start Date End Date Unknown, Unknown, PCP - General 10/17/17 Additional Source Comments The information contained in this document represents components of the legal health record. It is not the complete legal health record.[facility]
--- OUTSIDE RECORDS SUMMARY | 2025-02-06 01:41 | XMS_ITS | Encounter Summary ---
Author Organization [employer] [facility] Address [address] [facility] [address] [place] [address] Phone Care Team Providers Care Construction Scheduler Name Role Phone Unknown, Unknown Primary Care Provider Norman lo Encounter Details Date Type Department Care Team (Late st Contact Info) Description 10/18/2017 Ancillary Orders [facility] [address] [place] [address] [place] [address] Patricia Ward PA [address] [place] [address] Palpitations Social History Tobacco Use Types Packs/Day [...] Palpitations documented in this encounter Care Teams Construction Scheduler Relationship Specialty Start Date End Date Unknown, Unknown, PCP - General 10/17/17 documented as of this encounter Additional Source Comments The information contained in this document represents components of the legal health record. It is not the complete legal health record.[facility]
== END 2025-02-05 15:02 | disposition home or self-care (01) ==
LOC: HO.RHES 13:39
PROVIDERS: PCP Registered Nurse; Visit Provider Student in an Organized Health Care Education/Training Program
DX: M06.09 Rheumatoid arthritis without rheumatoid factor, multiple sites (principal); M15.9 Polyosteoarthritis, unspecified; Z51.81 Encounter for therapeutic drug level monitoring; Z79.620 Long term (current) use of immunosuppressive biologic
CPT/HCPCS: 99214; G2211

== ENCOUNTER 2025-02-05 13:38 | Outpatient (REF) | payer OTHER, SELFPAY ==
[2025-02-05 15:07] LABS: MANUAL DIFF FLAG NO
[2025-02-05 18:59] LABS: Hematocrit 43.7 % (37.0-47.0); Hemoglobin 14.1 g/dl (12.0-16.0); Imm Gran Abs Auto 0.03 X10*3/uL (0.00-0.03); Imm Gran Pct Auto 0.4 % (0.0-0.4); Lymphocytes Absolute Auto 2.0 X10*3/uL (1.2-4.9); Mean Corpuscular HGB Conc 32.3 g/dl (31.0-35.0); Mean Corpuscular Hemoglobin 28.4 pg (27.0-33.0); Mean Corpuscular Volume 87.9 fL (80.0-98.0); NRBC Abs Auto 0.000 X10*3/uL (0.0-0.012); NRBC Pct Auto 0.0 /100WBC (0.0-0.2); Platelet Count 406 X10*3/uL (160-400); Red Blood Count 4.97 X10*6/uL (4.20-5.50); White Blood Count 7.4 X10*3/uL (4.8-10.8)
[2025-02-05 20:00] LABS: Alanine Aminotransferase 86 U/L (0-31); Albumin Level 4.4 g/dL (3.5-5.0); Alkaline Phosphatase 151 U/L (39-117); Anion Gap 14 (12-20); Aspartate Amino Transferase 93 U/L (5-31); Blood Urea Nitrogen 6 mg/dL (9-16); Calcium 9.6 mg/dL (8.4-10.2); Carbon Dioxide 26 mmol/L (22-29); Chloride 105 mmol/L (96-108); Estimated Glomerular Filt Rate > 60; Potassium 3.8 mmol/L (3.3-5.1); Sodium 141 mmol/L (135-145); Total Protein 7.9 g/dL (6.5-8.0)
== END 2025-02-05 13:39 | disposition home or self-care (01) ==
LOC: HO.HKASLDS 13:38
PROVIDERS: PCP Registered Nurse; Visit Provider Student in an Organized Health Care Education/Training Program
DX: M06.09 Rheumatoid arthritis without rheumatoid factor, multiple sites (principal); M15.9 Polyosteoarthritis, unspecified; Z51.81 Encounter for therapeutic drug level monitoring; Z79.899 Other long term (current) drug therapy; Z79.620 Long term (current) use of immunosuppressive biologic
CPT/HCPCS: 36415; 80053; 85025; 85652; 86140; 99212